=== PATIENT | female | born 1955 | race Caucasian/White ===

== ENCOUNTER 2022-06-03 14:04 | Inpatient (IN) | payer MEDICARE, SELFPAY ==
[2022-06-03 14:06] VITALS: BP 133/110; PULSE 123; RESP 24; TEMP 36.2; O2SAT 99; BMI 28.0
--- NOTE | 2022-06-03 14:39 | CT_ITS ---
STUDY: CT BRAIN WITHOUT CONTRAST REASON FOR EXAM: Female, 66 years old. Right facial trauma RADIATION DOSAGE (If Supplied By Facility): CTDIvol = ( 44.99 ) mGy, DLP = ( 745.49 ) mGycm TECHNIQUE: Transaxial CT imaging of the brain was performed without administration of intravenous contrast material. Individualized dose optimization techniques were used for this CT. COMPARISON: No relevant priors. FINDINGS: Normal soft tissue structures. Normal calvarium. Normal size ventricles and extra-axial spaces for the patient''s age. Normal white matter tracts of the cerebral hemispheres. Normal basal ganglia and thalami. Normal brainstem. Normal cerebellum. There is no intracranial hemorrhage. There are no findings of an acute ischemic infarction. Normal visualized paranasal sinuses. CT/Brain/Head without Contrast IMPRESSION: Normal unenhanced CT scan of the brain. Electronically Signed: Jeovany Rich MD at 17:20 EST ,
--- NOTE | 2022-06-03 14:39 | EKG12_ITS ---
Test Reason : Blood Pressure : / mmHG Vent. Rate : 114 BPM Atrial Rate : 114 BPM P-R Int : 114 ms QRS Dur : 052 ms QT Int : 336 ms P-R-T Axes : 043 009 025 degrees QTc Int : 463 ms Sinus tachycardia Low voltage QRS Cannot rule out Anterior infarct , age undetermined Abnormal ECG When compared with ECG of 24-OCT-2014 05:37, No significant change was found Confirmed by LOTTIE MURRAY, LARRY ([id number]), offline editor YVETTE WITT ([id number]) on 06/08/2022 7:56:19 AM Referred By: Confirmed By:LARRY TAFOYA MD
--- NOTE | 2022-06-03 14:39 | CT_ITS ---
STUDY: CT ABDOMEN AND PELVIS WITH CONTRAST REASON FOR EXAM: Female, 66 years old. Abdominal ascites RADIATION DOSAGE (If Supplied By Facility): CTDIvol = ( 29.55 ) mGy, DLP = ( 1792.63 ) mGycm TECHNIQUE: Transaxial images were obtained from the dome of the diaphragm to the symphysis pubis without oral contrast. IV 100mL Isovue-300 was administered. Sagittal and coronal images were reconstructed. Individualized dose optimization techniques were used for this CT. COMPARISON: None. FINDINGS: The visualized lung bases are unremarkable. The visualized portions of the heart are within normal limits. Large amount of ascites. There is a diffuse contour abnormality of the liver consistent with cirrhotic changes. Innumerable small subcentimeter lesions likely consistent with cysts. Normal gallbladder and extrahepatic biliary system. Normal spleen. Normal pancreas. Normal bilateral adrenal glands. Normal right kidney. 2 small nonobstructing stones in the left kidney. No hydronephrosis, ureteral stone, ureteral dilatation. Normal visualized stomach. Normal small intestine. Normal colon. The appendix is visualized and appears normal. Normal abdominal aorta. Normal inferior vena cava. Normal retroperitoneum. Normal urinary bladder. Edema of the subcutaneous fat suggestive of anasarca. Chronic moderate wedge compression fracture of L3. CT/Abdomen/Pelvis W IV Cont ONLY IMPRESSION: 1. Volume overload with a large amount of ascites and anasarca. 2. Cirrhosis with innumerable small cysts. 3. 2. Small nonobstructing left renal stones. Electronically Signed: Jeovany Rich MD at 17:37 EST ,
--- NOTE | 2022-06-03 14:42 | ED.VIS.GI ---
HPI HPI - GI History of Present Illness Chief Complaint: Abd Pain Detail of Chief Complaint: Also fall today, weakness, head trauma and abdominal ascites. 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 She sees Dr. Barker. She saw his office in March she was having abdominal ascites and leg swelling. They put her on Lasix. Today abdominal ultrasound was being obtained and an echocardiogram. Before she gets to this morning she fell down due to weakness striking the right side of her face. No LOC and reportedly not on blood thinners now. She did have the abdominal ultrasound did not have the echo because while waiting for that she was so weak she was having trouble walking and family wanted to come into the ER to be evaluated. She has had some loose stools but no vomiting or diarrhea. She is also complaining of some shortness of breath without chest pain. Prior similar symptoms: No Recent Illness/Hospitalization: No [facility] Medical History (Updated 06/03/22 @ 16:[address] Leandro Quezada MD) Fracture, tibia and fibula Orthodontic device fitting or adjustment Home Medications furosemide 20 mg tablet 10 mg PO DAILY EDEMA 06/03/22 [History Last Taken 06/03/22] levothyroxine 75 mcg tablet 75 mcg PO DAILY THYROID 06/03/22 [History Last Taken Unknown] Allergy/AdvReac Type Severity Reaction Status Date / Time No Known Allergies Allergy Verified 06/03/22 14:06 Social History Smoking Status: Never smoker ROS ROS ED ROS Narrative Abdominal swelling. Shortness of breath. Fall with head trauma. Leg swelling bilaterally. Review of Systems ROS Unobtainable: Denies due to encephalopathy Constitutional Constitutional ED: Denies chills or fever(s) ENT ENT ED: Denies ear pain Cardiovascular Cardiovascular: Denies chest pain or palpitations Respiratory/Chest Respiratory/Chest: Reports dyspnea; Denies cough Gastrointestinal Gastrointestinal: Reports abdominal pain and diarrhea; Denies constipation, melena, nausea or vomiting Genitourinary Genitourinary ED: Denies dysuria or hematuria Musculoskeletal Musculoskeletal: Denies arthralgias Integumentary Denies abscess Neurologic Neurologic: Denies headache(s) Psychiatric Psychiatric: Denies anxiety Endocrine Endocrinology: Denies polydipsia Hematologic/Lymphatic Hematologic/Lymphatic: Denies easy bleeding Allergic/Immunologic Allergic/Immunologic ED: Denies mouth swelling or tongue swelling EXAM Physical Exam Narrative Exam Narrative: [id number] female vital signs stable afebrile. Pulse ox 9 9% on room air no signs hypoxia. No distress. Family at bedside. H EENT exam pupils round reactive light his motions are intact. She has abrasion to her right forehead and right face in the fall today. Scalp is nontender. C-spine trachea nontender. Lungs clear to auscultation bilaterally. Heart tachycardic rate about 120 no murmur. Chest wall nontender. Abdomen is soft, distended with ascites. No peritoneal signs. Normal bowel sounds. Pelvic girdle intact. Moving all 4 extremities. Edema both lower extremities. 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 Normal dorsi plantar flexion. Extremities are nontender no deformities. Back nontender. Neurologically she is awake and alert with no focal motor deficits. Const Vital Signs: 06/03/22 14:06 06/03/22 16:16 Temperature 97.1 F L Temperature Source Temporal Pulse Rate 123 H 113 H Respiratory Rate 24 H 18 Blood Pressure 133/110 H 115/90 H Blood Pressure Mean 117 98 Pulse Ox 99 93 Oxygen Delivery Method Room Air Room Air Positive well nourished, well developed and obese; Negative for cachectic, contractures or unkempt General Appearance ED: well developed and NAD; Negative for unkempt, cachectic, contractures or pallor Nutritional Appearance: obese; Negative for cachectic HEENT Reports moist mucous membranes normocephalic and trauma; Negative for atraumatic or tenderness Eyes PERRL and EOMs intact bilaterally General Eye ED: Negative for pale conjunctiva or scleral icterus Neck no lymphadenopathy, supple and no JVD General: Negative for tenderness Carotids: Negative for other Lymph Lymphatic: Negative for other Resp normal respiratory effort and clear to auscultation bilaterally Effort and Inspection: Negative for respiratory distress Auscultation: Negative for rales, rhonchi or wheezes Cardio regular rhythm, S1 normal heart sound and S2 normal heart sound; Negative for regular rate Rate: tachycardic GI non-tender, non-distended and no masses GI Narrative: Abdominal ascites. Auscultation: normoactive bowel sounds Palpation: soft; Negative for tender Back/Spine no CVA tenderness General Back: Negative for CVA tenderness Cervical Spine: Negative for cervical spine tenderness Thoracic Spine / Upper Back: Negative for thoracic spinal tenderness Lumbar Spine / Lower Back: Negative for lumbar spinal tenderness Extremity full ROM Extremity Narrative: 2+ pitting edema both lower extremities. Equal and symmetrical. General Extremety ED: Yes edema; Negative for tenderness General Extremity: edema Neuro CN's II-XII intact bilaterally Sensorium / Orientation: alert, oriented to person, oriented to place and oriented to time; Negative for orientation impaired, confused, lethargic or stuporous Motor Exam: strength 5/5 throughout Psych mental status grossly normal Appearance: Negative for unkempt Attitude: No agitated Mood & Affect: Negative for depressed, anxious or tearful Skin Skin Narrative: Right forehead and facial abrasion from the fall today. General Skin Exam: Negative for jaundice or pallor Rashes: no rashes Trauma: abrasion MDM MDM MDM Narrative Medical decision making narrative: Patient's had 2 months of symptoms with abdominal ascites and lower extremity edema. This could be from multiple problems such as liver disease, malignancy, CHF etc. Today she fell due to weakness has head trauma. She is to get a CAT scan of her head due to the head trauma. She did get a CAT scan of her abdomen due to the abdominal ascites. She will get an EKG screening labs. Most likely will need to be admitted. Repeat exam unchanged at 4:40 PM. Discussed all test results with patient and family. Awaiting to speak to the hospitalist about admission. Lab Data Attestation: I reviewed the patient's lab results. Lab results narrative: CBC shows a white count 12.1 H&H 11.1 and 33. Platelets 117,000. Electrolytes show sodium 137. Gap of 5 normal being creatinine. Liver enzymes unremarkable. BNP unremarkable 75. Glucose 124. Urinalysis shows 5-10 white cells. 1+ bacteria. No nitrates. Labs: Laboratory Results - last 24 hr 06/03/22 06/03/22 06/03/22 14:50 14:50 14:50 WBC 12.1 H RBC 3.17 L Hgb 11.1 L Hct 33.5 L MCV 105.7 H MCH 35.0 H MCHC 33.1 RDW Std Deviation 59.7 H RDW Coeff of Radha 15.7 H Plt Count 117 L MPV 10.4 Immature Gran % (Auto) 0.700 Neut % (Auto) 64.1 Lymph % (Auto) 17.3 L [place] % (Auto) 15.8 H Eos % (Auto) 1.6 Baso % (Auto) 0.5 Absolute Neuts (auto) 7.7 Absolute Lymphs (auto) 2.09 Nucleated RBC % 0 Differential Comment SEE COMMENT Diff Path Review May foll Platelet Estimate SLT DEC RBC Morphology N CHROM Anisocytosis 1+ Macrocytosis 1+ Sodium 137 Potassium 3.8 Chloride 103 Carbon Dioxide 29.0 Anion Gap 5 BUN 16 Creatinine 0.82 Estim Creat Clear Calc 64.88 Est GFR (MDRD) Af Amer 90 Est GFR (MDRD) Non-Af 74 BUN/Creatinine Ratio 19.4 Glucose 124 H Calcium 7.5 L Total Bilirubin 3.40 H AST 49 H ALT 31 Alkaline Phosphatase 95 Troponin I High Sens 10 B-Natriuretic Peptide 75.6 Total Protein 7.2 Albumin 2.2 L Globulin 5.0 H Albumin/Globulin Ratio 0.4 L Urine Color Urine Clarity Urine pH Ur Specific [place] Urine Protein Urine Glucose (UA) Urine Ketones Urine Occult Blood Urine Nitrite Urine Bilirubin Urine Urobilinogen Ur Leukocyte Esterase Urine RBC Urine WBC Ur Squamous Epith Cells Calcium Oxalate Crystal Urine Bacteria Urine Mucus 06/03/22 16:00 WBC RBC Hgb Hct MCV MCH MCHC RDW Std Deviation RDW Coeff of Radha Plt Count MPV Immature Gran % (Auto) Neut % (Auto) Lymph % (Auto) [place] % (Auto) Eos % (Auto) Baso % (Auto) Absolute Neuts (auto) Absolute Lymphs (auto) Nucleated RBC % Differential Comment Diff Path Review Platelet Estimate RBC Morphology Anisocytosis Macrocytosis Sodium Potassium Chloride Carbon Dioxide Anion Gap BUN Creatinine Estim Creat Clear Calc Est GFR (MDRD) Af Amer Est GFR (MDRD) Non-Af BUN/Creatinine Ratio Glucose Calcium Total Bilirubin AST ALT Alkaline Phosphatase Troponin I High Sens B-Natriuretic Peptide Total Protein Albumin Globulin Albumin/Globulin Ratio Urine Color Yellow Urine Clarity Sl. Cloudy Urine pH 5.0 Ur Specific [place] 1.015 Urine Protein 30 H Urine Glucose (UA) Normal Urine Ketones 5 H Urine Occult Blood 10 H Urine Nitrite Negative Urine Bilirubin 3 H Urine Urobilinogen 8 H Ur Leukocyte Esterase 100 H Urine RBC 0-5 SEEN Urine WBC 5-10 SEEN Ur Squamous Epith Cells 0-5 SEEN Calcium Oxalate Crystal 1+ Urine Bacteria 1+ Urine Mucus 0 SEEN Radiography Diagnostic Testing: Chest x-ray, portable, single view interpreted by me shows no acute abnormality. Chronic changes. CT abdomen pelvis is read per the radiologist read by me shows significant abdominal ascites. Liver cirrhosis. CT of the brain has no official read as of yet I have reviewed it myself I see no acute intercranial abnormality or bleed. Awaiting official read. Rhythm Strip Rhythm Strip: Sinus Rhythm Rate: 114 Ectopy: None EKG Initial EKG: Attestation: I personally reviewed and interpreted this EKG as follows: Interpretation: Sinus Rhythm and Sinus Tachycardia Comments: Sinus tachycardia rate of 114. No acute signs of PR or ischemia. Discharge Plan Dx/Rx/DC Orders Clinical Impression: Ascites, Cirrhosis, Weakness, Fall, Closed head injury, Unable to ambulate Disposition Disposition: Acute Care Hospital [facility]
[2022-06-03] MEDS: morphine 8 MG/ML Syringe 6 MG IV (14:54)
[2022-06-03] MEDS: Ondansetron 4 MG/2 ML Vial IV (14:54)
[2022-06-03 15:02] LABS: Absolute Lymphocyte Count 2.09 X10^3/uL (0.83-4.51); Absolute Neutrophil Count 7.7 X10^3/uL (2.0-7.7); Basophil# 0.06 X10^3/uL; Basophil% 0.5 % (0-1); Eosinophil# 0.19 X10^3/uL; Eosinophils% 1.6 % (0-5); Hematocrit 33.5 % (37-47); Hemoglobin 11.1 g/dL (12.0-15.0); Lymphocyte # 2.09 X10^3/ul (0.83-4.51); Lymphocyte % 17.3 % (19-41); Mean Corp Hgb Conc 33.1 g/dL (32-36); Mean Corpuscular Volume 105.7 fL (81-99); Mean Platelet Vol. 10.4 fl (6.2-12.0); Monocyte# 1.91 X10^3/uL; Monocyte% 15.8 % (0-10); NRBC Flagged by Analyzer 0 % (0-5); Neutrophil # 7.72 X10^3/uL (2.7-7.7); Neutrophil % 64.1 % (47-70); POSITIVE DIFFERENTIAL YES; Platelet Count 117 K/mm3 (150-450); RBC Distribution Width CV 15.7 % (11.6-14.6); RBC Distribution Width SD 59.7 fl (35.1-43.9); Red Blood Count 3.17 M/mm3 (4.2-5.4); White Blood Count 12.1 K/mm3 (4.4-11.0)
[2022-06-03 15:17] LABS: BNP,B-Type NATRIURETIC PEPTIDE 75.6 pg/mL (0-100)
[2022-06-03 15:19] LABS: ALB/GLOB Ratio 0.4 RATIO (0.9-2.4); AST(SGOT) 49 U/L (15-37); Alanine Aminotransfer ALT/SGPT 31 U/L (13-56); Albumin, Serum 2.2 g/dL (3.2-5.0); Alkaline Phosphatase 95 U/L (45-117); Anion Gap 5 (5-15); BUN 16 mg/dL (7-18); BUN/Creat Ratio 19.4 RATIO (10-20); Calcium,Total 7.5 mg/dL (8.5-10.1); Chloride 103 mmol/L (98-107); Creatinine, Serum 0.82 mg/dL (0.55-1.02); EST Glomerular Filtration Rate 74 mL/min (>60); Est Glom Filt Rate - Afr Amer 90 mL/min (>60); Estimated Creatinine Clearance 64.88 ml/min; Glucose 124 mg/dL (74-106); Potassium 3.8 mmol/L (3.5-5.1); Protein, Total 7.2 g/dL (6.4-8.2); Sodium Level 137 mmol/L (136-145); Troponin-I HS 10 pg/mL (3.0-54.0)
[2022-06-03 15:21] LABS: Differential Indicated SCAN CRITERIA MET
--- NOTE | 2022-06-03 15:30 | RAD_ITS ---
STUDY: X-RAY CHEST REASON FOR EXAM: Female, 66 years old. Dyspnea TECHNIQUE: Single AP portable view of the chest. COMPARISON: None. FINDINGS: Poor inspiration with some bibasilar atelectasis. There is no demonstrated pleural abnormality. Normal size heart. Normal mediastinum and nafisa. Normal visualized pulmonary arteries. Normal visualized aortic arch and descending thoracic aorta. Normal visualized thoracic spine. Normal visualized ribs, clavicles, and shoulders. There is no demonstrated abnormality of the visualized soft tissue structures of the upper abdomen. RAD/Chest 1 View (Portable) IMPRESSION: Poor inspiration with some bibasilar atelectasis Electronically Signed: Jeovany Rich MD at 17:20 EST ,
[2022-06-03 15:41] LABS: Platelet Estimate SLT DEC (ADEQ); Red Cell Morphology N CHROM NORMAL (NORM C&C)
[2022-06-03 15:42] LABS: Anisocytosis 1+; Macrocytosis 1+
[2022-06-03 16:07] LABS: Mucous, Urine 0 SEEN /hpf (<or=2+)
[2022-06-03 16:15] LABS: Color, Urine Yellow (Yellow); Glucose, Dipstick Normal (Normal); Ketone-Dipstick 5 mg/dl (Negative); Leukocyte Esterase-Dipstick 100 /ul (Negative); Nitrite-Dipstick Negative (Negative); Occult Blood-Urine 10 /ul (Negative); Protein-Dipstick 30 mg/dl (Negative); Specific Gravity, Urine 1.015 (1.002-1.030); Urine Clarity Sl. Cloudy (Clear); Urine Urobilinogen 8 mg/dl (Normal)
[2022-06-03 16:16] VITALS: BP 115/90; PULSE 113; RESP 18; O2SAT 93
[2022-06-03 16:18] LABS: Urine Bilirubin Dipstick 3 mg/dL (Negative)
[2022-06-03 16:24] LABS: Bacteria 1+ /hpf (None Seen); Calcium Oxalate Crystals Ur 1+ /hpf (<or=2+); Red Blood Cells-Urine 0-5 SEEN /hpf (0-5); Squamous Epithelial Cells - UA 0-5 SEEN /hpf (5-10); White Blood Cells 5-10 SEEN /hpf (0-5)
--- NOTE | 2022-06-03 16:57 | PCM.HP.STD ---
[facility] - General General Date of Admission: 06/03/22 Date of Service: 06/03/22 Chief Complaint: Abdominal distention [facility] Narrative EVIE OLVERA, is a 66 F with past medical history signal for hypothyroidism who presents with a 6-week history of abdominal distention. Patient has been diagnosed with ascites by primary care physician was placed on p.o. Lasix 20 mg. Patient has since noticed increasing distention involving the abdomen as well as swelling involving lower extremities. On further questioning patient denied any previous history of hepatitis. Denies IV drug use. Denies diabetes or alcohol use. CT of the abdomen obtained on admission did show Volume overload with a large amount of ascites and anasarca as well as Cirrhosis with innumerable small cysts.. [facility] and [facility] Medical History Fracture, tibia and fibula Orthodontic device fitting or adjustment Home Medications furosemide 20 mg tablet 10 mg PO DAILY EDEMA 06/03/22 [History Last Taken 06/03/22] levothyroxine 75 mcg tablet 75 mcg PO DAILY THYROID 06/03/22 [History Last Taken Unknown] Allergy/AdvReac Type Severity Reaction Status Date / Time No Known Allergies Allergy Verified 06/03/22 14:06 Family History (Updated 06/03/22 @ 17:[address] Magdy Judge MD) Mother No problems noted. Father Heart disease Social History Smoking Status: Never smoker ROS ROS Narrative GENERAL: denies fever, chills, HEENT: denies headache, sinus congestion, RESPIRATORY: shortness of breath, dyspnea on exertion CARDIAC: denies chest pain, palpitations, orthopnea, PND GASTROINTESTINAL: abdominal pain, GENITOURINARY: denies dysuria, urgency, frequency, heamaturia EXTREMITY: denies swelling MUSCULOSKELETAL: denies current joint pain or tenderness NEUROLOGIC: denies focal numbness, weakness, tingling HEMATOLOGIC: denies easy bruising and/or hemorrhage INTEGUMENT: denies rashes PSYCHIATRIC: denies suicidal or homicidal ideation Vital Signs Vital Signs Vital Signs: 06/03/22 14:06 06/03/22 16:16 Temperature 97.1 F L Temperature Source Temporal Pulse Rate 123 H 113 H Respiratory Rate 24 H 18 Blood Pressure 133/110 H 115/90 H Blood Pressure Mean 117 98 Pulse Ox 99 93 Oxygen Delivery Method Room Air Room Air Weight Weight: 78.925 kg Body Mass Index (BMI) 28.0 Physical Exam Narrative GENERAL: cooperative HEENT: Bruising involving the right side of the face EYES; Anicteric, Normal Conjunctiva NECK; supple, normal thyroid, RESPIRATORY: Diminished to auscultation CARDIOVASCULAR: Regular S1 S2, GI: Abdomen markedly distended with shifting dullness : No Renal angle tenderness; EXTREMITIES: Acute edema with bilateral stasis dermatitis MUSCULOSKELETAL: no muscle wasting NEURO: Awake; no lateralizing signs. SKIN: As described above PSYCH; Flat affect Results Lab / Micro Data Result Diagrams: 06/03/22 14:50 06/03/22 14:50 Labs: Laboratory Results - last 24 hr 06/03/22 14:50: WBC 12.1 H, RBC 3.17 L, Hgb 11.1 L, Hct 33.5 L, MCV 105.7 H, MCH 35.0 H, MCHC 33.1, RDW Std Deviation 59.7 H, RDW Coeff of Radha 15.7 H, Plt Count 117 L, MPV 10.4, Immature Gran % (Auto) 0.700, Neut % (Auto) 64.1, Lymph % (Auto) 17.3 L, [place] % (Auto) 15.8 H, Eos % (Auto) 1.6, Baso % (Auto) 0.5, Absolute Neuts (auto) 7.7, Absolute Lymphs (auto) 2.09, Nucleated RBC % 0, Differential Comment SEE COMMENT, Diff Path Review October foll, Platelet Estimate SLT DEC, RBC Morphology N CHROM, Anisocytosis 1+, Macrocytosis 1+ 06/03/22 14:50: Sodium 137, Potassium 3.8, Chloride 103, Carbon Dioxide 29.0, Anion Gap 5, BUN 16, Creatinine 0.82, Estim Creat Clear Calc 64.88, Est GFR (MDRD) Af Amer 90, Est GFR (MDRD) Non-Af 74, BUN/Creatinine Ratio 19.4, Glucose 124 H, Calcium 7.5 L, Total Bilirubin 3.40 H, AST 49 H, ALT 31, Alkaline Phosphatase 95, Troponin I High Sens 10, Total Protein 7.2, Albumin 2.2 L, Globulin 5.0 H, Albumin/Globulin Ratio 0.4 L 06/03/22 14:50: B-Natriuretic Peptide 75.6 06/03/22 16:00: Urine Color Yellow, Urine Clarity Sl. Cloudy, Urine pH 5.0, Ur Specific [place] 1.015, Urine Protein 30 H, Urine Glucose (UA) Normal, Urine Ketones 5 H, Urine Occult Blood 10 H, Urine Nitrite Negative, Urine Bilirubin 3 H, Urine Urobilinogen 8 H, Ur Leukocyte Esterase 100 H, Urine RBC 0-5 SEEN, Urine WBC 5-10 SEEN, Ur Squamous Epith Cells 0-5 SEEN, Calcium Oxalate Crystal 1+, Urine Bacteria 1+, Urine Mucus 0 SEEN Rhythm Strip Rhythm Strip: Sinus Rhythm Rate: 114 Ectopy: None Assessment & Plan Assessment/Plan (1) Cirrhosis: (2) Ascites: (3) Fall: PLAN: Plan Patient is a 66-year-old lady presented with abdominal pain diagnosed with new onset ascites 1. New onset ascites ? CT of the abdomen and pelvis obtained on admission did not show Volume overload with a large amount of ascites and anasarca.2.? Cirrhosis with innumerable small cysts.3.? 2.? Small nonobstructing left renal stones. Patient has been admitted to regular nursing floor for subsequent evaluation. As part of the management ordered therapeutic and diagnostic paracentesis. Patient started on Lasix consult placed to GI 2. Hypothyroidism - Patient is on levothyroxine home dose continued 3. Thrombocytopenia ? Secondary to patient cirrhosis of the liver we will monitor 4. Fall with closed head injury ? CT of the head was unremarkable we will continue to monitor 5. Anemia - Secondary to chronic disorder monitoring H&H and transfuse if patient becomes symptomatic or hemoglobin falls below 7 6. Hypocalcemia ? Secondary to patient hypoalbuminemia from her cirrhosis of the liver we will monitor 7. DVT prophylaxis ? Bilateral SCDs avoided the use of chemoprophylaxis in view of patient's low platelet count Advance planning; did discuss with the patient and family regarding advanced directives as well as CODE STATUS. Did explain the various scenarios involved ( FULL CODE, DNR CCA, DNR CCA with no intubation, and DNR CC and what each meant) patient elected to remain full code with CPR and intubation if needed. Order was placed. Time spent on discussion 18 minutes. Charges/Coding Visit Charges Inpatient E&M: 54298 Init Hosp L3 Procedures Hospitalists Procedures: 44954 Advncd Care Plan 30 Min
[2022-06-03 17:19] VITALS: BP 101/60; PULSE 109; RESP 16; TEMP 36.2; O2SAT 94
[2022-06-03 18:33] VITALS: BMI 27.3
--- NOTE | 2022-06-03 18:40 | CON.PCM.GI_ITS ---
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 She sees Dr. Barker.? She saw his office in March she was having abdominal ascites and leg swelling.? They put h er on Lasix.? Today abdominal ultrasound was being obtained and an echocardiogram.? Before she gets to this morning she fell down due to weakness striking the right side of her face.? No LOC and reportedly not on blood thinners now.? She did have the abdominal ultrasound did not have the echo because while waiting for that she was so weak she was having trouble walking and family wanted to come into the ER to be evaluated.? She has had some loose stools but no vomiting or diarrhea.? She is also complaining of some shortness of breath without chest pain. CT scan abdomen pelvis shows : there is a diffuse contour abnormality of the liver consistent with cirrhotic changes.? Innumerable small subcentimeter lesions likely consistent with cysts.? Normal gallbladder and extrahepatic biliary system.Normal spleen.? Laboratory analysis is consistent with macrocytic anemia, leukocytosis, thrombocytopenia. [facility] Medical History Fracture, tibia and fibula Orthodontic device fitting or adjustment Home Medications furosemide 20 mg tablet 10 mg PO DAILY EDEMA 06/03/22 [History Last Taken 06/03/22] levothyroxine 75 mcg tablet 75 mcg PO DAILY THYROID 06/03/22 [History Last Taken Unknown] Allergy/AdvReac Type Severity Reaction Status Date / Time No Known Allergies Allergy Verified 06/03/22 14:06 Family History (Updated 06/03/22 @ 17:[address] Magdy Judge MD) Mother No problems noted. Father Heart disease Social History Smoking Status: Never smoker ROS ROS Narrative GENERAL: denies fever, chills, HEENT: denies headache, sinus congestion, RESPIRATORY: shortness of breath, dyspnea on exertion CARDIAC: denies chest pain, palpitations, orthopnea, PND GASTROINTESTINAL: abdominal pain, GENITOURINARY: denies dysuria, urgency, frequency, heamaturia EXTREMITY: denies swelling MUSCULOSKELETAL: denies current joint pain or tenderness NEUROLOGIC: denies focal numbness, weakness, tingling HEMATOLOGIC: denies easy bruising and/or hemorrhage INTEGUMENT: denies rashes PSYCHIATRIC: denies suicidal or homicidal ideation Physical Exam Narrative GENERAL: cooperative HEENT: Bruising involving the right side of the face EYES; Anicteric, Normal Conjunctiva NECK; supple, normal thyroid, RESPIRATORY: Diminished to auscultation CARDIOVASCULAR: Regular S1 S2, GI: Abdomen markedly distended with shifting dullness : No Renal angle tenderness; EXTREMITIES: Acute edema with bilateral stasis dermatitis MUSCULOSKELETAL: no muscle wasting NEURO: Awake; no lateralizing signs. SKIN: As described above PSYCH; Flat affect Lab / Micro Data Result Diagrams: 06/03/22 14:50 06/03/22 14:50 Labs: Laboratory Results - last 24 hr 06/03/22 14:50: WBC 12.1 H, RBC 3.17 L, Hgb 11.1 L, Hct 33.5 L, MCV 105.7 H, MCH 35.0 H, MCHC 33.1, RDW Std Deviation 59.7 H, RDW Coeff of Radha 15.7 H, Plt Count 117 L, MPV 10.4, Immature Gran % (Auto) 0.700, Neut % (Auto) 64.1, Lymph % (Auto) 17.3 L, [place] % (Auto) 15.8 H, Eos % (Auto) 1.6, Baso % (Auto) 0.5, Absolute Neuts (auto) 7.7, Absolute Lymphs (auto) 2.09, Nucleated RBC % 0, Differential Comment SEE COMMENT, Diff Path Review May foll, Platelet Estimate SLT DEC, RBC Morphology N CHROM, Anisocytosis 1+, Macrocytosis 1+ 06/03/22 14:50: Sodium 137, Potassium 3.8, Chloride 103, Carbon Dioxide 29.0, Anion Gap 5, BUN 16, Creatinine 0.82, Estim Creat Clear Calc 64.88, Est GFR (MDRD) Af Amer 90, Est GFR (MDRD) Non-Af 74, BUN/Creatinine Ratio 19.4, Glucose 124 H, Calcium 7.5 L, Total Bilirubin 3.40 H, AST 49 H, ALT 31, Alkaline Phosphatase 95, Troponin I High Sens 10, Total Protein 7.2, Albumin 2.2 L, Globulin 5.0 H, Albumin/Globulin Ratio 0.4 L 06/03/22 14:50: B-Natriuretic Peptide 75.6 06/03/22 16:00: Urine Color Yellow, Urine Clarity Sl. Cloudy, Urine pH 5.0, Ur Specific [place] 1.015, Urine Protein 30 H, Urine Glucose (UA) Normal, Urine Ketones 5 H, Urine Occult Blood 10 H, Urine Nitrite Negative, Urine Bilirubin 3 H, Urine Urobilinogen 8 H, Ur Leukocyte Esterase 100 H, Urine RBC 0-5 SEEN, Urine WBC 5-10 SEEN, Ur Squamous Epith Cells 0-5 SEEN, Calcium Oxalate Crystal 1+, Urine Bacteria 1+, Urine Mucus 0 SEEN Rhythm Strip Rhythm Strip: Sinus Rhythm Rate: 114 Ectopy: None Radiology Impression Abdomen/Pelvis CT 06/03/22 14:39 IMPRESSION: 1. Volume overload with a large amount of ascites and anasarca. 2. Cirrhosis with innumerable small cysts. 3. 2. Small nonobstructing left renal stones. Electronically Signed: Jeovany Rich MD at 17:37 EST Reading Location ID and State: [id number] / [employer] , Service support , Brain CT 06/03/22 14:39 IMPRESSION: Normal unenhanced CT scan of the brain. Electronically Signed: Jeovany Rich MD at 17:20 EST Reading Location ID and State: 994 / [employer] , Service support , Chest X-Ray 06/03/22 15:30 IMPRESSION: Poor inspiration with some bibasilar atelectasis Electronically Signed: Jeovany Rich MD at 17:20 EST Reading Location ID and State: 994 / [employer] Tel , Service support , Assessment & Plan Assessment/Plan (1) Cirrhosis: PLAN: In the [place], the 3 main causes of ascites are cirrhosis, malignancy, and heart failure.?Diagnostic paracentesis is recommended as first- line evaluation for new-onset ascites. Initial laboratory investigation of ascites includes cell count and differential, total protein, and serum and peritoneal fluid albumin.If portal hypertension is present based on the SAAG, the next step is to review the as-citic protein level to help distinguish between a hepatic and a cardiac etiology of the ascites. An ascitic protein level less than 2.5 g/ dL indicates a primary liver pathology (eg, cirrhosis). An ascitic protein level of 2.5 g/dL or greater typically indicates a cardiac condition (eg, heart failure, pericardial disease) with secondary congestive hepatopathy. If the SAAG is less than 1.1 g/dL, the ascites is likely not from portal hypertension. Typical causes of a low SAAG include infection, malignancy, pancreatic ascites, and nephrotic syndrome. I will order labs for her paracentesis including labs to calculate her SAAG gradient, cytology, amylase and lipase. She will also need to get a cardiac echo. We will order labs for acute on chronic hepatitis including labs autoimmune hepatitis, primary biliary cirrhosis, alpha-1 antitrypsin disease, protein electrophoresis and immunofixation for infiltrative diseases such as myeloma, amyloidosis, sarcoidosis. She will also need an alpha-fetoprotein to screen for hepatocellular carcinoma and a CEA 15 3 to look for pseudocirrhosis that would be from breast cancer for example. (2) Ascites: Charges/Coding Visit Charges Inpatient E&M: 62382 Init Hosp L3
[2022-06-03 18:48] VITALS: PULSE 90
[2022-06-03 18:54] VITALS: BP 101/60; PULSE 90; RESP 16; TEMP 36.2; O2SAT 94
[2022-06-03] MEDS: Furosemide 40 MG/4 ML Vial IV (19:47)
[2022-06-03] MEDS: 0.9% Saline Lock 10 ML Syringe IV (19:48)
[2022-06-03 19:53] LABS: CPK Total, Creatine Kinase 105 U/L (26-192); Ferritin 490 ng/mL (8-252); LDH 263 U/L (84-246); Triglycerides 72 mg/dL
[2022-06-04] VITALS (11 sets, daily range): BP systolic 85–111; BP diastolic 42–73; PULSE 94–110; RESP 18–26; TEMP 36.7–37.3; O2SAT 92–100
[2022-06-04 05:11] LABS: Absolute Lymphocyte Count 2.69 X10^3/uL (0.83-4.51); Absolute Neutrophil Count 6.3 X10^3/uL (2.0-7.7); Basophil# 0.07 X10^3/uL; Basophil% 0.6 % (0-1); Eosinophils% 3.6 % (0-5); Hematocrit 30.1 % (37-47); Hemoglobin 10.3 g/dL (12.0-15.0); Lymphocyte # 2.69 X10^3/ul (0.83-4.51); Lymphocyte % 24.5 % (19-41); Mean Corp Hgb Conc 34.2 g/dL (32-36); Mean Corpuscular Hgb 35.9 pg (27.0-32.0); Mean Corpuscular Volume 104.9 fL (81-99); Mean Platelet Vol. 10.2 fl (6.2-12.0); Monocyte# 1.51 X10^3/uL; Monocyte% 13.8 % (0-10); NRBC Flagged by Analyzer 0 % (0-5); Neutrophil # 6.25 X10^3/uL (2.7-7.7); POSITIVE DIFFERENTIAL YES; Platelet Count 105 K/mm3 (150-450); RBC Distribution Width CV 15.9 % (11.6-14.6); RBC Distribution Width SD 59.9 fl (35.1-43.9); Red Blood Count 2.87 M/mm3 (4.2-5.4)
[2022-06-04 05:16] LABS: Differential Indicated SCAN CRITERIA MET
[2022-06-04] MEDS: Furosemide 40 MG/4 ML Vial IV ×2 (05:22→14:35)
[2022-06-04] MEDS: Levothyroxine 75 MCG Tablet PO (05:22)
[2022-06-04] MEDS: 0.9% Saline Lock 10 ML Syringe IV ×2 (05:23→14:35)
[2022-06-04 05:29] LABS: International Normalized Ratio 1.8; Prothrombin Time (Protime)PT. 20.4 SECONDS (11.7-14.9)
[2022-06-04 05:30] LABS: Partial Thromboplast Time 35.1 Seconds (24.1-36.2)
[2022-06-04 05:32] LABS: Anisocytosis 1+; Macrocytosis 1+; Platelet Estimate SLT DEC (ADEQ)
[2022-06-04 06:12] LABS: AST(SGOT) 50 U/L (15-37); Alanine Aminotransfer ALT/SGPT 30 U/L (13-56); Albumin, Serum 1.9 g/dL (3.2-5.0); Alkaline Phosphatase 79 U/L (45-117); Anion Gap 5 (5-15); BUN 14 mg/dL (7-18); BUN/Creat Ratio 21.2 RATIO (10-20); Bilirubin, Direct 1.36 mg/dL (0.00-0.30); Calcium,Total 7.1 mg/dL (8.5-10.1); Chloride 105 mmol/L (98-107); Creatinine, Serum 0.66 mg/dL (0.55-1.02); EST Glomerular Filtration Rate 96 mL/min (>60); Est Glom Filt Rate - Afr Amer 116 mL/min (>60); Estimated Creatinine Clearance 86.87 ml/min; Globulin 4.5 g/dL (2.2-4.2); Glucose 90 mg/dL (74-106); Potassium 3.5 mmol/L (3.5-5.1); Protein, Total 6.4 g/dL (6.4-8.2); Sodium Level 137 mmol/L (136-145)
--- NOTE | 2022-06-04 07:18 | PN.HOSP_ITS ---
Subjective Subjective Patient was seen in consultation by GI the note of Dr. Marshall reviewed. Plan is for patient to undergo diagnostic and therapeutic paracentesis Objective Data Objective Data Vital Signs: Vital Signs Temp Pulse Resp BP Pulse Ox O2 Del Method 98.4 F 94 18 105/73 93 Room Air 06/04/22 02:30 06/04/22 02:30 06/04/22 02:30 06/04/22 02:30 06/04/22 02:30 06/04/22 02:30 Oxygen Delivery Method Room Air Weight: 81.6 kg Body Mass Index (BMI) 27.3 Intake & Output: Intake and Output for Last 24 Hours 06/02/22 06/03/22 06/04/22 23:59 23:59 23:59 Output Total 250 / 250 Balance -250 / -250 Lab / Micro Data Result Diagrams: 06/04/22 04:55 06/04/22 04:55 Labs: Laboratory Results - last 24 hr 06/03/22 14:50: WBC 12.1 H, RBC 3.17 L, Hgb 11.1 L, Hct 33.5 L, MCV 105.7 H, MCH 35.0 H, MCHC 33.1, RDW Std Deviation 59.7 H, RDW Coeff of Radha 15.7 H, Plt Count 117 L, MPV 10.4, Immature Gran % (Auto) 0.700, Neut % (Auto) 64.1, Lymph % (Auto) 17.3 L, [place] % (Auto) 15.8 H, Eos % (Auto) 1.6, Baso % (Auto) 0.5, Absolute Neuts (auto) 7.7, Absolute Lymphs (auto) 2.09, Nucleated RBC % 0, Differential Comment SEE COMMENT, Diff Path Review May foll, Platelet Estimate SLT DEC, RBC Morphology N CHROM, Anisocytosis 1+, Macrocytosis 1+ 06/03/22 14:50: Sodium 137, Potassium 3.8, Chloride 103, Carbon Dioxide 29.0, Anion Gap 5, BUN 16, Creatinine 0.82, Estim Creat Clear Calc 64.88, Est GFR (MDRD) Af Amer 90, Est GFR (MDRD) Non-Af 74, BUN/Creatinine Ratio 19.4, Glucose 124 H, Calcium 7.5 L, Total Bilirubin 3.40 H, AST 49 H, ALT 31, Alkaline Phosphatase 95, Troponin I High Sens 10, Total Protein 7.2, Albumin 2.2 L, Globulin 5.0 H, Albumin/Globulin Ratio 0.4 L 06/03/22 14:50: B-Natriuretic Peptide 75.6 06/03/22 14:50: Ferritin 490 H, Lactate Dehydrogenase 263 H, Total Creatine Kinase 105, Triglycerides 72 06/03/22 16:00: Urine Color Yellow, Urine Clarity Sl. Cloudy, Urine pH 5.0, Ur Specific [place] 1.015, Urine Protein 30 H, Urine Glucose (UA) Normal, Urine Ketones 5 H, Urine Occult Blood 10 H, Urine Nitrite Negative, Urine Bilirubin 3 H, Urine Urobilinogen 8 H, Ur Leukocyte Esterase 100 H, Urine RBC 0-5 SEEN, Urine WBC 5-10 SEEN, Ur Squamous Epith Cells 0-5 SEEN, Calcium Oxalate Crystal 1+, Urine Bacteria 1+, Urine Mucus 0 SEEN 06/04/22 04:55: WBC 11.0, RBC 2.87 L, Hgb 10.3 L, Hct 30.1 L, MCV 104.9 H, MCH 35.9 H, MCHC 34.2, RDW Std Deviation 59.9 H, RDW Coeff of Radha 15.9 H, Plt Count 105 L, MPV 10.2, Immature Gran % (Auto) 0.500, Neut % (Auto) 57.0, Lymph % (Auto) 24.5, [place] % (Auto) 13.8 H, Eos % (Auto) 3.6, Baso % (Auto) 0.6, Absolute Neuts (auto) 6.3, Absolute Lymphs (auto) 2.69, Nucleated RBC % 0, Platelet Estimate SLT DEC, Anisocytosis 1+, Macrocytosis 1+ 06/04/22 04:55: PT 20.4 H, INR 1.8, APTT 35.1 06/04/22 04:55: Sodium 137, Potassium 3.5, Chloride 105, Carbon Dioxide 27.0, Anion Gap 5, BUN 14, Creatinine 0.66, Estim Creat Clear Calc 86.87, Est GFR (MDRD) Af Amer 116, Est GFR (MDRD) Non-Af 96, BUN/Creatinine Ratio 21.2 H, Glucose 90, Calcium 7.1 L, Total Bilirubin 2.90 H, Direct Bilirubin 1.36 H, AST 50 H, ALT 30, Alkaline Phosphatase 79, Total Protein 6.4, Albumin 1.9 L, Globulin 4.5 H, TSH 12.60 H Radiography Diagnostic Testing: Radiology Impression Abdomen/Pelvis CT 06/03/22 14:39 IMPRESSION: 1. Volume overload with a large amount of ascites and anasarca. 2. Cirrhosis with innumerable small cysts. 3. 2. Small nonobstructing left renal stones. Electronically Signed: Jeovany Rich MD at 17:37 EST Reading Location ID and State: [id number] / [employer] Tel , Service support , Brain CT 06/03/22 14:39 IMPRESSION: Normal unenhanced CT scan of the brain. Electronically Signed: Jeovany Rich MD at 17:20 EST Reading Location ID and State: 994 / [employer] Tel , Service support , Chest X-Ray 06/03/22 15:30 IMPRESSION: Poor inspiration with some bibasilar atelectasis Electronically Signed: Jeovany Rich MD at 17:20 EST Reading Location ID and State: 994 / [employer] Tel , Service support , Rhythm Strip Rhythm Strip: Sinus Rhythm Rate: 114 Ectopy: None Physical Exam Narrative GENERAL: cooperative HEENT: Bruising involving the right side of the face EYES; Anicteric, Normal Conjunctiva NECK; supple, normal thyroid, RESPIRATORY: Diminished to auscultation CARDIOVASCULAR: Regular S1 S2, GI: Abdomen markedly distended with shifting dullness : No Renal angle tenderness; EXTREMITIES: Acute edema with bilateral stasis dermatitis MUSCULOSKELETAL: no muscle wasting NEURO: Awake; no lateralizing signs. SKIN: As described above PSYCH; Flat affect Assessment & Plan Assessment/Plan (1) Cirrhosis: (2) Ascites: (3) Fall: PLAN: Plan Patient is a 66-year-old lady presented with abdominal pain diagnosed with new onset ascites 1. New onset ascites ? CT of the abdomen and pelvis obtained on admission did not show Volume overload with a large amount of ascites and anasarca.2.? Cirrhosis with innumerable small cysts.3.? 2.? Small nonobstructing left renal stones. Patient has been admitted to regular nursing floor for subsequent evaluation. As part of the management ordered therapeutic and diagnostic paracentesis. Patient started on Lasix consult placed to GI -2Patient was seen in consultation by GI the note of Dr. Marshall reviewed. Plan is for patient to undergo diagnostic and therapeutic paracentesis. Further management decision will be based on results of patient's paracentesis 2. Hypothyroidism - Patient is on levothyroxine home dose continued ? 06/04/2022; patient TSH elevated at 12.6 adjusted patient levothyroxine dose 3. Thrombocytopenia ? Secondary to patient cirrhosis of the liver we will monitor 4. Fall with closed head injury ? CT of the head was unremarkable we will continue to monitor 5. Anemia - Secondary to chronic disorder monitoring H&H and transfuse if patient becomes symptomatic or hemoglobin falls below 7 6. Hypocalcemia ? Secondary to patient hypoalbuminemia from her cirrhosis of the liver we will monitor 7. DVT prophylaxis ? Bilateral SCDs avoided the use of chemoprophylaxis in view of patient's low platelet count 8. Physical deconditioning - Requested for PT OT eval and social media developer to assist with discharge planning Charges/Coding Visit Charges Inpatient E&M: 41014 Subs Hosp L3
[2022-06-04] MEDS: Pantoprazole Sodium 40 MG Tablet PO (07:48)
--- NOTE | 2022-06-04 07:58 | PCM.PROGNOTE ---
Subjective Subjective Patient said that she is feeling a lot better after undergoing large-volume paracentesis. I do not see any of labs associated with the paracentesis that were ordered to look for signs of SBP, malignancy and to calculate her SAAG gradient. She seems alert and oriented to person place and time, but has a mild confusion. Objective Data Objective Data Vital Signs: Vital Signs Temp Pulse Resp BP Pulse Ox O2 Del Method 98.4 F 94 18 105/73 94 Room Air 06/04/22 02:30 06/04/22 02:30 06/04/22 02:30 06/04/22 02:30 06/04/22 06:59 06/04/22 06:59 Oxygen Delivery Method Room Air Weight: 179 lb 14.355 oz Body Mass Index (BMI) 27.3 Intake & Output: Intake and Output for Last 24 Hours 06/02/22 06/03/22 06/04/22 23:59 23:59 23:59 Output Total 250 / 250 Balance -250 / -250 Lab / Micro Data Result Diagrams: 06/04/22 04:55 06/04/22 04:55 Labs: Laboratory Results - last 24 hr 06/03/22 14:50: WBC 12.1 H, RBC 3.17 L, Hgb 11.1 L, Hct 33.5 L, MCV 105.7 H, MCH 35.0 H, MCHC 33.1, RDW Std Deviation 59.7 H, RDW Coeff of Radha 15.7 H, Plt Count 117 L, MPV 10.4, Immature Gran % (Auto) 0.700, Neut % (Auto) 64.1, Lymph % (Auto) 17.3 L, [place] % (Auto) 15.8 H, Eos % (Auto) 1.6, Baso % (Auto) 0.5, Absolute Neuts (auto) 7.7, Absolute Lymphs (auto) 2.09, Nucleated RBC % 0, Differential Comment SEE COMMENT, Diff Path Review May valeri, Platelet Estimate SLT DEC, RBC Morphology N CHROM, Anisocytosis 1+, Macrocytosis 1+ 06/03/22 14:50: Sodium 137, Potassium 3.8, Chloride 103, Carbon Dioxide 29.0, Anion Gap 5, BUN 16, Creatinine 0.82, Estim Creat Clear Calc 64.88, Est GFR (MDRD) Af Amer 90, Est GFR (MDRD) Non-Af 74, BUN/Creatinine Ratio 19.4, Glucose 124 H, Calcium 7.5 L, Total Bilirubin 3.40 H, AST 49 H, ALT 31, Alkaline Phosphatase 95, Troponin I High Sens 10, Total Protein 7.2, Albumin 2.2 L, Globulin 5.0 H, Albumin/Globulin Ratio 0.4 L 06/03/22 14:50: B-Natriuretic Peptide 75.6 06/03/22 14:50: Ferritin 490 H, Lactate Dehydrogenase 263 H, Total Creatine Kinase 105, Triglycerides 72 06/03/22 16:00: Urine Color Yellow, Urine Clarity Sl. Cloudy, Urine pH 5.0, Ur Specific [place] 1.015, Urine Protein 30 H, Urine Glucose (UA) Normal, Urine Ketones 5 H, Urine Occult Blood 10 H, Urine Nitrite Negative, Urine Bilirubin 3 H, Urine Urobilinogen 8 H, Ur Leukocyte Esterase 100 H, Urine RBC 0-5 SEEN, Urine WBC 5-10 SEEN, Ur Squamous Epith Cells 0-5 SEEN, Calcium Oxalate Crystal 1+, Urine Bacteria 1+, Urine Mucus 0 SEEN 06/04/22 04:55: WBC 11.0, RBC 2.87 L, Hgb 10.3 L, Hct 30.1 L, MCV 104.9 H, MCH 35.9 H, MCHC 34.2, RDW Std Deviation 59.9 H, RDW Coeff of Radha 15.9 H, Plt Count 105 L, MPV 10.2, Immature Gran % (Auto) 0.500, Neut % (Auto) 57.0, Lymph % (Auto) 24.5, [place] % (Auto) 13.8 H, Eos % (Auto) 3.6, Baso % (Auto) 0.6, Absolute Neuts (auto) 6.3, Absolute Lymphs (auto) 2.69, Nucleated RBC % 0, Platelet Estimate SLT DEC, Anisocytosis 1+, Macrocytosis 1+ 06/04/22 04:55: PT 20.4 H, INR 1.8, APTT 35.1 06/04/22 04:55: Sodium 137, Potassium 3.5, Chloride 105, Carbon Dioxide 27.0, Anion Gap 5, BUN 14, Creatinine 0.66, Estim Creat Clear Calc 86.87, Est GFR (MDRD) Af Amer 116, Est GFR (MDRD) Non-Af 96, BUN/Creatinine Ratio 21.2 H, Glucose 90, Calcium 7.1 L, Total Bilirubin 2.90 H, Direct Bilirubin 1.36 H, AST 50 H, ALT 30, Alkaline Phosphatase 79, Total Protein 6.4, Albumin 1.9 L, Globulin 4.5 H, TSH 12.60 H Radiography Diagnostic Testing: Radiology Impression Abdomen/Pelvis CT 06/03/22 14:39 IMPRESSION: 1. Volume overload with a large amount of ascites and anasarca. 2. Cirrhosis with innumerable small cysts. 3. 2. Small nonobstructing left renal stones. Electronically Signed: Jeovany Rich MD at 17:37 EST Reading Location ID and State: 994 / [employer] Tel , Service support , Brain CT 06/03/22 14:39 IMPRESSION: Normal unenhanced CT scan of the brain. Electronically Signed: Jeovany Rich MD at 17:20 EST Reading Location ID and State: 994 / [employer] , Service support , Chest X-Ray 06/03/22 15:30 IMPRESSION: Poor inspiration with some bibasilar atelectasis Electronically Signed: Jeovany Rich MD at 17:20 EST Reading Location ID and State: 994 / [employer] Tel , Service support , Rhythm Strip Rhythm Strip: Sinus Rhythm Rate: 114 Ectopy: None Physical Exam Narrative GENERAL: cooperative HEENT: Bruising involving the right side of the face EYES; Anicteric, Normal Conjunctiva NECK; supple, normal thyroid, RESPIRATORY: Diminished to auscultation CARDIOVASCULAR: Regular S1 S2, GI: Abdomen markedly distended with shifting dullness : No Renal angle tenderness; EXTREMITIES: Acute edema with bilateral stasis dermatitis MUSCULOSKELETAL: no muscle wasting NEURO: Awake; no lateralizing signs. SKIN: As described above PSYCH; Flat affect Assessment & Plan Assessment/Plan (1) Ascites: PLAN: Status post large-volume paracentesis for therapeutic purposes. Awaiting diagnostic work-up on ascites to look for signs of peritoneal carcinomatosis, nephrotic syndrome, pancreatic involvement as her pancreas does look slightly abnormal on imaging. She also needs a cardiac echocardiogram to make sure this is not cardiac cirrhosis (2) Encephalopathy acute: PLAN: I will check an ammonia I will start her on Xifaxan 550 milligrams twice a day and lactulose 20 cc twice daily. (3) Cirrhosis: PLAN: The working diagnosis is REES cirrhosis at this time. Work-up in progress. I will also nadolol for variceal prophylaxis. She will need a screening for varices. Charges/Coding Visit Charges Inpatient E&M: 92828 Subs Hosp L3
[2022-06-04] MEDS: Lactulose 20 GM/30 ML UDC 10 GM PO ×2 (10:03→22:25)
--- NOTE | 2022-06-04 11:55 | CASEMGMT ---
RN?CM?ROADS SUPERVISOR?CM?to room to meet with patient for initial transition planning/care coordination?assessment.?RN?CM?introduced self and role at [facility].? Pt voices understanding and consents to?assessment?at this time.? Pt sitting up in chair in room in no distress at this time.? Pt is A/O at this time and answers all questions appropriately.?? Care providers, pharmacy, and demographics verified/updated at this time.? PCP:?Dr Barker Specialists:?none Preferred Pharmacy:?[facility] Insurance:?Jose BROWNING Prescription Benefit:??Yes Living Will/HPOA:??Has both LW and HCPOA, who is her daughter, Soraya Sheehan. LNOK:?Dtr/Soraya. Mother, Ángela. Sister, Janelle. Living Arrangements:?Lives w/her mom in one-story home w/basement w/4 steps to enter. Pt states does okay with the stairs. Independent w/ADL's and IADL's @ baseline and manages her own medications and does her own grocery shopping. Pt states has been recently and fell down the stairs yesterday. Transportation:?Pt states drives self and states no transportation concerns at this time.??Brother will take her home @ d/c. DME: ? Denies using any DME and denies needs.??Does not use any device to ambulate. Has a pulse ox available. Neighbor, who is a nurse, has a walker available she can borrow, if needed. HHC/SNF:?No hx of SNF. Has had HHC in the past after she broke her leg. Unable to recall name of agency. Pt declines wanting any HHC or OP therapy. She states she feels better this morning than yesterday. Pt made aware, if she changes her mind after returning home, to talk w/PCP. She voices understanding. Pt wishes to return home and states has no concerns with going home at time of discharge.?CM?to follow for any discharge planning/needs.? Pt voices no concerns/needs at this time.? Advised pt to ask for?CM?if any questions/concerns/needs arise.? Voices understanding.? PLAN:??Home PT/OT evals pending. Danielito SPEARSN?RN?CM
[2022-06-04] MEDS: Lidocaine 1% (20 ml mdv) 20 ML Vial INFILT (12:23)
--- NOTE | 2022-06-04 12:25 | FLU_PTH ---
PATIENT: EVIE OLVERA LOC: MS3 U#:[id number] AGE/SX: 66/F ROOM: [facility] [place]06/03/[address]: Dr. Aleksey Rod MD : [id number] BED: 1 DIS: 06/10/2022 SPEC #: [id number] RECD: 06/04/22 12:46 STATUS: SOUDanette REQ #: [id number] REMA: 06/04/22 12:[address]: Magdy Judge DEPT: CYTOLOGY RECD BY: Raine Luna ENTERED: 06/07/22 08:46 SP TYPE: Fluid OTHR DR: MD Dr. Shweta Sanchez DO Dr. Mark Elderbrock, MD Tissues: PARACENTESIS FLUID Procedures: Special Stain Group II Surgery Specimen Level IV Cytospin Fluid Comments: @ Ordering doctor for SSII edited from to @ by RGOOD at 06/07/22 1424 @ Ordering doctor for SUIV edited from to @ by RGOOD at 06/07/22 1424 @ Ordering doctor for CYSPIN edited from to @ by RGOOD at 06/07/22 1424 @ Submitting doctor edited from to @ by RGOOD at 06/07/22 1424 HEADER OPERATION: Paracentesis PRE-OP DIAGNOSIS: Ascites TISSUE SUBMITTED: Paracentesis fluid for cytology DIAGNOSIS CYTOLOGY Paracentesis fluid for cytology (cytospin and cell block): Negative for malignant cells. See comment. MARY:zaid 06/08/2022 COMMENT Clinical correlation and appropriate follow up are necessary. CYTOLOGY STUDY Slides are reviewed. CYTOLOGY GROSS Received is 50 ml of yellow cloudy fluid labeled with the patient's name and and designated per the requisition as paracentesis. Submitted for cytology preparation including cell block. / zaid 06/07/2022 TC:5 CPT: 81277, 51207
[2022-06-04 12:53] LABS: Cytology, Body Fluid / CSF SEE PATHOLOGY REPORT
[2022-06-04 13:53] LABS: Body Fluid Mononuclear WBC # 0.139 10^3/uL; Body Fluid Mononuclear WBC % 92.7 %; Body Fluid Polynuclear WBC # 0.011 10^3/uL; Body Fluid Polynuclear WBC % 7.3 %; Body Fluid Total Cells Counted 0.166 10^3/ul
[2022-06-04 14:26] LABS: Glucose, Body Fluid 123 mg/dL (40-70); LDH,Body Fluid 45 Units/l (Not Establ.); Protein, Body Fluid 0.9 g/dL (Not Establ.)
[2022-06-04 14:59] LABS: Lymphocytes 76 %; Macrophages 14 %; Mesothelial Cells 5 %; Monocytes 1 %; Neutrophil (Segs) 4 %
[2022-06-04 15:01] LABS: Auto B Fluid Analyzer BKGD Ct COUNTS W/IN LIMITS (W/IN LIMITS); Source- Body Fluid ASCITES FLUID
[2022-06-04 15:02] LABS: Appearance/Body Fluid CLEAR; Body Fluid QC Type(s) BF1Q; Color/Body Fluid YELLOW; Red Cell Count/Body Fluid 78 /mm3
--- NOTE | 2022-06-04 15:43 | CASEMGMT ---
Social Work Pt does have a HCPOA on file naming her daughter Janelle Folwers. Per nursing assessment, pt states she does have a living will and is aware it is not on file and will bring a copy in when able for EMR. HEMANTH Romeo
[2022-06-04] MEDS: Albumin Human 25% (100 mL) 25 GM/100 ML BAG IV (17:29)
--- NOTE | 2022-06-04 18:43 | US_ITS ---
PROCEDURE: Ultrasound guided paracentesis. DATE OF EXAMINATION: 06/04/2022. INDICATION: Female, 66 years old. Ascites. PHYSICIAN: Loco Pearson M.D. TECHNIQUE: The risks, benefits, and alternatives to the procedure were explained to the patient. The specific risks of bleeding, infection, and damage to bowel were detailed and accepted. Witnessed informed consent was obtained. The abdomen was ultrasonographically surveyed. An appropriate pocket of fluid was identified at the right lower quadrant. The skin were cleaned and prepped in the usual sterile fashion. Using ultrasound guidance, the peritoneal cavity was accessed with a 5-Vincentian paracentesis needle/catheter system. The trocar was removed. A total of 6800 ml of donnell-colored fluid were removed from the peritoneal cavity. A 100 mL sample was sent to the laboratory for evaluation. The catheter was removed and a sterile dressing was applied. The procedure was well tolerated. US/Paracentesis with US IMPRESSION: Ultrasound guided paracentesis. Electronically Signed: Loco Pearson MD at 13:20 EST ,
[2022-06-04] MEDS: Nystatin Powder 15gm Bottle 1 APPLIC TOPICAL (22:26)
[2022-06-05] VITALS (8 sets, daily range): BP systolic 83–99; BP diastolic 43–62; PULSE 91–98; RESP 15–18; TEMP 36.7–36.8; O2SAT 93–97
[2022-06-05] MEDS: Levothyroxine 88 MCG Tablet PO ×2 (06:12)
--- NOTE | 2022-06-05 06:12 | NURSING ---
PT BP THIS AM - SCHEDULED FOR 40MG IV LASIX - CORTEXT TO DR HULL REGARDING SAME.
[2022-06-05] MEDS: 0.9% Saline Lock 10 ML Syringe IV (06:36)
[2022-06-05] MEDS: Furosemide 20 MG/2 ML VIAL IV (06:36)
--- NOTE | 2022-06-05 06:42 | NURSING ---
RECEIVED NEW LASIX ORDERS FROM DR HULL
[2022-06-05 07:19] LABS: Absolute Neutrophil Count 6.9 X10^3/uL (2.0-7.7); Basophil# 0.08 X10^3/uL; Basophil% 0.7 % (0-1); Eosinophil# 0.41 X10^3/uL; Eosinophils% 3.4 % (0-5); Hematocrit 32.5 % (37-47); Hemoglobin 10.6 g/dL (12.0-15.0); Lymphocyte % 23.5 % (19-41); Mean Corp Hgb Conc 32.6 g/dL (32-36); Mean Corpuscular Hgb 34.3 pg (27.0-32.0); Mean Corpuscular Volume 105.2 fL (81-99); Mean Platelet Vol. 10.5 fl (6.2-12.0); Monocyte# 1.69 X10^3/uL; Monocyte% 14.2 % (0-10); NRBC Flagged by Analyzer 0 % (0-5); Neutrophil # 6.85 X10^3/uL (2.7-7.7); Neutrophil % 57.5 % (47-70); POSITIVE COUNT YES; POSITIVE DIFFERENTIAL YES; Platelet Count 93 K/mm3 (150-450); RBC Distribution Width CV 15.7 % (11.6-14.6); RBC Distribution Width SD 60.3 fl (35.1-43.9); Red Blood Count 3.09 M/mm3 (4.2-5.4); White Blood Count 11.9 K/mm3 (4.4-11.0)
--- NOTE | 2022-06-05 07:37 | PCM.PN.HOSP ---
Subjective Subjective Patient seen significant decrease abdomen. Patient SAAG gradient not calculated since ascitic albumin level assessment. Objective Data Objective Data Vital Signs: Vital Signs Temp Pulse Resp BP Pulse Ox O2 Del Method 98.1 F 91 18 89/53 L 95 Room Air 06/05/22 06:00 06/05/22 06:00 06/05/22 06:00 06/05/22 06:00 06/05/22 07:07 06/05/22 07:07 Oxygen Delivery Method [4] Room Air Oxygen Delivery Method [3] Room Air Oxygen Delivery Method [2] Room Air Oxygen Delivery Method [1 ( Room Air Initial Baseline)] Oxygen Delivery Method Room Air Weight: 70.845 kg Body Mass Index (BMI) 27.3 Intake & Output: Intake and Output for Last 24 Hours 06/03/22 06/04/22 06/05/22 23:59 23:59 23:59 Intake Total 200 / 200 60 / 60 Output Total 7450 / 7450 Balance -7250 / -7250 60 / 60 Lab / Micro Data Result Diagrams: 06/05/22 06:20 06/05/22 06:20 Labs: Laboratory Results - last 24 hr 06/03/22 12:25: Fluid Glucose 123 H, Fluid Total Protein 0.9, Fluid LDH 45 06/04/22 04:55: Fluid Amylase Cancelled 06/04/22 08:25: Ammonia 51.0 H 06/04/22 12:25: Fluid Source ASCITES FLUID, Fluid Color YELLOW, Fluid Appearance CLEAR, Fluid WBC 0.150, Fluid RBC 78, Fluid Tot Cell Count 0.166 H, Fld Polynuclear WBCs # 0.011, Fld Polynuclear WBCs % 7.3, Fluid Mononuclear WBCs 0.139, Fld Mononuclear WBCs % 92.7, Fluid Neutrophils 4, Fluid Lymphocytes 76, Fluid Monocytes 1, Fluid Macrophages 14, Fld Mesothelial Cells 5, Fl Pathologist Comment May follow, Fluid Comment 2 SEE COMMENT 06/04/22 12:25: Acid Fast Stain Cancelled, Miscellaneous Cytology Cancelled 06/04/22 12:25: Fluid Total Protein Cancelled Micro: Microbiology 06/04/22 12:25 Fluid - Paracentesis (Abd) Gram Stain - Final Radiography Diagnostic Testing: Radiology Impression Paracentesis Ultrasound 06/04/22 18:43 IMPRESSION: Ultrasound guided paracentesis. Electronically Signed: Lcoo Pearson MD at 13:20 EST , Rhythm Strip Rhythm Strip: Sinus Rhythm Rate: 114 Ectopy: None Physical Exam Narrative GENERAL: cooperative HEENT: Bruising involving the right side of the face EYES; Anicteric, Normal Conjunctiva NECK; supple, normal thyroid, RESPIRATORY: Diminished to auscultation CARDIOVASCULAR: Regular S1 S2, GI: Abdomen markedly distended with shifting dullness : No Renal angle tenderness; EXTREMITIES: Acute edema with bilateral stasis dermatitis MUSCULOSKELETAL: no muscle wasting NEURO: Awake; no lateralizing signs. SKIN: As described above PSYCH; Flat affect Assessment & Plan Assessment/Plan (1) Cirrhosis: (2) Ascites: (3) Fall: PLAN: Plan Patient is a 66-year-old lady presented with abdominal pain diagnosed with new onset ascites 1. New onset ascites ? CT of the abdomen and pelvis obtained on admission did not show Volume overload with a large amount of ascites and anasarca.2.? Cirrhosis with innumerable small cysts.3.? 2.? Small nonobstructing left renal stones. Patient has been admitted to regular nursing floor for subsequent evaluation. As part of the management ordered therapeutic and diagnostic paracentesis. Patient started on Lasix consult placed to GI -06/04/2022atient was seen in consultation by GI the note of Dr. Marshall reviewed. Plan is for patient to undergo diagnostic and therapeutic paracentesis. Further management decision will be based on results of patient's paracentesis ? 06/05/2022; patient seen significant decrease abdomen. Patient SAAG gradient not calculated since ascitic albumin level assessment. 2. Hypothyroidism - Patient is on levothyroxine home dose continued ? 06/04/2022; patient TSH elevated at 12.6 adjusted patient levothyroxine dose 3. Thrombocytopenia ? Secondary to patient cirrhosis of the liver we will monitor 4. Fall with closed head injury ? CT of the head was unremarkable we will continue to monitor 5. Anemia - Secondary to chronic disorder monitoring H&H and transfuse if patient becomes symptomatic or hemoglobin falls below 7 6. Hypocalcemia ? Secondary to patient hypoalbuminemia from her cirrhosis of the liver we will monitor 7. DVT prophylaxis ? Bilateral SCDs avoided the use of chemoprophylaxis in view of patient's low platelet count 8. Physical deconditioning - Requested for PT OT eval and social security assessor to assist with discharge planning Charges/Coding Visit Charges Inpatient E&M: 65941 Subs Hosp L2
[2022-06-05 07:39] LABS: Differential Indicated SCAN CRITERIA MET
[2022-06-05 07:46] LABS: Anion Gap 5 (5-15); BUN 14 mg/dL (7-18); BUN/Creat Ratio 22.2 RATIO (10-20); Calcium,Total 7.3 mg/dL (8.5-10.1); Chloride 102 mmol/L (98-107); Creatinine, Serum 0.63 mg/dL (0.55-1.02); EST Glomerular Filtration Rate 101 mL/min (>60); Est Glom Filt Rate - Afr Amer 122 mL/min (>60); Glucose 95 mg/dL (74-106); Potassium 3.3 mmol/L (3.5-5.1); Sodium Level 135 mmol/L (136-145)
[2022-06-05] MEDS: Lactulose 20 GM/30 ML UDC 10 GM PO ×2 (09:23→21:39)
[2022-06-05] MEDS: Furosemide 40 MG Tablet PO ×2 (09:23→21:40)
[2022-06-05] MEDS: Pantoprazole Sodium 40 MG Tablet PO (09:24)
[2022-06-05] MEDS: Nystatin Powder 15gm Bottle 1 APPLIC TOPICAL ×2 (09:24→21:39)
[2022-06-05 09:57] LABS: Differential Comment SCANNED; Platelet Estimate MOD DEC (ADEQ)
--- NOTE | 2022-06-05 15:34 | PCM.PROGNOTE ---
Subjective Subjective Patient feels like her abdomen is a little bit more distended today. She has no abdominal pain. She has been having bowel movements. She is tolerating diet. Objective Data Objective Data Vital Signs: Vital Signs Temp Pulse Resp BP Pulse Ox O2 Del Method 98.2 F 97 15 93/62 95 Room Air 06/05/22 14:00 06/05/22 14:00 06/05/22 14:00 06/05/22 14:00 06/05/22 14:00 06/05/22 14:00 Oxygen Delivery Method [4] Room Air Oxygen Delivery Method [3] Room Air Oxygen Delivery Method [2] Room Air Oxygen Delivery Method [1 ( Room Air Initial Baseline)] Oxygen Delivery Method Room Air Weight: 156 lb 3 oz Body Mass Index (BMI) 27.3 Intake & Output: Intake and Output for Last 24 Hours 06/03/22 06/04/22 06/05/22 23:59 23:59 23:59 Intake Total 200 / 200 60 / 60 Output Total 7450 / 7450 Balance -7250 / -7250 60 / 60 Lab / Micro Data Result Diagrams: 06/05/22 06:20 06/05/22 06:20 Labs: Laboratory Results - last 24 hr 06/04/22 04:55: CA 125 Antigen 485.0 H 06/04/22 12:25: Fluid Total Protein Cancelled 06/05/22 06:20: WBC 11.9 H, RBC 3.09 L, Hgb 10.6 L, Hct 32.5 L, MCV 105.2 H, MCH 34.3 H, MCHC 32.6, RDW Std Deviation 60.3 H, RDW Coeff of Radha 15.7 H, Plt Count 93 L, MPV 10.5, Immature Gran % (Auto) 0.700, Neut % (Auto) 57.5, Lymph % (Auto) 23.5, [place] % (Auto) 14.2 H, Eos % (Auto) 3.4, Baso % (Auto) 0.7, Absolute Neuts (auto) 6.9, Absolute Lymphs (auto) 2.80, Nucleated RBC % 0, Differential Comment SCANNED, Diff Path Review October, Platelet Estimate MOD DEC 06/05/22 06:20: Sodium 135 L, Potassium 3.3 L, Chloride 102, Carbon Dioxide 28.0, Anion Gap 5, BUN 14, Creatinine 0.63, Estim Creat Clear Calc 91.00, Est GFR (MDRD) Af Amer 122, Est GFR (MDRD) Non-Af 101, BUN/Creatinine Ratio 22.2 H, Glucose 95, Calcium 7.3 L Micro: Microbiology 06/04/22 12:25 Fluid - Paracentesis (Abd) Gram Stain - Final 06/04/22 12:25 Fluid - Paracentesis (Abd) Body Fluid Culture - Preliminary No growth-Final to follow Rhythm Strip Rhythm Strip: Sinus Rhythm Rate: 114 Ectopy: None Physical Exam Narrative GENERAL: cooperative HEENT: Bruising involving the right side of the face EYES; Anicteric, Normal Conjunctiva NECK; supple, normal thyroid, RESPIRATORY: Diminished to auscultation CARDIOVASCULAR: Regular S1 S2, GI: Abdomen markedly distended with shifting dullness : No Renal angle tenderness; EXTREMITIES: Acute edema with bilateral stasis dermatitis MUSCULOSKELETAL: no muscle wasting NEURO: Awake; no lateralizing signs. SKIN: As described above PSYCH; Flat affect Assessment & Plan Assessment/Plan (1) Encephalopathy acute: PLAN: Last ammonia was 51. We will recheck it today. She is taking lactulose. We will have her on Xifaxan 550 mg twice a day. (2) Ascites: PLAN: She is on Lasix 40 mg p.o. 3 times daily. I will add spironolactone 50 mg daily. We will keep an eye on her potassium and her blood pressure.Recommend start midodrine p.o. 3 times daily as it can assist in decreasing ascites formation. 500 mg sodium restriction. Encourage protein intake. (3) Cirrhosis: PLAN: Current meld is 10 with a child Vasquez score class B. Decompensated cirrhosis with ascites and biochemical profile with anemia, thrombocytopenia and currently has elevated white blood cell count. She has not shown any signs of infection at this time. Awaiting biochemical work-up and tumor markers CA125, CA 19-9 and alpha-fetoprotein (4) Hypotension: PLAN: Recommend start midodrine p.o. 3 times daily Charges/Coding Visit Charges Inpatient E&M: 20517 Subs Hosp L3
[2022-06-05] MEDS: Spironolactone 50 MG Tablet PO (17:27)
[2022-06-05] MEDS: Midodrine HCl 5 MG Tablet 10 MG PO (17:27)
[2022-06-05 21:02] LABS: Alpha Antitrypsin Serum 145 mg/dL (101-187); Anti-Mitochondrial AB <20.0 Units (0.0-20.0)
[2022-06-06] VITALS (8 sets, daily range): BP systolic 88–100; BP diastolic 55–62; PULSE 80–94; RESP 15–16; TEMP 36.6–37.2; O2SAT 94–96
[2022-06-06 05:48] LABS: Absolute Lymphocyte Count 3.02 X10^3/uL (0.83-4.51); Absolute Neutrophil Count 6.1 X10^3/uL (2.0-7.7); Basophil# 0.07 X10^3/uL; Basophil% 0.6 % (0-1); Eosinophil# 0.55 X10^3/uL; Hematocrit 32.1 % (37-47); Hemoglobin 10.7 g/dL (12.0-15.0); Lymphocyte # 3.02 X10^3/ul (0.83-4.51); Lymphocyte % 27.3 % (19-41); Mean Corp Hgb Conc 33.3 g/dL (32-36); Mean Corpuscular Hgb 34.7 pg (27.0-32.0); Mean Corpuscular Volume 104.2 fL (81-99); Mean Platelet Vol. 10.7 fl (6.2-12.0); Monocyte# 1.29 X10^3/uL; Monocyte% 11.7 % (0-10); NRBC Flagged by Analyzer 0 % (0-5); Neutrophil # 6.06 X10^3/uL (2.7-7.7); Neutrophil % 54.8 % (47-70); POSITIVE COUNT YES; Platelet Count 94 K/mm3 (150-450); RBC Distribution Width CV 15.7 % (11.6-14.6); RBC Distribution Width SD 59.7 fl (35.1-43.9); Red Blood Count 3.08 M/mm3 (4.2-5.4); White Blood Count 11.1 K/mm3 (4.4-11.0)
[2022-06-06 05:59] LABS: Anion Gap 5 (5-15); BUN 15 mg/dL (7-18); BUN/Creat Ratio 23.5 RATIO (10-20); Calcium,Total 7.1 mg/dL (8.5-10.1); Chloride 101 mmol/L (98-107); Creatinine, Serum 0.64 mg/dL (0.55-1.02); EST Glomerular Filtration Rate 100 mL/min (>60); Est Glom Filt Rate - Afr Amer 120 mL/min (>60); Estimated Creatinine Clearance 89.58 ml/min; Glucose 87 mg/dL (74-106); Potassium 3.1 mmol/L (3.5-5.1); Sodium Level 135 mmol/L (136-145)
--- NOTE | 2022-06-06 07:31 | PCM.PN.HOSP ---
Subjective Subjective Patient seen per nursing staff had a relatively eventful evening.. Repeat paracentesis ordered for a.m. diagnostic data significant for hypokalemia correction initiated Objective Data Objective Data Vital Signs: Vital Signs Temp Pulse Resp BP Pulse Ox O2 Del Method 98.9 F 86 16 88/55 L 95 Room Air 06/06/22 04:30 06/06/22 07:07 06/06/22 04:30 06/06/22 07:07 06/06/22 04:30 06/06/22 04:30 Oxygen Delivery Method [4] Room Air Oxygen Delivery Method [3] Room Air Oxygen Delivery Method [2] Room Air Oxygen Delivery Method [1 ( Room Air Initial Baseline)] Oxygen Delivery Method Room Air Weight: 74.7 kg Body Mass Index (BMI) 27.3 Intake & Output: Intake and Output for Last 24 Hours 06/04/22 06/05/22 06/06/22 23:59 23:59 23:59 Intake Total 200 / 200 60 / 210 150 / 150 Output Total 7450 / 7450 Balance -7250 / -7250 60 / 210 150 / 150 Lab / Micro Data Result Diagrams: 06/06/22 05:10 06/06/22 05:10 Labs: Laboratory Results - last 24 hr 06/04/22 04:55: Rmabz-8-Xnqvnoioieu 145, Anti-Mitochondrial Ab <20.0 06/04/22 04:55: CA 125 Antigen 485.0 H 06/05/22 06:20: WBC 11.9 H, RBC 3.09 L, Hgb 10.6 L, Hct 32.5 L, MCV 105.2 H, MCH 34.3 H, MCHC 32.6, RDW Std Deviation 60.3 H, RDW Coeff of Radha 15.7 H, Plt Count 93 L, MPV 10.5, Immature Gran % (Auto) 0.700, Neut % (Auto) 57.5, Lymph % (Auto) 23.5, [place] % (Auto) 14.2 H, Eos % (Auto) 3.4, Baso % (Auto) 0.7, Absolute Neuts (auto) 6.9, Absolute Lymphs (auto) 2.80, Nucleated RBC % 0, Differential Comment SCANNED, Diff Path Review October, Platelet Estimate MOD DEC 06/05/22 06:20: Sodium 135 L, Potassium 3.3 L, Chloride 102, Carbon Dioxide 28.0, Anion Gap 5, BUN 14, Creatinine 0.63, Estim Creat Clear Calc 91.00, Est GFR (MDRD) Af Amer 122, Est GFR (MDRD) Non-Af 101, BUN/Creatinine Ratio 22.2 H, Glucose 95, Calcium 7.3 L 06/06/22 05:10: WBC 11.1 H, RBC 3.08 L, Hgb 10.7 L, Hct 32.1 L, MCV 104.2 H, MCH 34.7 H, MCHC 33.3, RDW Std Deviation 59.7 H, RDW Coeff of Radha 15.7 H, Plt Count 94 L, MPV 10.7, Immature Gran % (Auto) 0.600, Neut % (Auto) 54.8, Lymph % (Auto) 27.3, [place] % (Auto) 11.7 H, Eos % (Auto) 5.0, Baso % (Auto) 0.6, Absolute Neuts (auto) 6.1, Absolute Lymphs (auto) 3.02, Nucleated RBC % 0 06/06/22 05:10: Sodium 135 L, Potassium 3.1 L, Chloride 101, Carbon Dioxide 29.0, Anion Gap 5, BUN 15, Creatinine 0.64, Estim Creat Clear Calc 89.58, Est GFR (MDRD) Af Amer 120, Est GFR (MDRD) Non-Af 100, BUN/Creatinine Ratio 23.5 H, Glucose 87, Calcium 7.1 L Micro: Microbiology 06/04/22 12:25 Fluid - Paracentesis (Abd) Gram Stain - Final 06/04/22 12:25 Fluid - Paracentesis (Abd) Body Fluid Culture - Preliminary No growth-Final to follow Rhythm Strip Rhythm Strip: Sinus Rhythm Rate: 114 Ectopy: None Physical Exam Narrative GENERAL: cooperative HEENT: Bruising involving the right side of the face EYES; Anicteric, Normal Conjunctiva NECK; supple, normal thyroid, RESPIRATORY: Diminished to auscultation CARDIOVASCULAR: Regular S1 S2, GI: Abdomen distended : No Renal angle tenderness; EXTREMITIES: edema with bilateral stasis dermatitis MUSCULOSKELETAL: no muscle wasting NEURO: Awake; no lateralizing signs. SKIN: As described above PSYCH; Flat affect Assessment & Plan Assessment/Plan (1) Cirrhosis: (2) Ascites: (3) Fall: PLAN: Plan Patient is a 66-year-old lady presented with abdominal pain diagnosed with new onset ascites 1. New onset ascites ? CT of the abdomen and pelvis obtained on admission did not show Volume overload with a large amount of ascites and anasarca.2.? Cirrhosis with innumerable small cysts.3.? 2.? Small nonobstructing left renal stones. Patient has been admitted to regular nursing floor for subsequent evaluation. As part of the management ordered therapeutic and diagnostic paracentesis. Patient started on Lasix consult placed to GI -06/04/2022atient was seen in consultation by GI the note of Dr. Marshall reviewed. Plan is for patient to undergo diagnostic and therapeutic paracentesis. Further management decision will be based on results of patient's paracentesis ? 06/05/2022; patient seen significant decrease abdomen. Patient SAAG gradient not calculated since ascitic albumin level assessment. ? 06/06/2020 2 repeat paracentesis ordered for a.m. 2. Hypothyroidism - Patient is on levothyroxine home dose continued ? 06/04/2022; patient TSH elevated at 12.6 adjusted patient levothyroxine dose 3. Thrombocytopenia ? Secondary to patient cirrhosis of the liver we will monitor 4. Fall with closed head injury ? CT of the head was unremarkable we will continue to monitor 5. Anemia - Secondary to chronic disorder monitoring H&H and transfuse if patient becomes symptomatic or hemoglobin falls below 7 6. Hypocalcemia ? Secondary to patient hypoalbuminemia from her cirrhosis of the liver we will monitor 7. DVT prophylaxis ? Bilateral SCDs avoided the use of chemoprophylaxis in view of patient's low platelet count 8. Physical deconditioning - Requested for PT OT eval and secondary social studies teacher to assist with discharge planning 9. Hypokalemia ? Corrected per protocol repeat labs ordered for a.m. Charges/Coding Visit Charges Inpatient E&M: 90106 Subs Hosp L2
[2022-06-06] MEDS: Potassium Chloride 10mEq/100mL 10 MEQ/100 ML IV.SOLN. 100 MEQ IV BOLUS ×4 (08:23→11:56)
[2022-06-06] MEDS: Midodrine HCl 5 MG Tablet 10 MG PO ×3 (08:31→17:16)
[2022-06-06] MEDS: Spironolactone 50 MG Tablet PO (08:31)
[2022-06-06] MEDS: Lactulose 20 GM/30 ML UDC 10 GM PO ×2 (08:32→20:50)
[2022-06-06] MEDS: Pantoprazole Sodium 40 MG Tablet PO (08:33)
[2022-06-06] MEDS: Nystatin Powder 15gm Bottle 1 APPLIC TOPICAL ×2 (08:33→20:51)
[2022-06-06] MEDS: Furosemide 40 MG Tablet PO ×3 (08:34→20:52)
[2022-06-07] VITALS (7 sets, daily range): BP systolic 82–128; BP diastolic 43–68; PULSE 83–95; RESP 16–22; TEMP 36.5–37.3; O2SAT 93–100
[2022-06-07] MEDS: Ondansetron 4 MG/2 ML Vial IV (04:36)
[2022-06-07] MEDS: 0.9% Saline Lock 10 ML Syringe IV ×2 (04:36→20:19)
[2022-06-07] MEDS: Levothyroxine 88 MCG Tablet PO (05:34)
[2022-06-07] MEDS: Furosemide 40 MG Tablet PO ×2 (05:34→15:51)
[2022-06-07 06:44] LABS: Absolute Lymphocyte Count 2.49 X10^3/uL (0.83-4.51); Absolute Neutrophil Count 6.4 X10^3/uL (2.0-7.7); Basophil# 0.09 X10^3/uL; Basophil% 0.8 % (0-1); Eosinophil# 0.48 X10^3/uL; Eosinophils% 4.3 % (0-5); Hematocrit 34.6 % (37-47); Hemoglobin 11.5 g/dL (12.0-15.0); Lymphocyte # 2.49 X10^3/ul (0.83-4.51); Lymphocyte % 22.3 % (19-41); Mean Corp Hgb Conc 33.2 g/dL (32-36); Mean Corpuscular Hgb 34.6 pg (27.0-32.0); Mean Corpuscular Volume 104.2 fL (81-99); Mean Platelet Vol. 10.7 fl (6.2-12.0); Monocyte# 1.61 X10^3/uL; Monocyte% 14.4 % (0-10); NRBC Flagged by Analyzer 0 % (0-5); Neutrophil # 6.42 X10^3/uL (2.7-7.7); Neutrophil % 57.4 % (47-70); POSITIVE DIFFERENTIAL YES; Platelet Count 126 K/mm3 (150-450); RBC Distribution Width CV 15.8 % (11.6-14.6); RBC Distribution Width SD 59.6 fl (35.1-43.9); Red Blood Count 3.32 M/mm3 (4.2-5.4); White Blood Count 11.2 K/mm3 (4.4-11.0)
[2022-06-07 06:59] LABS: Anion Gap 6 (5-15); BUN 15 mg/dL (7-18); BUN/Creat Ratio 21.5 RATIO (10-20); Chloride 99 mmol/L (98-107); EST Glomerular Filtration Rate 90 mL/min (>60); Est Glom Filt Rate - Afr Amer 108 mL/min (>60); Glucose 89 mg/dL (74-106); Potassium 3.6 mmol/L (3.5-5.1); Sodium Level 132 mmol/L (136-145)
[2022-06-07 07:21] LABS: Differential Indicated SCAN CRITERIA MET
[2022-06-07] MEDS: Midodrine HCl 5 MG Tablet 10 MG PO ×3 (07:56→16:02)
--- NOTE | 2022-06-07 08:00 | US_ITS ---
PROCEDURE: Ultrasound guided paracentesis. DATE OF EXAMINATION: 06/07/2022. INDICATION: Female, 66 years old. Ascites. PHYSICIAN: Loco Pearson M.D. TECHNIQUE: The risks, benefits, and alternatives to the procedure were explained to the patient. The specific risks of bleeding, infection, and damage to bowel were detailed and accepted. Witnessed informed consent was obtained. The abdomen was ultrasonographically surveyed. An appropriate pocket of fluid was identified at the right lower quadrant. The skin were cleaned and prepped in the usual sterile fashion. Using ultrasound guidance, the peritoneal cavity was accessed with a 5-Luxembourger paracentesis needle/catheter system. The trocar was removed. A total of 6200 ml of donnell-colored fluid were removed from the peritoneal cavity. The catheter was removed and a sterile dressing was applied. The procedure was well tolerated. US/Paracentesis with US IMPRESSION: Ultrasound guided paracentesis. Electronically Signed: Loco Pearson MD at 14:22 EST ,
[2022-06-07] MEDS: Spironolactone 50 MG Tablet PO (09:59)
[2022-06-07] MEDS: Nystatin Powder 15gm Bottle 1 APPLIC TOPICAL ×2 (10:00→20:20)
[2022-06-07] MEDS: Pantoprazole Sodium 40 MG Tablet PO (10:01)
[2022-06-07 10:06] LABS: Pathologist Review Reviewed
--- NOTE | 2022-06-07 11:17 | CASEMGMT ---
Addendum entered by Addison Mondragon 06/07/22 15:21: Therapy notes from today reviewed. Pt ambulated 100 ft x 2, but had difficulty w/stairs and she has several steps to get up into her house. ADRYAN DAVIS to room to talk w/pt. She was made aware insurance most likely will not approve SNF d/t how well she is doing. She states if insurance does not approve SNF, then she would like [facility] and declines wanting list of other C options. She also states she is not sure how soon she could get a walker from her neighbor and would like to get one if she goes home. She denies DME co preference, made aware [employer] is affiliated w/[facility], and she chooses walker. ADRYAN DAVIS discussed pt's stairs into the home. She states she could see if her brother would be able to help her up them. Pt's [id number], Zita, called in and voices concerns w/pt going home d/t her weakness and no one @ home to help her. ADRYAN DAVIS informed her that the plan is now [facility], pending acceptance and pre-cert, but pt ambulated well today and insurance will most likely not approve SNF. She was made aware 2nd plan would be for her to return home w/[facility]. She voices understanding. Addendum entered by Addison Mondragon 06/07/22 14:53: Per MILE Allred, [facility] unable to accept pt. ADRYAN DAVIS to room. Pt made aware. A list of SNF providers including quality and resource use data and consistent with the patient?s preferred geographic region, medical needs, and insurance network were provided from the [facility] Guide. Pt states her next choice is [facility]. Brigida TREADWELL notified. Dr Galvez notified d/c plan is SNF and pt will need pre-cert. Addendum entered by Addison Mondragon 06/07/22 13:21: Therapy has worked w/pt today and SNF is still recommended and that pt is agreeable and would like [facility] TCU. Brigida TREADWELL, made aware. Original Note: ADRYAN DAVIS NOTE Per Dr Galvez, pt is medically ready for discharge today. PT/OT notes reviewed from yesterday, they recommend SNF, and pt was agreeable yesterday. ADRYAN DAVIS to room to talk with pt. Initially she stated no and stated does not remember telling therapy that yesterday, but states she would be willing to work w/therapy again today to see how she is feeling/how her strength is, before making final decision. Therapy notified and will work w/pt today. Danielito SPEARSN RN CM
[2022-06-07] MEDS: Lidocaine 1% (20 ml mdv) 20 ML Vial INFILT (13:34)
[2022-06-07 13:51] LABS: Pathologist Comment/Body Fluid Reviewed
[2022-06-07 13:56] LABS: Pathologist Review Reviewed
--- NOTE | 2022-06-07 14:55 | CASEMGMT ---
Addendum entered by Brigida Bourgeois 06/07/22 15:12: Family called with concerns that pt cannot go home without help. RNCM spoke to pt and pt would like to try going to SNF. SW sent referral to [facility]. PLAN: [facility], pending acceptance HEMANTH Best Original Note: Social Work SW received word from RNCM and pt nurse that pt wants rehab at TCU if necessary. SW contacted Moira at [facility] to determine if pt can be accepted. Moira stated since pt is [place] and case is more complex than simple rehab that pt cannot be accepted at [facility]. RNRYAN Boydlettabdiel informed pt second choice would be [facility]. At the time SW sending referral ADOLFO Singletary reviewed pt therapy notes and realized pt is ambulating 100x2. Discussed with SW that SNF may not be needed. Referral will be held at this time. HEMANTH Best
--- NOTE | 2022-06-07 15:48 | PN.HOSP_ITS ---
Subjective Subjective Patient states she is overall doing better. It does not appear that she will qualify for skilled facility however family is desiring ongoing rehab at discharge secondary to her debility. She was able to ambulate well and we will try for skilled facility placement however if not family is aware that home health care may need to be involved at discharge. Repeat paracentesis was done today with greater than 6 L removed. Objective Data Objective Data Vital Signs: Vital Signs Temp Pulse Resp BP Pulse Ox O2 Del Method 98.1 F 95 20 H 128/65 H 93 Room Air 06/07/22 13:32 06/07/22 13:32 06/07/22 13:32 06/07/22 13:32 06/07/22 10:00 06/07/22 13:32 Oxygen Delivery Method [2] Room Air Oxygen Delivery Method [1 ( Room Air Initial Baseline)] Oxygen Delivery Method [4] Room Air Oxygen Delivery Method [3] Room Air Oxygen Delivery Method [2] Room Air Oxygen Delivery Method [1 ( Room Air Initial Baseline)] Oxygen Delivery Method Room Air Weight: 74.7 kg Body Mass Index (BMI) 27.3 Intake & Output: Intake and Output for Last 24 Hours 06/05/22 06/06/22 06/07/22 23:59 23:59 23:59 Intake Total 60 / 210 550 / 550 350 / 350 Output Total 350 / 350 23590 / 74745 Balance 60 / 210 200 / 200 -89886 / -80286 Lab / Micro Data Result Diagrams: 06/07/22 06:24 06/07/22 06:24 Labs: Laboratory Results - last 24 hr 06/03/22 14:50: Diff Path Review Reviewed 06/04/22 12:25: Fl Pathologist Comment Reviewed 06/05/22 06:20: Diff Path Review Reviewed 06/07/22 06:24: WBC 11.2 H, RBC 3.32 L, Hgb 11.5 L, Hct 34.6 L, MCV 104.2 H, MCH 34.6 H, MCHC 33.2, RDW Std Deviation 59.6 H, RDW Coeff of Radha 15.8 H, Plt Count 126 L, MPV 10.7, Immature Gran % (Auto) 0.800, Neut % (Auto) 57.4, Lymph % (Auto) 22.3, [place] % (Auto) 14.4 H, Eos % (Auto) 4.3, Baso % (Auto) 0.8, Absolute Neuts (auto) 6.4, Absolute Lymphs (auto) 2.49, Nucleated RBC % 0, Differential Comment COMMENT, Diff Path Review October06/07/22 06:24: Sodium 132 L, Potassium 3.6, Chloride 99, Carbon Dioxide 27.0, Anion Gap 6, BUN 15, Creatinine 0.70, Estim Creat Clear Calc 81.90, Est GFR (MDRD) Af Amer 108, Est GFR (MDRD) Non-Af 90, BUN/Creatinine Ratio 21.5 H, Glucose 89, Calcium 7.0 L Micro: Microbiology 06/04/22 12:25 Fluid - Paracentesis (Abd) Gram Stain - Final 06/04/22 12:25 Fluid - Paracentesis (Abd) Body Fluid Culture - Final Culture exhibits no growth. 06/04/22 12:25 Fluid - Paracentesis (Abd) Anaerobic Culture - Preliminary No growth in 48 hours. Radiography Diagnostic Testing: Radiology Impression Paracentesis Ultrasound 06/07/22 08:00 IMPRESSION: Ultrasound guided paracentesis. Electronically Signed: Loco Pearson MD at 14:22 EST , Rhythm Strip Rhythm Strip: Sinus Rhythm Rate: 114 Ectopy: None Physical Exam Const alert and oriented x3 Constitutional Narrative: Debilitated, upper middle-aged, white female who appears older than stated age, sitting up in a chair at bedside, appears comfortable nontoxic, very pleasant and appropriately interactive HEENT head/scalp atraumatic and moist oral mucous membranes HEENT Narrative: Edentulous, Mallampati 1-2, no thrush Resp normal respiratory effort, no retractions, no use of accessory muscles and clear to auscultation bilaterally Resp Narrative: Few crackles at bases bilaterally Auscultation: crackles; Negative for rhonchi or wheezes Cardio regular rate, regular rhythm, S1 normal heart sound, S2 normal heart sound, no murmurs, no rub, no gallops and no clicks GI GI Narrative: Abdomen distended with positive fluid wave, bowel sounds are normal active abdomen is soft without any tenderness, no hepatomegaly is noted Extremity Extremity Narrative: 1+ bilateral lower extremity pitting edema with no cyanosis or clubbing Skin Skin Narrative: No jaundice Neuro oriented x3, CN's II-XII intact bilaterally, moves all extremities and no focal motor deficits Neuro Narrative: Patient's speech is normal other than a lisp noted Assessment & Plan Assessment/Plan (1) Cirrhosis: (2) Ascites: (3) Fall: (4) Weakness: (5) Hyponatremia: (6) Hypokalemia: (7) Thrombocytopenia: (8) Anemia: PLAN: Plan Large volume ascites secondary to cirrhosis -Current working diagnosis is REES at this time however ongoing work-up is in progress -Continue Xifaxan and lactulose as ordered -Continue Lasix and Aldactone -Continue nadolol 20 mg daily -Continue midodrine 10 mg 3 times daily -6+ liter paracentesis done today with 25 g albumin given postprocedure -Okay to discharge from GI standpoint--> patient will need outpatient follow-up and likely recurrent paracentesis after discharge which will be arranged by gastroenterology after discharge Hyponatremia -Expected with cirrhosis -Appears to be stable -We will monitor closely with diuretics -May need to titrate Lasix at discharge from 40 3 times daily Hypokalemia -Resolved -Repeat lab in a.m. 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 sequestration with her cirrhosis -Counts are stable -Continue to monitor Weakness/debility/falls -Prescription for walker written for discharge -Family would like to try for skilled facility for ongoing rehab at discharge however patient did fairly well with physical therapy and may not qualify -If does not qualify will likely need home health at discharge -Sinew PT/OT while hospitalized Hypothyroidism -TSH was 12.6 on admission -Thyroxine dose was adjusted -Will need repeat TSH in 6 weeks Fall with closed head injury -CT of the head was unremarkable -No acute mental status changes at this time -Continue to monitor DVT prophylaxis -Bilateral SCDs -Platelet count is up to 126,000 therefore we will start chemoprophylaxis with Lovenox 30 mg daily CODE STATUS -Full code Charges/Coding Visit Charges Inpatient E&M: 05369 Subs Hosp L2
[2022-06-07] MEDS: Albumin Human 25% (100 mL) 25 GM/100 ML BAG IV (15:52)
--- NOTE | 2022-06-07 17:04 | PN_ITS ---
Subjective Subjective She is having 2 bowel movements a day and she underwent large paracentesis today. Objective Data Objective Data Vital Signs: Vital Signs Temp Pulse Resp BP Pulse Ox O2 Del Method 99.1 F 84 16 95/57 L 98 Room Air 06/07/22 15:47 06/07/22 15:47 06/07/22 15:47 06/07/22 15:47 06/07/22 15:47 06/07/22 15:47 Oxygen Delivery Method [2] Room Air Oxygen Delivery Method [1 ( Room Air Initial Baseline)] Oxygen Delivery Method [4] Room Air Oxygen Delivery Method [3] Room Air Oxygen Delivery Method [2] Room Air Oxygen Delivery Method [1 ( Room Air Initial Baseline)] Oxygen Delivery Method Room Air Weight: 164 lb 10.965 oz Body Mass Index (BMI) 27.3 Intake & Output: Intake and Output for Last 24 Hours 06/05/22 06/06/22 06/07/22 23:59 23:59 23:59 Intake Total 60 / 210 550 / 550 350 / 350 Output Total 350 / 350 79913 / 55626 Balance 60 / 210 200 / 200 -37673 / -33989 Lab / Micro Data Result Diagrams: 06/07/22 06:24 06/07/22 06:24 Labs: Laboratory Results - last 24 hr 06/03/22 14:50: Diff Path Review Reviewed 06/04/22 12:25: Fl Pathologist Comment Reviewed 06/05/22 06:20: Diff Path Review Reviewed 06/07/22 06:24: WBC 11.2 H, RBC 3.32 L, Hgb 11.5 L, Hct 34.6 L, MCV 104.2 H, MCH 34.6 H, MCHC 33.2, RDW Std Deviation 59.6 H, RDW Coeff of Radha 15.8 H, Plt Count 126 L, MPV 10.7, Immature Gran % (Auto) 0.800, Neut % (Auto) 57.4, Lymph % (Auto) 22.3, [place] % (Auto) 14.4 H, Eos % (Auto) 4.3, Baso % (Auto) 0.8, Absolute Neuts (auto) 6.4, Absolute Lymphs (auto) 2.49, Nucleated RBC % 0, Differential Comment COMMENT, Diff Path Review October06/07/22 06:24: Sodium 132 L, Potassium 3.6, Chloride 99, Carbon Dioxide 27.0, Anion Gap 6, BUN 15, Creatinine 0.70, Estim Creat Clear Calc 81.90, Est GFR (MDRD) Af Amer 108, Est GFR (MDRD) Non-Af 90, BUN/Creatinine Ratio 21.5 H, Glucose 89, Calcium 7.0 L Micro: Microbiology 06/04/22 12:25 Fluid - Paracentesis (Abd) Gram Stain - Final 06/04/22 12:25 Fluid - Paracentesis (Abd) Body Fluid Culture - Final Culture exhibits no growth. 06/04/22 12:25 Fluid - Paracentesis (Abd) Anaerobic Culture - Preliminary No growth in 48 hours. Radiography Diagnostic Testing: Radiology Impression Paracentesis Ultrasound 06/07/22 08:00 IMPRESSION: Ultrasound guided paracentesis. Electronically Signed: Loco Pearson MD at 14:22 EST Reading Location ID and State: [address] [place] [address] , Service support , Rhythm Strip Rhythm Strip: Sinus Rhythm Rate: 114 Ectopy: None Physical Exam Const alert and oriented x3 HEENT head/scalp atraumatic and moist oral mucous membranes HEENT Narrative: Edentulous, Mallampati 1-2, no thrush Resp normal respiratory effort, no retractions, no use of accessory muscles and clear to auscultation bilaterally Resp Narrative: Few crackles at bases bilaterally Auscultation: crackles; Negative for rhonchi or wheezes Cardio regular rate, regular rhythm, S1 normal heart sound, S2 normal heart sound, no murmurs, no rub, no gallops and no clicks GI GI Narrative: positive fluid wave Skin Skin Narrative: No jaundice Neuro oriented x3, CN's II-XII intact bilaterally, moves all extremities and no focal motor deficits Neuro Narrative: No overt encephalopthy Assessment & Plan Assessment/Plan (1) Anemia: PLAN: ,Her hemoglobin significantly low stable. She will undergo an upper end oscopy to look for signs of cirrhosis including portal gastropathy, gastric antral vascular ectasia, esophageal varices ,duodenal varices and possibly gastric varices. 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 (3) Hypotension: PLAN: Contine midodrine p.o. 3 times daily as previously ordered (4) Fracture of left tibia and fibula: (5) Weakness: (6) Cirrhosis: PLAN: Current meld is 10 with a child Vasquez score class B.? Decompensated cirrhosis with ascites and biochemical profile with anemia, thrombocytopenia and currently has elevated white blood cell count.? She has not shown any signs of infection at this time.? Awaiting biochemical work-up and tumor markers CA125, CA 19-9 and alpha-fetoprotein ( Charges/Coding Visit Charges Inpatient E&M: 80789 Subs Hosp L3
[2022-06-07] MEDS: Lactulose 20 GM/30 ML UDC 10 GM PO (20:19)
[2022-06-08 00:56] VITALS: BP 88/49; PULSE 80; RESP 18; TEMP 36.8; O2SAT 93
[2022-06-08 04:53] LABS: Absolute Lymphocyte Count 2.11 X10^3/uL (0.83-4.51); Basophil# 0.05 X10^3/uL; Basophil% 0.6 % (0-1); Eosinophil# 0.43 X10^3/uL; Eosinophils% 5.5 % (0-5); Hematocrit 31.7 % (37-47); Hemoglobin 10.6 g/dL (12.0-15.0); Lymphocyte # 2.11 X10^3/ul (0.83-4.51); Lymphocyte % 27.2 % (19-41); Mean Corp Hgb Conc 33.4 g/dL (32-36); Mean Corpuscular Hgb 35.5 pg (27.0-32.0); Mean Platelet Vol. 10.5 fl (6.2-12.0); Monocyte# 1.16 X10^3/uL; Monocyte% 14.9 % (0-10); NRBC Flagged by Analyzer 0 % (0-5); Neutrophil # 3.97 X10^3/uL (2.7-7.7); Neutrophil % 51.3 % (47-70); Platelet Count 100 K/mm3 (150-450); RBC Distribution Width CV 16.1 % (11.6-14.6); RBC Distribution Width SD 60.8 fl (35.1-43.9); Red Blood Count 2.99 M/mm3 (4.2-5.4); White Blood Count 7.8 K/mm3 (4.4-11.0)
[2022-06-08 05:13] VITALS: BP 90/51; PULSE 73; RESP 18; TEMP 36.8; O2SAT 96
[2022-06-08 05:17] LABS: Anion Gap 4 (5-15); BUN 15 mg/dL (7-18); BUN/Creat Ratio 21.2 RATIO (10-20); Calcium,Total 6.9 mg/dL (8.5-10.1); Chloride 103 mmol/L (98-107); Creatinine, Serum 0.71 mg/dL (0.55-1.02); EST Glomerular Filtration Rate 88 mL/min (>60); Est Glom Filt Rate - Afr Amer 107 mL/min (>60); Estimated Creatinine Clearance 80.75 ml/min; Glucose 84 mg/dL (74-106); Potassium 3.4 mmol/L (3.5-5.1); Sodium Level 135 mmol/L (136-145)
[2022-06-08] MEDS: Levothyroxine 88 MCG Tablet PO (05:22)
--- NOTE | 2022-06-08 07:16 | US_ITS ---
STUDY: ULTRASOUND OF THE FEMALE PELVIS - COMPLETE REASON FOR EXAM: Female, 66 years old. Elevated CA-125 LMP: Patient is postmenopausal. TECHNIQUE: Transabdominal and Transvaginal TECHNICAL QUALITY: Adequate. COMPARISON: Comparison is made with prior CT scan of the abdomen and pelvis dated 06/03/2022. FINDINGS: The uterus is anteverted and is tilted to the left side of the pelvis. The uterus measures 6.6 cm x 5.2 cm x 2.9 cm. Normal uterine cervix. The endometrium is thickened and measures 12 mm in thickness, and is fluid distended. There is no demonstrated endometrial mass. There is no demonstrated myometrial mass. I.U.D. - The patient does not have an I.U.D. The right ovary is visualized. The right ovary measures 2.3 cm x 1.9 cm x 1.1 cm. There is no right ovarian cyst or ovarian mass. There is no visualized right adnexal mass or complex lesion. There is normal arterial and normal venous vascularity. The left ovary is non-visualized. There is a large volume of fluid in the cul-de-sac. US/Transvaginal Non- IMPRESSION: The endometrium is fluid-filled and thickened. Large amount of free fluid in the pelvis. Ascites. Electronically Signed: Loco Pearson MD at 15:28 EST ,
--- NOTE | 2022-06-08 07:56 | PN_ITS ---
Subjective Subjective Patient underwent paracentesis yesterday of 6.1 L. She is receiving albumin replacement. She is able to eat without any problems. She has been assessed by physical therapy. She is having approximately 1-2 bowel movements per day. She denies any nausea, vomiting or dyspeptic symptoms. She denies any chest pain or shortness of breath. She still complains of progressive weakness and is requiring a walker for ambulation. Objective Data Objective Data Vital Signs: Vital Signs Temp Pulse Resp BP Pulse Ox O2 Del Method 98.2 F 73 18 90/51 L 96 Room Air 06/08/22 05:13 06/08/22 05:13 06/08/22 05:13 06/08/22 05:13 06/08/22 05:13 06/08/22 05:13 Oxygen Delivery Method [2] Room Air Oxygen Delivery Method [1 ( Room Air Initial Baseline)] Oxygen Delivery Method [4] Room Air Oxygen Delivery Method [3] Room Air Oxygen Delivery Method [2] Room Air Oxygen Delivery Method [1 ( Room Air Initial Baseline)] Oxygen Delivery Method Room Air Weight: 141 lb 5.061 oz Body Mass Index (BMI) 27.3 Intake & Output: Intake and Output for Last 24 Hours 06/06/22 06/07/22 06/08/22 23:59 23:59 23:59 Intake Total 550 / 550 450 / 450 100 / 100 Output Total 350 / 350 48074 / 26031 Balance 200 / 200 -43251 / -54318 100 / 100 Lab / Micro Data Result Diagrams: 06/08/22 04:26 06/08/22 04:26 Labs: Laboratory Results - last 24 hr 06/03/22 14:50: Diff Path Review Reviewed 06/04/22 12:25: Fl Pathologist Comment Reviewed 06/05/22 06:20: Diff Path Review Reviewed 06/07/22 06:24: Differential Comment COMMENT, Diff Path Review May 06/08/22 04:26: WBC 7.8, RBC 2.99 L, Hgb 10.6 L, Hct 31.7 L, MCV 106.0 H, MCH 35.5 H, MCHC 33.4, RDW Std Deviation 60.8 H, RDW Coeff of Radha 16.1 H, Plt Count 100 L, MPV 10.5, Immature Gran % (Auto) 0.500, Neut % (Auto) 51.3, Lymph % (Auto) 27.2, [place] % (Auto) 14.9 H, Eos % (Auto) 5.5 H, Baso % (Auto) 0.6, Absolute Neuts (auto) 4.0, Absolute Lymphs (auto) 2.11, Nucleated RBC % 0 06/08/22 04:26: Sodium 135 L, Potassium 3.4 L, Chloride 103, Carbon Dioxide 28.0, Anion Gap 4 L, BUN 15, Creatinine 0.71, Estim Creat Clear Calc 80.75, Est GFR (MDRD) Af Amer 107, Est GFR (MDRD) Non-Af 88, BUN/Creatinine Ratio 21.2 H, Glucose 84, Calcium 6.9 L Micro: Microbiology 06/04/22 12:25 Fluid - Paracentesis (Abd) Gram Stain - Final 06/04/22 12:25 Fluid - Paracentesis (Abd) Body Fluid Culture - Final Culture exhibits no growth. 06/04/22 12:25 Fluid - Paracentesis (Abd) Anaerobic Culture - Preliminary No growth in 48 hours. Radiography Diagnostic Testing: Radiology Impression Paracentesis Ultrasound 06/07/22 08:00 IMPRESSION: Ultrasound guided paracentesis. Electronically Signed: Loco Pearson MD at 14:22 EST , Rhythm Strip Rhythm Strip: Sinus Rhythm Rate: 114 Ectopy: None Physical Exam Const alert and oriented x3 Constitutional Narrative: Looks older than stated age HEENT head/scalp atraumatic and moist oral mucous membranes Resp normal respiratory effort, no retractions, no use of accessory muscles and clear to auscultation bilaterally Resp Narrative: Few crackles at bases bilaterally Auscultation: crackles; Negative for rhonchi or wheezes Cardio regular rate, regular rhythm, S1 normal heart sound, S2 normal heart sound, no murmurs, no rub, no gallops and no clicks GI GI Narrative: positive fluid wave Skin Skin Narrative: No jaundice Neuro oriented x3, CN's II-XII intact bilaterally, moves all extremities and no focal motor deficits Neuro Narrative: No overt encephalopthy Assessment & Plan Assessment/Plan (1) Anemia: PLAN: Anemia, thrombocytopenia and leukopenia secondary to cirrhosis with splenic sequestration, bone marrow suppression resulting in all 3 cell lines down. Her hemoglobin seems to be stable. She a upper endoscopy to screen for varices in the esophagus, stomach or small bowel. Recommend to check iron studies to make sure there is no component of iron deficiency anemia associated with chronic blood loss from possible gastropathy or angiodysplasias associated with chronic blood loss anemia in the setting of cirrhosis. (2) Ascites: PLAN: Her CA125 is elevated at 485. There is concern for peritoneal carcinomato sis secondary to old. Cancer. Her SAG gradient was not able to be calculated due to the albumin was not checked in her ascitic fluid I still suspect she does have elements of Shepherd cirrhosis. However her biochemical work-up is pending. I would suggest to get a transvaginal ultrasound to look for occult ovarian malignancy. Await cytology from her ascitic fluid. She may need peritoneal biopsy. Poor prognosis (3) Cirrhosis: PLAN: At this time she is a child Vasquez class B and she her meld currently is low at 8. She is on nadolol which was started for prophylaxis. She is also on Nexium for encephalopathy prophylaxis and midodrine 10 mg p.o. 3 times daily for ascites development and hypotension associated with decreased intravascular from cirrhosis. Charges/Coding Visit Charges Inpatient E&M: 28876 Subs Hosp L3
--- NOTE | 2022-06-08 07:56 | CASEMGMT ---
Addendum entered by Brigida Bourgeois 06/08/22 09:18: Referral sent to [facility]. HEMANTH Best Addendum entered by Brigida Bourgeois 06/08/22 09:14: SW in to inform pt of [facility] not being able to accept. SW and pt reviewed list and pt shared next preference would be [facility] then [facility]. SW to send referral to [facility]. HEMANTH Best Original Note: Social Work SW received message from [facility]. Unable to accept pt due to not taking [employer] insurance right now. [facility] will follow up for second choice today. HEMANTH Best
[2022-06-08 08:05] VITALS: BP 95/59; PULSE 91; RESP 16; TEMP 36.7; O2SAT 97
[2022-06-08] MEDS: Midodrine HCl 5 MG Tablet 10 MG PO ×3 (08:09→17:27)
[2022-06-08] MEDS: Potassium Chloride Oral Tablet 20 MEQ 40 MEQ PO (08:09)
[2022-06-08] MEDS: Bumetanide 0.5 MG Tablet 1 MG PO ×2 (10:31→21:53)
[2022-06-08] MEDS: Spironolactone 50 MG Tablet PO (10:31)
[2022-06-08] MEDS: Nystatin Powder 15gm Bottle 1 APPLIC TOPICAL ×2 (10:31→21:54)
[2022-06-08] MEDS: Pantoprazole Sodium 40 MG Tablet PO (10:33)
[2022-06-08 13:37] LABS: Pathologist Review Reviewed
--- NOTE | 2022-06-08 15:12 | PCM.PN.HOSP ---
Subjective Subjective Patient reports she is feeling well. Discussed the positive result of her CA125 and the need for transvaginal ultrasound to assess reproductive organs. Patient voiced understanding and was agreeable. No complaints currently. States abdominal area feels better with paracentesis being done yesterday. Objective Data Objective Data Vital Signs: Vital Signs Temp Pulse Resp BP Pulse Ox O2 Del Method 98.1 F 91 16 95/59 L 97 Room Air 06/08/22 08:05 06/08/22 08:05 06/08/22 08:05 06/08/22 08:05 06/08/22 08:05 06/08/22 08:05 Oxygen Delivery Method [2] Room Air Oxygen Delivery Method [1 ( Room Air Initial Baseline)] Oxygen Delivery Method [4] Room Air Oxygen Delivery Method [3] Room Air Oxygen Delivery Method [2] Room Air Oxygen Delivery Method [1 ( Room Air Initial Baseline)] Oxygen Delivery Method Room Air Weight: 64.1 kg Body Mass Index (BMI) 27.3 Intake & Output: Intake and Output for Last 24 Hours 06/06/22 06/07/22 06/08/22 23:59 23:59 23:59 Intake Total 550 / 550 450 / 450 100 / 100 Output Total 350 / 350 44052 / 96592 Balance 200 / 200 -82701 / -82583 100 / 100 Lab / Micro Data Result Diagrams: 06/08/22 04:26 06/08/22 04:26 Labs: Laboratory Results - last 24 hr 06/07/22 06:24: Diff Path Review Reviewed 06/08/22 04:26: WBC 7.8, RBC 2.99 L, Hgb 10.6 L, Hct 31.7 L, MCV 106.0 H, MCH 35.5 H, MCHC 33.4, RDW Std Deviation 60.8 H, RDW Coeff of Radha 16.1 H, Plt Count 100 L, MPV 10.5, Immature Gran % (Auto) 0.500, Neut % (Auto) 51.3, Lymph % (Auto) 27.2, [place] % (Auto) 14.9 H, Eos % (Auto) 5.5 H, Baso % (Auto) 0.6, Absolute Neuts (auto) 4.0, Absolute Lymphs (auto) 2.11, Nucleated RBC % 0 06/08/22 04:26: Sodium 135 L, Potassium 3.4 L, Chloride 103, Carbon Dioxide 28.0, Anion Gap 4 L, BUN 15, Creatinine 0.71, Estim Creat Clear Calc 80.75, Est GFR (MDRD) Af Amer 107, Est GFR (MDRD) Non-Af 88, BUN/Creatinine Ratio 21.2 H, Glucose 84, Calcium 6.9 L Micro: Microbiology 06/04/22 12:25 Fluid - Paracentesis (Abd) Gram Stain - Final 06/04/22 12:25 Fluid - Paracentesis (Abd) Body Fluid Culture - Final Culture exhibits no growth. 06/04/22 12:25 Fluid - Paracentesis (Abd) Anaerobic Culture - Preliminary No growth in 48 hours. Rhythm Strip Rhythm Strip: Sinus Rhythm Rate: 114 Ectopy: None Physical Exam Const alert and oriented x3 Constitutional Narrative: Debilitated, upper middle-aged, white female who appears older than stated age, sitting up in a chair at bedside, appears comfortable nontoxic, very pleasant and appropriately interactive HEENT head/scalp atraumatic and moist oral mucous membranes HEENT Narrative: Edentulous, Mallampati 1, no thrush Resp normal respiratory effort, no retractions, no use of accessory muscles and clear to auscultation bilaterally Auscultation: Negative for crackles, rhonchi or wheezes Cardio regular rate, regular rhythm, S1 normal heart sound, S2 normal heart sound, no murmurs, no rub, no gallops and no clicks GI GI Narrative: Abdomen much less distended, bowel sounds are normal active abdomen is soft without any tenderness, no hepatomegaly is noted Extremity Extremity Narrative: Trace bilateral lower extremity pitting edema with no cyanosis or clubbing Neuro oriented x3, moves all extremities and no focal motor deficits Neuro Narrative: Patient's speech is normal other than a lisp noted Psych affect normal Psych Narrative: Very pleasant and appropriately interactive Assessment & Plan Assessment/Plan (1) Cirrhosis: (2) Ascites: (3) Fall: (4) Weakness: (5) Hyponatremia: (6) Hypokalemia: (7) Thrombocytopenia: (8) Anemia: (9) Elevated CA-125: PLAN: Plan Large volume ascites secondary to cirrhosis -Current working diagnosis is REES at this time however ongoing work-up is in progress -Continue Xifaxan and lactulose as ordered -Continue Lasix and Aldactone -Continue nadolol 20 mg daily -Continue midodrine 10 mg 3 times daily - patient has required 2 paracenteses during her hospital course 1 on 06/04/2022 for 6800 cc and 1 on 06/07/2022 for 6200 cc -Okay to discharge from GI standpoint--> patient will need outpatient follow-up and likely recurrent paracentesis after discharge which will be arranged by gastroenterology after discharge Elevated CA-125 -Could potentially be the etiology of her ascites as well as her liver disease -Transvaginal ultrasound pending Hyponatremia -Expected with cirrhosis -Remained stable -We will monitor closely with diuretics -May need to titrate Lasix at discharge from 40 3 times daily Hypokalemia -Slight drop to 3.4 today -40 mill equivalents potassium given -Repeat in a.m. -May need to schedule potassium at discharge with ongoing diuretics Chronic anemia -Hemoglobin remained stable -No acute bleeding noted at this time Chronic thrombocytopenia -Likely related to splenic sequestration with her cirrhosis -Counts are stable -Continue to monitor Weakness/debility/falls -Prescription for walker written for discharge -Family would like to try for skilled facility for ongoing rehab at discharge however patient did fairly well with physical therapy and may not qualify -If does not qualify will likely need home health at discharge -Continue PT/OT while hospitalized Hypothyroidism -TSH was 12.6 on admission -Thyroxine dose was adjusted -Will need repeat TSH in 6 weeks Fall with closed head injury -CT of the head was unremarkable -No acute mental status changes at this time -Continue to monitor DVT prophylaxis -Bilateral SCDs -Continue Lovenox 30 mg daily CODE STATUS -Full code Charges/Coding Visit Charges Inpatient E&M: 62711 Subs Hosp L2
--- NOTE | 2022-06-08 15:38 | CASEMGMT ---
Social Work Pt daughter emailed copy of LW document and stated self as POA. Daughter listed as first contact on LW but per HCPOA document on file with [facility] daughter is NOT HCPOA. Daughter was requesting update on pt medical concerns but typing secretary declined to share information as daughter is not listed as contact. SW in to pt room to discuss situation with pt. Pt gave permission for daughter to be provided with information. SW will inform pt nurse that daughter would like phone call. HEMANTH Best
[2022-06-08 19:55] VITALS: BP 97/51; PULSE 69; RESP 18; TEMP 37.3; O2SAT 95
[2022-06-09] VITALS (8 sets, daily range): BP systolic 92–97; BP diastolic 46–58; PULSE 62–65; RESP 16–18; TEMP 36.6–36.9; O2SAT 94–98
[2022-06-09 04:40] LABS: Absolute Lymphocyte Count 2.87 X10^3/uL (0.83-4.51); Basophil# 0.07 X10^3/uL; Basophil% 0.7 % (0-1); Eosinophil# 0.46 X10^3/uL; Eosinophils% 4.5 % (0-5); Hematocrit 32.4 % (37-47); Hemoglobin 10.8 g/dL (12.0-15.0); Lymphocyte # 2.87 X10^3/ul (0.83-4.51); Lymphocyte % 28.3 % (19-41); Mean Corp Hgb Conc 33.3 g/dL (32-36); Mean Corpuscular Hgb 35.2 pg (27.0-32.0); Mean Corpuscular Volume 105.5 fL (81-99); Mean Platelet Vol. 11.1 fl (6.2-12.0); Monocyte# 1.72 X10^3/uL; Monocyte% 16.9 % (0-10); NRBC Flagged by Analyzer 0 % (0-5); Neutrophil # 4.98 X10^3/uL (2.7-7.7); Neutrophil % 49.1 % (47-70); POSITIVE DIFFERENTIAL YES; Platelet Count 114 K/mm3 (150-450); RBC Distribution Width CV 16.4 % (11.6-14.6); RBC Distribution Width SD 62.6 fl (35.1-43.9); Red Blood Count 3.07 M/mm3 (4.2-5.4); White Blood Count 10.2 K/mm3 (4.4-11.0)
[2022-06-09 04:42] LABS: Differential Indicated SCAN CRITERIA MET
[2022-06-09 05:09] LABS: Anion Gap 4 (5-15); BUN 15 mg/dL (7-18); BUN/Creat Ratio 20.5 RATIO (10-20); Calcium,Total 6.5 mg/dL (8.5-10.1); Chloride 102 mmol/L (98-107); Creatinine, Serum 0.73 mg/dL (0.55-1.02); EST Glomerular Filtration Rate 85 mL/min (>60); Est Glom Filt Rate - Afr Amer 103 mL/min (>60); Estimated Creatinine Clearance 78.54 ml/min; Glucose 92 mg/dL (74-106); Magnesium 1.9 mg/dL (1.6-2.6); Potassium 3.6 mmol/L (3.5-5.1); Sodium Level 137 mmol/L (136-145)
[2022-06-09 05:10] LABS: Differential Comment SCANNED
[2022-06-09] MEDS: Levothyroxine 88 MCG Tablet PO (05:57)
--- NOTE | 2022-06-09 08:14 | CASEMGMT ---
Discharge [employer] This com writer seen in [facility] that [facility] accepted patient on 06/08/2022. Precert was started on that date as well Roman JORGENSEN Entrepreneur
[2022-06-09] MEDS: Spironolactone 50 MG Tablet PO (08:53)
[2022-06-09] MEDS: Midodrine HCl 5 MG Tablet 10 MG PO ×3 (08:54→18:16)
[2022-06-09] MEDS: Bumetanide 0.5 MG Tablet 1 MG PO ×2 (08:54→22:56)
[2022-06-09] MEDS: Lactulose 20 GM/30 ML UDC 10 GM PO (08:54)
[2022-06-09] MEDS: Nadolol 20 MG Tablet PO (08:55)
[2022-06-09] MEDS: Nystatin Powder 15gm Bottle 1 APPLIC TOPICAL ×2 (08:55→20:55)
[2022-06-09] MEDS: 0.9% Saline Lock 10 ML Syringe IV (08:56)
[2022-06-09] MEDS: Pantoprazole Sodium 40 MG Tablet PO (08:56)
[2022-06-09 14:39] LABS: Amylase Body Fluid 11 U/L (.)
--- NOTE | 2022-06-09 15:42 | PCM.PN.HOSP ---
Subjective Subjective Doing well, no issues overnight Objective Data Objective Data Vital Signs: Vital Signs Temp Pulse Resp BP Pulse Ox O2 Del Method 97.8 F 62 18 97/50 L 98 Room Air 06/09/22 14:17 06/09/22 14:19 06/09/22 14:17 06/09/22 14:17 06/09/22 14:17 06/09/22 14:17 Oxygen Delivery Method [2] Room Air Oxygen Delivery Method [1 ( Room Air Initial Baseline)] Oxygen Delivery Method [4] Room Air Oxygen Delivery Method [3] Room Air Oxygen Delivery Method [2] Room Air Oxygen Delivery Method [1 ( Room Air Initial Baseline)] Oxygen Delivery Method Room Air Weight: 141 lb 5.061 oz Body Mass Index (BMI) 27.3 Intake & Output: Intake and Output for Last 24 Hours 06/08/22 06/09/22 06/10/22 03:59 03:59 03:59 Intake Total 300 / 300 350 / 350 1120 / 1120 Output Total 6200 / 6200 Balance -5900 / -5900 350 / 350 1120 / 1120 Lab / Micro Data Result Diagrams: 06/09/22 04:03 06/09/22 04:03 Labs: Laboratory Results - last 24 hr 06/04/22 12:25: Fluid Amylase 11 06/09/22 04:03: WBC 10.2, RBC 3.07 L, Hgb 10.8 L, Hct 32.4 L, MCV 105.5 H, MCH 35.2 H, MCHC 33.3, RDW Std Deviation 62.6 H, RDW Coeff of Ard[place] 16.4 H, Plt Count 114 L, MPV 11.1, Immature Gran % (Auto) 0.500, Neut % (Auto) 49.1, Lymph % (Auto) 28.3, [place] % (Auto) 16.9 H, Eos % (Auto) 4.5, Baso % (Auto) 0.7, Absolute Neuts (auto) 5.0, Absolute Lymphs (auto) 2.87, Nucleated RBC % 0, Differential Comment SCANNED 06/09/22 04:03: Sodium 137, Potassium 3.6, Chloride 102, Carbon Dioxide 31.0, Anion Gap 4 L, BUN 15, Creatinine 0.73, Estim Creat Clear Calc 78.54, Est GFR (MDRD) Af Amer 103, Est GFR (MDRD) Non-Af 85, BUN/Creatinine Ratio 20.5 H, Glucose 92, Calcium 6.5 L*, Magnesium 1.9 Micro: Microbiology 06/04/22 12:25 Fluid - Paracentesis (Abd) Gram Stain - Final 06/04/22 12:25 Fluid - Paracentesis (Abd) Body Fluid Culture - Final Culture exhibits no growth. 06/04/22 12:25 Fluid - Paracentesis (Abd) Anaerobic Culture - Final No growth in 5 days. Rhythm Strip Rhythm Strip: Sinus Rhythm Rate: 114 Ectopy: None Physical Exam Narrative General: Alert, Oriented x3, Cooperative, No apparent distress HEENT: Atraumatic, PERRLA, EOMI, Normocephalic Oral: Moist Mucosa Neck: Supple, No JVD Lungs: Clear to auscultation, Normal air movement, No rhonchi, No wheeze, No rales Cardiovascular: Regular rate, Regular Rhythm, Normal S1, Normal S2, No murmurs Abdomen: Soft, Non Tender, mildly distended, No Hepato-splenomegaly Extremities: Trace edema, Capillary Refill Less than 3 Seconds Skin: No rashes, No breakdown Musculoskeletal: No Tenderness to Palpation of Joints or Extremities Neurological: Cranial nerves II-XII grossly intact, Motor Exam 5/5 strength throughout, Sensory exam intact to light touch and pain Psych/Mental Status: Normal Affect, Appropriate Assessment & Plan Assessment/Plan (1) Cirrhosis: (2) Ascites: (3) Fall: (4) Weakness: (5) Hyponatremia: (6) Hypokalemia: (7) Thrombocytopenia: (8) Anemia: (9) Elevated CA-125: PLAN: Plan 1. Large volume ascites secondary to cirrhosis with chronic anemia and thrombocytopenia/elevated CA125/weakness and debility ? Current diagnosis for her cirrhosis is secondary to REES however work-up is still in progress ? Continue Xifaxan and lactulose as well as Bumex and Aldactone ? She is on nadolol 20 mg daily as well as midodrine 10 mg 3 times daily ? She did require 2 paracenteses while here on 06/04/2022 for 6800 cc and another on 06/07/2022 for 6200 cc ? She is pending discharge to [facility] however we are awaiting insurance presents secondary to her weakness and debility, PT/OT ? The transvaginal ultrasound today will patient of her CA125 shows a thickened endometrium ? She did have a fall with closed head injury, CT of the brain at that time was unremarkable ? Continue with PPI 2. Hypothyroidism ? Her TSH was 12.6 on admission as her medication was increased ? We will repeat her TSH in 6 weeks as an outpatient DVT: [place] Charges/Coding Visit Charges Inpatient E&M: 37852 Subs Hosp L2
--- NOTE | 2022-06-09 17:05 | PCM.PROGNOTE ---
Subjective Subjective There were no issues overnight. She is able to eat without any problems.? She has been assessed by physical therapy.? She is having approximately 1-2 bowel movements per day.? She denies any nausea, vomiting or dyspeptic symptoms.? She denies any chest pain or shortness of breath.? She still complains of progressive weakness and is requiring a walker for ambulation. She does feel like her belly is developing more fluid. Objective Data Objective Data Vital Signs: Vital Signs Temp Pulse Resp BP Pulse Ox O2 Del Method 97.8 F 62 18 97/50 L 98 Room Air 06/09/22 14:17 06/09/22 14:19 06/09/22 14:17 06/09/22 14:17 06/09/22 14:17 06/09/22 14:17 Oxygen Delivery Method [2] Room Air Oxygen Delivery Method [1 ( Room Air Initial Baseline)] Oxygen Delivery Method [4] Room Air Oxygen Delivery Method [3] Room Air Oxygen Delivery Method [2] Room Air Oxygen Delivery Method [1 ( Room Air Initial Baseline)] Oxygen Delivery Method Room Air Weight: 141 lb 5.061 oz Body Mass Index (BMI) 27.3 Intake & Output: Intake and Output for Last 24 Hours 06/07/22 06/08/22 06/09/22 23:59 23:59 23:59 Intake Total 450 / 450 100 / 350 1370 / 1370 Output Total 06372 / 00578 Balance -74698 / -98171 100 / 350 1370 / 1370 Lab / Micro Data Result Diagrams: 06/09/22 04:03 06/09/22 04:03 Labs: Laboratory Results - last 24 hr 06/04/22 12:25: Fluid Amylase 11 06/09/22 04:03: WBC 10.2, RBC 3.07 L, Hgb 10.8 L, Hct 32.4 L, MCV 105.5 H, MCH 35.2 H, MCHC 33.3, RDW Std Deviation 62.6 H, RDW Coeff of Radha 16.4 H, Plt Count 114 L, MPV 11.1, Immature Gran % (Auto) 0.500, Neut % (Auto) 49.1, Lymph % (Auto) 28.3, [place] % (Auto) 16.9 H, Eos % (Auto) 4.5, Baso % (Auto) 0.7, Absolute Neuts (auto) 5.0, Absolute Lymphs (auto) 2.87, Nucleated RBC % 0, Differential Comment SCANNED 06/09/22 04:03: Sodium 137, Potassium 3.6, Chloride 102, Carbon Dioxide 31.0, Anion Gap 4 L, BUN 15, Creatinine 0.73, Estim Creat Clear Calc 78.54, Est GFR (MDRD) Af Amer 103, Est GFR (MDRD) Non-Af 85, BUN/Creatinine Ratio 20.5 H, Glucose 92, Calcium 6.5 L*, Magnesium 1.9 Micro: Microbiology 06/04/22 12:25 Fluid - Paracentesis (Abd) Gram Stain - Final 06/04/22 12:25 Fluid - Paracentesis (Abd) Body Fluid Culture - Final Culture exhibits no growth. 06/04/22 12:25 Fluid - Paracentesis (Abd) Anaerobic Culture - Final No growth in 5 days. Rhythm Strip Rhythm Strip: Sinus Rhythm Rate: 114 Ectopy: None Physical Exam Narrative General: Alert, Oriented x3, Cooperative, No apparent distress HEENT: Atraumatic, PERRLA, EOMI, Normocephalic Oral: Moist Mucosa Neck: Supple, No JVD Lungs: Clear to auscultation, Normal air movement, No rhonchi, No wheeze, No rales Cardiovascular: Regular rate, Regular Rhythm, Normal S1, Normal S2, No murmurs Abdomen: Soft, Non Tender, mildly distended, No Hepato-splenomegaly Extremities: Trace edema, Capillary Refill Less than 3 Seconds Skin: No rashes, No breakdown Musculoskeletal: No Tenderness to Palpation of Joints or Extremities Neurological: Cranial nerves II-XII grossly intact, Motor Exam 5/5 strength throughout, Sensory exam intact to light touch and pain Psych/Mental Status: Normal Affect, Appropriate Assessment & Plan Assessment/Plan (1) Elevated CA-125: PLAN: Her CA125 is elevated at 485.? There is concern for peritoneal carcinomatosis secondary to old.? Cancer.? Her SAG gradient was not able to be calculated due to the albumin was not checked in her ascitic fluid I still suspect she does have elements of Shepherd cirrhosis.? However her biochemical work-up is pending.? I would? suggest to get a transvaginal ultrasound to look for occult ovarian malignancy.? Await cytology from her ascitic fluid.? She may need peritoneal biopsy.? Poor prognosis (2) Thrombocytopenia: PLAN: Secondary to cirrhosis. Labs seem to be stable. (3) Ascites: PLAN: Keep an eye on her weight while she is here. She will require repeat paracentesis prior to being discharged or transferred. (2) Ascites: (4) Cirrhosis: PLAN: ? At this time she is a child Vasquez class B and she her meld currently is low at 8.? She is on nadolol which was started for prophylaxis.? She is also on Nexium for encephalopathy prophylaxis and midodrine 10 mg p.o. 3 times daily for ascites development and hypotension associated with decreased intravascular from cirrhosis. Charges/Coding Visit Charges Inpatient E&M: 87176 [facility] Hosp L3
[2022-06-10 04:45] VITALS: BP 87/45; PULSE 66; RESP 16; TEMP 36.8; O2SAT 95
[2022-06-10] MEDS: Levothyroxine 88 MCG Tablet PO (04:47)
[2022-06-10 05:32] LABS: Absolute Neutrophil Count 6.1 X10^3/uL (2.0-7.7); Basophil# 0.08 X10^3/uL; Basophil% 0.7 % (0-1); Eosinophil# 0.69 X10^3/uL; Eosinophils% 5.8 % (0-5); Hematocrit 35.4 % (37-47); Hemoglobin 11.7 g/dL (12.0-15.0); Lymphocyte % 26.2 % (19-41); Mean Corp Hgb Conc 33.1 g/dL (32-36); Mean Corpuscular Hgb 35.3 pg (27.0-32.0); Mean Corpuscular Volume 106.9 fL (81-99); Mean Platelet Vol. 10.8 fl (6.2-12.0); Monocyte# 1.81 X10^3/uL; Monocyte% 15.3 % (0-10); NRBC Flagged by Analyzer 0.2 % (0-5); Neutrophil # 6.05 X10^3/uL (2.7-7.7); Neutrophil % 51.3 % (47-70); POSITIVE DIFFERENTIAL YES; Platelet Count 134 K/mm3 (150-450); RBC Distribution Width CV 16.6 % (11.6-14.6); RBC Distribution Width SD 64.4 fl (35.1-43.9); Red Blood Count 3.31 M/mm3 (4.2-5.4); White Blood Count 11.8 K/mm3 (4.4-11.0)
[2022-06-10 05:46] LABS: Differential Indicated SCAN CRITERIA MET
[2022-06-10 06:04] LABS: ALB/GLOB Ratio 0.5 RATIO (0.9-2.4); AST(SGOT) 51 U/L (15-37); Alanine Aminotransfer ALT/SGPT 30 U/L (13-56); Albumin, Serum 1.9 g/dL (3.2-5.0); Alkaline Phosphatase 69 U/L (45-117); Anion Gap 4 (5-15); BUN 15 mg/dL (7-18); Chloride 99 mmol/L (98-107); Creatinine, Serum 0.88 mg/dL (0.55-1.02); EST Glomerular Filtration Rate 69 mL/min (>60); Est Glom Filt Rate - Afr Amer 83 mL/min (>60); Estimated Creatinine Clearance 65.15 ml/min; Globulin 3.9 g/dL (2.2-4.2); Glucose 85 mg/dL (74-106); Potassium 3.5 mmol/L (3.5-5.1); Protein, Total 5.8 g/dL (6.4-8.2); Sodium Level 134 mmol/L (136-145)
[2022-06-10 06:21] LABS: Differential Comment SCANNED
[2022-06-10] MEDS: Midodrine HCl 5 MG Tablet 10 MG PO (06:46)
--- NOTE | 2022-06-10 07:30 | PCM.TXEXTCAR ---
Diet Diet Order/Speech Therapy: 06/04/22 12:19 Diet: Sodium Restricted (MOD) Food consistency:: Regular Liquid Consistency:: Regular/Thin Is pt able to select menu?: Yes Routine Orders/Code Status Routine Lab Work: CBC and BMP Code Status: Full Code Wound(s) chin: Wound Type: Abrasion RLQ: Wound Type: Puncture Therapies Physical Therapy: Eval and Treat Occupational Therapy: Eval and Treat Problem/Diagnosis (1) Elevated CA-125: Status: Acute Code(s): R97.1 - Elevated cancer antigen 125 [CA 125] (2) Thrombocytopenia: Status: Acute Code(s): D69.6 - Thrombocytopenia, unspecified (3) Ascites: Status: Acute Code(s): R18.8 - Other ascites (4) Cirrhosis: Status: Acute Code(s): K74.60 - Unspecified cirrhosis of liver Plan 1. Large volume ascites secondary to cirrhosis with chronic anemia and thrombocytopenia/elevated CA125/weakness and debility ? Current diagnosis for her cirrhosis is secondary to REES however work-up is still in progress ? Continue Xifaxan and lactulose as well as Bumex and Aldactone ? She is on nadolol 20 mg daily as well as midodrine 10 mg 3 times daily ? She did require 2 paracenteses while here on 06/04/2022 for 6800 cc and another on 06/07/2022 for 6200 cc ? She is pending discharge to [facility] however we are awaiting insurance presents secondary to her weakness and debility, PT/OT ? The transvaginal ultrasound today will patient of her CA125 shows a thickened endometrium ? She did have a fall with closed head injury, CT of the brain at that time was unremarkable ? Continue with PPI 2. Hypothyroidism ? Her TSH was 12.6 on admission as her medication was increased ? We will repeat her TSH in 6 weeks as an outpatient DVT: Lovenox Allergies/Procedures Done in Hospital Allergies No Known Allergies Allergy (Verified 06/03/22 14:06) Procedures: None Type of Care/Length of Stay Estimated LOS: Convalescent Care Less Than 30 days Type of Care Needed: Skilled Rehab Potential: Fair Prognosis: Fair Additional Orders/Day of Discharge Day of Discharge: 06/10/22 Dietary and Speech Recommendations Dietitian Recommendations/Changes: Continue sodium-restricted diet; fluid restriction as per physician. Will d/c ensure compact with medpass due to pt refusal to take ONS. Discharge Plan Admission Admit Date/Time: 06/03/22 16:49 Attending Provider: Aleksey Rod Primary Care Provider: Fran Barker Consulting Providers: Magdy Judge ; Shweta Galvez Instructions Patient Instructions: STEPHEN RN Paracentesis Dc Discharge Orders/Prescriptions Prescriptions: New midodrine 5 mg Tablet 10 mg PO TIDCM Qty: 0 0RF pantoprazole 40 mg Tablet,Delayed Release (Dr/Ec) 40 mg PO DAILY Qty: 0 0RF bumetanide 0.5 mg Tablet 1 mg PO BID Qty: 0 0RF spironolactone 50 mg Tablet 50 mg PO DAILY Qty: 0 0RF lactulose 20 gram/30 mL Solution 10 g PO BID Qty: 0 0RF Continued levothyroxine 75 mcg tablet 75 mcg PO DAILY Discontinued furosemide 20 mg tablet 10 mg PO DAILY Label Comments: take 1/2 tablet by mouth once daily Referrals / Follow Up: Fran Barker MD [Primary Care Provider] - FriendRajan DO [Med Staff - Active Staff] - In 1 Week Disposition Disposition (needs filled in before D/C Order can be placed): [facility]
--- NOTE | 2022-06-10 08:46 | DS.PCM_ITS ---
Providers Date of Admission: 06/03/22 Primary Care Physician: Dr. Fran Barker MD Consultations 06/03/22 18:43 Consult: Gastroenterology Routine Consulting Provider: Charlene G[facility] Reason for Consult: ascites EMERGENT Consult: No MD Notified: Yes Date Notified: 06/03/22 Time Notified: 17:41 Method of Notification: Verbal Reason For Visit: MASSIVE ASCITES Diagnosis Discharge Diagnosis (1) Elevated CA-125: Status: Acute Code(s): R97.1 - Elevated cancer antigen 125 [CA 125] (2) Thrombocytopenia: Status: Acute Code(s): D69.6 - Thrombocytopenia, unspecified (3) Ascites: Status: Acute Code(s): R18.8 - Other ascites (4) Cirrhosis: Status: Acute Code(s): K74.60 - Unspecified cirrhosis of liver Plan 1. Large volume ascites secondary to cirrhosis with chronic anemia and thrombocytopenia/elevated CA125/weakness and debility ? Current diagnosis for her cirrhosis is secondary to SHEPHERD however work-up is still in progress ? Continue Xifaxan and lactulose as well as Bumex and Aldactone ? She is on nadolol 20 mg daily as well as midodrine 10 mg 3 times daily ? She did require 2 paracenteses while here on 06/04/2022 for 6800 cc and another on 06/07/2022 for 6200 cc ? She is pending discharge to [facility] however we are awaiting insurance presents secondary to her weakness and debility, PT/OT ? The transvaginal ultrasound today will patient of her CA125 shows a thickened endometrium ? She did have a fall with closed head injury, CT of the brain at that time was unremarkable ? Continue with PPI 2. Hypothyroidism ? Her TSH was 12.6 on admission as her medication was increased ? We will repeat her TSH in 6 weeks as an outpatient DVT: Lovenox Medications at Discharge Home Medications levothyroxine 75 mcg tablet 75 mcg PO DAILY THYROID 06/03/22 bumetanide 0.5 mg tablet 1 mg PO BID #0 tabs 06/10/22 lactulose 20 gram/30 mL oral solution 10 g (15 mL) PO BID #0 mL 06/10/22 midodrine 5 mg tablet 10 mg PO TIDCM #0 tabs 06/10/22 pantoprazole 40 mg tablet,delayed release 40 mg PO DAILY #0 tabs 06/10/22 spironolactone 50 mg tablet 50 mg PO DAILY #0 tabs 06/10/22 Hospital Course Operations None Procedures Paracentesis Summary of Care Provided Minutes Spent on Discharge: 42 Hospital Course: Per HPI: EVIE OLVERA, is a 66 F with past medical history signal for hypothyroidism who presents with a 6-week history of abdominal distention.? Patient has been diagnosed with ascites by primary care physician was placed on p.o. Lasix 20 mg.? Patient has since noticed increasing distention involving the abdomen as well as swelling involving lower extremities.? On further questioning patient denied any previous history of hepatitis.? Denies IV drug use.? Denies diabetes or alcohol use.? CT of the abdomen obtained on admission did show Volume overload with a large amount of ascites and anasarca as well as Cirrhosis with innumerable small cysts..? [facility] Hospital Course: 1. Large volume ascites secondary to cirrhosis with chronic anemia and thrombocytopenia/elevated CA125/weakness and debility?66-year-old female presen moisés to the hospital with abdominal distention. She was diagnosed with ascites by her primary care physician and started on Lasix and since then she been noticing increasing distention. She had 13 L of fluid drained from her abdomen over 2 different procedures. Her CA125 did come back elevated and transvaginal ultrasound showed thickened endometrium but cytology from the paracentesis did not show any malignant cells. She was started on Xifaxan and lactulose as well as transition to twice daily Bumex and Aldactone. Her blood pressures have been a little bit soft because she was also started on nadolol and so she was placed on midodrine 10 mg 3 times daily. I discussed her discharge with her today she expressed understanding of the risk benefits of going to SNF and would like to go today. I also discussed the situation with gastroenterology who felt that we could discontinue the nadolol which should hopefully provide some improvement in her blood pressure on discharge. She will need to follow-up with gastroenterology as an outpatient there are outstanding labs pending for further characterization of her cirrhosis, right now the assumption is Shepherd. Unfortunately her prognosis is guarded as there is a lot of intervention that can be done at this time, and this is discussed with her. 2. Hypothyroidism is a chronic medical conditions which complicates her care. Her home medications were continued where appropriate Physical Exam Narrative General: Alert, Oriented x3, Cooperative, No apparent distress HEENT: Atraumatic, PERRLA, EOMI, Normocephalic Oral: Moist Mucosa Neck: Supple, No JVD Lungs: Clear to auscultation, Normal air movement, No rhonchi, No wheeze, No rales Cardiovascular: Regular rate, Regular Rhythm, Normal S1, Normal S2, No murmurs Abdomen: Soft, Non Tender, mildly distended, No Hepato-splenomegaly Extremities: Trace edema, Capillary Refill Less than 3 Seconds Skin: No rashes, No breakdown Musculoskeletal: No Tenderness to Palpation of Joints or Extremities Neurological: Cranial nerves II-XII grossly intact, Motor Exam 5/5 strength throughout, Sensory exam intact to light touch and pain Psych/Mental Status: Normal Affect, Appropriate Weight / BMI Weight Weight: 141 lb 5.061 oz Body Mass Index (BMI) 27.3 ABG / Lab / Microbiology Data Result Diagrams: 06/10/22 04:15 06/10/22 04:15 Laboratory: Laboratory Results - last 24 hr 06/04/22 12:25: Fluid Amylase 11 06/10/22 04:15: WBC 11.8 H, RBC 3.31 L, Hgb 11.7 L, Hct 35.4 L, MCV 106.9 H, MCH 35.3 H, MCHC 33.1, RDW Std Deviation 64.4 H, RDW Coeff of Radha 16.6 H, Plt Count 134 L, MPV 10.8, Immature Gran % (Auto) 0.700, Neut % (Auto) 51.3, Lymph % (Auto) 26.2, [place] % (Auto) 15.3 H, Eos % (Auto) 5.8 H, Baso % (Auto) 0.7, Absolute Neuts (auto) 6.1, Absolute Lymphs (auto) 3.10, Nucleated RBC % 0.2, Differential Comment SCANNED, Diff Path Review October06/10/22 04:15: Sodium 134 L, Potassium 3.5, Chloride 99, Carbon Dioxide 31.0, Anion Gap 4 L, BUN 15, Creatinine 0.88, Estim Creat Clear Calc 65.15, Est GFR (MDRD) Af Amer 83, Est GFR (MDRD) Non-Af 69, BUN/Creatinine Ratio 17.0, Glucose 85, Calcium 7.0 L, Total Bilirubin 2.00 H, AST 51 H, ALT 30, Alkaline Phosphatase 69, Total Protein 5.8 L, Albumin 1.9 L, Globulin 3.9, Album in/Globulin Ratio 0.5 L Microbiology: Microbiology 06/04/22 12:25 Fluid - Paracentesis (Abd) Gram Stain - Final 06/04/22 12:25 Fluid - Paracentesis (Abd) Body Fluid Culture - Final Culture exhibits no growth. 06/04/22 12:25 Fluid - Paracentesis (Abd) Anaerobic Culture - Final No growth in 5 days. Meaningful Use Info Meaningful Use Diagnoses (Choose all that apply): None applicable Discharge Plan Admission Admit Date/Time: 06/03/22 16:49 Attending Provider: Aleksey Rod Primary Care Provider: Fran Barker Consulting Providers: Magdy Judge ; Shweta Galvez Instructions Patient Instructions: RAD RN Paracentesis Dc Discharge Orders/Prescriptions Prescriptions: New midodrine 5 mg Tablet 10 mg PO TIDCM Qty: 0 0RF pantoprazole 40 mg Tablet,Delayed Release (Dr/Ec) 40 mg PO DAILY Qty: 0 0RF bumetanide 0.5 mg Tablet 1 mg PO BID Qty: 0 0RF spironolactone 50 mg Tablet 50 mg PO DAILY Qty: 0 0RF lactulose 20 gram/30 mL Solution 10 g PO BID Qty: 0 0RF Continued levothyroxine 75 mcg tablet 75 mcg PO DAILY Discontinued furosemide 20 mg tablet 10 mg PO DAILY Label Comments: take 1/2 tablet by mouth once daily Referrals / Follow Up: Fran Barker MD [Primary Care Provider] - FriendRajan DO [Med Staff - Active Staff] - In 1 Week Disposition Disposition (needs filled in before D/C Order can be placed): [facility] Charges/Coding Visit Charges Inpatient E&M: 98644 [facility] Hosp
[2022-06-10] MEDS: Bumetanide 0.5 MG Tablet 1 MG PO (09:36)
[2022-06-10] MEDS: Nystatin Powder 15gm Bottle 1 APPLIC TOPICAL (09:36)
[2022-06-10] MEDS: Spironolactone 50 MG Tablet PO (09:36)
[2022-06-10] MEDS: Pantoprazole Sodium 40 MG Tablet PO (09:36)
[2022-06-10] MEDS: Lactulose 20 GM/30 ML UDC 10 GM PO (09:36)
[2022-06-10 09:40] VITALS: BP 94/58; PULSE 72; RESP 18; TEMP 37.3; O2SAT 93
[2022-06-10 10:00] VITALS: BP 94/58; PULSE 72; RESP 18; TEMP 37.3; O2SAT 93
--- NOTE | 2022-06-10 10:02 | CASEMGMT ---
MILE Note SW received notification via [employer] that pre-cert to [facility] has been obtained. 7000 completed for patient for [facility]. MILE met with patient and ADRYAN Suarez and introduced herself as [facility] Hotel Superintendent. SW informed them patient was accepted to [facility] and pre-cert was obtained, so patient will be discharging today. Patient reported an understanding and requested her MYAH, Zita, and Mother, Ángela, be contacted and informed of the transfer. SW contacted Physicians to coordinate transportation via wheelchair for patient. Transportation set up for 11am. SW updated patient and ADRYAN Suarez of transportation time. SW informed patient should would be responsible for transportation fee, patient reported understanding. SW provided RN with nurse to nurse contact number. SW also informed patient she would contact family now that transportation has been set up. SW left a message for MYAH, explaining patient will be discharged to [facility] around 11am. SW contacted patient's mother, Ángela, and informed her of patient's discharge to [facility] around 11am. Patient's mother reported an understanding. Plan: Patient discharging to [facility] on convalescent stay around 11am. Susie Suarez MSW, SHO
--- NOTE | 2022-06-10 10:26 | CASEMGMT ---
Social Work Discharge orders and 7000 exemption form sent to [facility]. Disposition: [facility], skilled level of care under convalescent stay. HEMANTH Romeo
[2022-06-11 09:57] LABS: Pathologist Review Reviewed
[2022-06-13 20:57] LABS: Vitamin D 1,25-Dihydroxy 14.5 pg/mL (24.8-81.5)
== END 2022-06-10 11:35 | disposition skilled nursing facility (03) | DRG 442 ==
LOC: ED 16:59 → MS3 17:27
PROVIDERS: Internal Medicine; Internal Medicine Gastroenterology; Admitting Provider Internal Medicine; Emergency Provider Emergency Medicine; PCP Family Medicine; Visit Provider Family Medicine
DX: K75.81 Nonalcoholic steatohepatitis (NASH) (principal); R18.8 Other ascites; G93.40 Encephalopathy, unspecified; K76.6 Portal hypertension; E87.1 Hypo-osmolality and hyponatremia; I85.00 Esophageal varices without bleeding; D69.6 Thrombocytopenia, unspecified; E88.09 Other disorders of plasma-protein metabolism, not elsewhere classified; S09.90XA Unspecified injury of head, initial encounter; E03.9 Hypothyroidism, unspecified; E87.6 Hypokalemia; D64.89 Other specified anemias; W19.XXXA Unspecified fall, initial encounter; N20.0 Calculus of kidney; Z66 Do not resuscitate; R97.1 Elevated cancer antigen 125 [CA 125]
CPT/HCPCS: 36415; 49083; 70450; 71045; 74177; 76830; 80048; 80053; 80074; 80076; 81001; 82103; 82105; 82140; 82150; 82390; 82525; 82550; 82652; 82728; 82784; 82945; 83010; 83516; 83615; 83735; 83880; 84157; 84165; 84238; 84443; 84478; 84484; 85025; 85610; 85730; 86300; 86301; 86304; 86334; 87015; 87070; 87075; 87116; 87205; 87206; 88108; 88305; 88313; 89050; 93005; 97116; 97162; 97166; 97530; 97535; 99251; 99285; P9047; P9612; Q9967; A4216; G0463; J0610; J1940; J2405

== ENCOUNTER → 2022-06-17 | Outpatient (REF) | payer MEDICARE, SELFPAY ==
[2022-06-17 09:31] LABS: Absolute Lymphocyte Count 3.29 X10^3/uL (0.83-4.51); Absolute Neutrophil Count 5.7 X10^3/uL (2.0-7.7); Basophil# 0.09 X10^3/uL; Basophil% 0.8 % (0-1); Eosinophil# 0.69 X10^3/uL; Eosinophils% 6.2 % (0-5); Hematocrit 34.9 % (37-47); Hemoglobin 11.6 g/dL (12.0-15.0); Lymphocyte # 3.29 X10^3/ul (0.83-4.51); Lymphocyte % 29.3 % (19-41); Mean Corp Hgb Conc 33.2 g/dL (32-36); Mean Corpuscular Hgb 35.7 pg (27.0-32.0); Mean Corpuscular Volume 107.4 fL (81-99); Mean Platelet Vol. 11.3 fl (6.2-12.0); Monocyte% 12.5 % (0-10); NRBC Flagged by Analyzer 0 % (0-5); Neutrophil # 5.67 X10^3/uL (2.7-7.7); Neutrophil % 50.6 % (47-70); Platelet Count 161 K/mm3 (150-450); RBC Distribution Width SD 63.1 fl (35.1-43.9); Red Blood Count 3.25 M/mm3 (4.2-5.4); White Blood Count 11.2 K/mm3 (4.4-11.0)
[2022-06-17 09:54] LABS: ALB/GLOB Ratio 0.3 RATIO (0.9-2.4); AST(SGOT) 99 U/L (15-37); Alanine Aminotransfer ALT/SGPT 40 U/L (13-56); Albumin, Serum 1.6 g/dL (3.2-5.0); Alkaline Phosphatase 74 U/L (45-117); Anion Gap 5 (5-15); BUN 15 mg/dL (7-18); BUN/Creat Ratio 18.2 RATIO (10-20); Calcium,Total 7.2 mg/dL (8.5-10.1); Chloride 103 mmol/L (98-107); Creatinine, Serum 0.82 mg/dL (0.55-1.02); EST Glomerular Filtration Rate 74 mL/min (>60); Est Glom Filt Rate - Afr Amer 90 mL/min (>60); Glucose 61 mg/dL (74-106); Magnesium 2.1 mg/dL (1.6-2.6); Potassium 4.4 mmol/L (3.5-5.1); Protein, Total 6.6 g/dL (6.4-8.2); Sodium Level 133 mmol/L (136-145)
== END ==
LOC: OLS.SW 05:00
PROVIDERS: PCP Family Medicine; Visit Provider Internal Medicine
DX: G93.40 Encephalopathy, unspecified (principal); K74.60 Unspecified cirrhosis of liver; R18.8 Other ascites; D64.9 Anemia, unspecified
CPT/HCPCS: 36415; 80053; 83735; 85025

== ENCOUNTER 2022-06-22 22:15 | Inpatient (IN) | payer MEDICARE, SELFPAY ==
[2022-06-22 22:16] VITALS: BP 89/53; PULSE 112; RESP 24; TEMP 38.9; O2SAT 82; BMI 31.7
[2022-06-22 22:22] VITALS: BP 89/53; PULSE 110; PULSE 111; RESP 20; TEMP 38.9; O2SAT 93; O2SAT 94
--- NOTE | 2022-06-22 23:02 | EKG12_ITS ---
Test Reason : ABD PAIN Blood Pressure : / mmHG Vent. Rate : 097 BPM Atrial Rate : 097 BPM P-R Int : 138 ms QRS Dur : 052 ms QT Int : 412 ms P-R-T Axes : 039 -07 015 degrees QTc Int : 523 ms Normal sinus rhythm Low voltage QRS Possible Lateral infarct , age undetermined Inferior infarct , age undetermined Abnormal ECG Confirmed by RAUL MURRAY, GERRY ([id number]), dictionary editor YVETTE WITT ([id number]) on 06/24/2022 9:43:36 AM Referred By: Confirmed By:GERRY CARTER MD
--- NOTE | 2022-06-22 23:17 | RAD_ITS ---
EXAM: XR CHEST, 1 VIEW CLINICAL INDICATION: Fever TECHNIQUE: Frontal view of the chest. This report was created using [employer] report generation technology. COMPARISON: June 03, 2022 FINDINGS: LUNGS AND PLEURAL SPACES: Lower lung volumes in the interval. Heterogeneous airspace disease involving the mid to lower lungs bilaterally with elevated hemidiaphragms. No definite pleural effusion bilaterally although a lateral view is more accurate for that type of assessment. No pneumothorax. HEART: Right heart margin is obscured limiting assessment of the cardiac silhouette size. MEDIASTINUM: No hilar or mediastinal enlargement. BONES/JOINTS: Bones are unchanged. SOFT TISSUES: Unremarkable. RAD/Chest 1 View (Portable) IMPRESSION: Mildly decreased lung volumes in the interval. Bibasilar airspace disease is nonspecific with differential diagnosis to include partial atelectasis, aspiration, and/or pneumonia or a combination of these findings. Electronically Signed: Matt Lockhart MD at 0:12 EST ,
[2022-06-22 23:22] VITALS: BP 90/61; PULSE 101; RESP 22; O2SAT 93
[2022-06-22 23:27] LABS: International Normalized Ratio 1.7; Prothrombin Time (Protime)PT. 19.7 SECONDS (11.7-14.9)
[2022-06-22 23:28] LABS: Partial Thromboplast Time 33.3 Seconds (24.1-36.2)
[2022-06-22 23:37] LABS: Absolute Lymphocyte Count 1.67 X10^3/uL (0.83-4.51); Basophil# 0.03 X10^3/uL; Basophil% 0.3 % (0-1); Eosinophil# 0.01 X10^3/uL; Eosinophils% 0.1 % (0-5); Hemoglobin 10.3 g/dL (12.0-15.0); Lymphocyte # 1.67 X10^3/ul (0.83-4.51); Lymphocyte % 15.8 % (19-41); Mean Corp Hgb Conc 34.3 g/dL (32-36); Mean Corpuscular Hgb 36.7 pg (27.0-32.0); Mean Corpuscular Volume 106.8 fL (81-99); Mean Platelet Vol. 10.4 fl (6.2-12.0); Monocyte% 16.1 % (0-10); NRBC Flagged by Analyzer 0 % (0-5); Neutrophil # 6.99 X10^3/uL (2.7-7.7); Neutrophil % 65.9 % (47-70); POSITIVE DIFFERENTIAL YES; Platelet Count 145 K/mm3 (150-450); RBC Distribution Width CV 15.9 % (11.6-14.6); RBC Distribution Width SD 62.4 fl (35.1-43.9); Red Blood Count 2.81 M/mm3 (4.2-5.4); White Blood Count 10.6 K/mm3 (4.4-11.0)
[2022-06-22 23:41] LABS: Differential Indicated SCAN CRITERIA MET
[2022-06-22 23:43] LABS: ALB/GLOB Ratio 0.5 RATIO (0.9-2.4); AST(SGOT) 79 U/L (15-37); Alanine Aminotransfer ALT/SGPT 45 U/L (13-56); Albumin, Serum 2.2 g/dL (3.2-5.0); Alkaline Phosphatase 78 U/L (45-117); Anion Gap 5 (5-15); BUN 17 mg/dL (7-18); Calcium,Total 7.5 mg/dL (8.5-10.1); Chloride 100 mmol/L (98-107); Creatinine, Serum 1.13 mg/dL (0.55-1.02); EST Glomerular Filtration Rate 51 mL/min (>60); Est Glom Filt Rate - Afr Amer 62 mL/min (>60); Estimated Creatinine Clearance 36.13 ml/min; Globulin 4.7 g/dL (2.2-4.2); Glucose 120 mg/dL (74-106); Potassium 3.4 mmol/L (3.5-5.1); Protein, Total 6.9 g/dL (6.4-8.2); Sodium Level 135 mmol/L (136-145); Troponin-I HS 59 pg/mL (3.0-54.0)
[2022-06-22 23:51] LABS: Lactic Acid 2.3 mmol/L (0.4-1.9)
[2022-06-23] VITALS (42 sets, daily range): BP systolic 75–112; BP diastolic 49–70; PULSE 66–134; RESP 14–27; TEMP 36.2–39.4; O2SAT 89–99; BMI 27.8
--- NOTE | 2022-06-23 | IMM_PTH ---
PATIENT: EVIE OLVERA LOC: MS3 U#:[id number] AGE/SX: 66/F ROOM: MS308 RE06/23/[address]: Dr. Magdy Judge MD : 1955 BED: 1 DIS: 07/02/2022 SPEC #: [id number] RECD: 06/25/22 13:50 STATUS: SOUT REQ #: [id number] REMA: 06/23/22 00:[address]: Michael Rosales DEPT: IMMUNOHISTOCHEMISTRY RECD BY: Karen Kim ENTERED: 06/25/22 13:51 SP TYPE: IMMUNO OTHR DR: MD Dr. Héctor Darby MD Dr. Jeffrey Wunning, DPM Dr. Fran Barker MD Tissues: PARACENTESIS FLUID Procedures: Ton Ret (add) CK20 (add) CK5-6 (add) CK7 (add) MACRO (add) P53 (add) Pankeratin (initial) P40 (add) PHYSICIAN & INSTITUTION [address] [address] SPECIMEN INFORMATION: Tissue Source: Paracentesis fluid Clinical Info: Ascites Specimen Number: [id number] CPT code: 50449, 45411 x7 METHODOLOGY: Deparaffinized sections of prefer/formalin-fixed tissue or PAP/DQ stained slides are incubated with monoclonal/polyclonal antibodies/oligonucleotide probes. Localization is made via biotin free immunoperoxidase method. Appropriate controls are performed and reacted as expected. Results on target cell population are indicated in the following table: RESULTS: ANTIBODY / CLONE RESULT AE1-3 (AE1/AE3/PCK26) positive CK7 (OV-TL12/30) positive CK20 (KS20.8) negative Macro (HAM-56) positive CK5-6 (D5 & 1684) positive, rare CALRET (polyclonal) positive P40 (BC28) negative P53 (DO-7) negative These tests were developed and their performance characteristics determined by [facility]. They may not have been cleared or approved by the U.S. Food and Drug Administration. The FDA has determined that such clearance or approval is not necessary. The above immunohistochemical/dualISH markers are ordered and reviewed by the Pathologist. INTERPRETATION: Paracentesis fluid (cell block): No evidence of malignancy. AM:zaid 06/28/2022
--- NOTE | 2022-06-23 | FLU_PTH ---
PATIENT: EVIE OLVERA LOC: MS3 U#:[id number] AGE/SX: 66/F [place]OM: [facility] [place]/23/[address]: Dr. Magdy Judge MD : 1955 BED: 1 DIS: 07/02/2022 SPEC #: [id number] RECD: 06/24/22 08:47 STATUS: BIANKA REQ #: [id number] REMA: 06/23/22 00:[address]: Michael Rosales DEPT: CYTOLOGY RECD BY: Raine Luna ENTERED: 06/24/22 08:47 SP TYPE: Fluid OTHR DR: MD Dr. Héctor Darby MD Dr. Mark Elderbrock, MD Tissues: PARACENTESIS FLUID Procedures: Special Stain Group II Surgery Specimen Level IV Cytospin Fluid HEADER OPERATION: Ultrasound-guided paracentesis left PRE-OP DIAGNOSIS: Ascites TISSUE SUBMITTED: Paracentesis fluid for cytology DIAGNOSIS CYTOLOGY Paracentesis fluid for cytology (cytospin and cell block): Negative for malignant cells. See comment. AM:zaid 06/25/2022 COMMENT Immunohistochemistry ([id number]) supports the above diagnosis. Case has been reviewed in consultation with Dr. Rosas who concurs with the above diagnosis. IDC:SJ CYTOLOGY STUDY Slides are reviewed. CYTOLOGY GROSS Received is 80 ml of yellow cloudy fluid labeled with the patient's name and and designated per the requisition as paracentesis. Submitted for cytology preparation including cell block. / zaid 06/24/2022 TC:5 CPT: 59325, 12882
[2022-06-23 00:09] LABS: Red Blood Cells-Urine 0 SEEN /hpf (0-5); Squamous Epithelial Cells - UA 0 SEEN /hpf (5-10)
[2022-06-23 00:10] LABS: Mucous, Urine 0 SEEN /hpf (<or=2+)
[2022-06-23 00:12] LABS: Color, Urine Yellow (Yellow); Glucose, Dipstick Normal (Normal); Ketone-Dipstick Negative (Negative); Leukocyte Esterase-Dipstick 25 /ul (Negative); Nitrite-Dipstick Negative (Negative); Occult Blood-Urine 25 /ul (Negative); Protein-Dipstick 15 mg/dl (Negative); Specific Gravity, Urine 1.025 (1.002-1.030); Urine Bilirubin Dipstick Negative (Negative); Urine Clarity Sl. Cloudy (Clear); Urine Urobilinogen 1 mg/dl (Normal)
[2022-06-23 00:19] LABS: Hyaline Cast 25-50 SEEN /lpf (0-5)
[2022-06-23 00:20] LABS: Bacteria 2+ /hpf (None Seen); White Blood Cells 5-10 SEEN /hpf (0-5)
[2022-06-23 00:34] LABS: Differential Comment SCANNED
--- NOTE | 2022-06-23 00:56 | EX.ED.DYSGE1 ---
HPI History of Present Illness Chief Complaint: Edema Informant: patient Onset/Context/Timing Onset: Weeks (2) Context: Gradual Onset Timing: Continuous Quality: Distended Location: Abdomen Worsened by: Nothing Relieved by: Nothing Narrative Narrative: Patient presents with abdominal swelling that has been getting worse over the past 2 weeks. Patient denies any pain over her abdomen. Patient states it is gotten more swollen over the past 2 weeks. Patient states nothing makes it better nothing makes it worse. Patient denies any fevers or chills. Patient lives in an extended care facility and was sent to the emergency department for paracentesis. Patient is confused. Patient thinks it is 8 and thinks Carter Price is the president. Patient is oriented to person and place. [facility] Medical History Abnormal gait Anemia Ascites Cirrhosis Edema Encephalopathy Falls Fracture, tibia and fibula GERD (gastroesophageal reflux disease) Hypocalcemia Hypotension Hypothyroid Orthodontic device fitting or adjustment Thrombocytopenia Home Medications levothyroxine 75 mcg tablet 75 mcg PO DAILY THYROID 06/03/22 [History Last Taken Unknown] bumetanide 0.5 mg tablet 1 mg PO BID #0 tabs 06/10/22 [Rx Last Taken Unknown] lactulose 20 gram/30 mL oral solution 10 g (15 mL) PO BID #0 mL 06/10/22 [Rx Last Taken Unknown] midodrine 5 mg tablet 10 mg PO TIDCM #0 tabs 06/10/22 [Rx Last Taken Unknown] pantoprazole 40 mg tablet,delayed release 40 mg PO DAILY #0 tabs 06/10/22 [Rx Last Taken Unknown] spironolactone 50 mg tablet 50 mg PO DAILY #0 tabs 06/10/22 [Rx Last Taken Unknown] hydroxyzine HCl 25 mg tablet 25 mg DAILY PRN ITCHING 06/22/22 [History Last Taken Unknown] Allergy/AdvReac Type Severity Reaction Status Date / Time No Known Allergies Allergy Verified 06/03/22 14:06 Family History Mother No problems noted. Father Heart disease Surgical History unable to obtain Social History Smoking Status: Never smoker ROS ROS ED Constitutional Constitutional ED: Denies chills or fever(s) Eyes Eyes: Denies blurry vision or change in vision ENT ENT ED: Denies rhinorrhea or sore throat Cardiovascular Cardiovascular: Denies chest pain or palpitations Respiratory/Chest Respiratory/Chest: Denies cough or dyspnea Gastrointestinal Gastrointestinal: Denies abdominal pain, nausea or vomiting Genitourinary Genitourinary ED: Denies dysuria or hematuria Musculoskeletal Musculoskeletal: Denies back pain or neck pain Integumentary Denies abscess or rash Neurologic Neurologic: Denies headache(s) or weakness Allergic/Immunologic Allergic/Immunologic ED: Denies mouth swelling or urticaria EXAM Physical Exam Const Vital Signs: 06/22/22 22:16 06/22/22 22:22 06/22/22 22:22 Temperature 102.1 F H 102.1 F H Temperature Source Oral Oral Pulse Rate 112 H 111 H 110 H Respiratory Rate 24 H 20 H 20 H Respiratory Pattern Blood Pressure 89/53 L 89/53 L Blood Pressure Mean 65 65 Pulse Ox 82 94 93 Oxygen Delivery Method Room Air Nasal Cannula Nasal Cannula Oxygen Flow Rate (L/min) 2 2 06/22/22 23:17 06/22/22 23:26 06/22/22 23:22 Temperature Temperature Source Pulse Rate 101 H Respiratory Rate 22 H Respiratory Pattern Tachypnea Blood Pressure 90/61 Blood Pressure Mean 70 Pulse Ox 93 Oxygen Delivery Method Nasal Cannula Nasal Cannula Oxygen Flow Rate (L/min) 2 2 06/23/22 00:00 06/23/22 01:12 Temperature 99 F Temperature Source Oral Pulse Rate 89 86 Respiratory Rate 16 14 Respiratory Pattern Blood Pressure 84/50 L 75/54 L Blood Pressure Mean 61 61 Pulse Ox 96 92 Oxygen Delivery Method Nasal Cannula Oxygen Flow Rate (L/min) 2 Positive well nourished and well developed General Appearance ED: well developed and NAD HEENT Reports dry mucous membranes Mouth ED: Yes dry mucous membranes Mouth: dry mucous membranes Neck supple and no JVD Resp normal respiratory effort Auscultation: diminished lung sounds Cardio regular rate and regular rhythm GI non-tender GI Narrative: There is ascites noted on exam. Inspection: abdominal distention Palpation: soft Extremity normal to inspection General Extremety ED: Yes edema General Extremity: edema bilateral lower extremity Details: moderate Neuro CN's II-XII intact bilaterally and no sensory deficits noted Sensorium / Orientation: alert and orientation impaired Motor Exam: strength 5/5 throughout Sepsis Attestation Sepsis Alert: Yes Sepsis Attestation: Agree w/Sepsis Date exam was performed: 06/22/22 Time exam was performed: 22:30 Possible Source of Sepsis: Pulmonary, GI tract/intra-abdominal and Genitourinary Sepsis Organ Dysfunction Criteria Present: SBP < 90 mmHg or MAP < 65 mmHg, INR > 1.5 or aPTT > 60 sec and Lactic Acid > 2 mmol/L Fluid Resuscitation Fluid resuscitation indicated?: Yes Fluid Resuscitation ordered: Lesser volume fluid bolus ordered Reason for lesser fluid bolus:: Concern for fluid overload Sepsis Note Date exam was performed: 06/23/22 Time exam was performed: : Sepsis Attestation: Sepsis re-evaluation was performed Response to fluids: Non Fluid responsive hypotension MDM MDM MDM Narrative Medical decision making narrative: Patient was started with 500 cc bolus of normal saline. EKG was obtained. On my interpretation, it showed a normal sinus rhythm with a rate of 97. MA interval and QRS intervals were normal. QTc interval slightly prolonged at 523 ms. [place] was normal. There are nonspecific ST-T wave changes. CBC shows a mild anemia with a hemoglobin of 10.3 hematocrit 30.0. This is consistent with prior results. PT is 19.7 and INR is 1.7. PTT is 33.3. Comprehensive metabolic profile shows a slightly elevated creatinine of 1.13. This is consistent with prior results. Total bilirubin was slightly elevated at 1.8. High-sensitivity troponin was 59. Ammonia level was normal at 12. Lactate was slightly elevated at 2.3. Urinalysis shows a leukocyte esterase of 25. There were 5-10 white blood cells. There is 2+ bacteria. Blood cultures and urine culture was obtained. Portable chest x-ray was obtained. There is 1 view. On my interpretation, there is a questionable atelectasis versus infiltrate in the lower lobes bilaterally. Patient was still hypotensive. Patient was given a repeat 500 cc bolus of normal saline. Given the patient's ascites, I do not want to give the patient a lot of fluids immediately. We will continue to give IV fluids slowly. Patient was started on Zosyn and vancomycin. Case was discussed with the hospitalist. He will admit the patient to ICU. Patient understood and was agreeable with the plan. All questions were answered. Lab Data Attestation: I reviewed the patient's lab results. Labs: Laboratory Results - last 24 hr 06/22/22 06/22/22 06/22/22 22:36 22:36 22:36 WBC 10.6 RBC 2.81 L Hgb 10.3 L Hct 30.0 L MCV 106.8 H MCH 36.7 H MCHC 34.3 RDW Std Deviation 62.4 H RDW Coeff of Radha 15.9 H Plt Count 145 L MPV 10.4 Immature Gran % (Auto) 1.800 H Neut % (Auto) 65.9 Lymph % (Auto) 15.8 L [place] % (Auto) 16.1 H Eos % (Auto) 0.1 Baso % (Auto) 0.3 Absolute Neuts (auto) 7.0 Absolute Lymphs (auto) 1.67 Nucleated RBC % 0 Differential Comment SCANNED PT 19.7 H INR 1.7 APTT 33.3 Sodium 135 L Potassium 3.4 L Chloride 100 Carbon Dioxide 30.0 Anion Gap 5 BUN 17 Creatinine 1.13 H Estim Creat Clear Calc 36.13 Est GFR (MDRD) Af Amer 62 Est GFR (MDRD) Non-Af 51 L BUN/Creatinine Ratio 15.0 Glucose 120 H Lactic Acid Calcium 7.5 L Total Bilirubin 1.80 H AST 79 H ALT 45 Alkaline Phosphatase 78 Ammonia Troponin I High Sens 59 H Total Protein 6.9 Albumin 2.2 L Globulin 4.7 H Albumin/Globulin Ratio 0.5 L Urine Color Urine Clarity Urine pH Ur Specific [place] Urine Protein Urine Glucose (UA) Urine Ketones Urine Occult Blood Urine Nitrite Urine Bilirubin Urine Urobilinogen Ur Leukocyte Esterase Urine RBC Urine WBC Ur Squamous Epith Cells Urine Bacteria Hyaline Casts Urine Mucus 06/22/22 06/22/22 06/23/22 22:36 23:12 00:05 WBC RBC Hgb Hct MCV MCH MCHC RDW Std Deviation RDW Coeff of Radha Plt Count MPV Immature Gran % (Auto) Neut % (Auto) Lymph % (Auto) [place] % (Auto) Eos % (Auto) Baso % (Auto) Absolute Neuts (auto) Absolute Lymphs (auto) Nucleated RBC % Differential Comment PT INR APTT Sodium Potassium Chloride Carbon Dioxide Anion Gap BUN Creatinine Estim Creat Clear Calc Est GFR (MDRD) Af Amer Est GFR (MDRD) Non-Af BUN/Creatinine Ratio Glucose Lactic Acid 2.3 H* Calcium Total Bilirubin AST ALT Alkaline Phosphatase Ammonia 12.0 Troponin I High Sens Total Protein Albumin Globulin Albumin/Globulin Ratio Urine Color Yellow Urine Clarity Sl. Cloudy Urine pH 5.0 Ur Specific [place] 1.025 Urine Protein 15 H Urine Glucose (UA) Normal Urine Ketones Negative Urine Occult Blood 25 H Urine Nitrite Negative Urine Bilirubin Negative Urine Urobilinogen 1 H Ur Leukocyte Esterase 25 H Urine RBC 0 SEEN Urine WBC 5-10 SEEN Ur Squamous Epith Cells 0 SEEN Urine Bacteria 2+ Hyaline Casts 25-50 SEEN Urine Mucus 0 SEEN Radiography Diagnostic Testing: Clinical Impression(s) from Imaging Studies Chest X-Ray 06/22/22 23:17 IMPRESSION: Mildly decreased lung volumes in the interval. Bibasilar airspace disease is nonspecific with differential diagnosis to include partial atelectasis, aspiration, and/or pneumonia or a combination of these findings. Electronically Signed: Matt Lockhart MD at 0:12 EST , EKG Initial EKG: Attestation: I personally reviewed and interpreted this EKG as follows: Interpretation: Sinus Rhythm (7) and Non-Specific ST Changes Prior EKG tracings: available for review Prior: Unchanged (06/03/2022) Critical Care Time Critical Care Time: Yes Critical care time (excluding procedures): 30-74 minutes (36), Including time spent:, Discussing w/Patient &/or Family/Director Product, Discussing w/Consultants, Arranging Admission or Transfer and Performing Direct Patient Care at Bedside Discharge Plan Dx/Rx/DC Orders Clinical Impression: Hypotension, Ascites, Cirrhosis, Sepsis Disposition Disposition: Acute Care [facility]
[2022-06-23] MEDS: 0.9% Normal Saline 1,000 ML 250 ML IV (01:20)
--- NOTE | 2022-06-23 01:27 | HP.PCM.HOS_ITS ---
HPI - General General Date of Admission: 06/23/22 Date of Service: 06/23/22 Chief Complaint: Confusion HPI Narrative EVIE OLVERA, is a 66 F with a significant history of cirrhosis with ascites; chronic hypotension and encephalopathy who presents to the emergency department with confusion above her baseline. Of note patient lives at [facility]. Reportedly she has been more confused above her baseline. Associated with her symptoms is fever. Also reportedly patient she has had increase in her abdominal girth. History was taken from Emergency department doctor and from review of correction papers as patient is confused and cannot contribute to history. Per patient her daughter wanted her to be checked out at the hospital. [facility] Medical History Abnormal gait Anemia Ascites Cirrhosis Edema Encephalopathy Falls Fracture, tibia and fibula GERD (gastroesophageal reflux disease) Hypocalcemia Hypotension Hypothyroid Orthodontic device fitting or adjustment Thrombocytopenia Home Medications levothyroxine 75 mcg tablet 75 mcg PO DAILY THYROID 06/03/22 [History Last Taken Unknown] bumetanide 0.5 mg tablet 1 mg PO BID #0 tabs 06/10/22 [Rx Last Taken Unknown] lactulose 20 gram/30 mL oral solution 10 g (15 mL) PO BID #0 mL 06/10/22 [Rx Last Taken Unknown] midodrine 5 mg tablet 10 mg PO TIDCM #0 tabs 06/10/22 [Rx Last Taken Unknown] pantoprazole 40 mg tablet,delayed release 40 mg PO DAILY #0 tabs 06/10/22 [Rx Last Taken Unknown] spironolactone 50 mg tablet 50 mg PO DAILY #0 tabs 06/10/22 [Rx Last Taken Unknown] hydroxyzine HCl 25 mg tablet 25 mg DAILY PRN ITCHING 06/22/22 [History Last Taken Unknown] Allergy/AdvReac Type Severity Reaction Status Date / Time No Known Allergies Allergy Verified 06/03/22 14:06 Family History Mother No problems noted. Father Heart disease Surgical History unable to obtain unable to obtain (Secondary to encephalopathy) Social History Smoking Status: Never smoker ROS Review of Systems ROS Unobtainable: due to mental condition Vital Signs Vital Signs Vital Signs: 06/22/22 22:16 06/22/22 22:22 06/22/22 22:22 Temperature 102.1 F H 102.1 F H Temperature Source Oral Oral Pulse Rate 112 H 111 H 110 H Respiratory Rate 24 H 20 H 20 H Respiratory Pattern Blood Pressure 89/53 L 89/53 L Blood Pressure Mean 65 65 Pulse Ox 82 94 93 Oxygen Delivery Method Room Air Nasal Cannula Nasal Cannula Oxygen Flow Rate (L/min) 2 2 06/22/22 23:17 06/22/22 23:26 06/22/22 23:22 Temperature Temperature Source Pulse Rate 101 H Respiratory Rate 22 H Respiratory Pattern Tachypnea Blood Pressure 90/61 Blood Pressure Mean 70 Pulse Ox 93 Oxygen Delivery Method Nasal Cannula Nasal Cannula Oxygen Flow Rate (L/min) 2 2 06/23/22 00:00 06/23/22 01:12 Temperature 99 F Temperature Source Oral Pulse Rate 89 86 Respiratory Rate 16 14 Respiratory Pattern Blood Pressure 84/50 L 75/54 L Blood Pressure Mean 61 61 Pulse Ox 96 92 Oxygen Delivery Method Nasal Cannula Oxygen Flow Rate (L/min) 2 Weight Weight: 73.8 kg Body Mass Index (BMI) 31.7 Physical Exam Narrative Physical exam: General: Well-nourished, well-developed. Head: Normocephalic, atraumatic, no tenderness Eyes: Vision is grossly intact. EOMI ENT, no trauma, moist mucous membranes, no rhinorrhea Neck: Nontender, No thyromegaly. CVS: Regular rate and rhythm. S1-S2 present. No murmur, gallop or rub. Respiratory : Rhonchi; wheezes, chest wall nontender, no wheezing Abdomen: Soft, nontender, distended abdomen, normal bowel sounds, no masses : Deferred Back: Nontender, no CVA tenderness, no midline spinal tenderness, deformities, step-offs Extremities: Nontender full range of motion, no trauma Skin: Normal color, no trauma, abrasions Neuro: Alert, oriented to self and place. Patient knew that it was Tuesday on the day of admission (that was correct). She did not know the month or the year. Cranial nerves II through XII grossly intact. Psychiatry: Normal mood. Normal affect. Not depressed. Not anxious. Results Lab / Micro Data Result Diagrams: 06/22/22 22:36 06/22/22 22:36 Labs: Laboratory Results - last 24 hr 06/22/22 22:36: WBC 10.6, RBC 2.81 L, Hgb 10.3 L, Hct 30.0 L, MCV 106.8 H, MCH 36.7 H, MCHC 34.3, RDW Std Deviation 62.4 H, RDW Coeff of Radha 15.9 H, Plt Count 145 L, MPV 10.4, Immature Gran % (Auto) 1.800 H, Neut % (Auto) 65.9, Lymph % (Auto) 15.8 L, [place] % (Auto) 16.1 H, Eos % (Auto) 0.1, Baso % (Auto) 0.3, Absolute Neuts (auto) 7.0, Absolute Lymphs (auto) 1.67, Nucleated RBC % 0, Differential Comment SCANNED 06/22/22 22:36: PT 19.7 H, INR 1.7, APTT 33.3 06/22/22 22:36: Sodium 135 L, Potassium 3.4 L, Chloride 100, Carbon Dioxide 30.0, Anion Gap 5, BUN 17, Creatinine 1.13 H, Estim Creat Clear Calc 36.13, Est GFR (MDRD) Af Amer 62, Est GFR (MDRD) Non-Af 51 L, BUN/Creatinine Ratio 15.0, Glucose 120 H, Calcium 7.5 L, Total Bilirubin 1.80 H, AST 79 H, ALT 45, Alkaline Phosphatase 78, Troponin I High Sens 59 H, Total Protein 6.9, Albumin 2.2 L, Globulin 4.7 H, Albumin/Globulin Ratio 0.5 L 06/22/22 22:36: Lactic Acid 2.3 H* 06/22/22 23:12: Ammonia 12.0 06/23/22 00:05: Urine Color Yellow, Urine Clarity Sl. Cloudy, Urine pH 5.0, Ur Specific [place] 1.025, Urine Protein 15 H, Urine Glucose (UA) Normal, Urine Ketones Negative, Urine Occult Blood 25 H, Urine Nitrite Negative, Urine Bilirubin Negative, Urine Urobilinogen 1 H, Ur Leukocyte Esterase 25 H, Urine RBC 0 SEEN, Urine WBC 5-10 SEEN, Ur Squamous Epith Cells 0 SEEN, Urine Bacteria 2+, Hyaline Casts 25-50 SEEN, Urine Mucus 0 SEEN Radiology Impression Chest X-Ray 06/22/22 23:17 IMPRESSION: Mildly decreased lung volumes in the interval. Bibasilar airspace disease is nonspecific with differential diagnosis to include partial atelectasis, aspiration, and/or pneumonia or a combination of these findings. Electronically Signed: Matt Lockhart MD at 0:12 EST Reading Location ID and State: [facility] / [place] Tel , Service support , Assessment & Plan Assessment/Plan (1) Pneumonia: (2) Encephalopathy acute: (3) SBP (spontaneous bacterial peritonitis): (4) UTI (urinary tract infection): PLAN: Plan Sepsis/infectious encephalopathy/spontaneous bacterial peritonitis/UTI/pneumonia The patient presented with sepsis due to (possible spontaneous bacterial peritonitis; UTI or pneumonia ) with acute sepsis related organ dysfunction as evidenced by (lactic acidosis and encephalopathy). SIRS criteria: Temperature more than 100.9 Fahrenheit. T-max on presentation was 102.1 Fahrenheit. Respiratory rate more than 20. Highest respiratory rate on presentation was 24. Heart rate more than 90. Highest respiratory rate on presentation was 112. Lactic acid on presentation was 2.3, trend. Systolic blood pressure on presentation was less than 90. Patient has a history of chronic hypotension. Received IV bolus normal saline at emergency department but not 30 mL/kg as patient is a cirrhotic patient and has ascites. Vancomycin and Zosyn was started at the emergency department and continued. INR on presentation was 1.7. Repeat INR. Paracentesis of ascites fluid with gram stain ordered; and cultures ordered. Chest x-ray per radiologist showed a questionable infiltrate versus atelectasis. . Upon my independent review chest x-ray does not look different from previous. Of note patient with rhonchi throughout. [id number] breathing treatment ordered. Strep pneumoniae antigen and Legionella urine antigen ordered. Urinalysis was reviewed, abnormal. Urine culture and blood culture ordered emergency department, follow. CBC showed white count of 10,600. Trend CBC. Hold home diuretics secondary to relative hypotension. Midodrine continued. Chronic anemia Stable CKD stage II Stable DVT prophylaxis SCDs ordered Charges/Coding Visit Charges Inpatient E&M: 13098 Init Hosp L3
[2022-06-23 03:10] LABS: Reflex Lactate? Y
--- NOTE | 2022-06-23 03:54 | US_ITS ---
PROCEDURE: Ultrasound guided paracentesis. DATE OF EXAMINATION: 06/23/2022. INDICATION: Female, 66 years old. Ascites. PHYSICIAN: Loco Pearson M.D. TECHNIQUE: The risks, benefits, and alternatives to the procedure were explained to the patient. The specific risks of bleeding, infection, and damage to bowel were detailed and accepted. Witnessed informed consent was obtained. The abdomen was ultrasonographically surveyed. An appropriate pocket of fluid was identified at the left lower quadrant. The skin were cleaned and prepped in the usual sterile fashion. Using ultrasound guidance, the peritoneal cavity was accessed with a 5-[place] paracentesis needle/catheter system. The trocar was removed. A total of 2800 ml of donnell-colored fluid were removed from the peritoneal cavity. A 100 mL sample was sent to the laboratory for testing. The catheter was removed and a sterile dressing was applied. The procedure was well tolerated. US/Paracentesis with US IMPRESSION: Ultrasound guided paracentesis. Electronically Signed: Loco Pearson MD at 15:04 EST ,
[2022-06-23 04:19] LABS: Lactic Acid 1.5 mmol/L (0.4-1.9)
[2022-06-23 04:27] LABS: Absolute Lymphocyte Count 1.43 X10^3/uL (0.83-4.51); Basophil# 0.02 X10^3/uL; Basophil% 0.3 % (0-1); Eosinophil# 0.01 X10^3/uL; Eosinophils% 0.1 % (0-5); Hematocrit 28.1 % (37-47); Hemoglobin 9.1 g/dL (12.0-15.0); Lymphocyte # 1.43 X10^3/ul (0.83-4.51); Lymphocyte % 18.9 % (19-41); Mean Corp Hgb Conc 32.4 g/dL (32-36); Mean Corpuscular Hgb 35.3 pg (27.0-32.0); Mean Corpuscular Volume 108.9 fL (81-99); Mean Platelet Vol. 10.7 fl (6.2-12.0); Monocyte# 1.08 X10^3/uL; Monocyte% 14.3 % (0-10); NRBC Flagged by Analyzer 0 % (0-5); Neutrophil # 4.96 X10^3/uL (2.7-7.7); Neutrophil % 65.5 % (47-70); Platelet Count 123 K/mm3 (150-450); RBC Distribution Width CV 16.2 % (11.6-14.6); RBC Distribution Width SD 64.6 fl (35.1-43.9); Red Blood Count 2.58 M/mm3 (4.2-5.4); White Blood Count 7.6 K/mm3 (4.4-11.0)
[2022-06-23 04:36] LABS: International Normalized Ratio 1.7; Prothrombin Time (Protime)PT. 19.9 SECONDS (11.7-14.9)
[2022-06-23 04:48] LABS: ALB/GLOB Ratio 0.5 RATIO (0.9-2.4); AST(SGOT) 72 U/L (15-37); Alanine Aminotransfer ALT/SGPT 39 U/L (13-56); Albumin, Serum 1.9 g/dL (3.2-5.0); Alkaline Phosphatase 66 U/L (45-117); Anion Gap 4 (5-15); BUN 16 mg/dL (7-18); BUN/Creat Ratio 16.2 RATIO (10-20); Calcium,Total 6.8 mg/dL (8.5-10.1); Chloride 102 mmol/L (98-107); Creatinine, Serum 0.99 mg/dL (0.55-1.02); EST Glomerular Filtration Rate 60 mL/min (>60); Est Glom Filt Rate - Afr Amer 73 mL/min (>60); Globulin 4.1 g/dL (2.2-4.2); Glucose 108 mg/dL (74-106); Potassium 3.4 mmol/L (3.5-5.1); Sodium Level 136 mmol/L (136-145)
--- NOTE | 2022-06-23 06:21 | PCM.RX.CS ---
Consult Pharmacy has been consulted to manage selected antiobiotic: Vancomycin Type of Consult: New start Suspected Infection: Sepsis Labs: Sodium 136 mmol/L (136-145) 06/23/22 04:14 Potassium 3.4 mmol/L (3.5-5.1) L 06/23/22 04:14 Chloride 102 mmol/L (98-107) 06/23/22 04:14 Carbon Dioxide 30.0 mmol/L (21.0-32.0) 06/23/22 04:14 Anion Gap 4 (5-15) L 06/23/22 04:14 BUN 16 mg/dL (7-18) 06/23/22 04:14 Creatinine 0.99 mg/dL (0.55-1.02) 06/23/22 04:14 Est GFR (MDRD) Af Amer 73 mL/min (>60) 06/23/22 04:14 Est GFR (MDRD) Non-Af 60 mL/min (>60) 06/23/22 04:14 BUN/Creatinine Ratio 16.2 RATIO (10-20) 06/23/22 04:14 Glucose 108 mg/dL (74-106) H 06/23/22 04:14 Microbiology: Microbiology 06/23/22 00:09 Urine Catheter - Catheter Legionella Antigen - Final 06/23/22 00:09 Urine Catheter - Catheter Streptococcus pneumoniae Antigen (M - Final Weight used for dosin kg Estimated Creatinine Clearance: 52.3 Goal Trough: 15-20 mcg/mL Pharmacy Plan for Drug Dosing: Pharmacy Service will continue to monitor and adjust dosing as required. Medications Vancomycin HCl 750 mg/ Sodium (Chloride) 265 mls @ 250 mls/hr IV Q12H ALEA Discontinued Medications Vancomycin HCl 1,750 mg/ (Sodium Chloride) 535 mls @ 250 mls/hr IV X1 ONE Stop: 06/23/22 02:40 Last Admin: 06/23/22 04:10 Dose: Infused Follow-Up Labs: Trough Vancomycin Labs to be done on [date and time ordered]: 06/24 @ 1300
[2022-06-23] MEDS: 0.9% Saline Lock 10 ML Syringe IV ×2 (06:35→10:41)
[2022-06-23] MEDS: Levothyroxine 75 MCG Tablet PO (06:35)
[2022-06-23] MEDS: CHLORHEXIDINE GLUC 2% CLOTH 1 EACH TOWELETTE TOPICAL (06:41)
[2022-06-23] MEDS: Ipratropium/Albuterol Sulfate 3 ML AMPUL.NEB INHALATION ×4 (06:56→19:21)
--- NOTE | 2022-06-23 07:01 | PCM.PN.HOSP ---
Subjective Subjective Feels well. Does not feel abdomen is any more distended. Objective Data Objective Data Vital Signs: Vital Signs Temp Pulse Resp BP Pulse Ox O2 Del Method O2 Flow Rate 36.2 C L 85 20 H 94/62 95 Nasal Cannula 2 06/23/22 06:45 06/23/22 06:45 06/23/22 06:45 06/23/22 06:45 06/23/22 06:45 06/23/22 06:45 06/23/22 06:45 Oxygen Flow Rate (L/min) 2 Oxygen Delivery Method Nasal Cannula Weight: 69 kg Body Mass Index (BMI) 27.8 Intake & Output: Intake and Output for Last 24 Hours 06/21/22 06/22/22 06/23/22 23:59 23:59 23:59 Intake Total 500 / 500 2135 / 2135 Balance 500 / 500 2135 / 2135 Lab / Micro Data Result Diagrams: 06/23/22 04:14 06/23/22 04:14 Labs: Laboratory Results - last 24 hr 06/22/22 22:36: WBC 10.6, RBC 2.81 L, Hgb 10.3 L, Hct 30.0 L, MCV 106.8 H, MCH 36.7 H, MCHC 34.3, RDW Std Deviation 62.4 H, RDW Coeff of Radha 15.9 H, Plt Count 145 L, MPV 10.4, Immature Gran % (Auto) 1.800 H, Neut % (Auto) 65.9, Lymph % (Auto) 15.8 L, [place] % (Auto) 16.1 H, Eos % (Auto) 0.1, Baso % (Auto) 0.3, Absolute Neuts (auto) 7.0, Absolute Lymphs (auto) 1.67, Nucleated RBC % 0, Differential Comment SCANNED 06/22/22 22:36: PT 19.7 H, INR 1.7, APTT 33.3 06/22/22 22:36: Sodium 135 L, Potassium 3.4 L, Chloride 100, Carbon Dioxide 30.0, Anion Gap 5, BUN 17, Creatinine 1.13 H, Estim Creat Clear Calc 36.13, Est GFR (MDRD) Af Amer 62, Est GFR (MDRD) Non-Af 51 L, BUN/Creatinine Ratio 15.0, Glucose 120 H, Calcium 7.5 L, Total Bilirubin 1.80 H, AST 79 H, ALT 45, Alkaline Phosphatase 78, Troponin I High Sens 59 H, Total Protein 6.9, Albumin 2.2 L, Globulin 4.7 H, Albumin/Globulin Ratio 0.5 L 06/22/22 22:36: Lactic Acid 2.3 H* 06/22/22 23:12: Ammonia 12.0 06/23/22 00:05: Urine Color Yellow, Urine Clarity Sl. Cloudy, Urine pH 5.0, Ur Specific [place] 1.025, Urine Protein 15 H, Urine Glucose (UA) Normal, Urine Ketones Negative, Urine Occult Blood 25 H, Urine Nitrite Negative, Urine Bilirubin Negative, Urine Urobilinogen 1 H, Ur Leukocyte Esterase 25 H, Urine RBC 0 SEEN, Urine WBC 5-10 SEEN, Ur Squamous Epith Cells 0 SEEN, Urine Bacteria 2+, Hyaline Casts 25-50 SEEN, Urine Mucus 0 SEEN 06/23/22 03:45: Lactic Acid 1.5 06/23/22 04:14: WBC 7.6, RBC 2.58 L, Hgb 9.1 L, Hct 28.1 L, MCV 108.9 H, MCH 35.3 H, MCHC 32.4 D, RDW Std Deviation 64.6 H, RDW Coeff of Radha 16.2 H, Plt Count 123 L, MPV 10.7, Immature Gran % (Auto) 0.900, Neut % (Auto) 65.5, Lymph % (Auto) 18.9 L, [place] % (Auto) 14.3 H, Eos % (Auto) 0.1, Baso % (Auto) 0.3, Absolute Neuts (auto) 5.0, Absolute Lymphs (auto) 1.43, Nucleated RBC % 0 06/23/22 04:14: PT 19.9 H, INR 1.7 06/23/22 04:14: Sodium 136, Potassium 3.4 L, Chloride 102, Carbon Dioxide 30.0, Anion Gap 4 L, BUN 16, Creatinine 0.99, Estim Creat Clear Calc 45.40, Est GFR (MDRD) Af Amer 73, Est GFR (MDRD) Non-Af 60, BUN/Creatinine Ratio 16.2, Glucose 108 H, Calcium 6.8 L, Total Bilirubin 1.70 H, AST 72 H, ALT 39, Alkaline Phosphatase 66, Total Protein 6.0 L, Albumin 1.9 L, Globulin 4.1, Albumin/Globulin Ratio 0.5 L Micro: Microbiology 06/23/22 00:09 Urine Catheter - Catheter Legionella Antigen - Final 06/23/22 00:09 Urine Catheter - Catheter Streptococcus pneumoniae Antigen (M - Final Radiography Diagnostic Testing: Radiology Impression Chest X-Ray 06/22/22 23:17 IMPRESSION: Mildly decreased lung volumes in the interval. Bibasilar airspace disease is nonspecific with differential diagnosis to include partial atelectasis, aspiration, and/or pneumonia or a combination of these findings. Electronically Signed: Matt Lockhart MD at 0:12 EST , Physical Exam Const alert and no apparent distress Neck no lymphadenopathy Resp normal respiratory effort, no retractions, no use of accessory muscles and clear to auscultation bilaterally Cardio regular rate, regular rhythm, S1 normal heart sound and S2 normal heart sound GI normal to inspection, nondistended, normoactive bowel sounds and soft to palpation GI Narrative: distended Extremity normal to inspection Assessment & Plan Assessment/Plan (1) Encephalopathy acute: PLAN: Currently resolved Suspect metabolic from sepsis and influenza A Ammonia only 12, therefore, it is not hepatic encephalopathy No clear source of infection: UA unremarkable--therefore UTI ruled out. CXR show right pleural effusion--no change from 06/03--doubt pneumonia. No leukocytosis. Fevers improved Continue empiric abx for now, but if cultures are negative, would discontinue. Will check patient for viral etiologies--viral resp panel, COVID 19, flu. (2) Sepsis: PLAN: The patient presented with sepsis due to (possible spontaneous bacterial peritonitis; UTI or pneumonia ) with acute sepsis related organ dysfunction as evidenced by (lactic acidosis and encephalopathy). SIRS criteria: Temperature more than 100.9 Fahrenheit. T-max on presentation was 102.1 Fahrenheit. Respiratory rate more than 20. Highest respiratory rate on presentation was 24. Heart rate more than 90. Highest respiratory rate on presentation was 112. Lactic acid on presentation was 2.3, trend. Systolic blood pressure on presentation was less than 90. Patient has a history of chronic hypotension. Received IV bolus normal saline at emergency department but not 30 mL/kg as patient is a cirrhotic patient and has ascites. Vancomycin and Zosyn was started at the emergency department and continued. INR on presentation was 1.7. Repeat INR. Paracentesis of ascites fluid with gram stain ordered; and cultures ordered. UTI ruled out. +Influenza A. May be the source of infection with chronic hypotension already on midodrine. (3) Pneumonia: PLAN: No clear infiltrate on CXR Strep and legionella antigens negative (4) Ascites: PLAN: Patient had a transvaginal ultrasound that showed endometrium fluid-filled and thickened. No masses were noted nor any ovarian masses. Patient has a history of elevated CA125's. But the possibility of cirrhosis is not excluded. cirrhotic liver was noted on imaging the patient has not had a biopsy. Her bumetanide and spironolactone are currently held in light of the hypotension. Paracentesis ordered. Will order appropriate labs. Check SAAG. I do not anticipate need for drain at this point, unless treatment becomes palliative/hospice. (5) Influenza A: PLAN: Has been vaccinated. Start Tamiflu. PLAN: Plan Chronic anemia Stable CKD stage II Stable DVT prophylaxis SCDs ordered Charges/Coding Visit Charges Inpatient E&M: 43802 Subs Hosp L2
[2022-06-23] MEDS: Midodrine HCl 5 MG Tablet 10 MG PO ×3 (07:50→17:15)
--- NOTE | 2022-06-23 08:04 | CON.PCM.CC_ITS ---
Assessment & Plan Assessment/Plan (1) Ascites: (2) Hypotension: PLAN: Plan RECOMMENDATIONS: 1. Obtain diagnostic paracentesis with possible subsequent thoracentesis 2. Wean supplemental oxygen as tolerated 3. Supportive care for influenza 4. Hold on pressors for now 5. Likely require albumin infusion following paracentesis 6. Walking oximetry prior to discharge IMPRESSIONS: 1. Sepsis secondary to influenza A Patient with elevated lactate and SIRS on presentation. Encephalopathy indicate endorgan damage. Low clinical suspicion for pneumonia outside of the influenza A. Patient does have a history of SBP in the past, so reasonable to continue with antibiotics for now, but these can likely be discontinued if cultures are negative. Continue with midodrine. No indication for pressors at this time. Would use a systolic pressure of 90 more than a map given patient's underlying liver disease. 2. Acute hypoxic respiratory insufficiency secondary to influenza A/right pleural effusion Patient with rather large right-sided pleural effusion and influenza A. Patient does also appear to have an element of atelectasis in the left base. Recommend a paracentesis and repeat chest x-ray. Cannot exclude the need for a therapeutic right thoracentesis, but reaccumulation is highly probable. May need to evaluate patient for possible indwelling catheter for home drainage given frequency of paracentesis needed. Defer to GI/hospitalist. 3. Metabolic encephalopathy Clinical suspicion for hypoxia leading to confusion on presentation. This does appear to be improving with supplemental oxygen. Patient's ammonia was within normal limits, so hepatic encephalopathy is not likely. Okay to continue with usual medications from my perspective as this should improve with continued control of hypoxia. 4. Cirrhosis/debility/elevated CA125/coagulopathy Complicates care, management, recovery and prognosis. Frequent h ospitalizations leading to debility. PT/OT should be involved. HPI Consult Data Date of Consult: 06/23/22 HPI Narrative Reason for Consultation: Sepsis HPI Narrative: EVIE OLVERA is a 66 F, with past medical history listed below, who presents to [facility] on 06/23/2022 secondary to progressive abdominal dis tention. Patient is not reporting any pain, but feels it is gotten more swollen over the last 2 weeks. Patient is not reporting any exacerbating or relieving factors. Patient had not reported any fevers or chills at home. Patient reportedly lives in extended-care facility and was brought to the emergency department for a paracentesis. Patient is known to have marginal blood pressures and takes midodrine at baseline. In the ER, patient was noted to have a temperature of 102.1 ?F, tachycardic at 112 bpm and hypoxic on room air at 82%. ER staff had noted the patient was confused. Laboratory work-up showed a white blood cell count of 10.6, hemoglobin of 10.3 and platelets of 145. INR was elevated at 1.7 and creatinine at 1.13. Total bili was slightly elevated at 1.8 and lactate was 2.3. Ammonia was within normal limits. UA did show some hyaline casts and chest x-ray showed a significant right-sided pleural effusion with left-sided atelectasis (my interpretation). Given concern for sepsis, patient was given some IV fluids, but not full resuscitation given concerns for fluid overload with abdominal distention and pleural effusion. Patient was initiated on antibiotics and ad mitted to the intensive care unit for further evaluation. Since being in the intensive care unit, patient has remained marginal blood pressures, but no pressors have been required. No bleeding has been required. Patient overall feels subjectively improved compared to previous. Patient states that she does have a history of paracentesis previously and sees Dr. Marshall. However, patient is somewhat confused on the frequency required in the past. Patient states she has never had a thoracentesis previously and does not require supplemental oxygen at baseline. Patient states she has been taking her medications as prescribed, but is unable to name her medications. This morning, patient has tested positive for influenza. Patient is not reporting any bleeding, but reliability is questionable. [facility] Medical History Abnormal gait Anemia Ascites Cirrhosis Edema Encephalopathy Falls Fracture, tibia and fibula GERD (gastroesophageal reflux disease) Hypocalcemia Hypotension Hypothyroid Orthodontic device fitting or adjustment Thrombocytopenia Home Medications levothyroxine 75 mcg tablet 75 mcg PO DAILY THYROID 06/03/22 [History Last Taken Unknown] bumetanide 0.5 mg tablet 1 mg PO BID #0 tabs 06/10/22 [Rx Last Taken Unknown] lactulose 20 gram/30 mL oral solution 10 g (15 mL) PO BID #0 mL 06/10/22 [Rx Last Taken Unknown] midodrine 5 mg tablet 10 mg PO TIDCM #0 tabs 06/10/22 [Rx Last Taken Unknown] pantoprazole 40 mg tablet,delayed release 40 mg PO DAILY #0 tabs 06/10/22 [Rx Last Taken Unknown] spironolactone 50 mg tablet 50 mg PO DAILY #0 tabs 06/10/22 [Rx Last Taken Unknown] hydroxyzine HCl 25 mg tablet 25 mg DAILY PRN ITCHING 06/22/22 [History Last Taken Unknown] Allergy/AdvReac Type Severity Reaction Status Date / Time No Known Allergies Allergy Verified 06/03/22 14:06 Family History Mother No problems noted. Father Heart disease Surgical History unable to obtain Social History Smoking Status: Never smoker ROS Review of Systems ROS Unobtainable: due to mental status Physical Exam Const alert and no apparent distress Constitutional Narrative: Appears older than stated age. Pleasant, but confused General Appearance: frail HEENT head/scalp atraumatic and moist oral mucous membranes HEENT Narrative: Edentulous, Mallampati 1, no thrush. Nasal cannula in place Neck Neck Narrative: JVD noted Resp normal respiratory effort, no retractions and no use of accessory muscles Resp Narrative: No significant conversational dyspnea at rest Auscultation: rales right; Negative for rhonchi or wheezes Percussion: dullness Lower: right Cardio regular rate, regular rhythm, S1 normal heart sound, S2 normal heart sound, no murmurs, no rub, no gallops and no clicks GI Inspection: abdominal distention Palpation: ascites Extremity Extremity Narrative: Trace bilateral lower extremity pitting edema with no cyanosis or clubbing Skin no rashes or lesions noted Neuro CN's II-XII intact bilaterally, moves all extremities and no focal motor deficits Neuro Narrative: Patient's speech is normal other than a lisp noted Psych affect normal Psych Narrative: Very pleasant and appropriately interactive Medical Records Data Attestation: I reviewed the patient's medical records Medical records narrative: GI has reported concerns for multiple possible etiologies including recurrence of carcinomatosis and REES. Previous paracentesis was unable to have a SAG calculation Lab / Micro Data Attestation: I reviewed the patient's lab results. Result Diagrams: 06/23/22 04:14 06/23/22 04:14 Labs: Laboratory Results - last 24 hr 06/22/22 22:36: WBC 10.6, RBC 2.81 L, Hgb 10.3 L, Hct 30.0 L, MCV 106.8 H, MCH 36.7 H, MCHC 34.3, RDW Std Deviation 62.4 H, RDW Coeff of Radha 15.9 H, Plt Count 145 L, MPV 10.4, Immature Gran % (Auto) 1.800 H, Neut % (Auto) 65.9, Lymph % (Auto) 15.8 L, [place] % (Auto) 16.1 H, Eos % (Auto) 0.1, Baso % (Auto) 0.3, Absolute Neuts (auto) 7.0, Absolute Lymphs (auto) 1.67, Nucleated RBC % 0, Differential Comment SCANNED 06/22/22 22:36: PT 19.7 H, INR 1.7, APTT 33.3 06/22/22 22:36: Sodium 135 L, Potassium 3.4 L, Chloride 100, Carbon Dioxide 30.0, Anion Gap 5, BUN 17, Creatinine 1.13 H, Estim Creat Clear Calc 36.13, Est GFR (MDRD) Af Amer 62, Est GFR (MDRD) Non-Af 51 L, BUN/Creatinine Ratio 15.0, Glucose 120 H, Calcium 7.5 L, Total Bilirubin 1.80 H, AST 79 H, ALT 45, Alkaline Phosphatase 78, Troponin I High Sens 59 H, Total Protein 6.9, Albumin 2.2 L, Globulin 4.7 H, Albumin/Globulin Ratio 0.5 L 06/22/22 22:36: Lactic Acid 2.3 H* 06/22/22 23:12: Ammonia 12.0 06/23/22 00:05: Urine Color Yellow, Urine Clarity Sl. Cloudy, Urine pH 5.0, Ur Specific [place] 1.025, Urine Protein 15 H, Urine Glucose (UA) Normal, Urine Ketones Negative, Urine Occult Blood 25 H, Urine Nitrite Negative, Urine Bilirubin Negative, Urine Urobilinogen 1 H, Ur Leukocyte Esterase 25 H, Urine RBC 0 SEEN, Urine WBC 5-10 SEEN, Ur Squamous Epith Cells 0 SEEN, Urine Bacteria 2+, Hyaline Casts 25-50 SEEN, Urine Mucus 0 SEEN 06/23/22 03:45: Lactic Acid 1.5 06/23/22 04:14: WBC 7.6, RBC 2.58 L, Hgb 9.1 L, Hct 28.1 L, MCV 108.9 H, MCH 35.3 H, MCHC 32.4 D, RDW Std Deviation 64.6 H, RDW Coeff of Radha 16.2 H, Plt Count 123 L, MPV 10.7, Immature Gran % (Auto) 0.900, Neut % (Auto) 65.5, Lymph % (Auto) 18.9 L, [place] % (Auto) 14.3 H, Eos % (Auto) 0.1, Baso % (Auto) 0.3, Absolute Neuts (auto) 5.0, Absolute Lymphs (auto) 1.43, Nucleated RBC % 0 06/23/22 04:14: PT 19.9 H, INR 1.7 06/23/22 04:14: Sodium 136, Potassium 3.4 L, Chloride 102, Carbon Dioxide 30.0, Anion Gap 4 L, BUN 16, Creatinine 0.99, Estim Creat Clear Calc 45.40, Est GFR (MDRD) Af Amer 73, Est GFR (MDRD) Non-Af 60, BUN/Creatinine Ratio 16.2, Glucose 108 H, Calcium 6.8 L, Total Bilirubin 1.70 H, AST 72 H, ALT 39, Alkaline Phos phatase 66, Total Protein 6.0 L, Albumin 1.9 L, Globulin 4.1, Albumin/Globulin Ratio 0.5 L Micro: Microbiology 06/23/22 07:25 Nasal Secretion SARS-CoV-2 & FLU Antigen (Rapid) - Final Influenzae A 06/23/22 00:09 Urine Catheter - Catheter Legionella Antigen - Final 06/23/22 00:09 Urine Catheter - Catheter Streptococcus pneumoniae Antigen (M - Final Radiology Impression Chest X-Ray 06/22/22 23:17 IMPRESSION: Mildly decreased lung volumes in the interval. Bibasilar airspace disease is nonspecific with differential diagnosis to include partial atelectasis, aspiration, and/or pneumonia or a combination of these findings. Electronically Signed: Matt Lockhart MD at 0:12 EST , Charges/Coding Visit Charges Inpatient E&M: 84388 Init Hosp L3
[2022-06-23] MEDS: Pantoprazole Sodium 40 MG Tablet PO (10:40)
[2022-06-23] MEDS: Lactulose 20 GM/30 ML UDC 10 GM PO ×2 (10:40→20:39)
[2022-06-23] MEDS: Lidocaine 1% (20 ml mdv) 20 ML Vial INFILT (13:44)
[2022-06-23] MEDS: Oseltamivir Phosphate 30 MG Capsule PO ×2 (14:47→20:39)
[2022-06-23 14:52] LABS: Body Fluid Mononuclear WBC # 0.108 10^3/uL; Body Fluid Mononuclear WBC % 96.4 %; Body Fluid Polynuclear WBC # 0.004 10^3/uL; Body Fluid Polynuclear WBC % 3.6 %; Body Fluid Total Cells Counted 0.126 10^3/ul; White Blood Count/Body Fluid 0.112 10^3/uL
[2022-06-23 14:54] LABS: Auto B Fluid Analyzer BKGD Ct COUNTS W/IN LIMITS (W/IN LIMITS); Color/Body Fluid YELLOW; Source- Body Fluid OTHER
[2022-06-23 14:55] LABS: Appearance/Body Fluid SL CLDY
[2022-06-23 15:26] LABS: Body Fluid QC Type(s) BF1Q; Lymphocytes 72 %; Monocytes 12 %; Neutrophil (Segs) 4 %; Other Cell Type/BF 12 %; Red Cell Count/Body Fluid 9 /mm3
--- NOTE | 2022-06-23 15:55 | CASEMGMT ---
Social Work SW received [facility] paperwork emailed by pt Daughter, naming pt daughter- Adrienne Sheehan as agent. Document will be placed on pt chart. Daughter Adrienne stated would be flying in to [place] to see pt tomorrow. HEMANTH Best
--- NOTE | 2022-06-23 16:49 | CASEMGMT ---
Patient is from [facility]. SW sent updates. Michelle Martinez FEEDER OPERATOR SHO
[2022-06-23] MEDS: Ensure Plus High Protein 120 ML LIQUID PO ×2 (17:15→20:39)
[2022-06-23] MEDS: hydrOXYzine PAM 25 MG Capsule PO (21:50)
[2022-06-23] MEDS: Ibuprofen 400 MG Tablet PO (23:56)
[2022-06-24] VITALS (24 sets, daily range): BP systolic 71–127; BP diastolic 50–80; PULSE 73–110; RESP 16–25; TEMP 36.9–39.5; O2SAT 2–100
[2022-06-24 03:18] LABS: Absolute Lymphocyte Count 1.95 X10^3/uL (0.83-4.51); Absolute Neutrophil Count 5.5 X10^3/uL (2.0-7.7); Basophil# 0.04 X10^3/uL; Basophil% 0.5 % (0-1); Eosinophil# 0.03 X10^3/uL; Eosinophils% 0.4 % (0-5); Hematocrit 27.7 % (37-47); Hemoglobin 9.3 g/dL (12.0-15.0); Lymphocyte # 1.95 X10^3/ul (0.83-4.51); Lymphocyte % 23.2 % (19-41); Mean Corp Hgb Conc 33.6 g/dL (32-36); Mean Corpuscular Hgb 35.6 pg (27.0-32.0); Mean Corpuscular Volume 106.1 fL (81-99); Mean Platelet Vol. 10.8 fl (6.2-12.0); Monocyte# 0.85 X10^3/uL; Monocyte% 10.1 % (0-10); NRBC Flagged by Analyzer 0 % (0-5); Neutrophil # 5.48 X10^3/uL (2.7-7.7); Neutrophil % 65.3 % (47-70); Platelet Count 105 K/mm3 (150-450); RBC Distribution Width CV 15.7 % (11.6-14.6); RBC Distribution Width SD 61.5 fl (35.1-43.9); Red Blood Count 2.61 M/mm3 (4.2-5.4); White Blood Count 8.4 K/mm3 (4.4-11.0)
[2022-06-24 03:35] LABS: ALB/GLOB Ratio 0.4 RATIO (0.9-2.4); AST(SGOT) 74 U/L (15-37); Alanine Aminotransfer ALT/SGPT 34 U/L (13-56); Albumin, Serum 1.6 g/dL (3.2-5.0); Alkaline Phosphatase 60 U/L (45-117); Anion Gap 4 (5-15); BUN 15 mg/dL (7-18); Calcium,Total 6.6 mg/dL (8.5-10.1); Chloride 106 mmol/L (98-107); EST Glomerular Filtration Rate 59 mL/min (>60); Est Glom Filt Rate - Afr Amer 72 mL/min (>60); Estimated Creatinine Clearance 44.95 ml/min; Globulin 3.6 g/dL (2.2-4.2); Glucose 95 mg/dL (74-106); Potassium 3.1 mmol/L (3.5-5.1); Protein, Total 5.2 g/dL (6.4-8.2); Sodium Level 139 mmol/L (136-145)
[2022-06-24] MEDS: 0.9% Saline Lock 10 ML Syringe IV (05:36)
[2022-06-24] MEDS: Levothyroxine 75 MCG Tablet PO (05:36)
[2022-06-24] MEDS: CHLORHEXIDINE GLUC 2% CLOTH 1 EACH TOWELETTE TOPICAL (05:36)
--- NOTE | 2022-06-24 06:19 | RAD_ITS ---
STUDY: X-RAY CHEST REASON FOR EXAM: Female, 66 years old. Rt pleural effusion TECHNIQUE: Single AP portable view of the chest. COMPARISON: None. FINDINGS: Ill-defined subpleural groundglass opacities are seen more prominent in the lung bases , may represent atypical pneumonia or viral pneumonia . There is no demonstrated pleural abnormality. Normal size heart. Normal mediastinum and nafisa. Normal visualized pulmonary arteries. Normal visualized aortic arch and descending thoracic aorta. There is a dextroscoliosis of the thoracic spine. Normal visualized ribs, clavicles, and shoulders. There is no demonstrated abnormality of the visualized soft tissue structures of the upper abdomen. RAD/Chest 1 View (Portable) IMPRESSION: Ill-defined subpleural groundglass opacities are seen more prominent in the lung bases , may represent atypical pneumonia or viral pneumonia Electronically Signed: Shamika Morrissey MD at 6:55 EST ,
[2022-06-24] MEDS: Ipratropium/Albuterol Sulfate 3 ML AMPUL.NEB INHALATION ×4 (06:46→19:01)
--- NOTE | 2022-06-24 07:09 | PCM.PN.HOSP ---
Subjective Subjective No events overnight. BP has been variable, but midodrine appears to help. Objective Data Objective Data Vital Signs: Vital Signs Temp Pulse Resp BP Pulse Ox O2 Del Method O2 Flow Rate 37.1 C 94 18 71/57 L 95 Nasal Cannula 2 06/24/22 07:00 06/24/22 07:00 06/24/22 07:00 06/24/22 07:00 06/24/22 07:00 06/24/22 07:00 06/24/22 07:00 Oxygen Flow Rate (L/min) [3] 2 Oxygen Flow Rate (L/min) [2] 2 Oxygen Flow Rate (L/min) [1 ( 2 Initial Baseline)] Oxygen Flow Rate (L/min) 2 Oxygen Delivery Method [3] Nasal Cannula Oxygen Delivery Method [2] Nasal Cannula Oxygen Delivery Method [1 ( Nasal Cannula Initial Baseline)] Oxygen Delivery Method Nasal Cannula Weight: 65.6 kg Body Mass Index (BMI) 27.8 Intake & Output: Intake and Output for Last 24 Hours 06/22/22 06/23/22 06/24/22 23:59 23:59 23:59 Intake Total 500 / 500 2994.5 / 2994.5 515 / 515 Output Total 8000 / 8000 150 / 150 Balance 500 / 500 -5005.5 / -5005.5 365 / 365 Lab / Micro Data Result Diagrams: 06/24/22 03:10 06/24/22 03:10 Labs: Laboratory Results - last 24 hr 06/23/22 13:50: Fluid Source OTHER, Fluid Color YELLOW, Fluid Appearance SL CLDY, Fluid WBC 0.112, Fluid RBC 9, Fluid Tot Cell Count 0.126 H, Fld Polynuclear WBCs # 0.004, Fld Polynuclear WBCs % 3.6, Fluid Mononuclear WBCs 0.108, Fld Mononuclear WBCs % 96.4, Fluid Neutrophils 4, Fluid Lymphocytes 72, Fluid Monocytes 12, Fluid Other Cells 12, Fl Pathologist Comment May follow, Fluid Comment 2 SEE COMMENT 06/24/22 03:10: WBC 8.4, RBC 2.61 L, Hgb 9.3 L, Hct 27.7 L, MCV 106.1 H, MCH 35.6 H, MCHC 33.6, RDW Std Deviation 61.5 H, RDW Coeff of Radha 15.7 H, Plt Count 105 L, MPV 10.8, Immature Gran % (Auto) 0.500, Neut % (Auto) 65.3, Lymph % (Auto) 23.2, [place] % (Auto) 10.1 H, Eos % (Auto) 0.4, Baso % (Auto) 0.5, Absolute Neuts (auto) 5.5, Absolute Lymphs (auto) 1.95, Nucleated RBC % 0 06/24/22 03:10: Sodium 139, Potassium 3.1 L, Chloride 106, Carbon Dioxide 29.0, Anion Gap 4 L, BUN 15, Creatinine 1.00, Estim Creat Clear Calc 44.95, Est GFR (MDRD) Af Amer 72, Est GFR (MDRD) Non-Af 59 L, BUN/Creatinine Ratio 15.0, Glucose 95, Calcium 6.6 L, Total Bilirubin 0.90, AST 74 H, ALT 34, Alkaline Phosphatase 60, Total Protein 5.2 L, Albumin 1.6 L, Globulin 3.6, Albumin/Globulin Ratio 0.4 L Micro: Microbiology 06/23/22 08:56 Mucosa - Nasopharyngeal Respiratory Panel (PCR) - Final Influenza A (Subtype H1) 06/23/22 07:25 Nasal Secretion SARS-CoV-2 & FLU Antigen (Rapid) - Final Influenzae A 06/23/22 00:09 Urine Catheter - Catheter Legionella Antigen - Final 06/23/22 00:09 Urine Catheter - Catheter Streptococcus pneumoniae Antigen (M - Final Radiography Diagnostic Testing: Radiology Impression Paracentesis Ultrasound 06/23/22 03:54 IMPRESSION: Ultrasound guided paracentesis. Electronically Signed: Loco Pearson MD at 15:04 EST , Chest X-Ray 06/24/22 06:19 IMPRESSION: Ill-defined subpleural groundglass opacities are seen more prominent in the lung bases , may represent atypical pneumonia or viral pneumonia Electronically Signed: Shamika Morrissey MD at 6:55 EST , Physical Exam Const alert and no apparent distress Resp normal respiratory effort, no retractions, no use of accessory muscles and clear to auscultation bilaterally Cardio regular rate, regular rhythm, S1 normal heart sound and S2 normal heart sound GI soft to palpation GI Narrative: distended, NT. no rebound. Extremity Extremity Narrative: long nails. Assessment & Plan Assessment/Plan (1) Encephalopathy acute: PLAN: Currently resolved Suspect metabolic from sepsis and influenza A Ammonia only 12, therefore, it is not hepatic encephalopathy No clear source of infection: UA unremarkable--therefore UTI ruled out. CXR show right pleural effusion--no change from 06/03--doubt pneumonia. No leukocytosis. Fevers improved Continue empiric abx for now, but if cultures are negative, would discontinue. Will check patient for viral etiologies--viral resp panel, COVID 19, flu. (2) Sepsis: PLAN: The patient presented with sepsis due to (possible spontaneous bacterial peritonitis; UTI or pneumonia ) with acute sepsis related organ dysfunction as evidenced by (lactic acidosis and encephalopathy). SIRS criteria: Temperature more than 100.9 Fahrenheit. T-max on presentation was 102.1 Fahrenheit. Respiratory rate more than 20. Highest respiratory rate on presentation was 24. Heart rate more than 90. Highest respiratory rate on presentation was 112. Lactic acid on presentation was 2.3, trend. Systolic blood pressure on presentation was less than 90. Patient has a history of chronic hypotension. Received IV bolus normal saline at emergency department but not 30 mL/kg as patient is a cirrhotic patient and has ascites. Vancomycin and Zosyn was started at the emergency department and continued. INR on presentation was 1.7. Repeat INR. Paracentesis of ascites fluid with gram stain ordered; and cultures ordered. UTI ruled out. +Influenza A. May be the source of infection with chronic hypotension already on midodrine. Doubt SBP (3) Pneumonia: PLAN: Ruled out No clear infiltrate on CXR Strep and legionella antigens negative (4) Ascites: PLAN: Patient had a transvaginal ultrasound that showed endometrium fluid-filled and thickened. No masses were noted nor any ovarian masses. Patient has a history of elevated CA125's. But the possibility of cirrhosis is not excluded. cirrhotic liver was noted on imaging the patient has not had a biopsy. Her bumetanide and spironolactone are currently held in light of the hypotension. Paracentesis ordered. Will order appropriate labs. Check SAAG. I do not anticipate need for drain at this point, unless treatment becomes palliative/hospice. (5) Influenza A: PLAN: Has been vaccinated. Start Tamiflu. PLAN: Plan Chronic anemia Stable CKD stage II Stable DVT prophylaxis SCDs ordered DW family at bedside. Transfer out of ICU. Podiatry for nail care. Charges/Coding Visit Charges Inpatient E&M: 43707 Subs Hosp L2
[2022-06-24] MEDS: Midodrine HCl 5 MG Tablet 10 MG PO ×3 (07:58→17:13)
[2022-06-24] MEDS: Potassium Chloride Oral Tablet 20 MEQ 40 MEQ PO ×2 (08:33→17:13)
--- NOTE | 2022-06-24 08:33 | PN.CC_ITS ---
Assessment & Plan Assessment/Plan (1) Ascites: (2) Hypotension: PLAN: Plan RECOMMENDATIONS: 1. Obtain therapeutic thoracentesis 2. Wean supplemental oxygen as tolerated 3. Supportive care for influenza 4. Hold on pressors for now 5. Possible CT scan after thoracentesis 6. Walking oximetry prior to discharge IMPRESSIONS: 1. Sepsis secondary to influenza A Patient with elevated lactate and SIRS on presentation. Encephalopathy indicate endorgan damage. Low clinical suspicion for pneumonia outside of the influenza A. Patient does have a history of SBP in the past, but fluid studies are not suggestive at this at this time. Continue with midodrine. No indication for pressors at this time. Would use a systolic pressure of 90 more than a map given patient's underlying liver disease. 2. Acute hypoxic respiratory insufficiency secondary to influenza A/right pleural effusion Patient with rather large right-sided pleural effusion and influenza A. Patient does also appear to have an element of atelectasis in the left base. Recommend therapeutic thoracentesis on the right. Reaccumulation is highly probable. May need to evaluate patient for possible indwelling catheter for home drainage given frequency of paracentesis needed. Defer to GI/hospitalist. 3. Metabolic encephalopathy Clinical suspicion for hypoxia leading to confusion on presentation. This does appear to be improving with supplemental oxygen. Patient's ammonia was within normal limits, so hepatic encephalopathy is not likely. Okay to continue with usual medications from my perspective as this should improve with continued control of hypoxia. 4. Cirrhosis/debility/elevated CA125/coagulopathy Complicates care, management, recovery and prognosis. Frequent hospitalizations leading to debility. PT/OT should be involved. Subjective Subjective Patient did well overnight. Patient did have a paracentesis yesterday and feels subjectively improved. Patient is still requiring supplemental oxygen to maintain saturations. Objective Data Objective Data Vital Signs: Vital Signs Temp Pulse Resp BP Pulse Ox O2 Del Method O2 Flow Rate 36.9 C 90 18 94/60 96 Nasal Cannula 2 06/24/22 08:00 06/24/22 08:00 06/24/22 08:00 06/24/22 08:00 06/24/22 08:00 06/24/22 08:00 06/24/22 08:00 Oxygen Flow Rate (L/min) [3] 2 Oxygen Flow Rate (L/min) [2] 2 Oxygen Flow Rate (L/min) [1 ( 2 Initial Baseline)] Oxygen Flow Rate (L/min) 2 Oxygen Delivery Method [3] Nasal Cannula Oxygen Delivery Method [2] Nasal Cannula Oxygen Delivery Method [1 ( Nasal Cannula Initial Baseline)] Oxygen Delivery Method Nasal Cannula Weight: 65.6 kg Body Mass Index (BMI) 27.8 Intake & Output: Intake and Output for Last 24 Hours 06/22/22 06/23/22 06/24/22 23:59 23:59 23:59 Intake Total 500 / 500 2994.5 / 2994.5 515 / 515 Output Total 8000 / 8000 150 / 150 Balance 500 / 500 -5005.5 / -5005.5 365 / 365 Lab / Micro Data Attestation: I reviewed the patient's lab results. Result Diagrams: 06/24/22 03:10 06/24/22 03:10 Labs: Laboratory Results - last 24 hr 06/23/22 13:50: Fluid Source OTHER, Fluid Color YELLOW, Fluid Appearance SL CLDY, Fluid WBC 0.112, Fluid RBC 9, Fluid Tot Cell Count 0.126 H, Fld Polynuclear WBCs # 0.004, Fld Polynuclear WBCs % 3.6, Fluid Mononuclear WBCs 0.108, Fld Mononuclear WBCs % 96.4, Fluid Neutrophils 4, Fluid Lymphocytes 72, Fluid Monocytes 12, Fluid Other Cells 12, Fl Pathologist Comment May follow, Fluid Comment 2 SEE COMMENT 06/24/22 03:10: WBC 8.4, RBC 2.61 L, Hgb 9.3 L, Hct 27.7 L, MCV 106.1 H, MCH 3 5.6 H, MCHC 33.6, RDW Std Deviation 61.5 H, RDW Coeff of Radha 15.7 H, Plt Count 105 L, MPV 10.8, Immature Gran % (Auto) 0.500, Neut % (Auto) 65.3, Lymph % (Auto) 23.2, [place] % (Auto) 10.1 H, Eos % (Auto) 0.4, Baso % (Auto) 0.5, Absolute Neuts (auto) 5.5, Absolute Lymphs (auto) 1.95, Nucleated RBC % 0 06/24/22 03:10: Sodium 139, Potassium 3.1 L, Chloride 106, Carbon Dioxide 29.0, Anion Gap 4 L, BUN 15, Creatinine 1.00, Estim Creat Clear Calc 44.95, Est GFR (MDRD) Af Amer 72, Est GFR (MDRD) Non-Af 59 L, BUN/Creatinine Ratio 15.0, Glucose 95, Calcium 6.6 L, Total Bilirubin 0.90, AST 74 H, ALT 34, Alkaline Phosphatase 60, Total Protein 5.2 L, Albumin 1.6 L, Globulin 3.6, Albumin/Globulin Ratio 0.4 L Micro: Microbiology 06/23/22 08:56 Mucosa - Nasopharyngeal Respiratory Panel (PCR) - Final Influenza A (Subtype H1) 06/23/22 07:25 Nasal Secretion SARS-CoV-2 & FLU Antigen (Rapid) - Final Influenzae A 06/23/22 00:09 Urine Catheter - Catheter Legionella Antigen - Final 06/23/22 00:09 Urine Catheter - Catheter Streptococcus pneumoniae Antigen (M - Final Radiography Diagnostic Testing: Radiology Impression Paracentesis Ultrasound 06/23/22 03:54 IMPRESSION: Ultrasound guided paracentesis. Electronically Signed: Loco Pearson MD at 15:04 EST , Chest X-Ray 06/24/22 06:19 IMPRESSION: Ill-defined subpleural groundglass opacities are seen more prominent in the lung bases , may represent atypical pneumonia or viral pneumonia Electronically Signed: Shamika Morrissey MD at 6:55 EST , Physical Exam Const alert and no apparent distress Constitutional Narrative: Appears older than stated age. Pleasant, but confused General Appearance: frail HEENT head/scalp atraumatic and moist oral mucous membranes Neck Neck Narrative: JVD noted Resp normal respiratory effort, no retractions and no use of accessory muscles Resp Narrative: No significant conversational dyspnea at rest Auscultation: rales right; Negative for rhonchi or wheezes Percussion: dullness Lower: right Cardio regular rate, regular rhythm, S1 normal heart sound, S2 normal heart sound, no murmurs, no rub, no gallops and no clicks GI normal to inspection, nondistended, normoactive bowel sounds Extremity Extremity Narrative: Trace bilateral lower extremity pitting edema with no cyanosis or clubbing Skin no rashes or lesions noted Neuro CN's II-XII intact bilaterally, moves all extremities and no focal motor deficits Neuro Narrative: Patient's speech is normal other than a lisp noted Psych affect normal Psych Narrative: Very pleasant and appropriately interactive Charges/Coding Visit Charges Inpatient E&M: 70471 Subs Hosp L3
--- NOTE | 2022-06-24 08:33 | US_ITS ---
PROCEDURE: ULTRASOUND GUIDED THORACENTESIS. DATE: 06/24/2021.. INDICATION: Female, 66 years old. Right pleural effusion. PHYSICIAN: Loco Pearson M.D. PROCEDURE: The risks, benefits, and alternatives to the procedure were explained to the patient. The specific risks of bleeding, infection, and pneumothorax requiring chest tube insertion were discussed and accepted. Written informed consent was obtained. Ultrasonographic evaluation of the right lower pleural space was carried out. An adequate pocket was identified. The patient was placed in the sitting, upright position. The overlying skin was prepped and draped in sterile fashion. 1% lidocaine was administered subcutaneously for local anesthesia. Under ultrasound guidance, a 5 Italian thoracentesis needle/catheter system was advanced into the right posterior lower pleural fluid collection. Approximately 2000 mL of donnell-colored fluid was drained. The catheter was removed, and a sterile dressing was applied. The patient tolerated the procedure well. A chest x-ray was ordered. US/Thoracentesis W US IMPRESSION: Ultrasound-guided right thoracentesis. Electronically Signed: Loco Pearson MD at 14:18 EST ,
[2022-06-24] MEDS: Oseltamivir Phosphate 30 MG Capsule PO ×2 (10:11→20:52)
[2022-06-24] MEDS: Pantoprazole Sodium 40 MG Tablet PO (10:11)
[2022-06-24] MEDS: Lactulose 20 GM/30 ML UDC 10 GM PO ×2 (10:11→20:52)
[2022-06-24] MEDS: Lidocaine 1% (20 ml mdv) 20 ML Vial INFILT (13:44)
--- NOTE | 2022-06-24 14:00 | RAD_ITS ---
STUDY: X-RAY CHEST REASON FOR EXAM: Female, 66 years old. Post thora TECHNIQUE: AP inspiration and expiration views. COMPARISON: Comparison is made with prior study dated 06/24/2022 at 6:22 AM. FINDINGS: The patient is status post right thoracentesis. There is a 20% right pneumothorax. The patient is asymptomatic. The patient is not dyspneic. RAD/Chest Insp/Exp 2 View IMPRESSION: Status post right thoracentesis with removal of 2 L of fluid. 20% right pneumothorax. The patient is asymptomatic with no evidence of shortness of breath or dyspnea. Electronically Signed: Loco Pearson MD at 14:17 EST ,
--- NOTE | 2022-06-24 14:10 | CASEMGMT ---
ADRYAN DAVIS Readmission Review: Index: 06/03-06/10/22 Dx: Cirrhosis suspected REES, ascites, anemia, thrombocytopenia, elevated CA125, hypothyroidism Readmit: 06/23/22 Dx: pneumonia, sepsis d/t pneumonia, bacterial peritonitis, or UTI), encephalopathy, Pt from home where she lived with her mother. Pt had been independent prior but required continued therapy at discharge from index due to inabilty to navigate steps into her home nor did she have anyone to assist her with ADLs. Pt was discharged to [facility] for continued rehabilitation. Pt was treated for hypotension during the index with addition of mididrine. Pt returned to [facility] from [facility]. Sanjuana Talbot RN CM
--- NOTE | 2022-06-24 14:50 | PCM.RX.CS ---
Consult Pharmacy has been consulted to manage selected antiobiotic: Vancomycin Type of Consult: Follow-up Suspected Infection: Sepsis Prior Doses of Antibiotics Received/Current Regimen: Presently on 750mg iv q12h. Labs: Sodium 139 mmol/L (136-145) 06/24/22 03:10 Potassium 3.1 mmol/L (3.5-5.1) L 06/24/22 03:10 Chloride 106 mmol/L (98-107) 06/24/22 03:10 Carbon Dioxide 29.0 mmol/L (21.0-32.0) 06/24/22 03:10 Anion Gap 4 (5-15) L 06/24/22 03:10 BUN 15 mg/dL (7-18) 06/24/22 03:10 Creatinine 1.00 mg/dL (0.55-1.02) 06/24/22 03:10 Est GFR (MDRD) Af Amer 72 mL/min (>60) 06/24/22 03:10 Est GFR (MDRD) Non-Af 59 mL/min (>60) L 06/24/22 03:10 BUN/Creatinine Ratio 15.0 RATIO (10-20) 06/24/22 03:10 Glucose 95 mg/dL (74-106) 06/24/22 03:10 Microbiology: Microbiology 06/23/22 00:05 Urine, Clean Catch Urine Culture - Preliminary GNR 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 Will continue same dose and re-order trough for tonite @0100 before next dose. Pharmacy Service will continue to monitor and adjust dosing as required. Follow-Up Labs: Trough Vancomycin - 16.23 @0100 before 0130 dose
[2022-06-24] MEDS: Ensure Plus High Protein 120 ML LIQUID PO ×2 (17:12→20:52)
[2022-06-24] MEDS: MELATONIN 3 MG TABLET PO (20:50)
[2022-06-24] MEDS: Ibuprofen 400 MG Tablet PO (20:50)
[2022-06-25] VITALS (20 sets, daily range): BP systolic 83–128; BP diastolic 43–72; PULSE 74–106; RESP 18–27; TEMP 37–38.4; O2SAT 92–98
[2022-06-25 01:03] LABS: Vancomycin, Trough Level 27.7 ug/mL (5.0-15.0)
--- NOTE | 2022-06-25 01:19 | PCM.RX.CS ---
Consult Pharmacy has been consulted to manage selected antiobiotic: Vancomycin Type of Consult: Follow-up Suspected Infection: Sepsis Prior Doses of Antibiotics Received/Current Regimen: Medications Discontinued Medications Vancomycin HCl 750 mg/ Sodium (Chloride) 265 mls @ 250 mls/hr IV Q12H ALEA Last Admin: 06/24/22 15:35 Dose: Infused Labs: Sodium 139 mmol/L (136-145) 06/24/22 03:10 Potassium 3.1 mmol/L (3.5-5.1) L 06/24/22 03:10 Chloride 106 mmol/L (98-107) 06/24/22 03:10 Carbon Dioxide 29.0 mmol/L (21.0-32.0) 06/24/22 03:10 Anion Gap 4 (5-15) L 06/24/22 03:10 BUN 15 mg/dL (7-18) 06/24/22 03:10 Creatinine 1.00 mg/dL (0.55-1.02) 06/24/22 03:10 Est GFR (MDRD) Af Amer 72 mL/min (>60) 06/24/22 03:10 Est GFR (MDRD) Non-Af 59 mL/min (>60) L 06/24/22 03:10 BUN/Creatinine Ratio 15.0 RATIO (10-20) 06/24/22 03:10 Glucose 95 mg/dL (74-106) 06/24/22 03:10 Vancomycin Trough 27.7 ug/mL (5.0-15.0) H 06/25/22 00:17 Microbiology: Microbiology 06/23/22 00:05 Urine, Clean Catch Urine Culture - Preliminary GNR lactose hospitalist program director 06/23/22 08:56 Mucosa - Nasopharyngeal Respiratory Panel (PCR) - Final Influenza A (Subtype H1) 06/23/22 07:25 Nasal Secretion SARS-CoV-2 & FLU Antigen (Rapid) - Final Influenzae A 06/23/22 00:09 Urine Catheter - Catheter Legionella Antigen - Final 06/23/22 00:09 Urine Catheter - Catheter Streptococcus pneumoniae Antigen (M - Final Weight used for dosin.6 kg Estimated Creatinine Clearance: 45 Goal Trough: 15-20 mcg/mL Pharmacy Plan for Drug Dosing: The vancomycin trough level was high at 27.7. Even though it was a shorter than optimum interval (9.75hours post-dose), the current dose will be held. A random level will be drawn in 12 hours and further dosing will be more accurately determined from that result. Pharmacy Service will continue to monitor and adjust dosing as required. Follow-Up Labs: Trough Vancomycin - random Labs to be done on [date and time ordered]: 06/25/22 @1300
[2022-06-25 03:20] LABS: Absolute Lymphocyte Count 1.82 X10^3/uL (0.83-4.51); Absolute Neutrophil Count 4.4 X10^3/uL (2.0-7.7); Basophil# 0.04 X10^3/uL; Basophil% 0.6 % (0-1); Eosinophil# 0.13 X10^3/uL; Eosinophils% 1.9 % (0-5); Hematocrit 29.7 % (37-47); Hemoglobin 9.9 g/dL (12.0-15.0); Lymphocyte # 1.82 X10^3/ul (0.83-4.51); Lymphocyte % 26.6 % (19-41); Mean Corp Hgb Conc 33.3 g/dL (32-36); Mean Corpuscular Hgb 35.2 pg (27.0-32.0); Mean Corpuscular Volume 105.7 fL (81-99); Mean Platelet Vol. 11.3 fl (6.2-12.0); Monocyte# 0.47 X10^3/uL; Monocyte% 6.9 % (0-10); NRBC Flagged by Analyzer 0.3 % (0-5); Neutrophil # 4.35 X10^3/uL (2.7-7.7); Neutrophil % 63.6 % (47-70); POSITIVE COUNT YES; POSITIVE MORPHOLOGY YES; Platelet Count 81 K/mm3 (150-450); RBC Distribution Width CV 15.7 % (11.6-14.6); RBC Distribution Width SD 61.1 fl (35.1-43.9); Red Blood Count 2.81 M/mm3 (4.2-5.4); White Blood Count 6.8 K/mm3 (4.4-11.0)
[2022-06-25 03:21] LABS: Differential Indicated SCAN CRITERIA MET
[2022-06-25 03:37] LABS: ALB/GLOB Ratio 0.4 RATIO (0.9-2.4); AST(SGOT) 80 U/L (15-37); Alanine Aminotransfer ALT/SGPT 31 U/L (13-56); Albumin, Serum 1.5 g/dL (3.2-5.0); Alkaline Phosphatase 64 U/L (45-117); Anion Gap 4 (5-15); BUN 21 mg/dL (7-18); BUN/Creat Ratio 15.2 RATIO (10-20); Calcium,Total 6.7 mg/dL (8.5-10.1); Chloride 106 mmol/L (98-107); Creatinine, Serum 1.38 mg/dL (0.55-1.02); EST Glomerular Filtration Rate 41 mL/min (>60); Est Glom Filt Rate - Afr Amer 49 mL/min (>60); Estimated Creatinine Clearance 32.57 ml/min; Globulin 3.7 g/dL (2.2-4.2); Glucose 109 mg/dL (74-106); Protein, Total 5.2 g/dL (6.4-8.2); Sodium Level 138 mmol/L (136-145)
[2022-06-25] MEDS: Levothyroxine 75 MCG Tablet PO (04:58)
[2022-06-25] MEDS: 0.9% Saline Lock 10 ML Syringe IV (04:58)
[2022-06-25 05:19] LABS: Differential Comment SCANNED
[2022-06-25 05:20] LABS: Platelet Estimate MOD DEC (ADEQ)
[2022-06-25 05:22] LABS: Atypical Lymphocyte 1+ %
--- NOTE | 2022-06-25 06:50 | PN.HOSP_ITS ---
Subjective Subjective ptx post thoracentesis. Denies SOB. Fever overnight. Objective Data Objective Data Vital Signs: Vital Signs Temp Pulse Resp BP Pulse Ox O2 Del Method O2 Flow Rate 37.9 C H 86 20 H 99/69 98 Nasal Cannula 2 06/25/22 05:00 06/25/22 05:00 06/25/22 05:00 06/25/22 05:00 06/25/22 05:00 06/25/22 05:00 06/25/22 05:00 Oxygen Flow Rate (L/min) [4] 2 Oxygen Flow Rate (L/min) [3] 2 Oxygen Flow Rate (L/min) [2] 2 Oxygen Flow Rate (L/min) [1 ( 2 Initial Baseline)] Oxygen Flow Rate (L/min) 2 Oxygen Delivery Method [4] Nasal Cannula Oxygen Delivery Method [3] Nasal Cannula Oxygen Delivery Method [2] Nasal Cannula Oxygen Delivery Method [1 ( Nasal Cannula Initial Baseline)] Oxygen Delivery Method Nasal Cannula Weight: 67.1 kg Body Mass Index (BMI) 27.8 Intake & Output: Intake and Output for Last 24 Hours 06/23/22 06/24/22 06/25/22 23:59 23:59 23:59 Intake Total 2994.5 / 2994.5 1435.5 / 1435.5 50 / 50 Output Total 8000 / 8000 2375 / 2375 125 / 125 Balance -5005.5 / -5005.5 -939.5 / -939.5 -75 / -75 Lab / Micro Data Result Diagrams: 06/25/22 03:12 06/25/22 03:12 Labs: Laboratory Results - last 24 hr 06/25/22 00:17: Vancomycin Trough 27.7 H 06/25/22 03:12: WBC 6.8, RBC 2.81 L, Hgb 9.9 L, Hct 29.7 L, MCV 105.7 H, MCH 35.2 H, MCHC 33.3, RDW Std Deviation 61.1 H, RDW Coeff of Radha 15.7 H, Plt Count 81 L, MPV 11.3, Immature Gran % (Auto) 0.400, Neut % (Auto) 63.6, Lymph % (Auto) 26.6, [place] % (Auto) 6.9, Eos % (Auto) 1.9, Baso % (Auto) 0.6, Absolute Neuts (auto) 4.4, Absolute Lymphs (auto) 1.82, Nucleated RBC % 0.3, Differential Comment SCANNED, Diff Path Review May foll, Atypical Lymphocytes 1+, Platelet Estimate MOD 06/25/22 03:12: Sodium 138, Potassium 4.0, Chloride 106, Carbon Dioxide 28.0, Anion Gap 4 L, BUN 21 H, Creatinine 1.38 H, Estim Creat Clear Calc 32.57, Est GFR (MDRD) Af Amer 49 L, Est GFR (MDRD) Non-Af 41 L, BUN/Creatinine Ratio 15.2, Glucose 109 H, Calcium 6.7 L, Total Bilirubin 0.80, AST 80 H, ALT 31, Alkaline Phosphatase 64, Total Protein 5.2 L, Albumin 1.5 L, Globulin 3.7, Albumin/Globulin Ratio 0.4 L Micro: Microbiology 06/23/22 00:05 Urine, Clean Catch Urine Culture - Preliminary GNR lactose director of coding 06/23/22 08:56 Mucosa - Nasopharyngeal Respiratory Panel (PCR) - Final Influenza A (Subtype H1) 06/23/22 07:25 Nasal Secretion SARS-CoV-2 & FLU Antigen (Rapid) - Final Influenzae A 06/23/22 00:09 Urine Catheter - Catheter Legionella Antigen - Final 06/23/22 00:09 Urine Catheter - Catheter Streptococcus pneumoniae Antigen (M - Final Radiography Diagnostic Testing: Radiology Impression Paracentesis Ultrasound 06/23/22 03:54 IMPRESSION: Ultrasound guided paracentesis. Electronically Signed: Loco Pearson MD at 15:04 EST , ADDENDUM: 06/24/22 1418 IMPRESSION: undefined Chest X-Ray 06/24/22 06:19 IMPRESSION: Ill-defined subpleural groundglass opacities are seen more prominent in the lung bases , may represent atypical pneumonia or viral pneumonia Electronically Signed: Shamika Morrissey MD at 6:55 EST , Thoracentesis Ultrasound 06/24/22 08:33 IMPRESSION: Ultrasound-guided right thoracentesis. Electronically Signed: Loco Pearson MD at 14:18 EST , Chest X-Ray 06/24/22 14:00 IMPRESSION: Status post right thoracentesis with removal of 2 L of fluid. 20% right pneumothorax. The patient is asymptomatic with no evidence of shortness of breath or dyspnea. Electronically Signed: Loco Pearson MD at 14:17 EST , Physical Exam Const alert and no apparent distress Constitutional Narrative: up in chair. no respiratory distress. no conversational dyspnea. Resp normal respiratory effort, no retractions, no use of accessory muscles and clear to auscultation bilaterally Cardio regular rate, regular rhythm, S1 normal heart sound and S2 normal heart sound GI normal to inspection, nondistended, normoactive bowel sounds GI Narrative: slight distention, non-tender. Assessment & Plan Assessment/Plan (1) Encephalopathy acute: PLAN: Currently resolved Suspect metabolic from sepsis and influenza A Ammonia only 12, therefore, it is not hepatic encephalopathy No clear source of infection: UA unremarkable--therefore UTI ruled out. CXR show right pleural effusion--no change from 06/03--doubt pneumonia. No leukocytosis. Fevers improved Continue empiric abx for now, but if cultures are negative, would discontinue. Will check patient for viral etiologies--viral resp panel, COVID 19, flu. (2) Sepsis: PLAN: The patient presented with sepsis due to (possible spontaneous bacterial peritonitis; UTI or pneumonia ) with acute sepsis related organ dysfunction as evidenced by (lactic acidosis and encephalopathy). SIRS criteria: Temperature more than 100.9 Fahrenheit. T-max on presentation was 102.1 Fahrenheit. Respiratory rate more than 20. Highest respiratory rate on presentation was 24. Heart rate more than 90. Highest respiratory rate on presentation was 112. Lactic acid on presentation was 2.3, trend. Systolic blood pressure on presentation was less than 90. Patient has a history of chronic hypotension. Received IV bolus normal saline at emergency department but not 30 mL/kg as patient is a cirrhotic patient and has ascites. Vancomycin and Zosyn was started at the emergency department and continued. INR on presentation was 1.7. Repeat INR. Paracentesis of ascites fluid with gram stain ordered; and cultures ordered. +Influenza A. May be the source of infection with chronic hypotension already on midodrine. Doubt SBP Patient does have growing 100,000 gram-negative rods in her urine. We will continue with the piperacillin/tazobactam. DC the vancomycin. (3) Pneumonia: PLAN: Ruled out No clear infiltrate on CXR Strep and legionella antigens negative (4) Ascites: PLAN: Patient had a transvaginal ultrasound that showed endometrium fluid-filled and thickened. No masses were noted nor any ovarian masses. Patient has a history of elevated CA125's. But the possibility of cirrhosis is not excluded. cirrhotic liver was noted on imaging the patient has not had a bi opsy. Her bumetanide and spironolactone are currently held in light of the hypotension. Paracentesis ordered. Will order appropriate labs. Check SAAG. Paracentesis performed on the fifth that removed 2800 cc of donnell-colored fluid. Diuretics as able. No need for chronic indwelling drainage catheter at this time. white cell count was low. Culture pending but extremely low suspicion for this being SBP. (5) Influenza A: PLAN: Has been vaccinated. Start Tamiflu. (6) Debility: PLAN: Minimal assistance with activity. Would benefit from additional therapy services. (7) Severe protein-calorie malnutrition: PLAN: complicates care and recovery supplements nutrition following. (8) Pleural effusion: PLAN: LDH nor protein ordered. Likely transudative. (9) Pneumothorax: PLAN: post-thoracentesis. less than 20%. Follow up CXR showed improvement. Check CXR in AM. PLAN: Plan Chronic anemia Stable CKD stage II Stable DVT prophylaxis SCDs ordered Podiatry for nail care. Charges/Coding Visit Charges Inpatient E&M: 01197 Subs Hosp L2
[2022-06-25] MEDS: Ipratropium/Albuterol Sulfate 3 ML AMPUL.NEB INHALATION ×4 (07:05→19:54)
--- NOTE | 2022-06-25 08:16 | PN.CC_ITS ---
Assessment & Plan Assessment/Plan (1) Ascites: (2) Hypotension: PLAN: Plan RECOMMENDATIONS: 1. Repeat chest x-ray to evaluate pneumothorax 2. Wean supplemental oxygen as tolerated 3. Supportive care for influenza 4. Outpatient work-up for rapid reaccumulation of ascites 5. Okay to leave the intensive care unit if pneumothorax is stable to improved 6. Walking oximetry prior to discharge IMPRESSIONS: 1. Sepsis secondary to influenza A Patient with elevated lactate and SIRS on presentation. Encephalopathy indicate endorgan damage. Low clinical suspicion for pneumonia outside of the influenza A. Patient does have a history of SBP in the past, but fluid studies are not suggestive at this at this time. Continue with midodrine. No indication for pressors at this time. Would use a systolic pressure of 90 more than a map given patient's underlying liver disease. 2. Acute hypoxic respiratory insufficiency secondary to influenza A/right pleural effusion/iatrogenic pneumothorax Patient with rather large right-sided pleural effusion and influenza A. Patient does also appear to have an element of atelectasis in the left base. Patient with 2 L removed from right chest yesterday. We will repeat chest x-ray today to see if there is expansion of pneumothorax. If stable to improved, can likely be monitored clinically. 3. Metabolic encephalopathy Clinical suspicion for hypoxia leading to confusion on presentation. This does appear to be improving with supplemental oxygen. Patient's ammonia was within normal limits, so hepatic encephalopathy is not likely. Okay to continue with usual medications from my perspective as this should improve with continued control of hypoxia. 4. Cirrhosis/debility/elevated CA125/coagulopathy Complicates care, management, recovery and prognosis. Frequent hospitalizations leading to debility. PT/OT should be involved. Subjective Subjective Patient did well overnight. Patient subjectively feels improved compared to previous. Patient did have a fever noted, but no hemodynamic instability has been reported. Patient has not required any pressors or boluses. Objective Data Objective Data 2 L removed with thoracentesis, but 20% iatrogenic pneumothorax noted postprocedure. Vital Signs: Vital Signs Temp Pulse Resp BP Pulse Ox O2 Del Method O2 Flow Rate 37.9 C H 82 21 H 99/69 94 Nasal Cannula 1 06/25/22 05:00 06/25/22 07:05 06/25/22 07:05 06/25/22 05:00 06/25/22 07:05 06/25/22 07:05 06/25/22 07:05 Oxygen Flow Rate (L/min) [4] 2 Oxygen Flow Rate (L/min) [3] 2 Oxygen Flow Rate (L/min) [2] 2 Oxygen Flow Rate (L/min) [1 ( 2 Initial Baseline)] Oxygen Flow Rate (L/min) 1 Oxygen Delivery Method [4] Nasal Cannula Oxygen Delivery Method [3] Nasal Cannula Oxygen Delivery Method [2] Nasal Cannula Oxygen Delivery Method [1 ( Nasal Cannula Initial Baseline)] Oxygen Delivery Method Nasal Cannula Weight: 67.1 kg Body Mass Index (BMI) 27.8 Intake & Output: Intake and Output for Last 24 Hours 06/23/22 06/24/22 06/25/22 23:59 23:59 23:59 Intake Total 2994.5 / 2994.5 1435.5 / 1435.5 50 / 50 Output Total 8000 / 8000 2375 / 2375 125 / 125 Balance -5005.5 / -5005.5 -939.5 / -939.5 -75 / -75 Lab / Micro Data Attestation: I reviewed the patient's lab results. Result Diagrams: 06/25/22 03:12 06/25/22 03:12 Labs: Laboratory Results - last 24 hr 06/25/22 00:17: Vancomycin Trough 27.7 H 06/25/22 03:12: WBC 6.8, RBC 2.81 L, Hgb 9.9 L, Hct 29.7 L, MCV 105.7 H, MCH 35.2 H, MCHC 33.3, RDW Std Deviation 61.1 H, RDW Coeff of Radha 15.7 H, Plt Count 81 L, MPV 11.3, Immature Gran % (Auto) 0.400, Neut % (Auto) 63.6, Lymph % (Auto) 26.6, [place] % (Auto) 6.9, Eos % (Auto) 1.9, Baso % (Auto) 0.6, Absolute Neuts (auto) 4.4, Absolute Lymphs (auto) 1.82, Nucleated RBC % 0.3, Differential Comment SCANNED, Diff Path Review May foll, Atypical Lymphocytes 1+, Platelet Estimate MOD DEC 06/25/22 03:12: Sodium 138, Potassium 4.0, Chloride 106, Carbon Dioxide 28.0, Anion Gap 4 L, BUN 21 H, Creatinine 1.38 H, Estim Creat Clear Calc 32.57, Est GFR (MDRD) Af Amer 49 L, Est GFR (MDRD) Non-Af 41 L, BUN/Creatinine Ratio 15.2, Glucose 109 H, Calcium 6.7 L, Total Bilirubin 0.80, AST 80 H, ALT 31, Alkaline Phosphatase 64, Total Protein 5.2 L, Albumin 1.5 L, Globulin 3.7, Albumin/Globulin Ratio 0.4 L Micro: Microbiology 06/23/22 00:05 Urine, Clean Catch Urine Culture - Preliminary GNR lactose [employer] 06/23/22 08:56 Mucosa - Nasopharyngeal Respiratory Panel (PCR) - Final Influenza A (Subtype H1) 06/23/22 07:25 Nasal Secretion SARS-CoV-2 & FLU Antigen (Rapid) - Final Influenzae A 06/23/22 00:09 Urine Catheter - Catheter Legionella Antigen - Final 06/23/22 00:09 Urine Catheter - Catheter Streptococcus pneumoniae Antigen (M - Final Radiography Diagnostic Testing: Radiology Impression Paracentesis Ultrasound 06/23/22 03:54 IMPRESSION: Ultrasound guided paracentesis. Electronically Signed: Loco Pearson MD at 15:04 EST , ADDENDUM: 06/24/22 1418 IMPRESSION: undefined Thoracentesis Ultrasound 06/24/22 08:33 IMPRESSION: Ultrasound-guided right thoracentesis. Electronically Signed: Loco Pearson MD at 14:18 EST , Chest X-Ray 06/24/22 14:00 IMPRESSION: Status post right thoracentesis with removal of 2 L of fluid. 20% right pneumothorax. The patient is asymptomatic with no evidence of shortness of breath or dyspnea. Electronically Signed: Loco Pearson MD at 14:17 EST , Physical Exam Const alert and no apparent distress Constitutional Narrative: Appears older than stated age. Pleasant, but confused General Appearance: frail HEENT head/scalp atraumatic and moist oral mucous membranes Eyes PERRL, EOMs intact bilaterally and conjunctivae normal Neck full ROM, supple and no JVD Resp normal respiratory effort, no retractions and no use of accessory muscles Resp Narrative: No significant conversational dyspnea at rest Auscultation: Negative for rales, rhonchi or wheezes Percussion: Negative for dullness Cardio regular rate, regular rhythm, S1 normal heart sound, S2 normal heart sound, no murmurs, no rub, no gallops and no clicks GI normal to inspection, nondistended, normoactive bowel sounds Extremity Extremity Narrative: Trace bilateral lower extremity pitting edema with no cyanosis or clubbing Skin no rashes or lesions noted Neuro CN's II-XII intact bilaterally, moves all extremities and no focal motor deficits Neuro Narrative: Patient's speech is normal other than a lisp noted Psych affect normal Psych Narrative: Very pleasant and appropriately interactive Charges/Coding Visit Charges Inpatient E&M: 37871 Subs Hosp L3
--- NOTE | 2022-06-25 08:28 | PCM.CONS.GEN ---
Assessment & Plan Assessment/Plan (1) Nail dystrophy: PLAN: Evaluation performed. Debrided toenails 1-5 bilateral using a nail nipper removing bulk without incident. Reviewed foot care. Podiatry will follow up as needed, patient may follow up with us in office as outpatient as needed as well. (2) Chronic pain of toe of right foot: (3) Pain in left toe(s): HPI Consult Data Date of Consult: 06/25/22 HPI Narrative Reason for Consultation: Long, thickened toenails HPI Narrative: EVIE OLVERA, is a 66 F was seen for long, thickened, painful toenails. She is unable to mainain them herself. She has no other pedial complaints. She is sitting up in chair with legs elevated. [facility] Medical History Abnormal gait Anemia Ascites Cirrhosis Edema Encephalopathy Falls Fracture, tibia and fibula GERD (gastroesophageal reflux disease) Hypocalcemia Hypotension Hypothyroid Orthodontic device fitting or adjustment Thrombocytopenia Home Medications levothyroxine 75 mcg tablet 75 mcg PO DAILY THYROID 06/03/22 [History Last Taken Unknown] bumetanide 0.5 mg tablet 1 mg PO BID #0 tabs 06/10/22 [Rx Last Taken Unknown] lactulose 20 gram/30 mL oral solution 10 g (15 mL) PO BID #0 mL 06/10/22 [Rx Last Taken Unknown] midodrine 5 mg tablet 10 mg PO TIDCM #0 tabs 06/10/22 [Rx Last Taken Unknown] pantoprazole 40 mg tablet,delayed release 40 mg PO DAILY #0 tabs 06/10/22 [Rx Last Taken Unknown] spironolactone 50 mg tablet 50 mg PO DAILY #0 tabs 06/10/22 [Rx Last Taken Unknown] hydroxyzine HCl 25 mg tablet 25 mg DAILY PRN ITCHING 06/22/22 [History Last Taken Unknown] Allergy/AdvReac Type Severity Reaction Status Date / Time No Known Allergies Allergy Verified 06/03/22 14:06 Family History Mother No problems noted. Father Heart disease Surgical History unable to obtain Social History Smoking Status: Never smoker Physical Exam Const alert, oriented x3 and no apparent distress Extremity Extremity Narrative: Toenails 1-5 bilateral are elongated, thickened, dystrophic, yellow, and painful. No ulcer lesions, no blistering, no erythema to the foot or ankle bilateral. DP and PT pulses palpable bilateral, CFT < 2 seconds bilateral. Sensation intact to light touch bilateral foot. AROM and PROM to toes bilateral. Lab / Micro Data Result Diagrams: 06/25/22 03:12 06/25/22 03:12 Labs: Laboratory Results - last 24 hr 06/25/22 00:17: Vancomycin Trough 27.7 H 06/25/22 03:12: WBC 6.8, RBC 2.81 L, Hgb 9.9 L, Hct 29.7 L, MCV 105.7 H, MCH 35.2 H, MCHC 33.3, RDW Std Deviation 61.1 H, RDW Coeff of Radha 15.7 H, Plt Count 81 L, MPV 11.3, Immature Gran % (Auto) 0.400, Neut % (Auto) 63.6, Lymph % (Auto) 26.6, [place] % (Auto) 6.9, Eos % (Auto) 1.9, Baso % (Auto) 0.6, Absolute Neuts (auto) 4.4, Absolute Lymphs (auto) 1.82, Nucleated RBC % 0.3, Differential Comment SCANNED, Diff Path Review May foll, Atypical Lymphocytes 1+, Platelet Estimate MOD DEC 06/25/22 03:12: Sodium 138, Potassium 4.0, Chloride 106, Carbon Dioxide 28.0, Anion Gap 4 L, BUN 21 H, Creatinine 1.38 H, Estim Creat Clear Calc 32.57, Est GFR (MDRD) Af Amer 49 L, Est GFR (MDRD) Non-Af 41 L, BUN/Creatinine Ratio 15.2, Glucose 109 H, Calcium 6.7 L, Total Bilirubin 0.80, AST 80 H, ALT 31, Alkaline Phosphatase 64, Total Protein 5.2 L, Albumin 1.5 L, Globulin 3.7, Albumin/Globulin Ratio 0.4 L Micro: Microbiology 06/23/22 00:05 Urine, Clean Catch Urine Culture - Final Escherichia coli Radiology Impression Paracentesis Ultrasound 06/23/22 03:54 IMPRESSION: Ultrasound guided paracentesis. Electronically Signed: Loco Pearson MD at 15:04 EST , ADDENDUM: 06/24/22 1418 IMPRESSION: undefined Thoracentesis Ultrasound 06/24/22 08:33 IMPRESSION: Ultrasound-guided right thoracentesis. Electronically Signed: Loco Pearson MD at 14:18 EST , Chest X-Ray 06/24/22 14:00 IMPRESSION: Status post right thoracentesis with removal of 2 L of fluid. 20% right pneumothorax. The patient is asymptomatic with no evidence of shortness of breath or dyspnea. Electronically Signed: Loco Pearson MD at 14:17 EST ,
--- NOTE | 2022-06-25 08:29 | RAD_ITS ---
STUDY: X-RAY CHEST REASON FOR EXAM: Female, 66 years old. Follow-up iatrogenic pneumothorax TECHNIQUE: Single AP portable view of the chest. COMPARISON: Comparison is made with prior study dated 06/24/2022 at 2:00 PM. FINDINGS: EKG electrodes are seen. Interval decrease in size of the right pneumothorax. Persistent pleural-parenchymal changes at the right RAD/Chest 1 View (Portable) IMPRESSION: Interval decrease in size of the right sided pneumothorax. Electronically Signed: Loco Pearson MD at 8:50 EST ,
[2022-06-25] MEDS: Ensure Plus High Protein 120 ML LIQUID PO ×4 (08:36→22:37)
[2022-06-25] MEDS: Oseltamivir Phosphate 30 MG Capsule PO ×2 (08:36)
[2022-06-25] MEDS: Midodrine HCl 5 MG Tablet 10 MG PO ×3 (08:36→16:33)
[2022-06-25] MEDS: Pantoprazole Sodium 40 MG Tablet PO (08:36)
[2022-06-25] MEDS: Lactulose 20 GM/30 ML UDC 10 GM PO ×2 (08:36→22:36)
[2022-06-25] MEDS: CHLORHEXIDINE GLUC 2% CLOTH 1 EACH TOWELETTE TOPICAL (08:37)
[2022-06-25 09:40] LABS: Pathologist Comment/Body Fluid Reviewed
--- NOTE | 2022-06-25 12:40 | CASEMGMT ---
Addendum entered by Yesi Ortiz 06/25/22 13:14: Social Work SW called sister in law Janelle to confirm plan, as pt has had some forgetfulness while here. The number is not correct in the chart. SW called pt's mother Ángela, who is also listed as a personnel placement specialist. She confirmed plan is for pt to return to [facility]. She also gave SW updated phone number for Janelle: [phone]. finalsite updated. CHUCK Zaragoza Original Note: Social Work SW met w/pt in room, confirmed she would like to return to [facility] at discharge. Pt declined a list of nursing homes in the area as she does not want to change facilities. Pt confirms that Janelle Flowers is her main contact(the POA form on file does list her as POA). As per MILE Martinez, [facility] did confirm a new precert is not needed. Pt will returned skilled. Green sheet to be placed on chart along with transport forms. CHUCK Zaragoza
--- NOTE | 2022-06-25 17:08 | CASEMGMT ---
Social Work Pt's daughter is here, SW spoke w/her in room. She brought in more recent POA papers, she is POA and pt's son is alternate. Daughter states she has had some trouble getting our system here to update so that she is the main contact. SW explained will update [employer]. SW spoke w/daughter about pt returning to [facility], daughter would like to see a SNF list. SW provided a list to daughter from [facility], with quality and resource use data, in pt's insurance network and preferred geographic area. SW will follow up w/daughter tomorrow on if she would like a new referral or keep pt at [facility]. Green sheet taken off chart in the event pt's family would like a different facility. SW to follow up tomorrow. CHUCK Zaragoza
--- NOTE | 2022-06-25 20:42 | CON.PCM.GI_ITS ---
HPI Consult Data Date of Consult: 06/25/22 HPI Narrative Reason for Consultation: Cirrhosis HPI Narrative: EVIE OLVERA, is a 66 F who presented to the ED with abdominal swelling that has been getting worse over the past 2 weeks.? Patient denies any pain over her abdomen.? Patient states it is gotten more swollen over the past 2 weeks.? Patient states nothing makes it better nothing makes it worse.? Patient denies any fevers or chills.? Patient lives in an extended care facility and was sent to the emergency department for paracentesis. I saw her recently for chief complaint of abdominal ascites and leg swelling.? She had abdominal ultrasound was being obtained and an echocardiogram.? Ultrasound had shown cirrhosis. CT scan abdomen pelvis shows : there is a diffuse contour abnormality of the liver consistent with cirrhotic changes.? Innumerable small subcentimeter lesions likely consistent with cysts.? Normal gallbladder and extrahepatic biliary system.Normal spleen.? Laboratory analysis is consistent with macrocytic anemia, leukocytosis, thrombocytopenia. In the ER, patient was noted to have a temperature of 102.1 ?F, tachycardic at 112 bpm and hypoxic on room air at 82%.? ER staff had noted the patient was confused.? Laboratory work-up showed a white blood cell count of 10.6, hemoglobin of 10.3 and platelets of 145.? INR was elevated at 1.7 and creatinine at 1.13.? Total bili was slightly elevated at 1.8 and lactate was 2.3.? Ammonia was within normal limits.? UA did show some hyaline casts and chest x- ray showed a significant right-sided pleural effusion with left-sided atelectasis (my interpretation).? Given concern for sepsis, patient was given some IV fluids, but not full resuscitation given concerns for fluid overload with abdominal distention and pleural effusion.? Patient was initiated on antibiotics and admitted to the intensive care unit for further evaluation. When she was here previously drawn labs to determine the etiology of her cirrhos is. Patient did admit to [facility] [address] approximately 30 years ago. She had never received any blood transfusions and has no family history of liver disease. [facility] Medical History Abnormal gait Anemia Ascites Cirrhosis Edema Encephalopathy Falls Fracture, tibia and fibula GERD (gastroesophageal reflux disease) Hypocalcemia Hypotension Hypothyroid Orthodontic device fitting or adjustment Thrombocytopenia Home Medications levothyroxine 75 mcg tablet 75 mcg PO DAILY THYROID 06/03/22 [History Last Taken Unknown] bumetanide 0.5 mg tablet 1 mg PO BID #0 tabs 06/10/22 [Rx Last Taken Unknown] lactulose 20 gram/30 mL oral solution 10 g (15 mL) PO BID #0 mL 06/10/22 [Rx Last Taken Unknown] midodrine 5 mg tablet 10 mg PO TIDCM #0 tabs 06/10/22 [Rx Last Taken Unknown] pantoprazole 40 mg tablet,delayed release 40 mg PO DAILY #0 tabs 06/10/22 [Rx La st Taken Unknown] spironolactone 50 mg tablet 50 mg PO DAILY #0 tabs 06/10/22 [Rx Last Taken Unknown] hydroxyzine HCl 25 mg tablet 25 mg DAILY PRN ITCHING 06/22/22 [History Last Taken Unknown] Allergy/AdvReac Type Severity Reaction Status Date / Time No Known Allergies Allergy Verified 06/03/22 14:06 Family History Mother No problems noted. Father Heart disease Surgical History unable to obtain Social History Smoking Status: Never smoker ROS Review of Systems ROS Unobtainable: due to mental status Physical Exam Const alert and no apparent distress Constitutional Narrative: Appears older than stated age. Pleasant, but confused General Appearance: frail HEENT head/scalp atraumatic and moist oral mucous membranes HEENT Narrative: Edentulous, Mallampati 1, no thrush. Nasal cannula in place Neck Neck Narrative: JVD noted Resp normal respiratory effort, no retractions and no use of accessory muscles Resp Narrative: No significant conversational dyspnea at rest Auscultation: rales right; Negative for rhonchi or wheezes Percussion: dullness Lower: right Cardio regular rate, regular rhythm, S1 normal heart sound, S2 normal heart sound, no murmurs, no rub, no gallops and no clicks GI Inspection: abdominal distention Palpation: ascites Extremity Extremity Narrative: Trace bilateral lower extremity pitting edema with no cyanosis or clubbing Skin no rashes or lesions noted Neuro CN's II-XII intact bilaterally, moves all extremities and no focal motor deficits Neuro Narrative: Patient's speech is normal other than a lisp noted Psych affect normal Psych Narrative: Very pleasant and appropriately interactive Lab / Micro Data Result Diagrams: 06/25/22 03:12 06/25/22 03:12 Labs: Laboratory Results - last 24 hr 06/23/22 13:50: Fl Pathologist Comment Reviewed 06/23/22 13:58: Miscellaneous Test 06/25/22 00:17: Vancomycin Trough 27.7 H 06/25/22 03:12: WBC 6.8, RBC 2.81 L, Hgb 9.9 L, Hct 29.7 L, MCV 105.7 H, MCH 35.2 H, MCHC 33.3, RDW Std Deviation 61.1 H, RDW Coeff of Radha 15.7 H, Plt Count 81 L, MPV 11.3, Immature Gran % (Auto) 0.400, Neut % (Auto) 63.6, Lymph % (Auto) 26.6, [place] % (Auto) 6.9, Eos % (Auto) 1.9, Baso % (Auto) 0.6, Absolute Neuts (auto) 4.4, Absolute Lymphs (auto) 1.82, Nucleated RBC % 0.3, Differential Comment SCANNED, Diff Path Review May foll, Atypical Lymphocytes 1+, Platelet Estimate MOD DEC 06/25/22 03:12: Sodium 138, Potassium 4.0, Chloride 106, Carbon Dioxide 28.0, Anion Gap 4 L, BUN 21 H, Creatinine 1.38 H, Estim Creat Clear Calc 32.57, Est GFR (MDRD) Af Amer 49 L, Est GFR (MDRD) Non-Af 41 L, BUN/Creatinine Ratio 15.2, Glucose 109 H, Calcium 6.7 L, Total Bilirubin 0.80, AST 80 H, ALT 31, Alkaline Phosphatase 64, Total Protein 5.2 L, Albumin 1.5 L, Globulin 3.7, Albumin/[place] bulin Ratio 0.4 L Micro: Microbiology 06/22/22 23:29 Blood Culture (Wb) - Left Hand Blood Culture - Preliminary No growth in 48 hours. 06/22/22 22:36 Blood Culture (Wb) - Anticubital Right Blood Culture - Preliminary No growth in 48 hours. 06/23/22 00:05 Urine, Clean Catch Urine Culture - Final Escherichia coli Radiology Impression Chest X-Ray 06/25/22 08:29 IMPRESSION: Interval decrease in size of the right sided pneumothorax. Electronically Signed: Loco Pearson MD at 8:50 EST , Assessment & Plan Assessment/Plan (1) Cirrhosis: PLAN: At this time etiology of her cirrhosis would be chronic hepatitis C. She would need genotyping. As of now the viral load. She should be treated for hepatitis C to help prevent complications such as hepatocellular carcinoma and worsening thrombosis. She is also known to have a DVT but is currently secondary to underlying diagnosis of cirrhosis. She is being treated for an acute infection contributing to encephalopathy. Meld is 10 and she is a child Vasquez class B. Cirrhosis is also complicated by ascites and pleural effusions. She underwent thoracentesis and paracentesis. There is no sign of spontaneous bacterial peritonitis at this time. Recommend outpatient treatment for hepatitis C. While she is inpatient recommend to continue midodrine as previously ordered. She may benefit from octreotide to help inpatient reduction in ascitic fluid. Recommend 500 mg sodium restriction without protein calorie restriction. Also recommend to check alpha-fetoprotein to screen for hepatocellular carcinoma. Due to the size of her liver she would not be a candidate for TIPS procedure to prevent recurrent pleural effusions. She should have scheduled outpatient paracentesis. I have not seen her in the office as of yet. This can be arranged as an outpatient. Continue lactulose with the increased dose of 20 . mL every 8 hours Charges/Coding Visit Charges Inpatient E&M: 94013 Init Hosp L3
[2022-06-25] MEDS: Oseltamivir Phosphate 45 MG Capsule PO (22:36)
[2022-06-25] MEDS: MELATONIN 3 MG TABLET PO (22:44)
[2022-06-25] MEDS: Ibuprofen 400 MG Tablet PO (22:44)
[2022-06-26] VITALS (9 sets, daily range): BP systolic 108–149; BP diastolic 72–89; PULSE 93–110; RESP 16–20; TEMP 35.4–37.2; O2SAT 91–96
[2022-06-26] MEDS: Levothyroxine 75 MCG Tablet PO (05:19)
--- NOTE | 2022-06-26 05:40 | RAD_ITS ---
We are attempting to reach an attending provider to discuss findings. An addendum with communication details will be sent when the communication is complete. INDICATION: pneumothorax follow up EXAMINATION/TECHNIQUE: X-RAY - XR Chest 1 View COMPARISON: 06/25/2019 3:29 AM. FINDINGS: LINES/DEVICES: None. LUNGS: Right sided hydropneumothorax is again noted. This measures 3.7 cm in craniocaudal dimension. Previously this measured 2.26 cm in craniocaudal dimension. There is moderate right middle and right lower lobe infiltrate and/or effusion progressive. Mild left perihilar infiltrate is progressive. MEDIASTINUM AND CARDIOVASCULAR STRUCTURES: Cardiac silhouette not enlarged. Central airways and mediastinal contour are unremarkable. BONES AND SOFT TISSUES: Unremarkable. RAD/Chest 1 View (Portable) IMPRESSION: Right hydropneumothorax increased as compared to prior study. This now measures 3.7 cm craniocaudal. Moderate right middle and right lower lobe infiltrate and/or effusion. Left perihilar infiltrate. Electronically Signed: Fran Rosales MD, SHARITA at 17:52 EST ,
[2022-06-26 06:43] LABS: Absolute Lymphocyte Count 1.98 X10^3/uL (0.83-4.51); Absolute Neutrophil Count 9.3 X10^3/uL (2.0-7.7); Basophil# 0.06 X10^3/uL; Basophil% 0.5 % (0-1); Eosinophil# 0.04 X10^3/uL; Eosinophils% 0.3 % (0-5); Hematocrit 36.8 % (37-47); Hemoglobin 11.9 g/dL (12.0-15.0); Lymphocyte # 1.98 X10^3/ul (0.83-4.51); Lymphocyte % 15.6 % (19-41); Mean Corp Hgb Conc 32.3 g/dL (32-36); Mean Corpuscular Hgb 35.2 pg (27.0-32.0); Mean Corpuscular Volume 108.9 fL (81-99); Mean Platelet Vol. 11.7 fl (6.2-12.0); Monocyte# 1.13 X10^3/uL; Monocyte% 8.9 % (0-10); NRBC Flagged by Analyzer 0 % (0-5); Neutrophil # 9.27 X10^3/uL (2.7-7.7); Neutrophil % 73.3 % (47-70); POSITIVE COUNT YES; Platelet Count 64 K/mm3 (150-450); RBC Distribution Width CV 15.6 % (11.6-14.6); RBC Distribution Width SD 62.8 fl (35.1-43.9); Red Blood Count 3.38 M/mm3 (4.2-5.4); White Blood Count 12.7 K/mm3 (4.4-11.0)
[2022-06-26 07:01] LABS: Anion Gap 7 (5-15); BUN 28 mg/dL (7-18); BUN/Creat Ratio 17.2 RATIO (10-20); Calcium,Total 7.4 mg/dL (8.5-10.1); Chloride 106 mmol/L (98-107); Creatinine, Serum 1.63 mg/dL (0.55-1.02); EST Glomerular Filtration Rate 34 mL/min (>60); Est Glom Filt Rate - Afr Amer 41 mL/min (>60); Estimated Creatinine Clearance 27.58 ml/min; Glucose 109 mg/dL (74-106); Potassium 4.6 mmol/L (3.5-5.1); Sodium Level 136 mmol/L (136-145)
[2022-06-26] MEDS: Ipratropium/Albuterol Sulfate 3 ML AMPUL.NEB INHALATION ×3 (07:43→19:03)
--- NOTE | 2022-06-26 07:59 | EX.PCM.CONOB ---
Assessment & Plan (1) Ascites: (2) Cirrhosis: (3) Thickened endometrium: COMMENT: Incidental finding on ultrasound, patient asymptomatic recommend endometrial biopsy and Pap smear for routine cervical cancer screening as an outpatient PLAN: Plan Upon evaluation to determine if ovarian cancer is an underlying cause of ascites I do not believe this is the case. Upon reviewing imaging of a CT scan of the abdomen and pelvis and a pelvic ultrasound, there are no ovarian masses seen on CT scan, no lymphadenopathy, no omental masses or peritoneal implants suspicious for metastases. Pelvic ultrasound shows no ovarian masses suspicious for cancer. Analysis of the fluid drained from the ascites showed no malignant cells. CA125 and CA 19-9 are nonspecific markers could be elevated in both GI pancreatic liver and ovarian pathology. Upon review patient denies any vaginal bleeding but has a borderline thickened endometrium so I would recommend an endometrial biopsy as an outpatient in my office and she has not had a Pap smear in a long time so I recommend that also. This was communicated with the patient and the family and she will follow-up as an outpatient when she is discharged to a detention facility or home. CEA ordered as an additional ovarian cancer tumor marker however this can also be elevated in GI pathology.. We will follow peripherally for follow-up of CEA and to ensure patient follows up for endometrial biopsy as an outpatient. HPI Consult Data Date of Consult: 06/26/22 HPI Narrative HPI Narrative: EVIE OLVERA, is a 66 F who presents for influenza a sepsis admission with recurent sever ascits. she has hep c and liver cirrhosis, elevated ca125 and CA 19-9 so [employer] was consulted to confirm that there is no suspicion for ovarian cancer as a cause of ascites compounding the comorbidities. Patient denies any vaginal bleeding [facility] Medical History Abnormal gait Anemia Ascites Cirrhosis Edema Encephalopathy Falls Fracture, tibia and fibula GERD (gastroesophageal reflux disease) Hypocalcemia Hypotension Hypothyroid Orthodontic device fitting or adjustment Thrombocytopenia Home Medications levothyroxine 75 mcg tablet 75 mcg PO DAILY THYROID 06/03/22 [History Last Taken Unknown] bumetanide 0.5 mg tablet 1 mg PO BID #0 tabs 06/10/22 [Rx Last Taken Unknown] lactulose 20 gram/30 mL oral solution 10 g (15 mL) PO BID #0 mL 06/10/22 [Rx Last Taken Unknown] midodrine 5 mg tablet 10 mg PO TIDCM #0 tabs 06/10/22 [Rx Last Taken Unknown] pantoprazole 40 mg tablet,delayed release 40 mg PO DAILY #0 tabs 06/10/22 [Rx Last Taken Unknown] spironolactone 50 mg tablet 50 mg PO DAILY #0 tabs 06/10/22 [Rx Last Taken Unknown] hydroxyzine HCl 25 mg tablet 25 mg DAILY PRN ITCHING 06/22/22 [History Last Taken Unknown] Allergy/AdvReac Type Severity Reaction Status Date / Time No Known Allergies Allergy Verified 06/03/22 14:06 Family History Mother No problems noted. Father Heart disease Surgical History unable to obtain Social History Smoking Status: Never smoker Vital Signs Vital Signs Vital Signs: 06/25/22 08:24 06/25/22 08:00 06/25/22 10:00 Temperature 98.6 F 98.9 F Temperature Source Core Core Pulse Rate 93 97 Pulse Strength Respiratory Rate 21 H 24 H Respiratory Effort Normal Non-Labored Respiratory Depth Normal Respiratory Pattern Normal Blood Pressure 83/57 L 92/57 L Blood Pressure Mean 65 68 Blood Pressure Source Monitor Monitor Blood Pressure Position Semi-Fowlers Semi-Fowlers Blood Pressure Location Left Arm Left Arm Pulse Ox 92 92 Oxygen Delivery Method Nasal Cannula Nasal Cannula Nasal Cannula Oxygen Flow Rate (L/min) 2 1 2 06/25/22 10:17 06/25/22 10:40 06/25/22 11:00 Temperature 98.8 F Temperature Source Core Pulse Rate 86 98 106 H Pulse Strength Respiratory Rate 20 H 23 H Respiratory Effort Respiratory Depth Respiratory Pattern Tachypnea Blood Pressure 91/61 Blood Pressure Mean 71 Blood Pressure Source Monitor Blood Pressure Position Semi-Fowlers Blood Pressure Location Left Arm Pulse Ox 97 Oxygen Delivery Method Nasal Cannula Oxygen Flow Rate (L/min) 2 06/25/22 12:00 06/25/22 13:40 06/25/22 12:36 Temperature 99.7 F H 100.0 F H Temperature Source Core Core Pulse Rate 103 H 98 Pulse Strength Respiratory Rate 27 H 22 H Respiratory Effort Respiratory Depth Respiratory Pattern Blood Pressure 100/70 128/72 H Blood Pressure Mean 80 90 Blood Pressure Source Monitor Monitor Blood Pressure Position Semi-Fowlers Semi-Fowlers Blood Pressure Location Left Arm Left Arm Pulse Ox 97 97 95 Oxygen Delivery Method Nasal Cannula Nasal Cannula Oxygen Flow Rate (L/min) 2 2 2 06/25/22 12:50 06/25/22 15:34 06/25/22 15:57 Temperature 101.1 F H Temperature Source Core Pulse Rate 90 74 Pulse Strength Respiratory Rate 18 22 H Respiratory Effort Respiratory Depth Respiratory Pattern Normal Blood Pressure 110/43 L Blood Pressure Mean 65 Blood Pressure Source Monitor Blood Pressure Position Semi-Fowlers Blood Pressure Location Left Arm Pulse Ox 95 94 Oxygen Delivery Method Nasal Cannula Oxygen Flow Rate (L/min) 2 2 06/25/22 17:56 06/25/22 15:00 06/25/22 19:55 Temperature Temperature Source Pulse Rate 100 95 Pulse Strength Respiratory Rate 20 H Respiratory Effort Normal Non-Labored Respiratory Depth Normal Respiratory Pattern Normal Normal Blood Pressure Blood Pressure Mean Blood Pressure Source Blood Pressure Position Blood Pressure Location Pulse Ox Oxygen Delivery Method Nasal Cannula Oxygen Flow Rate (L/min) 2 06/25/22 20:28 06/25/22 21:00 06/25/22 22:00 Temperature 99.8 F H Temperature Source Oral Pulse Rate 88 Pulse Strength Weak (1+) Respiratory Rate 18 Respiratory Effort Respiratory Depth Respiratory Pattern Blood Pressure 114/69 Blood Pressure Mean 84 Blood Pressure Source Monitor Blood Pressure Position Blood Pressure Location Pulse Ox 96 Oxygen Delivery Method Nasal Cannula Nasal Cannula Oxygen Flow Rate (L/min) 2 3 06/26/22 03:00 06/26/22 03:51 Temperature 99.0 F Temperature Source Oral Pulse Rate 98 Pulse Strength Respiratory Rate 18 Respiratory Effort Respiratory Depth Respiratory Pattern Blood Pressure 108/72 Blood Pressure Mean 84 Blood Pressure Source Monitor Blood Pressure Position Blood Pressure Location Pulse Ox 96 Oxygen Delivery Method Nasal Cannula Nasal Cannula Oxygen Flow Rate (L/min) 3 2 Weight Weight: 64.4 kg Body Mass Index (BMI) 27.8 ROS ROS Narrative Patient inconsistently answers review of systems questions family states that she is unreliable and intermittently will complain of shortness of breath and then states she is fine. Review of Systems ROS Unobtainable: due to mental condition Physical Exam Const alert Orientation / Consciousness: confused HEENT normocephalic and moist oral mucous membranes Head and Scalp: atraumatic Eyes EOMs intact bilaterally General Eye: normal appearance of both eyes Neck full ROM and thyroid normal General: trachea midline Chest inspection of chest normal Resp no retractions and no use of accessory muscles Auscultation: crackles and diminished lung sounds left lower Cardio regular rate, regular rhythm, S1 normal heart sound, S2 normal heart sound and no murmurs GI Inspection: abdominal distention Palpation: Negative for guarding or rigid Back/Spine no CVA tenderness Extremity normal to inspection General Extremity: edema Skin no rashes or lesions noted Neuro moves all extremities Psych mental status grossly normal and affect normal Lab / Micro Data Result Diagrams: 06/26/22 06:00 06/26/22 06:00 Labs: Laboratory Results - last 24 hr 06/23/22 13:50: Fl Pathologist Comment Reviewed 06/23/22 13:58: Miscellaneous Test 06/26/22 06:00: WBC 12.7 H, RBC 3.38 L, Hgb 11.9 L, Hct 36.8 L, MCV 108.9 H, MCH 35.2 H, MCHC 32.3, RDW Std Deviation 62.8 H, RDW Coeff of Radha 15.6 H, Plt Count 64 L, MPV 11.7, Immature Gran % (Auto) 1.400 H, Neut % (Auto) 73.3 H, Lymph % (Auto) 15.6 L, Braxton % (Auto) 8.9, Eos % (Auto) 0.3, Baso % (Auto) 0.5, Absolute Neuts (auto) 9.3 H, Absolute Lymphs (auto) 1.98, Nucleated RBC % 0 06/26/22 06:00: Sodium 136, Potassium 4.6, Chloride 106, Carbon Dioxide 23.0, Anion Gap 7, BUN 28 H, Creatinine 1.63 H, Estim Creat Clear Calc 27.58, Est GFR (MDRD) Af Amer 41 L, Est GFR (MDRD) Non-Af 34 L, BUN/Creatinine Ratio 17.2, Glucose 109 H, Calcium 7.4 L Micro: Microbiology 06/22/22 23:29 Blood Culture (Wb) - Left Hand Blood Culture - Preliminary No growth in 48 hours. 06/22/22 22:36 Blood Culture (Wb) - Anticubital Right Blood Culture - Preliminary No growth in 48 hours. 06/23/22 00:05 Urine, Clean Catch Urine Culture - Final Escherichia coli Radiology Impression Chest X-Ray 06/25/22 08:29 IMPRESSION: Interval decrease in size of the right sided pneumothorax. Electronically Signed: Loco Pearson MD at 8:50 EST ,
--- NOTE | 2022-06-26 08:09 | PCM.PN.HOSP ---
Subjective Subjective Feeling well. Denies shortness of breath. Objective Data Objective Data Vital Signs: Vital Signs Temp Pulse Resp BP Pulse Ox O2 Del Method O2 Flow Rate 37.2 C 98 18 108/72 96 Nasal Cannula 2 06/26/22 03:51 06/26/22 03:51 06/26/22 03:51 06/26/22 03:51 06/26/22 03:51 06/26/22 03:51 06/26/22 03:51 Oxygen Flow Rate (L/min) [4] 2 Oxygen Flow Rate (L/min) [3] 2 Oxygen Flow Rate (L/min) [2] 2 Oxygen Flow Rate (L/min) [1 ( 2 Initial Baseline)] Oxygen Flow Rate (L/min) 2 Oxygen Delivery Method [4] Nasal Cannula Oxygen Delivery Method [3] Nasal Cannula Oxygen Delivery Method [2] Nasal Cannula Oxygen Delivery Method [1 ( Nasal Cannula Initial Baseline)] Oxygen Delivery Method Nasal Cannula Weight: 64.4 kg Body Mass Index (BMI) 27.8 Intake & Output: Intake and Output for Last 24 Hours 06/24/22 06/25/22 06/26/22 23:59 23:59 23:59 Intake Total 1435.5 / 1435.5 990 / 990 50 / 50 Output Total 2375 / 2375 250 / 250 Balance -939.5 / -939.5 740 / 740 50 / 50 Lab / Micro Data Result Diagrams: 06/26/22 06:00 06/26/22 06:00 Labs: Laboratory Results - last 24 hr 06/23/22 13:50: Fl Pathologist Comment Reviewed 06/23/22 13:58: Miscellaneous Test 06/26/22 06:00: WBC 12.7 H, RBC 3.38 L, Hgb 11.9 L, Hct 36.8 L, MCV 108.9 H, MCH 35.2 H, MCHC 32.3, RDW Std Deviation 62.8 H, RDW Coeff of Radha 15.6 H, Plt Count 64 L, MPV 11.7, Immature Gran % (Auto) 1.400 H, Neut % (Auto) 73.3 H, Lymph % (Auto) 15.6 L, Peach % (Auto) 8.9, Eos % (Auto) 0.3, Baso % (Auto) 0.5, Absolute Neuts (auto) 9.3 H, Absolute Lymphs (auto) 1.98, Nucleated RBC % 0 06/26/22 06:00: Sodium 136, Potassium 4.6, Chloride 106, Carbon Dioxide 23.0, Anion Gap 7, BUN 28 H, Creatinine 1.63 H, Estim Creat Clear Calc 27.58, Est GFR (MDRD) Af Amer 41 L, Est GFR (MDRD) Non-Af 34 L, BUN/Creatinine Ratio 17.2, Glucose 109 H, Calcium 7.4 L Micro: Microbiology 06/22/22 23:29 Blood Culture (Wb) - Left Hand Blood Culture - Preliminary No growth in 48 hours. 06/22/22 22:36 Blood Culture (Wb) - Anticubital Right Blood Culture - Preliminary No growth in 48 hours. 06/23/22 00:05 Urine, Clean Catch Urine Culture - Final Escherichia coli 06/23/22 08:56 Mucosa - Nasopharyngeal Respiratory Panel (PCR) - Final Influenza A (Subtype H1) 06/23/22 07:25 Nasal Secretion SARS-CoV-2 & FLU Antigen (Rapid) - Final Influenzae A 06/23/22 00:09 Urine Catheter - Catheter Legionella Antigen - Final 06/23/22 00:09 Urine Catheter - Catheter Streptococcus pneumoniae Antigen (M - Final Radiography Diagnostic Testing: Radiology Impression Chest X-Ray 06/25/22 08:29 IMPRESSION: Interval decrease in size of the right sided pneumothorax. Electronically Signed: Loco Pearson MD at 8:50 EST Reading Location ID and State: [facility] / [place] , Service support , Physical Exam Const alert and no apparent distress Resp normal respiratory effort, no retractions, no use of accessory muscles and clear to auscultation bilaterally Cardio regular rate, regular rhythm, S1 normal heart sound and S2 normal heart sound GI normal to inspection, nondistended, normoactive bowel sounds GI Narrative: distended. afebrile. Extremity General Extremity: edema bilateral lower extremity Details: moderate Neuro Sensorium / Orientation: awake and alert Assessment & Plan Assessment/Plan (1) Encephalopathy acute: PLAN: Currently resolved Suspect metabolic from sepsis and influenza A Ammonia only 12, therefore, it is not hepatic encephalopathy No clear source of infection: UA unremarkable--therefore UTI ruled out. CXR show right pleural effusion--no change from 06/03--doubt pneumonia. No leukocytosis. Fevers improved Continue empiric abx for now, but if cultures are negative, would discontinue. Will check patient for viral etiologies--viral resp panel, COVID 19, flu. (2) Sepsis: QUALIFIERS: Sepsis acute organ dysfunction status: with acute organ dysfunction Sepsis type: Escherichia coli Severe sepsis acute organ dysfunction type: encephalopathy Severe sepsis shock status: without septic shock Qualified Code(s): A41.51 - Sepsis due to Escherichia coli [E. coli]; R65.20 - Severe sepsis without septic shock; G93.41 - Metabolic encephalopathy PLAN: The patient presented with sepsis due to (possible spontaneous bacterial peritonitis; UTI or pneumonia ) with acute sepsis related organ dysfunction as evidenced by (lactic acidosis and encephalopathy). SIRS criteria: Temperature more than 100.9 Fahrenheit. T-max on presentation was 102.1 Fahrenheit. Respiratory rate more than 20. Highest respiratory rate on presentation was 24. Heart rate more than 90. Highest respiratory rate on presentation was 112. Lactic acid on presentation was 2.3, trend. Systolic blood pressure on presentation was less than 90. Patient has a history of chronic hypotension. Received IV bolus normal saline at emergency department but not 30 mL/kg as patient is a cirrhotic patient and has ascites. Vancomycin and Zosyn was started at the emergency department and continued. INR on presentation was 1.7. Repeat INR. Paracentesis of ascites fluid with gram stain ordered; and cultures ordered. +Influenza A. May be the source of infection with chronic hypotension already on midodrine. Doubt SBP Patient does have growing 100,000 gram-negative rods in her urine. We will continue with the piperacillin/tazobactam. DC the vancomycin. (3) Pneumonia: PLAN: Ruled out No clear infiltrate on CXR Strep and legionella antigens negative (4) Ascites: PLAN: Patient had a transvaginal ultrasound that showed endometrium fluid-filled and thickened. No masses were noted nor any ovarian masses. Patient has a history of elevated CA125's. But the possibility of cirrhosis is not excluded. cirrhotic liver was noted on imaging the patient has not had a biopsy. Her bumetanide and spironolactone are currently held in light of the hypotension. Paracentesis ordered. Will order appropriate labs. Check SAAG. Paracentesis performed on the fifth that removed 2800 cc of donnell-colored fluid. Diuretics as able. No need for chronic indwelling drainage catheter at this time. white cell count was low. Culture pending but extremely low suspicion for this being SBP. GI following: recommending 500mg sodiaum diet (5) Influenza A: PLAN: Has been vaccinated. (6) Debility: PLAN: Minimal assistance with activity. Would benefit from additional therapy services. (7) Severe protein-calorie malnutrition: PLAN: complicates care and recovery supplements nutrition following. (8) Pleural effusion: PLAN: LDH nor protein ordered. Likely transudative. (9) Pneumothorax: PLAN: iatrogenic: post-thoracentesis. less than 20%. Follow up CXR showed improvement. Worse today on chest x-ray. Follow-up appear to be about the same. We will repeat chest x-ray on the eighth. Consult Dr. Isaacs for evaluation for chest tube. Patient had previously declined to Dr. Anderson for chest tube. The daughters were not present in the room at that time. I did asked the patient if she continues to get worse if she would want a chest tube at that time and she said that she would. Patient's daughters were present in the room when I asked her that. Continue oxygen. (10) UTI (urinary tract infection): PLAN: change pip/tazo to CTX and treat with abx through 07/01. (11) Thickened endometrium: PLAN: JAIME Sal: incidental finding, though recommending outpt follow up for endometrial biopsy. CA125 elevated but may not indicate any ovarian pathology. Nonvisulazed left ovary on US not concerning in a post-menopausal female. (12) Hepatitis C: PLAN: New diagnosis; outpt follow up for treatment genotyping (13) Hypoalbuminemia: PLAN: We will give the patient 25 g of abdomen PLAN: Plan Chronic anemia Stable CKD stage II Stable DVT prophylaxis SCDs ordered Podiatry for nail care. Prognosis guarded: Discussed with the patient's daughters at bedside. Charges/Coding Visit Charges Inpatient E&M: 80018 Subs Hosp L3
[2022-06-26] MEDS: Lactulose 20 GM/30 ML UDC 10 GM PO (09:28)
[2022-06-26] MEDS: Pantoprazole Sodium 40 MG Tablet PO (09:28)
[2022-06-26] MEDS: Ensure Plus High Protein 120 ML LIQUID PO ×3 (09:28→17:35)
[2022-06-26] MEDS: Midodrine HCl 5 MG Tablet 10 MG PO ×3 (09:28→17:33)
[2022-06-26] MEDS: Ceftriaxone 1 GM/50 ML BAG IV (09:28)
[2022-06-26] MEDS: Oseltamivir Phosphate 45 MG Capsule PO ×2 (09:28→21:55)
--- NOTE | 2022-06-26 09:39 | PCM.PN.INT ---
Assessment & Plan Assessment/Plan (1) Ascites: (2) Hypotension: PLAN: Plan RECOMMENDATIONS: 1. Repeat chest x-ray to evaluate pneumothorax 2. Place patient on 6 L/min with no titration 3. Supportive care for influenza 4. Consider surgical consult for chest tube if not improved in 24 hours 5. Okay to leave the intensive care unit if pneumothorax is stable to improved 6. Walking oximetry prior to discharge IMPRESSIONS: 1. Sepsis secondary to influenza A Patient with elevated lactate and SIRS on presentation. Encephalopathy indicate endorgan damage. Low clinical suspicion for pneumonia outside of the influenza A. Patient does have a history of SBP in the past, but fluid studies are not suggestive at this at this time. Continue with midodrine. No indication for pressors at this time. Would use a systolic pressure of 90 more than a map given patient's underlying liver disease. 2. Acute hypoxic respiratory insufficiency secondary to influenza A/right pleural effusion/iatrogenic pneumothorax Patient with rather large right-sided pleural effusion and influenza A. Patient does also appear to have an element of atelectasis in the left base. Patient with 2 L removed from right chest previously with thoracentesis. Chest x-ray today shows worsening of hydropneumothorax. Clinical suspicion for the pleural effusion secondary to problem #4 with worsening pneumothorax secondary to iatrogenic etiology with thoracentesis. Patient is feeling comfortable, so we will attempt to use hyperoxic therapy, but chest tube may ultimately be required. 3. Metabolic encephalopathy Clinical suspicion for hypoxia leading to confusion on presentation. This does appear to be improving with supplemental oxygen. Patient's ammonia was within normal limits, so hepatic encephalopathy is not likely. Okay to continue with usual medications from my perspective as this should improve with continued control of hypoxia. 4. Cirrhosis/debility/elevated CA125/coagulopathy Complicates care, management, recovery and prognosis. Frequent hospitalizations leading to debility. PT/OT should be involved. Subjective Subjective Patient did well overnight. Patient with no complaints today. Patient overall feels subjectively unchanged compared to yesterday. Patient is not reporting any significant cough. No chest pain has been reported. Objective Data Objective Data Vital Signs: Vital Signs Temp Pulse Resp BP Pulse Ox O2 Del Method O2 Flow Rate 36.4 C L 99 18 120/76 96 Nasal Cannula 6 06/26/22 09:11 06/26/22 09:11 06/26/22 09:11 06/26/22 09:11 06/26/22 09:11 06/26/22 09:11 06/26/22 09:11 Oxygen Flow Rate (L/min) [4] 2 Oxygen Flow Rate (L/min) [3] 2 Oxygen Flow Rate (L/min) [2] 2 Oxygen Flow Rate (L/min) [1 ( 2 Initial Baseline)] Oxygen Flow Rate (L/min) 6 Oxygen Delivery Method [4] Nasal Cannula Oxygen Delivery Method [3] Nasal Cannula Oxygen Delivery Method [2] Nasal Cannula Oxygen Delivery Method [1 ( Nasal Cannula Initial Baseline)] Oxygen Delivery Method Nasal Cannula Weight: 64.4 kg Body Mass Index (BMI) 27.8 Intake & Output: Intake and Output for Last 24 Hours 06/24/22 06/25/22 06/26/22 23:59 23:59 23:59 Intake Total 1435.5 / 1435.5 990 / 990 100 / 100 Output Total 2375 / 2375 250 / 250 Balance -939.5 / -939.5 740 / 740 100 / 100 Lab / Micro Data Attestation: I reviewed the patient's lab results. Result Diagrams: 06/26/22 06:00 06/26/22 06:00 Labs: Laboratory Results - last 24 hr 06/23/22 13:50: Fl Pathologist Comment Reviewed 06/23/22 13:58: Miscellaneous Test 06/26/22 06:00: WBC 12.7 H, RBC 3.38 L, Hgb 11.9 L, Hct 36.8 L, MCV 108.9 H, MCH 35.2 H, MCHC 32.3, RDW Std Deviation 62.8 H, RDW Coeff of Radha 15.6 H, Plt Count 64 L, MPV 11.7, Immature Gran % (Auto) 1.400 H, Neut % (Auto) 73.3 H, Lymph % (Auto) 15.6 L, [place]morton % (Auto) 8.9, Eos % (Auto) 0.3, Baso % (Auto) 0.5, Absolute Neuts (auto) 9.3 H, Absolute Lymphs (auto) 1.98, Nucleated RBC % 0 06/26/22 06:00: Sodium 136, Potassium 4.6, Chloride 106, Carbon Dioxide 23.0, Anion Gap 7, BUN 28 H, Creatinine 1.63 H, Estim Creat Clear Calc 27.58, Est GFR (MDRD) Af Amer 41 L, Est GFR (MDRD) Non-Af 34 L, BUN/Creatinine Ratio 17.2, Glucose 109 H, Calcium 7.4 L Micro: Microbiology 06/22/22 23:29 Blood Culture (Wb) - Left Hand Blood Culture - Preliminary No growth in 48 hours. 06/22/22 22:36 Blood Culture (Wb) - Anticubital Right Blood Culture - Preliminary No growth in 48 hours. 06/23/22 00:05 Urine, Clean Catch Urine Culture - Final Escherichia coli 06/23/22 08:56 Mucosa - Nasopharyngeal Respiratory Panel (PCR) - Final Influenza A (Subtype H1) 06/23/22 07:25 Nasal Secretion SARS-CoV-2 & FLU Antigen (Rapid) - Final Influenzae A 06/23/22 00:09 Urine Catheter - Catheter Legionella Antigen - Final 06/23/22 00:09 Urine Catheter - Catheter Streptococcus pneumoniae Antigen (M - Final Physical Exam Const alert and no apparent distress Constitutional Narrative: Appears older than stated age. Pleasant, but confused General Appearance: frail HEENT head/scalp atraumatic and moist oral mucous membranes Eyes PERRL, EOMs intact bilaterally and conjunctivae normal Neck full ROM, supple and no JVD Neck Narrative: JVD noted Resp normal respiratory effort, no retractions and no use of accessory muscles Resp Narrative: No significant conversational dyspnea at rest Auscultation: Negative for rales, rhonchi or wheezes Percussion: dullness Lower: right Cardio regular rate, regular rhythm, S1 normal heart sound, S2 normal heart sound, no murmurs, no rub, no gallops and no clicks GI normal to inspection, nondistended, normoactive bowel sounds Inspection: abdominal distention Extremity Extremity Narrative: Trace bilateral lower extremity pitting edema with no cyanosis or clubbing Skin no rashes or lesions noted Neuro CN's II-XII intact bilaterally, moves all extremities and no focal motor deficits Neuro Narrative: Patient's speech is normal other than a lisp noted Psych affect normal Psych Narrative: Very pleasant and appropriately interactive Charges/Coding Visit Charges Inpatient E&M: 86089 Subs Hosp L3
--- NOTE | 2022-06-26 12:37 | RAD_ITS ---
EXAM: XR CHEST, 1 VIEW CLINICAL INDICATION: pneumothorax TECHNIQUE: Frontal view of the chest. This report was created using 4INFO report generation technology. COMPARISON: XR Chest dated 06/26/2022 FINDINGS: LUNGS AND PLEURAL SPACES: Stable 20% right-sided pneumothorax. Right pleural effusion is unchanged. Compression atelectasis of the right lower lobe. Central parenchymal density within the left lung which may represent pneumonia or edema. HEART: Normal heart size. MEDIASTINUM: No mediastinal or hilar mass. BONES/JOINTS: No acute abnormality. SOFT TISSUES: Normal. RAD/Chest 1 View (Portable) IMPRESSION: Stable right-sided hydropneumothorax. Compression atelectasis of the right middle and lower lobes of the lung. Central pneumonia/edema of the left lung. Electronically Signed: Angel Ernst MD at 14:19 EST ,
--- NOTE | 2022-06-26 15:48 | CON.PCM.SX_ITS ---
Assessment & Plan Assessment/Plan (1) Pneumothorax: PLAN: Is a 66-year-old female, with complex past medical history?primarily owing to history of cirrhosis, who is currently under observation for postprocedural hydropneumothorax on the right following thoracentesis 06/24/2022. Initial size estimation on this pneumothorax was 20% that improved somewhat yesterday, but has now returned to approximately 20% pneumothorax. 6-hour chest x-ray confirmed stability. Patient is in no apparent distress, but does exhibit a mildly increased work of breathing when I first encounter. She also at this time had voluntarily removed her supplemental oxygen. I have reiterated to her the importance of maintaining this supplemental oxygen and recommended adding a incentive spirometer to her care. I have shared with her that this is a conservative effort at trying to avoid any chest tube in her present hospitalization. I have shared with her that secondary to her liver dysfunction with increased INR and thrombocytopenia. Procedure risk is somewhat higher. However, I do suspect she may require an intervention given the overall size of this pneumothorax. With pulmonary medicine, will plan to await repeat chest x- ray tomorrow before making this determination. For the interim recommend: ? Continue supplementation of oxygen at a flow rate of 6 L/min ? Continuous pulse oximetry ? Incentive spirometry and encourage use ? Repeat chest x-ray in a.m. along with coags HPI Consult Data Date of Consult: 06/26/22 HPI Narrative HPI Narrative: EVIE OLVERA, is a 66 F who presented to [facility] 06/23/2022 due to abdominal swelling and altered mental status. She underwent a thoracentesis procedure on 06/24/2022 and routine post procedure chest x-ray identified a roughly 20% pneumothorax on the right. Given a stable respiratory status, close monitoring was elected. Patient had slight improvement of the pneumothorax yesterday, but then radiology read as expanding again today. Hospitalist service already involved pulmonary medicine, but wished to have surgery involved as well should patient require chest tube placement. Pulmonary medicine was recommending trial of hyperoxic therapy and then consideration of chest tube placement if no progress was observed. 6-hour chest x-ray did show the pneumothorax to again be stable in size. On my arrival to the room, patient is found sitting out of bed in a chair. She has some slight labored breathing, but was not wearing her supplemental oxygen. Pulse oximetry alarm was going off with readings of low 80s. Patient denied any subjective feeling of shortness of breath. She denies any prior problems with pneumothoraces. She denies any prior smoking history. [facility] Medical History (Updated 06/26/22 @ 15:[address] Michael Rosales DO) Abnormal gait Anemia Ascites Cirrhosis Edema Encephalopathy Falls Fracture, tibia and fibula GERD (gastroesophageal reflux disease) Hepatitis C Hypocalcemia Hypotension Hypothyroid Orthodontic device fitting or adjustment Thrombocytopenia Home Medications levothyroxine 75 mcg tablet 75 mcg PO DAILY THYROID 06/03/22 [History Last Taken Unknown] bumetanide 0.5 mg tablet 1 mg PO BID #0 tabs 06/10/22 [Rx Last Taken Unknown] lactulose 20 gram/30 mL oral solution 10 g (15 mL) PO BID #0 mL 06/10/22 [Rx Last Taken Unknown] midodrine 5 mg tablet 10 mg PO TIDCM #0 tabs 06/10/22 [Rx Last Taken Unknown] pantoprazole 40 mg tablet,delayed release 40 mg PO DAILY #0 tabs 06/10/22 [Rx Last Taken Unknown] spironolactone 50 mg tablet 50 mg PO DAILY #0 tabs 06/10/22 [Rx Last Taken Unk nown] hydroxyzine HCl 25 mg tablet 25 mg DAILY PRN ITCHING 06/22/22 [History Last Taken Unknown] Allergy/AdvReac Type Severity Reaction Status Date / Time No Known Allergies Allergy Verified 06/03/22 14:06 Family History Mother No problems noted. Father Heart disease Surgical History unable to obtain Social History Smoking Status: Never smoker Physical Exam Const alert Constitutional Narrative: Patient readily puts on oxygen when asked to do so General Appearance: cooperative Chest Chest Narrative: Thoracentesis tap site examined and there is some bruising but no surrounding crepitus Resp Resp Narrative: Mild increased work of breathing Lab / Micro Data Result Diagrams: 06/26/22 06:00 06/26/22 06:00 Labs: Laboratory Results - last 24 hr 06/23/22 13:58: Miscellaneous Test 06/26/22 06:00: WBC 12.7 H, RBC 3.38 L, Hgb 11.9 L, Hct 36.8 L, MCV 108.9 H, MCH 35.2 H, MCHC 32.3, RDW Std Deviation 62.8 H, RDW Coeff of Radha 15.6 H, Plt Count 64 L, MPV 11.7, Immature Gran % (Auto) 1.400 H, Neut % (Auto) 73.3 H, Lymph % (Auto) 15.6 L, [place] % (Auto) 8.9, Eos % (Auto) 0.3, Baso % (Auto) 0.5, Absolute Neuts (auto) 9.3 H, Absolute Lymphs (auto) 1.98, Nucleated RBC % 0 06/26/22 06:00: Sodium 136, Potassium 4.6, Chloride 106, Carbon Dioxide 23.0, Anion Gap 7, BUN 28 H, Creatinine 1.63 H, Estim Creat Clear Calc 27.58, Est GFR (MDRD) Af Amer 41 L, Est GFR (MDRD) Non-Af 34 L, BUN/Creatinine Ratio 17.2, Glucose 109 H, Calcium 7.4 L Radiology Impression Chest X-Ray 06/26/22 12:37 IMPRESSION: Stable right-sided hydropneumothorax. Compression atelectasis of the right middle and lower lobes of the lung. Central pneumonia/edema of the left lung. Electronically Signed: Angel Ernst MD at 14:19 EST Reading Location ID and State: [address] [place] [address] Tel , Service support , Charges/Coding Visit Charges Inpatient E&M: 25775 Init Hosp L2
--- NOTE | 2022-06-26 16:17 | CASEMGMT ---
Addendum entered by Yesi Ortiz 06/26/22 16:22: Social Work Daughter called back and would like SW to see if [facility] can take pt. If [facility] cannot, she is okay w/pt returning to [facility]. SW will let the [facility] SW know to follow up on Tuesday. CHUCK Zaragoza Original Note: Social Work Daughter did not call SW today with other SNF choices. SW spoke w/pt, she states she did not speak w/daughter about other options. SW called daughter, message left inquiring if they want a referral sent to a different SNF or if they want pt to return to [facility]. SW will follow up Tuesday, cannot send pt back to [facility] if ready tomorrow as daughter who is POA has not yet given okay, and pt is forgetful and confused at times. CHUCK Zaragoza
[2022-06-26] MEDS: Albumin Human 25% (100 mL) 25 GM/100 ML BAG IV (17:33)
[2022-06-26] MEDS: 0.9% Saline Lock 10 ML Syringe IV (17:33)
--- NOTE | 2022-06-26 20:45 | CPS ---
Pt will not keep NC in her nose, pt was 61% when entering room, cannula placed back on sat 91%. Pt will not follow instructions on keeping aerosol mask on, will not follow directions for IS.
--- NOTE | 2022-06-26 22:15 | NURSING ---
2015 this nurse at bedside for VS and assessment, Pt. restless and confused, won't leave oxygen n/c on, does make eye contact, answer yes/no questions, and follow simple commands once you get her attention, but very forgetful. Charge nurse updated. 2044 Respiratory at bedside, Pt. still will not keep nasal cannula in place, discussed some different options of how to keep Pt. oxygenated. Pt. pulse ox dropping down 50-60's when this nurse leaves room to care for other patients. Charge nurses changed to non-rebreather mask. Pt. continues to be restless and confused, incontinent of bowel and bladder - Pt. changed and repositioned for comfort. Respiratory changed to simple mask 10 l/m to maintain pulse ox >90%, which was effective, but Pt. remains restless/confused, and will not leave mask on face - this nurse sitting right outside room by monitor and frequently at bedside to put mask back on and readjust Pt. in bed. Charge nurse aware.
--- NOTE | 2022-06-26 23:35 | NURSING ---
Pt. continues to be restless, confused, and disoriented, will not keep oxygen mask on. This nurse unable to leave room for more than a few minutes and Pt. pulls off mask and pulse ox drops. 2321 contacted requesting something to help Pt. rest so she will leave oxygen on. 2333 put in 1 x order for Haldol. Charge nurse updated
[2022-06-26] MEDS: Haloperidol Lactate 5 MG/ML Vial 2 MG IM (23:54)
[2022-06-27] VITALS (31 sets, daily range): BP systolic 77–140; BP diastolic 50–95; PULSE 58–105; RESP 14–38; TEMP 35.4–36.8; O2SAT 90–99
[2022-06-27] MEDS: 0.9% Saline Lock 10 ML Syringe IV (01:26)
--- NOTE | 2022-06-27 02:00 | NURSING ---
0010 IM Haldol effective, Pt. calming down, less restless, leaving oxygen mask on. This nurse frequently checking on Pt. and watching O2 readings on monitor at nurse desk right outside of room. Pt. is resting quietly and maintaining sats of 90-92% on simple mask at 10 l/m. Lungs are diminished throughout with Rhonchi.
--- NOTE | 2022-06-27 04:50 | RAD_ITS ---
We are attempting to reach an attending provider to discuss findings. An addendum with communication details will be sent when the communication is complete. EXAM: XR CHEST, 1 VIEW CLINICAL INDICATION: Follow-up hydropneumothorax TECHNIQUE: Frontal view of the chest. This report was created using [email or web address] report generation technology. COMPARISON: XR Chest dated 06/26/2022 FINDINGS: LUNGS AND PLEURAL SPACES: Increasing fluid component of the right-sided hydropneumothorax. The pneumothorax component is stable measuring approximately 10%. There is now complete compression atelectasis of the right lung. Opacification of portions of the left upper and lower lobes of the lung appear slightly more prominent on the current study. HEART: Normal heart size. MEDIASTINUM: No mediastinal or hilar mass. BONES/JOINTS: No acute abnormality. SOFT TISSUES: Normal. RAD/Chest 1 View (Portable) IMPRESSION: 1. Increasing size of the fluid component of the right hydropneumothorax now with complete collapse of the right lung. Slight worsening of the left lung opacities. 2. Recommend right chest tube placement. Electronically Signed: Angel Ernst MD at 9:29 EST ,
--- NOTE | 2022-06-27 05:20 | NURSING ---
This nurse monitored frequently, Pt. continued to be restful, maintaining pulse ox 90-92% 0400 Nurse at bedside, Pt. checked and changed, started to wake up and become a little restless again, doesn't open eyes, but follows commands, leaving oxygen on, breathing is more labored, lungs remain diminished throughout with Rhonchi. Pulse ox dropping down 87-89% at times and some audible moisture in throat and breathing more agonal, Respiratory at bedside, bumped oxygen up to 12 l/m, pulse ox bouncing 87-92%. Charge nurse updated 0445 Xray at bedside, Pt. cooperative 0500 nurse at bedside for VS, increased difficulty maintaining pulse ox, Pt. leaving mask on, eyes closed. 0515 lab at bedside for am bloodwork, Pt. follows commands, cooperative with blood draw, starting increased restlessness and agonal breathing, Charge nurse updated.
[2022-06-27] MEDS: Lidocaine 1% (30 ml sdv) 30 ML Vial INFILT (06:00)
--- NOTE | 2022-06-27 06:00 | NURSING ---
Dr. Isaacs at bedside with Dr. Alvarez to place chest tube to R. side, t/c consent obtained from daughter/POA Adrienne Sheehan. Pt. transferred to ICU room 2 with nursing supervisor asbestos textile and [employer], report given to Rody CORNELIUS at bedside.
[2022-06-27 06:08] LABS: Absolute Neutrophil Count 19.8 X10^3/uL (2.0-7.7); Basophil# 0.13 X10^3/uL; Basophil% 0.5 % (0-1); Eosinophil# 0.02 X10^3/uL; Eosinophils% 0.1 % (0-5); Hematocrit 37.2 % (37-47); Hemoglobin 11.7 g/dL (12.0-15.0); Lymphocyte % 11.6 % (19-41); Mean Corp Hgb Conc 31.5 g/dL (32-36); Mean Corpuscular Hgb 35.5 pg (27.0-32.0); Mean Corpuscular Volume 112.7 fL (81-99); Mean Platelet Vol. 12.5 fl (6.2-12.0); Monocyte# 1.45 X10^3/uL; Monocyte% 5.8 % (0-10); NRBC Flagged by Analyzer 0.2 % (0-5); Neutrophil # 19.79 X10^3/uL (2.7-7.7); Neutrophil % 79.2 % (47-70); POSITIVE COUNT YES; POSITIVE MORPHOLOGY YES; Platelet Count 70 K/mm3 (150-450); RBC Distribution Width CV 15.4 % (11.6-14.6); RBC Distribution Width SD 65.1 fl (35.1-43.9)
--- NOTE | 2022-06-27 06:15 | RAD_ITS ---
STUDY: X-RAY CHEST REASON FOR EXAM: Female, 66 years old. chest tube TECHNIQUE: Single AP portable view of the chest. COMPARISON: 06/25/2022 FINDINGS: Right chest tube in good position Improved aeration of the right lung. Patchy airspace opacities in both lungs more prominent in left lower lobe suggesting bilateral pneumonia. Normal size heart. Normal mediastinum and nafisa. Normal visualized pulmonary arteries. Normal visualized aortic arch and descending thoracic aorta. Normal visualized thoracic spine. Normal visualized ribs, clavicles, and shoulders. There is no demonstrated abnormality of the visualized soft tissue structures of the upper abdomen. RAD/Chest 1 View (Portable) IMPRESSION: Bilateral patchy pneumonia more prominent in the left lower lobe. Electronically Signed: Shamika Morrissey MD at 6:48 EST ,
[2022-06-27 06:16] LABS: Base Excess -7 mmol/L (-2 to +2); Blood Gas Specimen Type ART; FI02 100; O2 Delivery Device NRB; PO2 102 mmHG (75-100); SITE L Radial; SO2 93 % (95-99); Total Carbon Dioxide 27 mmol/L; pCO2 91.4 mmHg (35-45); pH 7.03 (7.35-7.45)
[2022-06-27 06:37] LABS: ALB/GLOB Ratio 0.6 RATIO (0.9-2.4); AST(SGOT) 96 U/L (15-37); Alanine Aminotransfer ALT/SGPT 40 U/L (13-56); Albumin, Serum 2.7 g/dL (3.2-5.0); Alkaline Phosphatase 87 U/L (45-117); Anion Gap 5 (5-15); BUN 35 mg/dL (7-18); BUN/Creat Ratio 18.6 RATIO (10-20); Calcium,Total 7.8 mg/dL (8.5-10.1); Chloride 105 mmol/L (98-107); Creatinine, Serum 1.88 mg/dL (0.55-1.02); EST Glomerular Filtration Rate 29 mL/min (>60); Est Glom Filt Rate - Afr Amer 35 mL/min (>60); Estimated Creatinine Clearance 23.91 ml/min; Globulin 4.5 g/dL (2.2-4.2); Glucose 150 mg/dL (74-106); Potassium 4.9 mmol/L (3.5-5.1); Protein, Total 7.2 g/dL (6.4-8.2); Sodium Level 136 mmol/L (136-145)
[2022-06-27 06:46] LABS: Differential Indicated SCAN CRITERIA MET
--- NOTE | 2022-06-27 06:46 | CPS ---
ABG was drawn on [employer]
[2022-06-27] MEDS: fentaNYL 100 MCG/2 ML Ampul 50 MCG IV ×4 (06:56→22:44)
[2022-06-27 06:59] LABS: Anisocytosis 1+; Burr Cells RARE; Differential Comment SCANNED; Macrocytosis 1+; Platelet Estimate MOD DEC (ADEQ)
--- NOTE | 2022-06-27 07:04 | PN.HOSP_ITS ---
Subjective Subjective Events reviewed: Patient was noted to be obtunded last night and had a blood gas showed a pH of 7.03, PCO2 of 91 PO2 of 102. Patient had a right-sided chest tube placed that had roughly 2 L of fluid evacuated. Patient's condition improved. Patient has been agitated overnight and into the morning. Has been subsequent placed on BiPAP. Objective Data Objective Data Vital Signs: Vital Signs Temp Pulse Resp BP Pulse Ox O2 Del Method O2 Flow Rate 35.5 C L 100 18 140/77 H 91 Simple Mask 12 06/27/22 05:00 06/27/22 05:00 06/27/22 05:00 06/27/22 05:00 06/27/22 05:00 06/27/22 05:00 06/27/22 05:00 Oxygen Flow Rate (L/min) [4] 2 Oxygen Flow Rate (L/min) [3] 2 Oxygen Flow Rate (L/min) [2] 2 Oxygen Flow Rate (L/min) [1 ( 2 Initial Baseline)] Oxygen Flow Rate (L/min) 12 Oxygen Delivery Method [4] Nasal Cannula Oxygen Delivery Method [3] Nasal Cannula Oxygen Delivery Method [2] Nasal Cannula Oxygen Delivery Method [1 ( Nasal Cannula Initial Baseline)] Oxygen Delivery Method Simple Mask Weight: 64.4 kg Body Mass Index (BMI) 27.8 Intake & Output: Intake and Output for Last 24 Hours 06/25/22 06/26/22 06/27/22 23:59 23:59 23:59 Intake Total 990 / 990 790 / 790 Output Total 250 / 250 Balance 740 / 740 790 / 790 Lab / Micro Data Result Diagrams: 06/27/22 05:15 06/27/22 05:15 Labs: Laboratory Results - last 24 hr 06/26/22 06:00: WBC 12.7 H, RBC 3.38 L, Hgb 11.9 L, Hct 36.8 L, MCV 108.9 H, MCH 35.2 H, MCHC 32.3, RDW Std Deviation 62.8 H, RDW Coeff of Radha 15.6 H, Plt Count 64 L, MPV 11.7, Immature Gran % (Auto) 1.400 H, Neut % (Auto) 73.3 H, Lymph % (Auto) 15.6 L, [place] % (Auto) 8.9, Eos % (Auto) 0.3, Baso % (Auto) 0.5, Absolute Neuts (auto) 9.3 H, Absolute Lymphs (auto) 1.98, Nucleated RBC % 0 06/27/22 05:15: WBC 25.0 H, RBC 3.30 L, Hgb 11.7 L, Hct 37.2, MCV 112.7 H, MCH 35.5 H, MCHC 31.5 L, RDW Std Deviation 65.1 H, RDW Coeff of Radha 15.4 H, Plt Count 70 L, MPV 12.5 H, Immature Gran % (Auto) 2.800 H, Neut % (Auto) 79.2 H, Lymph % (Auto) 11.6 L, [place] % (Auto) 5.8, Eos % (Auto) 0.1, Baso % (Auto) 0.5, Absolute Neuts (auto) 19.8 H, Absolute Lymphs (auto) 2.90, Nucleated RBC % 0.2, Differential Comment SCANNED, Platelet Estimate MOD DEC, Anisocytosis 1+, Macrocytosis 1+, Jadwin Cells RARE 06/27/22 05:15: Sodium 136, Potassium 4.9, Chloride 105, Carbon Dioxide 26.0, Anion Gap 5, BUN 35 H, Creatinine 1.88 H, Estim Creat Clear Calc 23.91, Est GFR (MDRD) Af Amer 35 L, Est GFR (MDRD) Non-Af 29 L, BUN/Creatinine Ratio 18.6, Glucose 150 H, Calcium 7.8 L, Total Bilirubin 1.20 H, AST 96 H, ALT 40, Alkaline Phosphatase 87, Total Protein 7.2, Albumin 2.7 L, Globulin 4.5 H, Albumin/Globulin Ratio 0.6 L Micro: Microbiology 06/22/22 23:29 Blood Culture (Wb) - Left Hand Blood Culture - Preliminary No growth in 48 hours. 06/22/22 22:36 Blood Culture (Wb) - Anticubital Right Blood Culture - Preliminary No growth in 48 hours. 06/23/22 00:05 Urine, Clean Catch Urine Culture - Final Escherichia coli 06/23/22 08:56 Mucosa - Nasopharyngeal Respiratory Panel (PCR) - Final Influenza A (Subtype H1) 06/23/22 07:25 Nasal Secretion SARS-CoV-2 & FLU Antigen (Rapid) - Final Influenzae A 06/23/22 00:09 Urine Catheter - Catheter Legionella Antigen - Final 06/23/22 00:09 Urine Catheter - Catheter Streptococcus pneumoniae Antigen (M - Final ABG Data ABG results: ABG 06/27/22 06/27/22 06:09 06:21 Specimen Type ART ART Sample Site L Radial L Radial pH 7.03 L* 7.02 L* Bicarbonate Actual 24.0 23.9 Total CO2 27 27 Base Excess -7 L -7 L O2 Saturation 93 L 94 L O2 % 100 100 ABG pCO2 91.4 H* 91.9 H* ABG pO2 102 H 105 H O2 Delivery Device NRB NRB Crit Call To/Read Back Yes Yes Radiography Diagnostic Testing: Radiology Impression Chest X-Ray 06/26/22 05:40 IMPRESSION: Right hydropneumothorax increased as compared to prior study. This now measures 3.7 cm craniocaudal. Moderate right middle and right lower lobe infiltrate and/or effusion. Left perihilar infiltrate. Electronically Signed: Fran Rosales MD, JD at 17:52 EST , ADDENDUM: 06/26/221855 IMPRESSION: Right hydropneumothorax increased as compared to prior study. This now measures 3.7 cm craniocaudal. Moderate right middle and right lower lobe infiltrate and/or effusion. Left perihilar infiltrate. N.B. : The above Results were Read Back by Fran Rosales MD, SHARITA to COLLIN PALENCIA MD, and understanding confirmed on 06/26/2022 18:49:26 (ET). Electronically Signed: Fran Rosales MD, JD at 17:52 EST , ADDENDUM: 06/26/221856 IMPRESSION: undefined Chest X-Ray 06/26/22 12:37 IMPRESSION: Stable right-sided hydropneumothorax. Compression atelectasis of the right middle and lower lobes of the lung. Central pneumonia/edema of the left lung. Electronically Signed: Angel Ernst MD at 14:19 EST , Chest X-Ray 06/27/22 06:15 IMPRESSION: Bilateral patchy pneumonia more prominent in the left lower lobe. Electronically Signed: Shamika Morrissey MD at 6:48 EST , Physical Exam Const Constitutional Narrative: On BiPAP. Somnolent. Afebrile. Neck no lymphadenopathy Resp normal respiratory effort and no retractions Cardio regular rate, regular rhythm, S1 normal heart sound and S2 normal heart sound GI GI Narrative: Distended. Hypoactive bowel sounds. Assessment & Plan Assessment/Plan (1) Encephalopathy acute: PLAN: Upon admission improved. From sepsis and influenza A. Subsequent encephalopathy 2/2 CO2 narcosis. Pt agitated, requiring dexmedetomidine (2) Respiratory failure with hypoxia and hypercapnia: PLAN: 2/2 PTX and pleural effusion on BiPAP cannot rule out possibility that patient may need intubated. (3) Sepsis: QUALIFIERS: Sepsis acute organ dysfunction status: with acute organ dysfunction Sepsis type: Escherichia coli Severe sepsis acute organ dysfunction type: encephalopathy Severe sepsis shock status: with septic shock Qualified Code(s): A41.51 - Sepsis due to Escherichia coli [E. coli]; R65.21 - Severe sepsis with septic shock; G93.40 - Encephalopathy, unspecified PLAN: The patient presented with sepsis due to (possible spontaneous bacterial peritonitis; UTI or pneumonia ) with acute sepsis related organ dysfunction as evidenced by (lactic acidosis and encephalopathy). Patient does have growing 100,000 gram-negative rods in her urine. We will continue with the piperacillin/tazobactam. DC the vancomycin. Septic shock developed 06/26. TLC placed. On norepinephrine (4) Pneumonia: PLAN: Ruled out No clear infiltrate on CXR Strep and legionella antigens negative (5) Ascites: PLAN: Patient had a transvaginal ultrasound that showed endometrium fluid-filled and thickened. No masses were noted nor any ovarian masses. Patient has a history of elevated CA125's. But the possibility of cirrhosis is not excluded. cirrhotic liver was noted on imaging the patient has not had a biopsy. Her bumetanide and spironolactone are currently held in light of the hypotension. Paracentesis ordered. Will order appropriate labs. Check SAAG. Paracentesis performed on the fifth that removed 2800 cc of donnell-colored fluid. Diuretics as able. No need for chronic indwelling drainage catheter at this time. white cell count was low. Culture pending but extremely low suspicion for this being SBP. GI following: recommending 500mg sodiaum diet (6) Influenza A: PLAN: Has been vaccinated. (7) Debility: PLAN: Minimal assistance with activity. Would benefit from additional therapy services. (8) Severe protein-calorie malnutrition: PLAN: complicates care and recovery supplements nutrition following. (9) Pleural effusion: PLAN: LDH nor protein ordered. Likely transudative. Chest tube placed General surgery and pulmonary following. (10) Pneumothorax: PLAN: iatrogenic: post-thoracentesis. less than 20%. Follow up CXR showed improvement. Worse today on chest x-ray. Follow-up appear to be about the same. We will repeat chest x-ray on the . Consult Dr. Isaacs for evaluation for chest tube. Patient had previously declined to Dr. Anderson for chest tube. The daughters were not present in the room at that time. I did asked the patient if she co ntinues to get worse if she would want a chest tube at that time and she said that she would. Patient's daughters were present in the room when I asked her that. Continue oxygen. Chest tube placed (11) UTI (urinary tract infection): PLAN: change pip/tazo to CTX and treat with abx through 07/01. (12) Thickened endometrium: PLAN: JAIME Sal: incidental finding, though recommending outpt follow up for endometrial biopsy. CA125 elevated but may not indicate any ovarian pathology. Nonvisulazed left ovary on US not concerning in a post-menopausal female. (13) Hepatitis C: PLAN: New diagnosis; outpt follow up for treatment genotyping (14) Hypoalbuminemia: PLAN: pt received albumin 25 on 06/26 PLAN: Plan Chronic anemia Stable CKD stage II Stable DVT prophylaxis SCDs ordered Podiatry for nail care. Prognosis guarded Charges/Coding Visit Charges Inpatient E&M: 21994 Subs Hosp L2
[2022-06-27] MEDS: Ipratropium/Albuterol Sulfate 3 ML AMPUL.NEB INHALATION ×4 (07:06→19:50)
[2022-06-27 07:41] LABS: Allen Test Positive; Base Excess -5 mmol/L (-2 to +2); Bicarbonate 22.9 mmol/L (22-26); Blood Gas Specimen Type ART; FI02 35; O2 Delivery Device BiPAP; PEEP 10; PO2 81 mmHG (75-100); RR 14; SITE L Brach; SO2 92 % (95-99); Total Carbon Dioxide 25 mmol/L; Vt 450; pCO2 59.3 mmHg (35-45); pH 7.19 (7.35-7.45)
--- NOTE | 2022-06-27 07:55 | CPS ---
Critical ABG given to Dr Anderson.
--- NOTE | 2022-06-27 08:39 | PCM.PN.INT ---
Assessment & Plan Assessment/Plan (1) Ascites: (2) Hypotension: PLAN: Plan RECOMMENDATIONS: 1. Keep chest tube to suction 2. Continue AVAPS for now. Possible intubation later this morning 3. Place PICC line 4. Possible Precedex therapy if not improving to the morning 5. Await secondary ascites work-up 6. Walking oximetry prior to discharge IMPRESSIONS: 1. Sepsis secondary to influenza A Patient with elevated lactate and SIRS on presentation. Encephalopathy indicate endorgan damage. Low clinical suspicion for pneumonia outside of the influenza A. Patient does have a history of SBP in the past, but fluid studies are not suggestive at this at this time. Continue with midodrine. No indication for pressors at this time. Would use a systolic pressure of 90 more than a map given patient's underlying liver disease. 2. Acute combined respiratory insufficiency secondary to influenza A/right pleural effusion/iatrogenic pneumothorax Patient with rapid deterioration overnight. Clinical suspicion for hydropneumothorax leading to CO2 retention. Chest tube in place with over 2-1/2 L removed. ABG does show some improvement. Cannot exclude the need for intubation later in the day. 3. Metabolic encephalopathy Clinical suspicion for hypoxia leading to confusion on presentation. This does appear to be improving with supplemental oxygen. Patient's ammonia was within normal limits, so hepatic encephalopathy is not likely. Clinical suspicion for worsening mentation secondary to CO2 narcosis 4. Cirrhosis/debility/elevated CA125/coagulopathy Complicates care, management, recovery and prognosis. Frequent hospitalizations leading to debility. PT/OT should be involved. Repeat CEA level pending. High clinical suspicion for secondary source leading to accelerated ascitic fluid in addition to known cirrhosis from hep C. TIME: 33 minutes critical care time spent addressing patient's acute combined respiratory failure, hydropneumothorax, metabolic encephalopathy, clarifying goals of therapy, review of all data and collaboration with care team Subjective Subjective Called emergently to the patient's bedside at approximately 6 AM after surgery found the patient unresponsive. Patient reportedly had been doing okay overnight, but when the surgeon went to evaluate her she was found obtunded with a much worse chest x-ray. Vitals were otherwise stable. Patient had a chest tube placed by surgery immediately. Patient was then transferred to the intensive care unit for further evaluation. On arrival to ICU, patient started to have spontaneous movement. Patient was placed on BiPAP therapy for 2 hours with significant improvement in ABG. Patient has started to pull out IVs and had to be restrained. Did discuss with the daughter by phone and update was given. After review of current situation, daughter is willing to have the patient intubated if necessary. She says if they can be confirmed that there is cancer, they may reevaluate goals of therapy. Patient's daughter is back in [place] as she felt the patient was doing much better yesterday. Objective Data Objective Data Vital Signs: Vital Signs Temp Pulse Resp BP Pulse Ox O2 Del Method O2 Flow Rate 35.5 C L 82 20 H 140/77 H 99 Bi-pap 12 06/27/22 05:00 06/27/22 07:34 06/27/22 07:09 06/27/22 05:00 06/27/22 07:09 06/27/22 07:09 06/27/22 05:00 FiO2 40 06/27/22 07:09 Oxygen Flow Rate (L/min) [4] 2 Oxygen Flow Rate (L/min) [3] 2 Oxygen Flow Rate (L/min) [2] 2 Oxygen Flow Rate (L/min) [1 ( 2 Initial Baseline)] Oxygen Flow Rate (L/min) 12 Oxygen Delivery Method [4] Nasal Cannula Oxygen Delivery Method [3] Nasal Cannula Oxygen Delivery Method [2] Nasal Cannula Oxygen Delivery Method [1 ( Nasal Cannula Initial Baseline)] Oxygen Delivery Method Bi-pap Weight: 64.5 kg Body Mass Index (BMI) 27.8 Intake & Output: Intake and Output for Last 24 Hours 06/25/22 06/26/22 06/27/22 23:59 23:59 23:59 Intake Total 990 / 990 790 / 790 Output Total 250 / 250 1800 / 1800 Balance 740 / 740 790 / 790 -1800 / -1800 Lab / Micro Data Attestation: I reviewed the patient's lab results. Result Diagrams: 06/27/22 05:15 06/27/22 05:15 Labs: Laboratory Results - last 24 hr 06/27/22 05:15: WBC 25.0 H, RBC 3.30 L, Hgb 11.7 L, Hct 37.2, MCV 112.7 H, MCH 35.5 H, MCHC 31.5 L, RDW Std Deviation 65.1 H, RDW Coeff of Radha 15.4 H, Plt Count 70 L, MPV 12.5 H, Immature Gran % (Auto) 2.800 H, Neut % (Auto) 79.2 H, Lymph % (Auto) 11.6 L, [place] % (Auto) 5.8, Eos % (Auto) 0.1, Baso % (Auto) 0.5, Absolute Neuts (auto) 19.8 H, Absolute Lymphs (auto) 2.90, Nucleated RBC % 0.2, Differential Comment SCANNED, Platelet Estimate MOD DEC, Anisocytosis 1+, Macrocytosis 1+, [place] Cells RARE 06/27/22 05:15: Sodium 136, Potassium 4.9, Chloride 105, Carbon Dioxide 26.0, Anion Gap 5, BUN 35 H, Creatinine 1.88 H, Estim Creat Clear Calc 23.91, Est GFR (MDRD) Af Amer 35 L, Est GFR (MDRD) Non-Af 29 L, BUN/Creatinine Ratio 18.6, Glucose 150 H, Calcium 7.8 L, Total Bilirubin 1.20 H, AST 96 H, ALT 40, Alkaline Phosphatase 87, Total Protein 7.2, Albumin 2.7 L, Globulin 4.5 H, Albumin/Globulin Ratio 0.6 L Micro: Microbiology 06/22/22 23:29 Blood Culture (Wb) - Left Hand Blood Culture - Preliminary No growth in 48 hours. 06/22/22 22:36 Blood Culture (Wb) - Anticubital Right Blood Culture - Preliminary No growth in 48 hours. 06/23/22 00:05 Urine, Clean Catch Urine Culture - Final Escherichia coli 06/23/22 08:56 Mucosa - Nasopharyngeal Respiratory Panel (PCR) - Final Influenza A (Subtype H1) 06/23/22 07:25 Nasal Secretion SARS-CoV-2 & FLU Antigen (Rapid) - Final Influenzae A 06/23/22 00:09 Urine Catheter - Catheter Legionella Antigen - Final 06/23/22 00:09 Urine Catheter - Catheter Streptococcus pneumoniae Antigen (M - Final ABG Data ABG results: ABG 06/27/22 06/27/22 06/27/22 06:09 06:21 07:35 Specimen Type ART Cancelled ART Sample Site L Radial Cancelled L Brach pH 7.03 L* Cancelled 7.19 L* Bicarbonate Actual 24.0 Cancelled 22.9 Total CO2 27 Cancelled 25 Base Excess -7 L Cancelled -5 L O2 Saturation 93 L Cancelled 92 L O2 % 100 Cancelled 35 ABG pCO2 91.4 H* Cancelled 59.3 H ABG pO2 102 H Cancelled 81 Art Test Cancelled Positive Respiration Rate Cancelled 14 O2 Delivery Device NRB Cancelled BiPAP Liter Flow Cancelled Minute Volume Cancelled Vent Mode Cancelled Inspiratory Time Cancelled Expiratory Time Cancelled Tidal Volume Cancelled 450 Mean Airway Pressure Cancelled POC PEEP Cancelled 10 Peak Inspir Pressure Cancelled POC Pressure Suppt Cancelled Pressure Control Cancelled Pressure High Cancelled Pressure Low Cancelled Time High Cancelled Time Low Cancelled EPAP Cancelled IPAP Cancelled Blood Gas Comments Cancelled Crit Call To/Read Back Yes Cancelled Yes Blood Gas Notified Whom Cancelled sid Blood Gas Notified Time Cancelled Clinical Comments Cancelled Radiography Diagnostic Testing: Radiology Impression Chest X-Ray 06/26/22 05:40 IMPRESSION: Right hydropneumothorax increased as compared to prior study. This now measures 3.7 cm craniocaudal. Moderate right middle and right lower lobe infiltrate and/or effusion. Left perihilar infiltrate. Electronically Signed: Fran Rosales MD, JD at 17:52 EST , ADDENDUM: 06/26/22 185 IMPRESSION: Right hydropneumothorax increased as compared to prior study. This now measures 3.7 cm craniocaudal. Moderate right middle and right lower lobe infiltrate and/or effusion. Left perihilar infiltrate. N.B. : The above Results were Read Back by Fran Rosales MD, SHARITA to COLLIN PALENCIA MD, and understanding confirmed on 06/26/2022 18:49:26 (ET). Electronically Signed: Fran Rosales MD, JD at 17:52 EST , ADDENDUM: 06/26/221856 IMPRESSION: undefined Chest X-Ray 06/26/22 12:37 IMPRESSION: Stable right-sided hydropneumothorax. Compression atelectasis of the right middle and lower lobes of the lung. Central pneumonia/edema of the left lung. Electronically Signed: Angel Ernst MD at 14:19 EST , Chest X-Ray 06/27/22 06:15 IMPRESSION: Bilateral patchy pneumonia more prominent in the left lower lobe. Electronically Signed: Shamika Morrissey MD at 6:48 EST , Physical Exam Const alert and no apparent distress Constitutional Narrative: Appears older than stated age. General Appearance: lethargic and frail HEENT head/scalp atraumatic and moist oral mucous membranes Eyes PERRL, EOMs intact bilaterally and conjunctivae normal Neck full ROM, supple and no JVD Neck Narrative: JVD noted Chest Chest Narrative: No subcu emphysema noted Chest: chest tube right (Clean, dry and intact) Resp normal respiratory effort, no retractions and no use of accessory muscles Resp Narrative: No significant conversational dyspnea at rest Auscultation: rales right and diminished lung sounds; Negative for rhonchi or wheezes Percussion: Negative for dullness Cardio regular rate, regular rhythm, S1 normal heart sound, S2 normal heart sound, no murmurs, no rub, no gallops and no clicks GI normal to inspection, nondistended, normoactive bowel sounds Inspection: abdominal distention Extremity Extremity Narrative: Trace bilateral lower extremity pitting edema with no cyanosis or clubbing Skin no rashes or lesions noted Neuro CN's II-XII intact bilaterally and moves all extremities Psych Psych Narrative: Much more impulsive today compared to yesterday Activity / Motor Behavior: restless Charges/Coding Procedures Hospitalists Procedures: 10161 Critial Care 1st Hr
--- NOTE | 2022-06-27 09:41 | CPS ---
Dr Anderson decreased FiO2 to 35%
[2022-06-27] MEDS: Ceftriaxone 1 GM/50 ML BAG IV (09:54)
[2022-06-27] MEDS: CHLORHEXIDINE GLUC 2% CLOTH 1 EACH TOWELETTE TOPICAL (10:20)
[2022-06-27 10:32] LABS: Carcinoembryonic Antigen 7.6 ng/mL (0.0-4.7)
--- NOTE | 2022-06-27 12:27 | PRO.PCM_ITS ---
Procedure Report Date of Procedure: 06/27/22 Procedure name: Insertion of right tube thoracostomy (size 28 Fr) Procedure in detail : After obtaining consent from patient's family via telephone (and witnessed by nursing), the procedure was begun rather emergently as patient's condition further deteriorated. The insertion site was selected by identifying the intercostal space in the midaxillary line along the inframammary crease. The chest wall was then prepped with chlorhexidine and locally anesthetized with 10 mL Xylocaine. A scalpel was used to incise the skin with an approximately 2 cm transverse incision. Blunt dissection was used to spread the subcutaneous tissue and underlying intercostal muscle fibers. Then through controlled pressure a Tyra clamp was used to access the pleural cavity. This tract was bluntly spread open and the clamp was exchanged for the chest tube. This resulted in immediate output of a thin serous fluid. Chest tube was inserted to a depth of 12 centimeters on the chest tube marking at the skin. There was immediate return of 1600 mL after the tube was connected to the Pleur- evac collection device. The Pleur-evac was connected to wall suction with a chest tube suction of -20 cmH2O. There small very intermittent air leak. Chest tube was then tied in with 0 silk suture. The site was dressed with petroleum gauze and regular gauze to pad the skin against the chest tube and this dressing was taped in place with a mesentery at the distal portion of the chest tube to allow for limited movement. A post-procedure chest x-ray was obtained to confirm tube position. Complications: None EBL: Less than 5 mL Procedures Hospitalists Procedures: 71505 Insertion of Chest Tube
--- NOTE | 2022-06-27 12:27 | PCM.PN.SRG ---
Objective Data Objective Data Vital Signs: Vital Signs Temp Pulse Resp BP Pulse Ox O2 Del Method O2 Flow Rate 98 F 64 21 H 77/57 L 97 Bi-pap 30 06/27/22 08:00 06/27/22 11:29 06/27/22 11:29 06/27/22 11:29 06/27/22 11:29 06/27/22 11:29 06/27/22 09:30 FiO2 30 06/27/22 11:29 Oxygen Flow Rate (L/min) [4] 2 Oxygen Flow Rate (L/min) [3] 2 Oxygen Flow Rate (L/min) [2] 2 Oxygen Flow Rate (L/min) [1 ( 2 Initial Baseline)] Oxygen Flow Rate (L/min) 30 Oxygen Delivery Method [4] Nasal Cannula Oxygen Delivery Method [3] Nasal Cannula Oxygen Delivery Method [2] Nasal Cannula Oxygen Delivery Method [1 ( Nasal Cannula Initial Baseline)] Oxygen Delivery Method Bi-pap Weight: 142 lb 3.17 oz Body Mass Index (BMI) 27.8 Intake & Output: Intake and Output for Last 24 Hours 06/25/22 06/26/22 06/27/22 23:59 23:59 23:59 Intake Total 990 / 990 790 / 790 134.25 / 134.25 Output Total 250 / 250 1800 / 1800 Balance 740 / 740 790 / 790 -1665.75 / -1665.75 Lab / Micro Data Result Diagrams: 06/27/22 05:15 06/27/22 05:15 Labs: Laboratory Results - last 24 hr 06/26/22 06:00: Carcinoembryonic Ag 7.6 H 06/27/22 05:15: WBC 25.0 H, RBC 3.30 L, Hgb 11.7 L, Hct 37.2, MCV 112.7 H, MCH 35.5 H, MCHC 31.5 L, RDW Std Deviation 65.1 H, RDW Coeff of Radha 15.4 H, Plt Count 70 L, MPV 12.5 H, Immature Gran % (Auto) 2.800 H, Neut % (Auto) 79.2 H, Lymph % (Auto) 11.6 L, [place] % (Auto) 5.8, Eos % (Auto) 0.1, Baso % (Auto) 0.5, Absolute Neuts (auto) 19.8 H, Absolute Lymphs (auto) 2.90, Nucleated RBC % 0.2, Differential Comment SCANNED, Platelet Estimate MOD DEC, Anisocytosis 1+, Macrocytosis 1+, Twin Cells RARE 06/27/22 05:15: Sodium 136, Potassium 4.9, Chloride 105, Carbon Dioxide 26.0, Anion Gap 5, BUN 35 H, Creatinine 1.88 H, Estim Creat Clear Calc 23.91, Est GFR (MDRD) Af Amer 35 L, Est GFR (MDRD) Non-Af 29 L, BUN/Creatinine Ratio 18.6, Glucose 150 H, Calcium 7.8 L, Total Bilirubin 1.20 H, AST 96 H, ALT 40, Alkaline Phosphatase 87, Total Protein 7.2, Albumin 2.7 L, Globulin 4.5 H, Albumin/Globulin Ratio 0.6 L Micro: Microbiology 06/22/22 23:29 Blood Culture (Wb) - Left Hand Blood Culture - Preliminary No growth in 48 hours. 06/22/22 22:36 Blood Culture (Wb) - Anticubital Right Blood Culture - Preliminary No growth in 48 hours. 06/23/22 00:05 Urine, Clean Catch Urine Culture - Final Escherichia coli 06/23/22 08:56 Mucosa - Nasopharyngeal Respiratory Panel (PCR) - Final Influenza A (Subtype H1) 06/23/22 07:25 Nasal Secretion SARS-CoV-2 & FLU Antigen (Rapid) - Final Influenzae A 06/23/22 00:09 Urine Catheter - Catheter Legionella Antigen - Final 06/23/22 00:09 Urine Catheter - Catheter Streptococcus pneumoniae Antigen (M - Final ABG Data ABG results: ABG 06/27/22 06/27/22 06/27/22 06:09 06:21 07:35 Specimen Type ART Cancelled ART Sample Site L Radial Cancelled L Brach pH 7.03 L* Cancelled 7.19 L* Bicarbonate Actual 24.0 Cancelled 22.9 Total CO2 27 Cancelled 25 Base Excess -7 L Cancelled -5 L O2 Saturation 93 L Cancelled 92 L O2 % 100 Cancelled 35 ABG pCO2 91.4 H* Cancelled 59.3 H ABG pO2 102 H Cancelled 81 Art Test Cancelled Positive Respiration Rate Cancelled 14 O2 Delivery Device NRB Cancelled BiPAP Liter Flow Cancelled Minute Volume Cancelled Vent Mode Cancelled Inspiratory Time Cancelled Expiratory Time Cancelled Tidal Volume Cancelled 450 Mean Airway Pressure Cancelled POC PEEP Cancelled 10 Peak Inspir Pressure Cancelled POC Pressure Suppt Cancelled Pressure Control Cancelled Pressure High Cancelled Pressure Low Cancelled Time High Cancelled Time Low Cancelled EPAP Cancelled IPAP Cancelled Blood Gas Comments Cancelled Crit Call To/Read Back Yes Cancelled Yes Blood Gas Notified Whom Cancelled sid Blood Gas Notified Time Cancelled Clinical Comments Cancelled Radiography Diagnostic Testing: Radiology Impression Chest X-Ray 06/26/22 05:40 IMPRESSION: Right hydropneumothorax increased as compared to prior study. This now measures 3.7 cm craniocaudal. Moderate right middle and right lower lobe infiltrate and/or effusion. Left perihilar infiltrate. Electronically Signed: Fran Rosales MD, JD at 17:52 EST , ADDENDUM: 06/26/22 185 IMPRESSION: Right hydropneumothorax increased as compared to prior study. This now measures 3.7 cm craniocaudal. Moderate right middle and right lower lobe infiltrate and/or effusion. Left perihilar infiltrate. N.B. : The above Results were Read Back by Fran Rosales MD, SHARITA to COLLIN PALENCIA MD, and understanding confirmed on 06/26/2022 18:49:26 (ET). Electronically Signed: Fran Rosales MD, JD at 17:52 EST , ADDENDUM: 06/26/22 185 IMPRESSION: undefined Chest X-Ray 06/26/22 12:37 IMPRESSION: Stable right-sided hydropneumothorax. Compression atelectasis of the right middle and lower lobes of the lung. Central pneumonia/edema of the left lung. Electronically Signed: Angel Ernst MD at 14:19 EST , Chest X-Ray 06/27/22 04:50 IMPRESSION: 1. Increasing size of the fluid component of the right hydropneumothorax now with complete collapse of the right lung. Slight worsening of the left lung opacities. 2. Recommend right chest tube placement. Electronically Signed: Angel Ernst MD at 9:29 EST , ADDENDUM: 06/27/22 0953 IMPRESSION: 1. Increasing size of the fluid component of the right hydropneumothorax now with complete collapse of the right lung. Slight worsening of the left lung opacities. 2. Recommend right chest tube placement. N.B. : The above Results were Read Back by Angel Ernst MD to Rosalva Cantrell RN, and understanding confirmed on 06/27/2022 09:46:03 (ET). Electronically Signed: Angel Ernst MD at 9:29 EST , Chest X-Ray 06/27/22 06:15 IMPRESSION: Bilateral patchy pneumonia more prominent in the left lower lobe. Electronically Signed: Shamika Morrissey MD at 6:48 EST ,
--- NOTE | 2022-06-27 12:31 | PCM.PN.BLA ---
Progress Note At approximately 5:50 AM I presented to patient's bedside after observing that her chest x-ray demonstrated a significant progression of her hydrothorax. I was attempting to discuss plans to place a chest tube on the right side for right pleural cavity drainage, but upon arrival to the room found the patient altered and unresponsive to stimulation?including vigorous sternal rubbing. Nursing staff was notified to begin seeking transfer to higher level of care as I then called patient's daughter to obtain consent for chest tube placement and provide brief update of patient's clinical deterioration. After obtaining this consent, I returned to the patient's room where rapid response team had gathered and found the patient to be persistently altered and with agonal gasps. Dr. Anderson, project management, was there at bedside as well prepared to intubate if need be. Given that we had been addressing a emergent issue in the ICU, my partner, Dr. Alvarez and I quickly prepared the patient for right thoracostomy insertion at bedside. Please see appended procedure note for complete details of this procedure. Almost immediately, patient's respiratory effort improved and mentation improved?although she was not cooperative with instructions. She was then rapidly transferred to the ICU for ongoing care. Physical Exam Const Constitutional Narrative: Altered and uncooperative. Patient thrashing in her bed. Chest Chest Narrative: Chest tube dressing was changed after noting some leakage using a occlusive Xeroform gauze. Patient's chest tube demonstrated a very intermittent air leak in the waterseal chamber. Collection canister had reached 1800 mL of clear serous fluid and it was at this point I was asked by nursing to exchange the Pleur-evac/atrium device which was completed uneventfully. Resp Resp Narrative: Decreased work of breathing observed once patient was transferred to ICU Assessment & Plan Assessment/Plan (1) Pneumothorax: PLAN: Is a 66-year-old female, with complex past medical history?primarily owing to history of cirrhosis, who is currently under observation for postprocedural hydropneumothorax on the right following thoracentesis 06/24/2022. Overnight patient demonstrated significant accumulation of fluid within her pleural cavity and simultaneously became altered in her mental status. Chest tube was inserted emergently at bedside (procedure note appended). There was immediate return of nearly 2 L serous fluid. Patient with pronounced respiratory acidosis on ABG as she was transferred to the ICU. Patient's mentation and oxygenation rapidly improved following chest tube insertion. Slight air leak on tube. - Recommend continuous suction at -20 cm water and surgery will continue to follow for chest tube management ? Repeat chest x-ray in a.m. Visit Charges Inpatient E&M: 21231 Subs Hosp L2
[2022-06-27 13:45] LABS: Allen Test Positive; Base Excess -2 mmol/L (-2 to +2); Blood Gas Specimen Type ART; FI02 30; O2 Delivery Device BiPAP; PEEP 10; PO2 80 mmHG (75-100); RR 14; SITE R Brach; SO2 94 % (95-99); Total Carbon Dioxide 27 mmol/L; Vt 450; pCO2 53.4 mmHg (35-45); pH 7.28 (7.35-7.45)
[2022-06-28] VITALS (46 sets, daily range): BP systolic 75–149; BP diastolic 47–107; PULSE 64–109; RESP 12–93; TEMP 36–37.2; O2SAT 21–100
[2022-06-28] MEDS: CHLORHEXIDINE GLUC 2% CLOTH 1 EACH TOWELETTE TOPICAL (03:28)
[2022-06-28] MEDS: fentaNYL 100 MCG/2 ML Ampul 50 MCG IV ×5 (03:28→20:58)
[2022-06-28] MEDS: Ipratropium/Albuterol Sulfate 3 ML AMPUL.NEB INHALATION ×3 (07:10→19:24)
--- NOTE | 2022-06-28 07:25 | PN.HOSP_ITS ---
Subjective Subjective Patient is a 66-year-old lady with history of cirrhosis of the liver with ascites who who presented with increasing confusion and assessment of sepsis secondary to suspected spontaneous bacterial peritonitis UTI and pneumonia made admitted to the intensive care unit for further management. Patient hospital stay complicated by right hydrothorax resulting in chest tube Objective Data Objective Data Vital Signs: Vital Signs Temp Pulse Resp BP Pulse Ox O2 Del Method O2 Flow Rate 97.9 F 86 23 H 83/53 L 95 Nasal Cannula 2 06/28/22 00:00 06/28/22 07:11 06/28/22 07:11 06/28/22 07:00 06/28/22 07:11 06/28/22 07:11 06/28/22 07:11 FiO2 30 06/27/22 19:00 Oxygen Flow Rate (L/min) [4] 2 Oxygen Flow Rate (L/min) [3] 2 Oxygen Flow Rate (L/min) [2] 2 Oxygen Flow Rate (L/min) [1 ( 2 Initial Baseline)] Oxygen Flow Rate (L/min) 2 Oxygen Delivery Method [4] Nasal Cannula Oxygen Delivery Method [3] Nasal Cannula Oxygen Delivery Method [2] Nasal Cannula Oxygen Delivery Method [1 ( Nasal Cannula Initial Baseline)] Oxygen Delivery Method Nasal Cannula Weight: 64.5 kg Body Mass Index (BMI) 27.8 Intake & Output: Intake and Output for Last 24 Hours 06/26/22 06/27/22 06/28/22 23:59 23:59 23:59 Intake Total 790 / 790 254.98 / 265.68 309.25 / 309.25 Output Total 3150 / 3250 475 / 475 Balance 790 / 790 -2895.02 / -2984.32 -165.75 / -165.75 Lab / Micro Data Result Diagrams: 06/28/22 07:50 06/28/22 07:50 Labs: Laboratory Results - last 24 hr 06/26/22 06:00: Carcinoembryonic Ag 7.6 H Micro: Microbiology 06/22/22 23:29 Blood Culture (Wb) - Left Hand Blood Culture - Preliminary No growth in 48 hours. 06/22/22 22:36 Blood Culture (Wb) - Anticubital Right Blood Culture - Preliminary No growth in 48 hours. 06/23/22 00:05 Urine, Clean Catch Urine Culture - Final Escherichia coli 06/23/22 08:56 Mucosa - Nasopharyngeal Respiratory Panel (PCR) - Final Influenza A (Subtype H1) 06/23/22 07:25 Nasal Secretion SARS-CoV-2 & FLU Antigen (Rapid) - Final Influenzae A 06/23/22 00:09 Urine Catheter - Catheter Legionella Antigen - Final 06/23/22 00:09 Urine Catheter - Catheter Streptococcus pneumoniae Antigen (M - Final ABG Data ABG results: ABG 06/27/22 06/27/22 06/27/22 06:21 07:35 13:39 Specimen Type Cancelled ART ART Sample Site Cancelled L Brach R Brach pH Cancelled 7.19 L* 7.28 L Bicarbonate Actual Cancelled 22.9 25.0 Total CO2 Cancelled 25 27 Base Excess Cancelled -5 L -2 O2 Saturation Cancelled 92 L 94 L O2 % Cancelled 35 30 ABG pCO2 Cancelled 59.3 H 53.4 H ABG pO2 Cancelled 81 80 Art Test Cancelled Positive Positive Respiration Rate Cancelled 14 14 O2 Delivery Device Cancelled BiPAP BiPAP Liter Flow Cancelled Minute Volume Cancelled Vent Mode Cancelled Inspiratory Time Cancelled Expiratory Time Cancelled Tidal Volume Cancelled 450 450 Mean Airway Pressure Cancelled POC PEEP Cancelled 10 10 Peak Inspir Pressure Cancelled POC Pressure Suppt Cancelled Pressure Control Cancelled Pressure High Cancelled Pressure Low Cancelled Time High Cancelled Time Low Cancelled EPAP Cancelled IPAP Cancelled Blood Gas Comments Cancelled Crit Call To/Read Back Cancelled Yes Blood Gas Notified Whom Cancelled sid Blood Gas Notified Time Cancelled Clinical Comments Cancelled Radiography Diagnostic Testing: Radiology Impression Chest X-Ray 06/27/22 04:50 IMPRESSION: 1. Increasing size of the fluid component of the right hydropneumothorax now with complete collapse of the right lung. Slight worsening of the left lung opacities. 2. Recommend right chest tube placement. Electronically Signed: Angel Ernst MD at 9:29 EST , ADDENDUM: 06/27/22 0953 IMPRESSION: 1. Increasing size of the fluid component of the right hydropneumothorax now with complete collapse of the right lung. Slight worsening of the left lung opacities. 2. Recommend right chest tube placement. N.B. : The above Results were Read Back by Angel Ernst MD to Rosalva Cantrell RN, and understanding confirmed on 06/27/2022 09:46:03 (ET). Electronically Signed: Angel Ernst MD at 9:29 EST , Physical Exam Narrative GENERAL: Patient is delirious HEENT: Atraumatic; normocephalic EYES; Anicteric, Normal Conjunctiva NECK; supple, normal thyroid, RESPIRATORY: Diminished to auscultation chest tube on the right CARDIOVASCULAR: Regular S1 S2, GI: Abdomen is distended dull to percussion : No Renal angle tenderness; EXTREMITIES: edema, no clubbing, MUSCULOSKELETAL: no muscle wasting NEURO: Awake; no lateralizing signs. SKIN: No Rash PSYCH; delirious Assessment & Plan Assessment/Plan (1) Respiratory failure with hypoxia and hypercapnia: (2) Ascites: PLAN: Plan Patient is a 66-year-old lady with history of cirrhosis of the liver with ascites who who presented with increasing confusion and assessment of sepsis se condary to influenza A infection made admitted to the intensive care unit for further management. Patient hospital stay complicated by right hydrothorax resulting in chest tube placement 1. Septic shock secondary to influenza A infection, urinary tract infection, suspected SBP ? Patient admitted to the intensive care unit patient was not managed with aggressive IV fluid given ascites as well as hydrothorax she did receive broad- spectrum antibiotic therapy in addition to Levophed 2. Acute metabolic encephalopathy ? Secondary to above plan is to treat underlying condition 3. Acute hypoxia ? Secondary to patient hydrothorax currently on supplemental oxygen. Patient was seen in consultation by Dr. Isaacs with general surgery did place right-sided chest tube following development of pneumothorax after thoracocentesis 4.. Cirrhosis of the liver with ascites Patient has undergone paracentesis with rapid reaccumulation consult placed to interventional radiology for ultrasound-guided paracentesis. Consult was also placed to Dr. Marshall with GI. Patient started on lactulose 5. Endometrial thickening ? Plan is for patient to follow-up with [facility] as outpatient for possible biopsy when medically stable 6. Thrombocytopenia ? Secondary to patient chronic liver disease monitoring with daily CBC 7. Anemia - Secondary to chronic disorder monitoring H&H and transfuse if patient becomes symptomatic or hemoglobin falls below 7 8. Acute cystitis ? Patient started on Rocephin urine culture sent we will follow-up on result 9. DVT prophylaxis ? Bilateral SCDs Total time spent evaluating patient, discussion with other providers involved in patient's care, subsequent adjustment of therapy, and ordering of further diagnostic work-up; 55-minute Charges/Coding Visit Charges Inpatient E&M: 74859 Subs Hosp L3
--- NOTE | 2022-06-28 07:35 | PN.CC_ITS ---
Assessment & Plan Assessment/Plan (1) Ascites: (2) Hypotension: PLAN: Plan RECOMMENDATIONS: 1. Chest tube management per general surgery. 2. Recheck ammonia level this morning. 3. Continue Levophed to maintain a systolic pressure of greater than 90 mmHg. 4. Supplemental oxygen to maintain saturations at or above 90%. 5. Continue antimicrobials. 6. Continue lactulose. 7. Restart midodrine when able to tolerate p.o. intake. IMPRESSIONS: 1. Sepsis secondary to influenza A Low clinical suspicion for pneumonia outside of the influenza A. Patient does have a history of SBP in the past, but fluid studies are not suggestive at this at this time. I suspect that the patient's underlying hypotension is likely secondary to third spacing in the setting of cirrhosis, coupled with an inability to take in her scheduled midodrine. Plan to continue Levophed with a goal to titrate to a systolic pressure of 90 mmHg or greater. The patient also remains on antimicrobials to address her underlying E. coli urinary tract infection. 2. Acute hypoxic respiratory insufficiency secondary to influenza A/right pleural effusion/iatrogenic pneumothorax The patient has a rather large right-sided pleural effusion and influenza A. The patient did ultimately undergo a thoracentesis, which was complicated by the development of a hydropneumothorax. Ultimately, the patient required tube thoracotomy. Plan to continue chest tube to wall suction. Surgery is following to assist with medical management. Continue to wean supplemental oxygen as tolerated. 3. Metabolic encephalopathy Clinical suspicion for hypoxia leading to confusion on presentation. The patient does appear to be experiencing a great deal of delirium. Plan to recheck her ammonia level this morning. Given that she is unlikely to tolerate p.o. intake, her lactulose may need to be switched to rectal route. Plan to obtain follow-up ABG as well. 4. Cirrhosis/debility/elevated CA125/coagulopathy Complicates care, management, recovery and prognosis. Frequent hospitalizations leading to debility. Physical therapy is currently following. Medical management as noted above. Tentative plans for repeat paracentesis in the near future. TIME: 32 minutes of critical care time, independent of procedures, was spent addressing the patient's sepsis, acute respiratory failure, iatrogenic pneumothorax, distributive shock, metabolic encephalopathy, review of all data and collaboration with care team. Subjective Subjective The patient was seen and examined at the bedside this morning. Events from the last 24 hours have been reviewed. The patient is currently afebrile and main taining appropriate oxygen saturations on 2 L/min via nasal cannula. The patient remains on Levophed at 3 mcg/min to maintain hemodynamic stability. She is documented to be overall net -7 L for the hospitalization. The patient appears delirious this morning, yelling out frequently. She remains t hrombocytopenic with a platelet count of 47,000. Repeat ABG appears appropriate with a pH of 7.4, PCO2 of 31 and PO2 of 67. Objective Data Objective Data The patient's most recent lab work, culture data and imaging studies have all been personally reviewed. Respiratory viral panel was positive for influenza A. Urine culture dated June 23 was positive for E. coli. Vital Signs: Vital Signs Temp Pulse Resp BP Pulse Ox O2 Del Method O2 Flow Rate 97.9 F 86 23 H 83/53 L 95 Nasal Cannula 2 06/28/22 00:00 06/28/22 07:11 06/28/22 07:11 06/28/22 07:00 06/28/22 07:11 06/28/22 07:11 06/28/22 07:11 FiO2 30 06/27/22 19:00 Oxygen Flow Rate (L/min) [4] 2 Oxygen Flow Rate (L/min) [3] 2 Oxygen Flow Rate (L/min) [2] 2 Oxygen Flow Rate (L/min) [1 ( 2 Initial Baseline)] Oxygen Flow Rate (L/min) 2 Oxygen Delivery Method [4] Nasal Cannula Oxygen Delivery Method [3] Nasal Cannula Oxygen Delivery Method [2] Nasal Cannula Oxygen Delivery Method [1 ( Nasal Cannula Initial Baseline)] Oxygen Delivery Method Nasal Cannula Weight: 142 lb 3.17 oz Body Mass Index (BMI) 27.8 Intake & Output: Intake and Output for Last 24 Hours 06/26/22 06/27/22 06/28/22 23:59 23:59 23:59 Intake Total 790 / 790 254.98 / 265.68 309.25 / 309.25 Output Total 3150 / 3250 475 / 475 Balance 790 / 790 -2895.02 / -2984.32 -165.75 / -165.75 Lab / Micro Data Attestation: I reviewed the patient's lab results. Result Diagrams: 06/29/22 03:50 06/29/22 03:50 Labs: Laboratory Results - last 24 hr 06/26/22 06:00: Carcinoembryonic Ag 7.6 H Micro: Microbiology 06/22/22 23:29 Blood Culture (Wb) - Left Hand Blood Culture - Preliminary No growth in 48 hours. 06/22/22 22:36 Blood Culture (Wb) - Anticubital Right Blood Culture - Preliminary No growth in 48 hours. 06/23/22 00:05 Urine, Clean Catch Urine Culture - Final Escherichia coli 06/23/22 08:56 Mucosa - Nasopharyngeal Respiratory Panel (PCR) - Final Influenza A (Subtype H1) 06/23/22 07:25 Nasal Secretion SARS-CoV-2 & FLU Antigen (Rapid) - Final Influenzae A 06/23/22 00:09 Urine Catheter - Catheter Legionella Antigen - Final 06/23/22 00:09 Urine Catheter - Catheter Streptococcus pneumoniae Antigen (M - Final ABG Data ABG results: ABG 06/27/22 06/27/22 06/27/22 06:21 07:35 13:39 Specimen Type Cancelled ART ART Sample Site Cancelled L Brach R Brach pH Cancelled 7.19 L* 7.28 L Bicarbonate Actual Cancelled 22.9 25.0 Total CO2 Cancelled 25 27 Base Excess Cancelled -5 L -2 O2 Saturation Cancelled 92 L 94 L O2 % Cancelled 35 30 ABG pCO2 Cancelled 59.3 H 53.4 H ABG pO2 Cancelled 81 80 Art Test Cancelled Positive Positive Respiration Rate Cancelled 14 14 O2 Delivery Device Cancelled BiPAP BiPAP Liter Flow Cancelled Minute Volume Cancelled Vent Mode Cancelled Inspiratory Time Cancelled Expiratory Time Cancelled Tidal Volume Cancelled 450 450 Mean Airway Pressure Cancelled POC PEEP Cancelled 10 10 Peak Inspir Pressure Cancelled POC Pressure Suppt Cancelled Pressure Control Cancelled Pressure High Cancelled Pressure Low Cancelled Time High Cancelled Time Low Cancelled EPAP Cancelled IPAP Cancelled Blood Gas Comments Cancelled Crit Call To/Read Back Cancelled Yes Blood Gas Notified Whom Cancelled sid Blood Gas Notified Time Cancelled Clinical Comments Cancelled Radiography Diagnostic Testing: Radiology Impression Chest X-Ray 06/27/22 04:50 IMPRESSION: 1. Increasing size of the fluid component of the right hydropneumothorax now with complete collapse of the right lung. Slight worsening of the left lung opacities. 2. Recommend right chest tube placement. Electronically Signed: Angel Ernst MD at 9:29 EST , ADDENDUM: 06/27/22 0953 IMPRESSION: 1. Increasing size of the fluid component of the right hydropneumothorax now with complete collapse of the right lung. Slight worsening of the left lung opacities. 2. Recommend right chest tube placement. N.B. : The above Results were Read Back by Angel Ernst MD to Rosalva Cantrell RN, and understanding confirmed on 06/27/2022 09:46:03 (ET). Electronically Signed: Angel Ernst MD at 9:29 EST , Physical Exam Const alert Constitutional Narrative: Appears confused, yelling out frequently in a nonsensical manner. HEENT normocephalic and head/scalp atraumatic Eyes PERRL and EOMs intact bilaterally Neck supple General: trachea midline Chest Chest Narrative: + Air leak noted in Pleur-evac. Chest: chest tube Resp no use of accessory muscles Auscultation: diminished lung sounds Cardio regular rate and regular rhythm GI soft to palpation Inspection: abdominal distention Extremity General Extremity: edema Skin no rashes or lesions noted Neuro Neuro Narrative: Confused and disoriented. No focal deficits. Psych Activity / Motor Behavior: restless Charges/Coding Procedures Hospitalists Procedures: 30118 Critial Care 1st Hr
[2022-06-28 08:08] LABS: Absolute Lymphocyte Count 2.31 X10^3/uL (0.83-4.51); Absolute Neutrophil Count 15.1 X10^3/uL (2.0-7.7); Basophil# 0.06 X10^3/uL; Basophil% 0.3 % (0-1); Eosinophil# 0.03 X10^3/uL; Eosinophils% 0.2 % (0-5); Hemoglobin 10.3 g/dL (12.0-15.0); Lymphocyte # 2.31 X10^3/ul (0.83-4.51); Lymphocyte % 12.2 % (19-41); Mean Corp Hgb Conc 33.2 g/dL (32-36); Mean Corpuscular Hgb 34.6 pg (27.0-32.0); Monocyte# 1.02 X10^3/uL; Monocyte% 5.4 % (0-10); NRBC Flagged by Analyzer 0.2 % (0-5); POSITIVE COUNT YES; POSITIVE MORPHOLOGY YES; RBC Distribution Width CV 14.7 % (11.6-14.6); RBC Distribution Width SD 56.4 fl (35.1-43.9); Red Blood Count 2.98 M/mm3 (4.2-5.4); White Blood Count 18.9 K/mm3 (4.4-11.0)
[2022-06-28 08:25] LABS: Differential Indicated SCAN CRITERIA MET; Platelet Count 47 K/mm3 (150-450)
[2022-06-28 08:31] LABS: Anion Gap 8 (5-15); BUN 46 mg/dL (7-18); BUN/Creat Ratio 24.6 RATIO (10-20); Calcium,Total 7.8 mg/dL (8.5-10.1); Chloride 108 mmol/L (98-107); Creatinine, Serum 1.87 mg/dL (0.55-1.02); EST Glomerular Filtration Rate 29 mL/min (>60); Est Glom Filt Rate - Afr Amer 35 mL/min (>60); Estimated Creatinine Clearance 24.04 ml/min; Glucose 92 mg/dL (74-106); Potassium 5.1 mmol/L (3.5-5.1); Sodium Level 142 mmol/L (136-145)
--- NOTE | 2022-06-28 08:34 | US_ITS ---
PROCEDURE: Ultrasound guided paracentesis. DATE OF EXAMINATION: 06/28/2022.. INDICATION: Female, 66 years old. Ascites. PHYSICIAN: Loco Pearson M.D. TECHNIQUE: The risks, benefits, and alternatives to the procedure were explained to the patient. The specific risks of bleeding, infection, and damage to bowel were detailed and accepted. Witnessed informed consent was obtained. The abdomen was ultrasonographically surveyed. An appropriate pocket of fluid was identified at the right lower quadrant. The skin were cleaned and prepped in the usual sterile fashion. Using ultrasound guidance, the peritoneal cavity was accessed with a 5-Hebrew paracentesis needle/catheter system. The trocar was removed. A total of 4750 ml of donnell-colored fluid were removed from the peritoneal cavity. The catheter was removed and a sterile dressing was applied. The procedure was well tolerated. US/Paracentesis with US IMPRESSION: Ultrasound guided paracentesis. Electronically Signed: Loco Pearson MD at 15:15 EST ,
--- NOTE | 2022-06-28 08:37 | PN.SURG_ITS ---
Subjective Subjective Patient seen and evaluated during AM rounds. She is found restless and yelling out for help. She does not answer questions appropriately and is uncooperative with exam. Objective Data Objective Data Vital Signs: Vital Signs Temp Pulse Resp BP Pulse Ox O2 Del Method O2 Flow Rate 97.9 F 71 23 H 83/53 L 95 Nasal Cannula 2 06/28/22 00:00 06/28/22 07:38 06/28/22 07:11 06/28/22 07:00 06/28/22 07:11 06/28/22 07:11 06/28/22 07:11 FiO2 30 06/27/22 19:00 Oxygen Flow Rate (L/min) [4] 2 Oxygen Flow Rate (L/min) [3] 2 Oxygen Flow Rate (L/min) [2] 2 Oxygen Flow Rate (L/min) [1 ( 2 Initial Baseline)] Oxygen Flow Rate (L/min) 2 Oxygen Delivery Method [4] Nasal Cannula Oxygen Delivery Method [3] Nasal Cannula Oxygen Delivery Method [2] Nasal Cannula Oxygen Delivery Method [1 ( Nasal Cannula Initial Baseline)] Oxygen Delivery Method Nasal Cannula Weight: 142 lb 3.17 oz Body Mass Index (BMI) 27.8 Intake & Output: Intake and Output for Last 24 Hours 06/26/22 06/27/22 06/28/22 23:59 23:59 23:59 Intake Total 790 / 790 254.98 / 265.68 309.25 / 309.25 Output Total 3150 / 3250 475 / 475 Balance 790 / 790 -2895.02 / -2984.32 -165.75 / -165.75 Lab / Micro Data Result Diagrams: 06/28/22 07:50 06/28/22 07:50 Labs: Laboratory Results - last 24 hr 06/26/22 06:00: Carcinoembryonic Ag 7.6 H 06/28/22 07:50: WBC 18.9 H, RBC 2.98 L, Hgb 10.3 L, Hct 31.0 L, MCV 104.0 H D, MCH 34.6 H, MCHC 33.2 D, RDW Std Deviation 56.4 H, RDW Coeff of Radha 14.7 H, Plt Count 47 L*, MPV 13.0 H, Immature Gran % (Auto) 1.900 H, Neut % (Auto) 80.0 H, Lymph % (Auto) 12.2 L, [place] % (Auto) 5.4, Eos % (Auto) 0.2, Baso % (Auto) 0.3, Absolute Neuts (auto) 15.1 H, Absolute Lymphs (auto) 2.31, Nucleated RBC % 0.2 06/28/22 07:50: Sodium 142, Potassium 5.1, Chloride 108 H, Carbon Dioxide 26.0, Anion Gap 8, BUN 46 H, Creatinine 1.87 H, Estim Creat Clear Calc 24.04, Est GFR (MDRD) Af Amer 35 L, Est GFR (MDRD) Non-Af 29 L, BUN/Creatinine Ratio 24.6 H, Glucose 92, Calcium 7.8 L Micro: Microbiology 06/22/22 23:29 Blood Culture (Wb) - Left Hand Blood Culture - Final No growth in 5 days. 06/22/22 22:36 Blood Culture (Wb) - Anticubital Right Blood Culture - Final No growth in 5 days. 06/23/22 00:05 Urine, Clean Catch Urine Culture - Final Escherichia coli 06/23/22 08:56 Mucosa - Nasopharyngeal Respiratory Panel (PCR) - Final Influenza A (Subtype H1) 06/23/22 07:25 Nasal Secretion SARS-CoV-2 & FLU Antigen (Rapid) - Final Influenzae A 06/23/22 00:09 Urine Catheter - Catheter Legionella Antigen - Final 06/23/22 00:09 Urine Catheter - Catheter Streptococcus pneumoniae Antigen (M - Final ABG Data ABG results: ABG 06/27/22 13:39 Specimen Type ART Sample Site R Brach pH 7.28 L Bicarbonate Actual 25.0 Total CO2 27 Base Excess -2 O2 Saturation 94 L O2 % 30 ABG pCO2 53.4 H ABG pO2 80 Art Test Positive Respiration Rate 14 O2 Delivery Device BiPAP Tidal Volume 450 POC PEEP 10 Clinical Comments Radiography Diagnostic Testing: Radiology Impression Chest X-Ray 06/27/22 04:50 IMPRESSION: 1. Increasing size of the fluid component of the right hydropneumothorax now with complete collapse of the right lung. Slight worsening of the left lung opacities. 2. Recommend right chest tube placement. Electronically Signed: Angel Ernst MD at 9:29 EST , ADDENDUM: 06/27/22 0953 IMPRESSION: 1. Increasing size of the fluid component of the right hydropneumothorax now with complete collapse of the right lung. Slight worsening of the left lung opacities. 2. Recommend right chest tube placement. N.B. : The above Results were Read Back by Angel Ernst MD to Rosalva Cantrell RN, and understanding confirmed on 06/27/2022 09:46:03 (ET). Electronically Signed: Angel Ernst MD at 9:29 EST , Physical Exam Const Constitutional Narrative: Patient is not oriented to person place or timing Chest Chest Narrative: Chest tube dressing was changed after noting some leakage to bolster ABD pads. Patient's chest tube did not demonstrate a airleak in the waterseal chamber for me. Collection canister has now reached 1500 and new canister for a total of 3300 mL since placement. Resp Resp Narrative: Somewhat blunted respiratory effort apparent Assessment & Plan Assessment/Plan (1) Pneumothorax: PLAN: Is a 66-year-old female, with complex past medical history?primarily owing to history of cirrhosis, who is currently under observation for postprocedural hydropneumothorax on the right following thoracentesis 06/24/2022. Patient required emergent right chest tube placement on 06/27/2022 with immediate output of nearly 2 L of thin, clear fluid. This output has continued through today with an additional 1500 mL. Given the significant output, I am concerned about patient's ability to be weaned from the thoracostomy without more aggressive management of her ascites. At her present rate of output, I would be concerned patient may require a more permanent means of draining her pleural space?i.e. a Pleurx catheter. However, I would be reluctant to place such a permanent catheter with her diagnosis of other infections and potential for translocation. Therefore recommend maintaining current chest tube as it currently stands. All patient's laboratories appear to continue to improve, her mentation remains affected and she is not currently oriented to person place or timing. - Recommend decreasing continuous suction to -10 cm water and surgery will continue to follow for chest tube management ? Repeat chest x-ray in a.m. Charges/Coding Visit Charges Inpatient E&M: 13968 Subs Hosp L2
[2022-06-28] MEDS: Ceftriaxone 1 GM/50 ML BAG IV (08:50)
[2022-06-28 09:14] LABS: Differential Comment SCANNED; Platelet Estimate MKD DEC (ADEQ)
[2022-06-28 09:50] LABS: Base Excess -3 mmol/L (-2 to +2); Bicarbonate 21.4 mmol/L (22-26); Blood Gas Specimen Type ART; PO2 67 mmHG (75-100); SITE R Radial; SO2 94 % (95-99); Total Carbon Dioxide 22 mmol/L; pCO2 31.5 mmHg (35-45); pH 7.44 (7.35-7.45)
[2022-06-28 11:04] LABS: Pathologist Review Reviewed
--- NOTE | 2022-06-28 13:45 | RAD_ITS ---
INDICATION: og placement EXAMINATION/TECHNIQUE: X-RAY - XR Abdomen 1 View COMPARISON: None FINDINGS: BOWEL GAS PATTERN: Prominent air-filled loops of small bowel. An OG tube is seen with tip in the stomach. FREE AIR: Not assessed on a single supine view. ORGANOMEGALY: Not seen. CALCIFICATIONS: No abnormal calcifications observed. LOWER CHEST: Patchy airspace opacities. BONES AND SOFT TISSUES: No acute pathology. RAD/Abdomen Single View (Portable) IMPRESSION: OG tube tip is in the stomach. Electronically Signed: Nicolás Ramos MD at 18:48 EST ,
--- NOTE | 2022-06-28 13:57 | CASEMGMT ---
Social Work Pt dgt has requested pt discharge to [place] instead of back to [facility]. Pt is not medically ready for discharge at this time. faxed clinicals to [place] and requested they review for possible admission at the appropriate time. HEMANTH Romeo
[2022-06-28] MEDS: Lidocaine 1% (20 ml mdv) 20 ML Vial INFILT (14:25)
--- NOTE | 2022-06-28 17:01 | PN_ITS ---
Subjective Subjective Patient is on Precedex at this time due to worsening altered mental status. She still maintained on pressor therapy due to hypotension. She has chest tube in place and it is still draining a good amount of serosanguineous fluid. Objective Data Objective Data Vital Signs: Vital Signs Temp Pulse Resp BP Pulse Ox O2 Del Method O2 Flow Rate 98.0 F 88 21 H 149/88 H 98 Nasal Cannula 2 06/28/22 14:15 06/28/22 16:00 06/28/22 14:15 06/28/22 14:15 06/28/22 12:00 06/28/22 14:15 06/28/22 14:15 FiO2 30 06/27/22 19:00 Oxygen Flow Rate (L/min) [4] 3 Oxygen Flow Rate (L/min) [3] 3 Oxygen Flow Rate (L/min) [2] 3 Oxygen Flow Rate (L/min) [1 ( 2 Initial Baseline)] Oxygen Flow Rate (L/min) [4] 2 Oxygen Flow Rate (L/min) [3] 2 Oxygen Flow Rate (L/min) [2] 2 Oxygen Flow Rate (L/min) [1 ( 2 Initial Baseline)] Oxygen Flow Rate (L/min) 2 Oxygen Delivery Method [4] Nasal Cannula Oxygen Delivery Method [3] Nasal Cannula Oxygen Delivery Method [2] Nasal Cannula Oxygen Delivery Method [1 ( Nasal Cannula Initial Baseline)] Oxygen Delivery Method [4] Nasal Cannula Oxygen Delivery Method [3] Nasal Cannula Oxygen Delivery Method [2] Nasal Cannula Oxygen Delivery Method [1 ( Nasal Cannula Initial Baseline)] Oxygen Delivery Method Nasal Cannula Weight: 142 lb 3.17 oz Body Mass Index (BMI) 27.8 Intake & Output: Intake and Output for Last 24 Hours 06/26/22 06/27/22 06/28/22 23:59 23:59 23:59 Intake Total 790 / 790 254.98 / 265.68 395.97 / 395.97 Output Total 3150 / 3250 5225 / 5225 Balance 790 / 790 -2895.02 / -2984.32 -4829.03 / -4829.03 Lab / Micro Data Result Diagrams: 06/28/22 07:50 06/28/22 07:50 Labs: Laboratory Results - last 24 hr 06/25/22 03:12: Diff Path Review Reviewed 06/28/22 07:50: WBC 18.9 H, RBC 2.98 L, Hgb 10.3 L, Hct 31.0 L, MCV 104.0 H D, MCH 34.6 H, MCHC 33.2 D, RDW Std Deviation 56.4 H, RDW Coeff of Radha 14.7 H, Plt Count 47 L*, MPV 13.0 H, Immature Gran % (Auto) 1.900 H, Neut % (Auto) 80.0 H, Lymph % (Auto) 12.2 L, Isabella % (Auto) 5.4, Eos % (Auto) 0.2, Baso % (Auto) 0.3, Absolute Neuts (auto) 15.1 H, Absolute Lymphs (auto) 2.31, Nucleated RBC % 0.2, Differential Comment SCANNED, Diff Path Review October, Platelet Estimate MKD 06/28/22 07:50: Sodium 142, Potassium 5.1, Chloride 108 H, Carbon Dioxide 26.0, Anion Gap 8, BUN 46 H, Creatinine 1.87 H, Estim Creat Clear Calc 24.04, Est GFR (MDRD) Af Amer 35 L, Est GFR (MDRD) Non-Af 29 L, BUN/Creatinine Ratio 24.6 H, Glucose 92, Calcium 7.8 L 06/28/22 09:15: Ammonia 16.0 Micro: Microbiology 06/22/22 23:29 Blood Culture (Wb) - Left Hand Blood Culture - Final No growth in 5 days. 06/22/22 22:36 Blood Culture (Wb) - Anticubital Right Blood Culture - Final No growth in 5 days. 06/23/22 00:05 Urine, Clean Catch Urine Culture - Final Escherichia coli 06/23/22 08:56 Mucosa - Nasopharyngeal Respiratory Panel (PCR) - Final Influenza A (Subtype H1) 06/23/22 07:25 Nasal Secretion SARS-CoV-2 & FLU Antigen (Rapid) - Final Influenzae A 06/23/22 00:09 Urine Catheter - Catheter Legionella Antigen - Final 06/23/22 00:09 Urine Catheter - Catheter Streptococcus pneumoniae Antigen (M - Final ABG Data ABG results: ABG 06/28/22 09:47 Specimen Type ART Sample Site R Radial pH 7.44 Bicarbonate Actual 21.4 L Total CO2 22 Base Excess -3 L O2 Saturation 94 L ABG pCO2 31.5 L ABG pO2 67 L Liter Flow 2.0 Radiography Diagnostic Testing: Radiology Impression Paracentesis Ultrasound 06/28/22 08:34 IMPRESSION: Ultrasound guided paracentesis. Electronically Signed: Loco Pearson MD at 15:15 EST , Physical Exam Const Constitutional Narrative: Patient is not oriented to person place or timing Chest Chest Narrative: Chest tube dressing was changed after noting some leakage to bolster ABD pads. Patient's chest tube did not demonstrate a airleak in the waterseal chamber for me. Collection canister has now reached 1500 and new canister for a total of 3300 mL since placement. Resp Resp Narrative: Somewhat blunted respiratory effort apparent Assessment & Plan Assessment/Plan (1) Respiratory failure with hypoxia and hypercapnia: PLAN: Thought to be secondary to hepatic hydrothorax with pleural effusions status post thoracotomy. She may need VATS procedure in the future. Her liver is too small to get a TIPS done. She would need a shunt placed to prevent recurrent hepatic hydrothorax. However at this time she is not a candidate. (2) Hepatitis C: PLAN: Outpatient treatment for chronic hepatitis C after genotype and PCR with viral load (3) Encephalopathy: PLAN: . Recommend NG tube placement and lactulose 30 cc every 4 hours. (4) Cirrhosis: PLAN: She is being treated for an acute infection contributing to encephalopathy. Meld is 10 and she is a child Vasquez class B. Cirrhosis is also complicated by ascites and pleural effusions. She underwent thoracentesis and paracentesis. There is no sign of spontaneous bacterial peritonitis at this time. Recommend outpatient treatment for hepatitis C. While she is inpatient recommend to continue midodrine as previously ordered. She may benefit from octreotide to help inpatient reduction in ascitic fluid. Recommend 500 mg sodium restriction without protein calorie restriction. Also recommend to check alpha-fetoprotein to screen for hepatocellular carcinoma. Due to the size of her liver she would not be a candidate for TIPS procedure to prevent recurrent pleural effusions. She should have scheduled outpatient paracentesis. I have not seen her in the office as of yet. This can be arranged as an outpatient. Charges/Coding Visit Charges Inpatient E&M: 76623 Subs Hosp L3
[2022-06-28] MEDS: Lactulose 20 GM/30 ML UDC PO ×2 (17:09→21:02)
[2022-06-28] MEDS: Albumin Human 25% (100 mL) 25 GM/100 ML BAG IV ×2 (17:50→21:00)
[2022-06-29] VITALS (32 sets, daily range): BP systolic 70–126; BP diastolic 42–80; PULSE 68–111; RESP 12–22; TEMP 36–37.3; O2SAT 93–100
[2022-06-29] MEDS: fentaNYL 100 MCG/2 ML Ampul 50 MCG IV (00:25)
[2022-06-29] MEDS: Lactulose 20 GM/30 ML UDC PO ×3 (01:41→07:57)
[2022-06-29 04:03] LABS: Absolute Lymphocyte Count 2.21 X10^3/uL (0.83-4.51); Absolute Neutrophil Count 7.7 X10^3/uL (2.0-7.7); Basophil# 0.03 X10^3/uL; Basophil% 0.3 % (0-1); Hematocrit 27.7 % (37-47); Hemoglobin 9.3 g/dL (12.0-15.0); Lymphocyte # 2.21 X10^3/ul (0.83-4.51); Lymphocyte % 19.8 % (19-41); Mean Corp Hgb Conc 33.6 g/dL (32-36); Mean Corpuscular Hgb 34.7 pg (27.0-32.0); Mean Corpuscular Volume 103.4 fL (81-99); Mean Platelet Vol. 12.9 fl (6.2-12.0); Monocyte# 0.93 X10^3/uL; Monocyte% 8.3 % (0-10); NRBC Flagged by Analyzer 0.4 % (0-5); Neutrophil # 7.68 X10^3/uL (2.7-7.7); POSITIVE COUNT YES; POSITIVE MORPHOLOGY YES; Platelet Count 53 K/mm3 (150-450); RBC Distribution Width CV 15.4 % (11.6-14.6); RBC Distribution Width SD 58.2 fl (35.1-43.9); Red Blood Count 2.68 M/mm3 (4.2-5.4); White Blood Count 11.1 K/mm3 (4.4-11.0)
[2022-06-29 04:08] LABS: Differential Indicated SCAN CRITERIA MET
[2022-06-29 04:18] LABS: ALB/GLOB Ratio 0.9 RATIO (0.9-2.4); AST(SGOT) 74 U/L (15-37); Alanine Aminotransfer ALT/SGPT 29 U/L (13-56); Albumin, Serum 2.7 g/dL (3.2-5.0); Alkaline Phosphatase 66 U/L (45-117); Anion Gap 10 (5-15); BUN 55 mg/dL (7-18); BUN/Creat Ratio 22.9 RATIO (10-20); Calcium,Total 7.8 mg/dL (8.5-10.1); Chloride 109 mmol/L (98-107); EST Glomerular Filtration Rate 22 mL/min (>60); Est Glom Filt Rate - Afr Amer 26 mL/min (>60); Estimated Creatinine Clearance 18.73 ml/min; Globulin 2.9 g/dL (2.2-4.2); Glucose 107 mg/dL (74-106); Magnesium 2.4 mg/dL (1.6-2.6); Phosphorus 3.7 mg/dL (2.5-4.9); Potassium 5.1 mmol/L (3.5-5.1); Protein, Total 5.6 g/dL (6.4-8.2); Sodium Level 142 mmol/L (136-145)
[2022-06-29 04:20] LABS: International Normalized Ratio 1.9; Prothrombin Time (Protime)PT. 21.3 SECONDS (11.7-14.9)
[2022-06-29 04:28] LABS: Differential Comment SCANNED
[2022-06-29] MEDS: CHLORHEXIDINE GLUC 2% CLOTH 1 EACH TOWELETTE TOPICAL (06:10)
[2022-06-29] MEDS: Albumin Human 25% (100 mL) 25 GM/100 ML BAG IV (06:10)
[2022-06-29] MEDS: 0.9% Saline Lock 10 ML Syringe IV ×4 (06:10→20:33)
[2022-06-29] MEDS: Levothyroxine 75 MCG Tablet PO (06:11)
[2022-06-29] MEDS: Ipratropium/Albuterol Sulfate 3 ML AMPUL.NEB INHALATION ×3 (07:12→19:35)
--- NOTE | 2022-06-29 07:32 | PN.HOSP_ITS ---
Subjective Subjective Follow-up ascites ? Patient remains in ICU underwent ultrasound-guided paracentesis with 4 750 mL of ascitic fluid taken off. -There is worsening of patient kidney function consult placed to nephrology for suspected hepatorenal syndrome Objective Data Objective Data Vital Signs: Vital Signs Temp Pulse Resp BP Pulse Ox O2 Del Method O2 Flow Rate 99.1 F 73 18 117/71 95 Nasal Cannula 3 06/29/22 00:00 06/29/22 07:13 06/29/22 07:13 06/29/22 06:00 06/29/22 07:13 06/29/22 07:13 06/29/22 07:13 FiO2 30 06/27/22 19:00 Oxygen Flow Rate (L/min) [4] 3 Oxygen Flow Rate (L/min) [3] 3 Oxygen Flow Rate (L/min) [2] 3 Oxygen Flow Rate (L/min) [1 ( 2 Initial Baseline)] Oxygen Flow Rate (L/min) [4] 2 Oxygen Flow Rate (L/min) [3] 2 Oxygen Flow Rate (L/min) [2] 2 Oxygen Flow Rate (L/min) [1 ( 2 Initial Baseline)] Oxygen Flow Rate (L/min) 3 Oxygen Delivery Method [4] Nasal Cannula Oxygen Delivery Method [3] Nasal Cannula Oxygen Delivery Method [2] Nasal Cannula Oxygen Delivery Method [1 ( Nasal Cannula Initial Baseline)] Oxygen Delivery Method [4] Nasal Cannula Oxygen Delivery Method [3] Nasal Cannula Oxygen Delivery Method [2] Nasal Cannula Oxygen Delivery Method [1 ( Nasal Cannula Initial Baseline)] Oxygen Delivery Method Nasal Cannula Weight: 56.3 kg Body Mass Index (BMI) 27.8 Intake & Output: Intake and Output for Last 24 Hours 06/27/22 06/28/22 06/29/22 23:59 23:59 23:59 Intake Total 254.98 / 265.68 1140.93 / 1155.95 188.22 / 188.22 Output Total 3150 / 3250 9925 / 30703 950 / 950 Balance -2895.02 / -2984.32 -8784.07 / -9519.05 -761.78 / -761.78 Lab / Micro Data Result Diagrams: 06/29/22 03:50 06/29/22 03:50 Labs: Laboratory Results - last 24 hr 06/25/22 03:12: Diff Path Review Reviewed 06/28/22 07:50: WBC 18.9 H, RBC 2.98 L, Hgb 10.3 L, Hct 31.0 L, MCV 104.0 H D, MCH 34.6 H, MCHC 33.2 D, RDW Std Deviation 56.4 H, RDW Coeff of Radha 14.7 H, Plt Count 47 L*, MPV 13.0 H, Immature Gran % (Auto) 1.900 H, Neut % (Auto) 80.0 H, Lymph % (Auto) 12.2 L, [place] % (Auto) 5.4, Eos % (Auto) 0.2, Baso % (Auto) 0.3, Absolute Neuts (auto) 15.1 H, Absolute Lymphs (auto) 2.31, Nucleated RBC % 0.2, Differential Comment SCANNED, Diff Path Review October, Platelet Estimate MKD 06/28/22 07:50: Sodium 142, Potassium 5.1, Chloride 108 H, Carbon Dioxide 26.0, Anion Gap 8, BUN 46 H, Creatinine 1.87 H, Estim Creat Clear Calc 24.04, Est GFR (MDRD) Af Amer 35 L, Est GFR (MDRD) Non-Af 29 L, BUN/Creatinine Ratio 24.6 H, Glucose 92, Calcium 7.8 L 06/28/22 09:15: Ammonia 16.0 06/29/22 03:50: WBC 11.1 H, RBC 2.68 L, Hgb 9.3 L, Hct 27.7 L, MCV 103.4 H, MCH 34.7 H, MCHC 33.6, RDW Std Deviation 58.2 H, RDW Coeff of Radha 15.4 H, Plt Count 53 L, MPV 12.9 H, Immature Gran % (Auto) 2.600 H, Neut % (Auto) 69.0, Lymph % (Auto) 19.8, [place] % (Auto) 8.3, Eos % (Auto) 0.0, Baso % (Auto) 0.3, Absolute Neuts (auto) 7.7, Absolute Lymphs (auto) 2.21, Nucleated RBC % 0.4, Differential Comment SCANNED 06/29/22 03:50: PT 21.3 H, INR 1.9 06/29/22 03:50: Sodium 142, Potassium 5.1, Chloride 109 H, Carbon Dioxide 23.0, Anion Gap 10, BUN 55 H, Creatinine 2.40 H, Estim Creat Clear Calc 18.73, Est GFR (MDRD) Af Amer 26 L, Est GFR (MDRD) Non-Af 22 L, BUN/Creatinine Ratio 22.9 H, Glucose 107 H, Calcium 7.8 L, Phosphorus 3.7, Magnesium 2.4, Total Bilirubin 1.60 H, AST 74 H, ALT 29, Alkaline Phosphatase 66, Total Protein 5.6 L, Albumin 2.7 L, Globulin 2.9, Albumin/Globulin Ratio 0.9 Micro: Microbiology 06/22/22 23:29 Blood Culture (Wb) - Left Hand Blood Culture - Final No growth in 5 days. 06/22/22 22:36 Blood Culture (Wb) - Anticubital Right Blood Culture - Final No growth in 5 days. 06/23/22 00:05 Urine, Clean Catch Urine Culture - Final Escherichia coli 06/23/22 08:56 Mucosa - Nasopharyngeal Respiratory Panel (PCR) - Final Influenza A (Subtype H1) 06/23/22 07:25 Nasal Secretion SARS-CoV-2 & FLU Antigen (Rapid) - Final Influenzae A 06/23/22 00:09 Urine Catheter - Catheter Legionella Antigen - Final 06/23/22 00:09 Urine Catheter - Catheter Streptococcus pneumoniae Antigen (M - Final ABG Data ABG results: ABG 06/27/22 06/28/22 06:09 09:47 Specimen Type ART ART Sample Site L Radial R Radial pH 7.03 L* 7.44 Bicarbonate Actual 24.0 21.4 L Total CO2 27 22 Base Excess -7 L -3 L O2 Saturation 93 L 94 L O2 % 100 ABG pCO2 91.4 H* 31.5 L ABG pO2 102 H 67 L O2 Delivery Device NRB Liter Flow 2.0 Crit Call To/Read Back Yes Blood Gas Notified Whom Justin Radiography Diagnostic Testing: Radiology Impression Paracentesis Ultrasound 06/28/22 08:34 IMPRESSION: Ultrasound guided paracentesis. Electronically Signed: Loco Pearson MD at 15:15 EST , KUB X-Ray 06/28/22 13:45 IMPRESSION: OG tube tip is in the stomach. Electronically Signed: Nicolás Ramos MD at 18:48 EST , Physical Exam Narrative GENERAL: Patient is delirious HEENT: Atraumatic; normocephalic EYES; Anicteric, Normal Conjunctiva NECK; supple, normal thyroid, RESPIRATORY: Diminished to auscultation chest tube on the right CARDIOVASCULAR: Regular S1 S2, GI: Abdomen is distended dull to percussion : No Renal angle tenderness; EXTREMITIES: edema, no clubbing, MUSCULOSKELETAL: no muscle wasting NEURO: Awake; no lateralizing signs. SKIN: No Rash PSYCH; delirious Assessment & Plan Assessment/Plan (1) Respiratory failure with hypoxia and hypercapnia: (2) Ascites: PLAN: Plan Patient is a 66-year-old lady with history of cirrhosis of the liver with ascites who who presented with increasing confusion and assessment of sepsis secondary to influenza A infection made admitted to the intensive care unit for further management. Patient hospital stay complicated by right hydrothorax resulting in chest tube placement 1. Septic shock secondary to influenza A infection, urinary tract infection, suspected SBP ? Patient admitted to the intensive care unit patient was not managed with aggressive IV fluid given ascites as well as hydrothorax she did receive broad- spectrum antibiotic therapy in addition to Levophed 2. Acute hepatic encephalopathy ? Probably for stated by patient's influenza A infection UTI. Currently on lactulose GI on board 3. Acute hypoxia ? Secondary to patient hydrothorax currently on supplemental oxygen. Patient was seen in consultation by Dr. Isaacs with general surgery did place right-sided chest tube following development of pneumothorax after thoracocentesis 4.. Cirrhosis of the liver with ascites Patient has undergone paracentesis with rapid reaccumulation consult placed to interventional radiology for ultrasound-guided paracentesis. Consult was also placed to Dr. Marshall with GI. Patient started on lactulose -06/29/2022 patient remains in ICU underwent ultrasound-guided paracentesis with 4 750 mL of ascitic fluid taken off. 5. Acute renal failure ? Hepatorenal syndrome, patient creatinine on admission was 1.0?since being got ready to ration it kidney function 2.4 as of this AM. Ordered renal ultrasound repeat labs ordered for a.m. and consultation placed to nephrology 6. Thrombocytopenia ? Secondary to patient chronic liver disease monitoring with daily CBC 7. Anemia - Secondary to chronic disorder monitoring H&H and transfuse if patient becomes symptomatic or hemoglobin falls below 7 8. Acute cystitis with E. coli ? Patient started on Rocephin urine culture sent we will follow-up on result ? 06/29/2022 patient urine culture resulted positive for E. coli on appropriate antibiotic therapy 9. Endometrial thickening ? Plan is for patient to follow-up with [facility] as outpatient for possible biopsy when medically stable 10. DVT prophylaxis ? Bilateral SCDs 11. Severe protein calorie malnutrition ? As evidenced by decreased energy level decreased oral intake this is secondary to patient multiple medical comorbidities consult placed to dietitian Time spent in the patient's overall evaluation,decision-making process, review of diagnostic data, adjustment of management, discussion with other providers, nursing nursing and ancillary staff involved in patient's care documentation, 60 Minutes Charges/Coding Procedures Hospitalists Procedures: [id number] [facility] Care 1st Hr
--- NOTE | 2022-06-29 07:32 | PCM.PN.INT ---
Assessment & Plan Assessment/Plan (1) Ascites: (2) Hypotension: PLAN: Plan RECOMMENDATIONS: 1. Chest tube management per general surgery. 2. Continue albumin, octreotide and midodrine as ordered. 3. Maintain n.p.o. status for now. 4. Supplemental oxygen to maintain saturations at or above 90%. 5. Continue antimicrobials. 6. Continue lactulose. 7. Recommend goals of care discussion with the patient's family, given overall poor prognosis. IMPRESSIONS: 1. Sepsis secondary to influenza A Low clinical suspicion for pneumonia outside of the influenza A. The patient does have a history of SBP in the past, but fluid studies are not suggestive at this at this time. I suspect that the patient's underlying hypotension is likely secondary to third spacing in the setting of cirrhosis. She has been weaned at this time from vasopressor support. Plan to continue midodrine per NG tube. The patient also remains on antimicrobials to address her underlying E. coli urinary tract infection. 2. Acute hypoxic respiratory insufficiency secondary to influenza A/right pleural effusion/iatrogenic pneumothorax The patient has a rather large right-sided pleural effusion and influenza A. The patient did ultimately undergo a thoracentesis, which was complicated by the development of a hydropneumothorax. Ultimately, the patient required tube thoracotomy. Plan to continue chest tube to wall suction. Surgery is following to assist with medical management. Continue to wean supplemental oxygen as tolerated. 3. Metabolic encephalopathy Worsening metabolic encephalopathy likely secondary to decompensated cirrhosis and acute kidney injury. The patient does appear to be experiencing a great deal of delirium. ABG obtained yesterday was within normal limits. Recommend continuing current supportive measures including lactulose, octreotide and midodrine. 4. Cirrhosis/debility/elevated CA125/coagulopathy Complicates care, management, recovery and prognosis. Frequent hospitalizations leading to debility. Physical therapy is currently following. Medical management as noted above. UPDATE: As noted in subjective above, the patient's family has come to the decision to pursue comfort care measures. CODE STATUS will be updated to DNR CC. Orders for palliative medications will be ordered. CODE status: Discussed CODE status at length including difference between FULL code, DNR-CCA and DNR-CC status. Following discussions about the differences in these status, patient's family requested DNR comfort care CODE STATUS. Advanced Care Planning Face to Face Time: 20 minutes This note was generated with Dragon dictation software. It may contain incorrect words, spelling, and punctuation that were not noted in checking the note before signing. Subjective Subjective The patient was seen and examined at the bedside this morning. Events from the last 24 hours have been reviewed. The patient continues to decompensate clinically with worsening metabolic encephalopathy. She did undergo a large-volume paracentesis yesterday and is currently receiving albumin. Her Levophed has been weaned off. She still remains intermittently agitated and not directable, despite being on Precedex. Creatinine has worsened to 2.4. Update: I personally met with the patient's family this afternoon at the bedside to discuss prognosis and goals of care. The patient's family was updated on her clinical state including progression in her decompensated cirrhosis and metabolic encephalopathy. After taking time to discuss as a family, they wish to proceed with initiation of comfort care measures. CODE STATUS will be updated to reflect their wishes. Palliative medications will be administered. If the patient survives the day, referral can be placed to hospice care services. Objective Data Objective Data The patient's most recent lab work, culture data and imaging studies have all been personally reviewed. Respiratory viral panel was positive for influenza A. Urine culture dated June 23 was positive for E. coli. Vital Signs: Vital Signs Temp Pulse Resp BP Pulse Ox O2 Del Method O2 Flow Rate 99.1 F 73 18 117/71 95 Nasal Cannula 3 06/29/22 00:00 06/29/22 07:13 06/29/22 07:13 06/29/22 06:00 06/29/22 07:13 06/29/22 07:13 06/29/22 07:13 FiO2 30 06/27/22 19:00 Oxygen Flow Rate (L/min) [4] 3 Oxygen Flow Rate (L/min) [3] 3 Oxygen Flow Rate (L/min) [2] 3 Oxygen Flow Rate (L/min) [1 ( 2 Initial Baseline)] Oxygen Flow Rate (L/min) [4] 2 Oxygen Flow Rate (L/min) [3] 2 Oxygen Flow Rate (L/min) [2] 2 Oxygen Flow Rate (L/min) [1 ( 2 Initial Baseline)] Oxygen Flow Rate (L/min) 3 Oxygen Delivery Method [4] Nasal Cannula Oxygen Delivery Method [3] Nasal Cannula Oxygen Delivery Method [2] Nasal Cannula Oxygen Delivery Method [1 ( Nasal Cannula Initial Baseline)] Oxygen Delivery Method [4] Nasal Cannula Oxygen Delivery Method [3] Nasal Cannula Oxygen Delivery Method [2] Nasal Cannula Oxygen Delivery Method [1 ( Nasal Cannula Initial Baseline)] Oxygen Delivery Method Nasal Cannula Weight: 124 lb 1.924 oz Body Mass Index (BMI) 27.8 Intake & Output: Intake and Output for Last 24 Hours 06/27/22 06/28/22 06/29/22 23:59 23:59 23:59 Intake Total 254.98 / 265.68 1140.93 / 1155.95 188.22 / 188.22 Output Total 3150 / 3250 9925 / 15314 950 / 950 Balance -2895.02 / -2984.32 -8784.07 / -9519.05 -761.78 / -761.78 Lab / Micro Data Attestation: I reviewed the patient's lab results. Result Diagrams: 06/29/22 03:50 06/29/22 03:50 Labs: Laboratory Results - last 24 hr 06/25/22 03:12: Diff Path Review Reviewed 06/28/22 07:50: WBC 18.9 H, RBC 2.98 L, Hgb 10.3 L, Hct 31.0 L, MCV 104.0 H D, MCH 34.6 H, MCHC 33.2 D, RDW Std Deviation 56.4 H, RDW Coeff of Radha 14.7 H, Plt Count 47 L*, MPV 13.0 H, Immature Gran % (Auto) 1.900 H, Neut % (Auto) 80.0 H, Lymph % (Auto) 12.2 L, [place] % (Auto) 5.4, Eos % (Auto) 0.2, Baso % (Auto) 0.3, Absolute Neuts (auto) 15.1 H, Absolute Lymphs (auto) 2.31, Nucleated RBC % 0.2, Differential Comment SCANNED, Diff Path Review October valeri, Platelet Estimate MKD 06/28/22 07:50: Sodium 142, Potassium 5.1, Chloride 108 H, Carbon Dioxide 26.0, Anion Gap 8, BUN 46 H, Creatinine 1.87 H, Estim Creat Clear Calc 24.04, Est GFR (MDRD) Af Amer 35 L, Est GFR (MDRD) Non-Af 29 L, BUN/Creatinine Ratio 24.6 H, Glucose 92, Calcium 7.8 L 06/28/22 09:15: Ammonia 16.0 06/29/22 03:50: WBC 11.1 H, RBC 2.68 L, Hgb 9.3 L, Hct 27.7 L, MCV 103.4 H, MCH 34.7 H, MCHC 33.6, RDW Std Deviation 58.2 H, RDW Coeff of Radha 15.4 H, Plt Count 53 L, MPV 12.9 H, Immature Gran % (Auto) 2.600 H, Neut % (Auto) 69.0, Lymph % (Auto) 19.8, [place] % (Auto) 8.3, Eos % (Auto) 0.0, Baso % (Auto) 0.3, Absolute Neuts (auto) 7.7, Absolute Lymphs (auto) 2.21, Nucleated RBC % 0.4, Differential Comment SCANNED 06/29/22 03:50: PT 21.3 H, INR 1.9 06/29/22 03:50: Sodium 142, Potassium 5.1, Chloride 109 H, Carbon Dioxide 23.0, Anion Gap 10, BUN 55 H, Creatinine 2.40 H, Estim Creat Clear Calc 18.73, Est GFR (MDRD) Af Amer 26 L, Est GFR (MDRD) Non-Af 22 L, BUN/Creatinine Ratio 22.9 H, Glucose 107 H, Calcium 7.8 L, Phosphorus 3.7, Magnesium 2.4, Total Bilirubin 1.60 H, AST 74 H, ALT 29, Alkaline Phosphatase 66, Total Protein 5.6 L, Albumin 2.7 L, Globulin 2.9, Albumin/Globulin Ratio 0.9 Micro: Microbiology 06/22/22 23:29 Blood Culture (Wb) - Left Hand Blood Culture - Final No growth in 5 days. 06/22/22 22:36 Blood Culture (Wb) - Anticubital Right Blood Culture - Final No growth in 5 days. 06/23/22 00:05 Urine, Clean Catch Urine Culture - Final Escherichia coli 06/23/22 08:56 Mucosa - Nasopharyngeal Respiratory Panel (PCR) - Final Influenza A (Subtype H1) 06/23/22 07:25 Nasal Secretion SARS-CoV-2 & FLU Antigen (Rapid) - Final Influenzae A 06/23/22 00:09 Urine Catheter - Catheter Legionella Antigen - Final 06/23/22 00:09 Urine Catheter - Catheter Streptococcus pneumoniae Antigen (M - Final ABG Data ABG results: ABG 06/27/22 06/28/22 06:09 09:47 Specimen Type ART ART Sample Site L Radial R Radial pH 7.03 L* 7.44 Bicarbonate Actual 24.0 21.4 L Total CO2 27 22 Base Excess -7 L -3 L O2 Saturation 93 L 94 L O2 % 100 ABG pCO2 91.4 H* 31.5 L ABG pO2 102 H 67 L O2 Delivery Device NRB Liter Flow 2.0 Crit Call To/Read Back Yes Blood Gas Notified Whom Justin Radiography Diagnostic Testing: Radiology Impression Paracentesis Ultrasound 06/28/22 08:34 IMPRESSION: Ultrasound guided paracentesis. Electronically Signed: Loco Pearson MD at 15:15 EST , KUB X-Ray 06/28/22 13:45 IMPRESSION: OG tube tip is in the stomach. Electronically Signed: Nicolás Ramos MD at 18:48 EST , Physical Exam Const Constitutional Narrative: Intermittently agitated, yelling out. General Appearance: lethargic and frail HEENT normocephalic and head/scalp atraumatic Eyes PERRL and EOMs intact bilaterally Neck supple General: trachea midline Chest Chest Narrative: No air leak noted today in the Pleur-evac. Chest: chest tube Resp no use of accessory muscles Auscultation: diminished lung sounds Cardio regular rate and regular rhythm GI soft to palpation Inspection: abdominal distention Extremity General Extremity: edema Skin no rashes or lesions noted Neuro Neuro Narrative: Confused and disoriented. No focal deficits. Not directable. Psych Activity / Motor Behavior: restless Charges/Coding Visit Charges Inpatient E&M: 99717 Subs Hosp L3 Procedures Hospitalists Procedures: [id number] Advncd Care Plan 30 Min
[2022-06-29] MEDS: Midodrine HCl 5 MG Tablet 10 MG PO (07:57)
[2022-06-29] MEDS: Pantoprazole Sodium 40 MG Tablet PO (07:58)
[2022-06-29] MEDS: Ceftriaxone 1 GM/50 ML BAG IV (08:24)
--- NOTE | 2022-06-29 09:47 | CASEMGMT ---
Social Work Physician would like to speak w/family regarding goals of care. SW called daughter/YG Deleon. She is on her way here from the airport, should be her in an hour. SW asked her to notify RN when she is here and she can let physician know. SW also let physician know that daughter will be here in about an hour. CHUCK Zaragoza
--- NOTE | 2022-06-29 12:06 | CHAPLAIN ---
Type of Pastoral Visit ___ Initial Visit ___ Follow-up Visit ___ On-call Visit ___ General Patient Visit ___ Spiritual Assessment ___ Family Conference ___ Bereavement ___ Rapid Response ___ Code Blue ___ Other (describe below) Pastoral Care Referral From ___ Patient ___ Family ___ Nurse ___ Physician ___ Executive Administrative Assistant ___ Mechanical Expert ___ Other (describe below) Sacrament/Intervention ___ Active listening ___ Anointing ___ Pentecostal ___ Bereavement ___ Communion ___ Baylee exploration ___ ___ Life review ___ Prayer ___ Reconciliation ___ Sacrament of Sick ___ Supportive presence ___ Wedding ___ Other (describe below) Pastoral Comments RN recommended offer of support to daughter who has arrived from out of state this morning; pt decline is significant; went to offer support; pt is not awake or alert; daughter is on phone with her brother; offered to return at a later time
--- NOTE | 2022-06-29 12:12 | CASEMGMT ---
Social Work SW spoke w/RN, family is going to change pt to comfort care. SW met w/daughter and son in law, offered support. SW notified [facility] that pt may not be returning. SW notified [facility] also that pt would not be coming there. SW remains available for support to family as needed. CHUCK Zaragoza
--- NOTE | 2022-06-29 12:33 | PCM.PN.SRG ---
Subjective Subjective Patient seen and evaluated during AM rounds. She is again found restless on exam and does not respond to simple commands. According to report, patient had a large-volume paracentesis yesterday. Objective Data Objective Data Vital Signs: Vital Signs Temp Pulse Resp BP Pulse Ox O2 Del Method O2 Flow Rate 98.3 F 73 22 H 98/59 L 94 Nasal Cannula 2 06/29/22 08:00 06/29/22 11:25 06/29/22 11:08 06/29/22 10:00 06/29/22 10:00 06/29/22 10:00 06/29/22 10:00 FiO2 30 06/27/22 19:00 Oxygen Flow Rate (L/min) [4] 3 Oxygen Flow Rate (L/min) [3] 3 Oxygen Flow Rate (L/min) [2] 3 Oxygen Flow Rate (L/min) [1 ( 2 Initial Baseline)] Oxygen Flow Rate (L/min) [4] 2 Oxygen Flow Rate (L/min) [3] 2 Oxygen Flow Rate (L/min) [2] 2 Oxygen Flow Rate (L/min) [1 ( 2 Initial Baseline)] Oxygen Flow Rate (L/min) 2 Oxygen Delivery Method [4] Nasal Cannula Oxygen Delivery Method [3] Nasal Cannula Oxygen Delivery Method [2] Nasal Cannula Oxygen Delivery Method [1 ( Nasal Cannula Initial Baseline)] Oxygen Delivery Method [4] Nasal Cannula Oxygen Delivery Method [3] Nasal Cannula Oxygen Delivery Method [2] Nasal Cannula Oxygen Delivery Method [1 ( Nasal Cannula Initial Baseline)] Oxygen Delivery Method Nasal Cannula Weight: 124 lb 1.924 oz Body Mass Index (BMI) 27.8 Intake & Output: Intake and Output for Last 24 Hours 06/27/22 06/28/22 06/29/22 23:59 23:59 23:59 Intake Total 254.98 / 265.68 1140.93 / 1155.95 385.04 / 385.04 Output Total 3150 / 3250 9925 / 01182 950 / 950 Balance -2895.02 / -2984.32 -8784.07 / -9519.05 -564.96 / -564.96 Lab / Micro Data Result Diagrams: 06/29/22 03:50 06/29/22 03:50 Labs: Laboratory Results - last 24 hr 06/29/22 03:50: WBC 11.1 H, RBC 2.68 L, Hgb 9.3 L, Hct 27.7 L, MCV 103.4 H, MCH 34.7 H, MCHC 33.6, RDW Std Deviation 58.2 H, RDW Coeff of Radha 15.4 H, Plt Count 53 L, MPV 12.9 H, Immature Gran % (Auto) 2.600 H, Neut % (Auto) 69.0, Lymph % (Auto) 19.8, [place] % (Auto) 8.3, Eos % (Auto) 0.0, Baso % (Auto) 0.3, Absolute Neuts (auto) 7.7, Absolute Lymphs (auto) 2.21, Nucleated RBC % 0.4, Differential Comment SCANNED 06/29/22 03:50: PT 21.3 H, INR 1.9 06/29/22 03:50: Sodium 142, Potassium 5.1, Chloride 109 H, Carbon Dioxide 23.0, Anion Gap 10, BUN 55 H, Creatinine 2.40 H, Estim Creat Clear Calc 18.73, Est GFR (MDRD) Af Amer 26 L, Est GFR (MDRD) Non-Af 22 L, BUN/Creatinine Ratio 22.9 H, Glucose 107 H, Calcium 7.8 L, Phosphorus 3.7, Magnesium 2.4, Total Bilirubin 1.60 H, AST 74 H, ALT 29, Alkaline Phosphatase 66, Total Protein 5.6 L, Albumin 2.7 L, Globulin 2.9, Albumin/Globulin Ratio 0.9 Micro: Microbiology 06/22/22 23:29 Blood Culture (Wb) - Left Hand Blood Culture - Final No growth in 5 days. 06/22/22 22:36 Blood Culture (Wb) - Anticubital Right Blood Culture - Final No growth in 5 days. 06/23/22 00:05 Urine, Clean Catch Urine Culture - Final Escherichia coli 06/23/22 08:56 Mucosa - Nasopharyngeal Respiratory Panel (PCR) - Final Influenza A (Subtype H1) 06/23/22 07:25 Nasal Secretion SARS-CoV-2 & FLU Antigen (Rapid) - Final Influenzae A 06/23/22 00:09 Urine Catheter - Catheter Legionella Antigen - Final 06/23/22 00:09 Urine Catheter - Catheter Streptococcus pneumoniae Antigen (M - Final ABG Data ABG results: ABG 06/27/22 06:09 Specimen Type ART Sample Site L Radial pH 7.03 L* Bicarbonate Actual 24.0 Total CO2 27 Base Excess -7 L O2 Saturation 93 L O2 % 100 ABG pCO2 91.4 H* ABG pO2 102 H O2 Delivery Device NRB Crit Call To/Read Back Yes Blood Gas Notified Whom Justin Radiography Diagnostic Testing: Radiology Impression Paracentesis Ultrasound 06/28/22 08:34 IMPRESSION: Ultrasound guided paracentesis. Electronically Signed: Loco Pearson MD at 15:15 EST , KUB X-Ray 06/28/22 13:45 IMPRESSION: OG tube tip is in the stomach. Electronically Signed: Nicolás Ramos MD at 18:48 EST , Physical Exam Const Constitutional Narrative: Patient is not oriented to person place or timing Chest Chest Narrative: Patient's chest tube remains well dressed and I do not see any significant leaking. Patient's chest tube did not demonstrate a airleak in the waterseal chamber for me again today. Less than 100 mL of additional chest tube output. Resp Resp Narrative: Somewhat blunted respiratory effort apparent Assessment & Plan Assessment/Plan (1) Pneumothorax: PLAN: This is a 66-year-old female, with complex past medical history?primarily owing to history of cirrhosis, who is currently under observation for postprocedural hydropneumothorax on the right following thoracentesis 06/24/2022. Patient required emergent right chest tube placement on 06/27/2022 with immediate output of nearly 2 L of thin, clear fluid. This output has continued through the following day, but has dropped off significantly over the past 24 hours?likely going to a paracentesis procedure yesterday with 4 L of output. GI has also weighed in and recommended/initiated octreotide therapy to minimize fluid production. I did discuss possible Pleurx catheter placement with pulmonary critical care medicine, Dr. Hopkins. At this point he would like to better understand what family wishes are before we continue to proceed with procedures. - Recommend decreasing continuous suction to -10 cm water and surgery will continue to follow for chest tube management Charges/Coding Visit Charges Inpatient E&M: 04932 Subs Hosp L2
[2022-06-29 12:41] LABS: Pathologist Review Reviewed
--- NOTE | 2022-06-29 12:54 | NURSING ---
DR Hopkins here talking with Family will transition to Comfort Care, ng removed
[2022-06-29] MEDS: Morphine 2 MG/ML Syringe IV ×2 (13:58→20:32)
--- NOTE | 2022-06-29 15:03 | PCM.CONS.R ---
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 The patient was recently admitted between 06/03/2022 until 06/10/2022 with new onset ascites and new diagnosis of cirrhosis. During the last admission, the patient had 13 L of ascites removed with paracentesis. The patient was discharged to SNF on 06/11/2022. The patient returns to the hospital on 06/23/2022 with confusion increased compared to baseline as well as increasing abdominal girth. The patient was diagnosed with hepatic encephalopathy as well as influenza A infection with features of sepsis syndrome. Nephrology is asked see the patient because of MADDY. [facility] Medical History (Updated 06/28/22 @ 17:[address] Tolentino Friend, DO) Abnormal gait Anemia Ascites Cirrhosis Edema Encephalopathy Falls Fracture, tibia and fibula GERD (gastroesophageal reflux disease) Hepatitis C Hypocalcemia Hypotension Hypothyroid Orthodontic device fitting or adjustment Thrombocytopenia Home Medications levothyroxine 75 mcg tablet 75 mcg PO DAILY THYROID 06/03/22 [History Last Taken Unknown] bumetanide 0.5 mg tablet 1 mg PO BID #0 tabs 06/10/22 [Rx Last Taken Unknown] lactulose 20 gram/30 mL oral solution 10 g (15 mL) PO BID #0 mL 06/10/22 [Rx Last Taken Unknown] midodrine 5 mg tablet 10 mg PO TIDCM #0 tabs 06/10/22 [Rx Last Taken Unknown] pantoprazole 40 mg tablet,delayed release 40 mg PO DAILY #0 tabs 06/10/22 [Rx Last Taken Unknown] spironolactone 50 mg tablet 50 mg PO DAILY #0 tabs 06/10/22 [Rx Last Taken Unknown] hydroxyzine HCl 25 mg tablet 25 mg DAILY PRN ITCHING 06/22/22 [History Last Taken Unknown] Allergy/AdvReac Type Severity Reaction Status Date / Time No Known Allergies Allergy Verified 06/03/22 14:06 Family History Mother No problems noted. Father Heart disease Surgical History unable to obtain Social History Smoking Status: Never smoker Lab / Micro Data Result Diagrams: 06/29/22 03:50 06/29/22 03:50 Labs: Laboratory Results - last 24 hr 06/28/22 07:50: Diff Path Review Reviewed 06/29/22 03:50: WBC 11.1 H, RBC 2.68 L, Hgb 9.3 L, Hct 27.7 L, MCV 103.4 H, MCH 34.7 H, MCHC 33.6, RDW Std Deviation 58.2 H, RDW Coeff of Radha 15.4 H, Plt Count 53 L, MPV 12.9 H, Immature Gran % (Auto) 2.600 H, Neut % (Auto) 69.0, Lymph % (Auto) 19.8, [place] % (Auto) 8.3, Eos % (Auto) 0.0, Baso % (Auto) 0.3, Absolute Neuts (auto) 7.7, Absolute Lymphs (auto) 2.21, Nucleated RBC % 0.4, Differential Comment SCANNED 06/29/22 03:50: PT 21.3 H, INR 1.9 06/29/22 03:50: Sodium 142, Potassium 5.1, Chloride 109 H, Carbon Dioxide 23.0, Anion Gap 10, BUN 55 H, Creatinine 2.40 H, Estim Creat Clear Calc 18.73, Est GFR (MDRD) Af Amer 26 L, Est GFR (MDRD) Non-Af 22 L, BUN/Creatinine Ratio 22.9 H, Glucose 107 H, Calcium 7.8 L, Phosphorus 3.7, Magnesium 2.4, Total Bilirubin 1.60 H, AST 74 H, ALT 29, Alkaline Phosphatase 66, Total Protein 5.6 L, Albumin 2.7 L, Globulin 2.9, Albumin/Globulin Ratio 0.9 ABG Data ABG results: ABG 06/27/22 06:09 Specimen Type ART Sample Site L Radial pH 7.03 L* Bicarbonate Actual 24.0 Total CO2 27 Base Excess -7 L O2 Saturation 93 L O2 % 100 ABG pCO2 91.4 H* ABG pO2 102 H O2 Delivery Device NRB Crit Call To/Read Back Yes Blood Gas Notified Whom Justin Radiology Impression Paracentesis Ultrasound 06/28/22 08:34 IMPRESSION: Ultrasound guided paracentesis. Electronically Signed: Loco Pearson MD at 15:15 EST , KUB X-Ray 06/28/22 13:45 IMPRESSION: OG tube tip is in the stomach. Electronically Signed: Nicolás Ramos MD at 18:48 EST ,
[2022-06-29] MEDS: LORazepam 2 MG/ML Syringe 1 MG IV ×2 (15:12→20:33)
--- NOTE | 2022-06-29 16:47 | PCM.PROGNOTE ---
Subjective Subjective Patient's mental status, metabolic encephalopathy and hemodynamic stability continues to worsen. Patient's family have decided to pursue comfort measures. Objective Data Objective Data Vital Signs: Vital Signs Temp Pulse Resp BP Pulse Ox O2 Del Method O2 Flow Rate 96.8 F L 72 12 98/58 L 100 Nasal Cannula 2 06/29/22 12:00 06/29/22 15:00 06/29/22 12:00 06/29/22 12:00 06/29/22 12:00 06/29/22 15:00 06/29/22 15:00 FiO2 30 06/27/22 19:00 Oxygen Flow Rate (L/min) [4] 3 Oxygen Flow Rate (L/min) [3] 3 Oxygen Flow Rate (L/min) [2] 3 Oxygen Flow Rate (L/min) [1 ( 2 Initial Baseline)] Oxygen Flow Rate (L/min) [4] 2 Oxygen Flow Rate (L/min) [3] 2 Oxygen Flow Rate (L/min) [2] 2 Oxygen Flow Rate (L/min) [1 ( 2 Initial Baseline)] Oxygen Flow Rate (L/min) 2 Oxygen Delivery Method [4] Nasal Cannula Oxygen Delivery Method [3] Nasal Cannula Oxygen Delivery Method [2] Nasal Cannula Oxygen Delivery Method [1 ( Nasal Cannula Initial Baseline)] Oxygen Delivery Method [4] Nasal Cannula Oxygen Delivery Method [3] Nasal Cannula Oxygen Delivery Method [2] Nasal Cannula Oxygen Delivery Method [1 ( Nasal Cannula Initial Baseline)] Oxygen Delivery Method Nasal Cannula Weight: 124 lb 1.924 oz Body Mass Index (BMI) 27.8 Intake & Output: Intake and Output for Last 24 Hours 06/27/22 06/28/22 06/29/22 23:59 23:59 23:59 Intake Total 254.98 / 265.68 1140.93 / 1155.95 417.62 / 417.62 Output Total 3150 / 3250 9925 / 46938 1110 / 1110 Balance -2895.02 / -2984.32 -8784.07 / -9519.05 -692.38 / -692.38 Lab / Micro Data Result Diagrams: 06/29/22 03:50 06/29/22 03:50 Labs: Laboratory Results - last 24 hr 06/28/22 07:50: Diff Path Review Reviewed 06/29/22 03:50: WBC 11.1 H, RBC 2.68 L, Hgb 9.3 L, Hct 27.7 L, MCV 103.4 H, MCH 34.7 H, MCHC 33.6, RDW Std Deviation 58.2 H, RDW Coeff of Radha 15.4 H, Plt Count 53 L, MPV 12.9 H, Immature Gran % (Auto) 2.600 H, Neut % (Auto) 69.0, Lymph % (Auto) 19.8, [place] % (Auto) 8.3, Eos % (Auto) 0.0, Baso % (Auto) 0.3, Absolute Neuts (auto) 7.7, Absolute Lymphs (auto) 2.21, Nucleated RBC % 0.4, Differential Comment SCANNED 06/29/22 03:50: PT 21.3 H, INR 1.9 06/29/22 03:50: Sodium 142, Potassium 5.1, Chloride 109 H, Carbon Dioxide 23.0, Anion Gap 10, BUN 55 H, Creatinine 2.40 H, Estim Creat Clear Calc 18.73, Est GFR (MDRD) Af Amer 26 L, Est GFR (MDRD) Non-Af 22 L, BUN/Creatinine Ratio 22.9 H, Glucose 107 H, Calcium 7.8 L, Phosphorus 3.7, Magnesium 2.4, Total Bilirubin 1.60 H, AST 74 H, ALT 29, Alkaline Phosphatase 66, Total Protein 5.6 L, Albumin 2.7 L, Globulin 2.9, Albumin/Globulin Ratio 0.9 Micro: Microbiology 06/22/22 23:29 Blood Culture (Wb) - Left Hand Blood Culture - Final No growth in 5 days. 06/22/22 22:36 Blood Culture (Wb) - Anticubital Right Blood Culture - Final No growth in 5 days. 06/23/22 00:05 Urine, Clean Catch Urine Culture - Final Escherichia coli 06/23/22 08:56 Mucosa - Nasopharyngeal Respiratory Panel (PCR) - Final Influenza A (Subtype H1) 06/23/22 07:25 Nasal Secretion SARS-CoV-2 & FLU Antigen (Rapid) - Final Influenzae A 06/23/22 00:09 Urine Catheter - Catheter Legionella Antigen - Final 06/23/22 00:09 Urine Catheter - Catheter Streptococcus pneumoniae Antigen (M - Final ABG Data ABG results: ABG 06/27/22 06:09 Specimen Type ART Sample Site L Radial pH 7.03 L* Bicarbonate Actual 24.0 Total CO2 27 Base Excess -7 L O2 Saturation 93 L O2 % 100 ABG pCO2 91.4 H* ABG pO2 102 H O2 Delivery Device NRB Crit Call To/Read Back Yes Blood Gas Notified Whom Justin Radiography Diagnostic Testing: Radiology Impression KUB X-Ray 06/28/22 13:45 IMPRESSION: OG tube tip is in the stomach. Electronically Signed: Nicolás Ramos MD at 18:48 EST , Physical Exam Const Constitutional Narrative: Patient is not oriented to person place or timing Chest Chest Narrative: Patient's chest tube remains well dressed and I do not see any significant leaking. Patient's chest tube did not demonstrate a airleak in the waterseal chamber for me again today. Less than 100 mL of additional chest tube output. Resp Resp Narrative: Somewhat blunted respiratory effort apparent Assessment & Plan Assessment/Plan (1) Respiratory failure with hypoxia and hypercapnia: PLAN: Thought to be secondary to hepatic hydrothorax with pleural effusions status post thoracotomy. Patient's family wants to pursue comfort measures. (2) Hepatitis C: PLAN: No outpatient treatment for chronic hepatitis C (3) Encephalopathy: PLAN: . DC recommend NG tube placement and lactulose 30 cc every 4 hours. (4) Cirrhosis: PLAN: Meld is 10 and she is a child Vasquez class c. Cirrhosis is also complicated by ascites and pleural effusions. She underwent thoracentesis and paracentesis. There is no sign of spontaneous bacterial peritonitis at this time. Patient cannot recover from severe metabolic encephalopathy with worsening pleural effusion, ascites. Charges/Coding Visit Charges Inpatient E&M: 92342 Subs Hosp L3
[2022-06-30 03:00] VITALS: BP 79/47; PULSE 88; RESP 22; O2SAT 94
[2022-06-30] MEDS: 0.9% Saline Lock 10 ML Syringe IV (04:45)
[2022-06-30] MEDS: Morphine 2 MG/ML Syringe IV ×2 (04:45→11:27)
[2022-06-30 07:02] VITALS: BP 102/53; PULSE 98; RESP 20; TEMP 36.8; O2SAT 91
[2022-06-30 07:20] VITALS: PULSE 98; RESP 18; O2SAT 91
[2022-06-30] MEDS: Ipratropium/Albuterol Sulfate 3 ML AMPUL.NEB INHALATION (07:20)
[2022-06-30 08:00] VITALS: BP 101/53; PULSE 101; RESP 18; TEMP 38.6; O2SAT 92
--- NOTE | 2022-06-30 08:13 | PN.HOSP_ITS ---
Subjective Subjective Follow-up hepatic encephalopathy Patient clinical condition continues to deteriorate. Patient CODE STATUS was changed to DNR CC after family discussion. Plan is to consult hospice for possible transfer to inpatient hospice facility for symptom management Objective Data Objective Data Vital Signs: Vital Signs Temp Pulse Resp BP Pulse Ox O2 Del Method O2 Flow Rate 98.3 F 98 20 H 102/53 L 91 Nasal Cannula 2 06/30/22 07:02 06/30/22 07:02 06/30/22 07:02 06/30/22 07:02 06/30/22 07:02 06/30/22 07:02 06/30/22 07:02 FiO2 30 06/27/22 19:00 Oxygen Flow Rate (L/min) [4] 3 Oxygen Flow Rate (L/min) [3] 3 Oxygen Flow Rate (L/min) [2] 3 Oxygen Flow Rate (L/min) [1 ( 2 Initial Baseline)] Oxygen Flow Rate (L/min) [4] 2 Oxygen Flow Rate (L/min) [3] 2 Oxygen Flow Rate (L/min) [2] 2 Oxygen Flow Rate (L/min) [1 ( 2 Initial Baseline)] Oxygen Flow Rate (L/min) 2 Oxygen Delivery Method [4] Nasal Cannula Oxygen Delivery Method [3] Nasal Cannula Oxygen Delivery Method [2] Nasal Cannula Oxygen Delivery Method [1 ( Nasal Cannula Initial Baseline)] Oxygen Delivery Method [4] Nasal Cannula Oxygen Delivery Method [3] Nasal Cannula Oxygen Delivery Method [2] Nasal Cannula Oxygen Delivery Method [1 ( Nasal Cannula Initial Baseline)] Oxygen Delivery Method Nasal Cannula Weight: 56.3 kg Body Mass Index (BMI) 27.8 Intake & Output: Intake and Output for Last 24 Hours 06/28/22 06/29/22 06/30/22 23:59 23:59 23:59 Intake Total 1140.93 / 1155.95 417.62 / 417.62 Output Total 9925 / 09289 1270 / 1270 300 / 300 Balance -8784.07 / -9519.05 -852.38 / -852.38 -300 / -300 Lab / Micro Data Result Diagrams: 06/29/22 03:50 06/29/22 03:50 Labs: Laboratory Results - last 24 hr 06/28/22 07:50: Diff Path Review Reviewed Micro: Microbiology 06/22/22 23:29 Blood Culture (Wb) - Left Hand Blood Culture - Final No growth in 5 days. 06/22/22 22:36 Blood Culture (Wb) - Anticubital Right Blood Culture - Final No growth in 5 days. 06/23/22 00:05 Urine, Clean Catch Urine Culture - Final Escherichia coli 06/23/22 08:56 Mucosa - Nasopharyngeal Respiratory Panel (PCR) - Final Influenza A (Subtype H1) 06/23/22 07:25 Nasal Secretion SARS-CoV-2 & FLU Antigen (Rapid) - Final Influenzae A 06/23/22 00:09 Urine Catheter - Catheter Legionella Antigen - Final 06/23/22 00:09 Urine Catheter - Catheter Streptococcus pneumoniae Antigen (M - Final Physical Exam Narrative GENERAL: Unresponsive HEENT: Atraumatic; normocephalic EYES; Anicteric, Normal Conjunctiva NECK; supple, normal thyroid, RESPIRATORY: Diminished to auscultation chest tube on the right CARDIOVASCULAR: Regular S1 S2, GI: Abdomen is distended dull to percussion : No Renal angle tenderness; EXTREMITIES: edema, no clubbing, MUSCULOSKELETAL: no muscle wasting NEURO: Unresponsive SKIN: No Rash Assessment & Plan Assessment/Plan (1) Respiratory failure with hypoxia and hypercapnia: (2) Ascites: PLAN: Plan Patient is a 66-year-old lady with history of cirrhosis of the liver with ascites who who presented with increasing confusion and assessment of sepsis secondary to influenza A infection made admitted to the intensive care unit for further management. Patient hospital stay complicated by right hydrothorax resulting in chest tube placement 1. Septic shock secondary to influenza A infection, urinary tract infection, suspected SBP ? Patient admitted to the intensive care unit patient was not managed with aggressive IV fluid given ascites as well as hydrothorax she did receive broad- spectrum antibiotic therapy in addition to Levophed ? 06/30/2022 Levophed discontinued 2. Acute hepatic encephalopathy ? Probably for stated by patient's influenza A infection UTI. Currently on lactulose GI on board 06/30/2022 Patient clinical condition continues to deteriorate. Patient CODE STATUS was changed to DNR CC after family discussion. Plan is to consult hospice for possible transfer to inpatient hospice facility for symptom management 3. Acute hypoxia ? Secondary to patient hydrothorax currently on supplemental oxygen. Patient was seen in consultation by Dr. Isaacs with general surgery did place right-sided chest tube following development of pneumothorax after thoracocentesis 4.. Cirrhosis of the liver with ascites Patient has undergone paracentesis with rapid reaccumulation consult placed to interventional radiology for ultrasound-guided paracentesis. Consult was also placed to Dr. Marshall with GI. Patient started on lactulose -06/29/2022 patient remains in ICU underwent ultrasound-guided paracentesis with 4 750 mL of ascitic fluid taken off. 5. Acute renal failure ? Hepatorenal syndrome, patient creatinine on admission was 1.0?since being got ready to ration it kidney function 2.4 as of this AM. Ordered renal ultrasound repeat labs ordered for a.m. and consultation placed to nephrology 6. Thrombocytopenia ? Secondary to patient chronic liver disease monitoring with daily CBC 7. Anemia - Secondary to chronic disorder monitoring H&H and transfuse if patient becomes symptomatic or hemoglobin falls below 7 8. Acute cystitis with E. coli ? Patient started on Rocephin urine culture sent we will follow-up on result ? 06/29/2022 patient urine culture resulted positive for E. coli on appropriate antibiotic therapy 9. Endometrial thickening ? Plan is for patient to follow-up with [facility] as outpatient for possible biopsy when medically stable 10. DVT prophylaxis ? Bilateral SCDs 11. Severe protein calorie malnutrition ? As evidenced by decreased energy level decreased oral intake this is secondary to patient multiple medical comorbidities consult placed to dietitian Time spent in the patient's overall evaluation,decision-making process, review of diagnostic data, adjustment of management, discussion with other providers, nursing nursing and ancillary staff involved in patient's care documentation,38 Minutes Charges/Coding Visit Charges Inpatient E&M: 16222 Subs Hosp L2
--- NOTE | 2022-06-30 09:26 | CASEMGMT ---
Social Work SW spoke w/bedside RN. Hospice was consulted for pt to go to the inpatient unit, however the unit is full. Hospice is to contact family. SW will continue to follow for assist with discharge plan if needed and support to family. CHUCK Zaragoza
[2022-06-30] MEDS: Acetaminophen 650 MG Suppository RC (11:27)
[2022-06-30] MEDS: morphine (oral solution) 10MG/0.5ML Syringe 5 MG SL/PO ×2 (14:55→22:55)
--- NOTE | 2022-06-30 15:34 | CASEMGMT ---
Social Work MILE spoke with hospice Liasion. Pt family has signed papers for hospice care. The Inpatient Hospice Unit is currently full with a waiting list, therefore pt will not be able to admit there. MILE spoke with pt dgt Adrienne and her spouse. MILE explained option of SNF placement with hospice services. Family aware cost of facility will be private pay and hospice services are covered by insurance they are agreeable to this. Pt is admitted from [facility] and family does not want pt to return there. A list of ECF providers including quality and resource use data and consistent with the patient?s preferred geographic region, medical needs, and insurance network were provided from the [facility] Guide. Dgt's preferred providers are 1. [facility] and 2. [facility]. Phone call to both facilities. YAEL left at [facility] and Kiley at [facility] states they do have beds available. Referrals sent to both facilities via [facility]. MILE updated pt dgt. Pt to remain at [facility] until an accepting facility has been secured. Nursing and physician updated. HEMANTH Romeo
[2022-06-30 16:54] VITALS: BP 84/50; PULSE 93; RESP 17; TEMP 36.9; O2SAT 99
[2022-06-30 17:57] VITALS: BP 91/42; PULSE 97; RESP 16; TEMP 37.3; O2SAT 88
[2022-07-01 06:23] LABS: Absolute Lymphocyte Count 1.68 X10^3/uL (0.83-4.51); Absolute Neutrophil Count 12.9 X10^3/uL (2.0-7.7); Basophil# 0.08 X10^3/uL; Basophil% 0.5 % (0-1); Eosinophil# 0.09 X10^3/uL; Eosinophils% 0.5 % (0-5); Hematocrit 33.2 % (37-47); Hemoglobin 10.4 g/dL (12.0-15.0); Lymphocyte # 1.68 X10^3/ul (0.83-4.51); Lymphocyte % 9.8 % (19-41); Mean Corp Hgb Conc 31.3 g/dL (32-36); Mean Corpuscular Hgb 35.7 pg (27.0-32.0); Mean Corpuscular Volume 114.1 fL (81-99); Mean Platelet Vol. 11.4 fl (6.2-12.0); Monocyte# 1.62 X10^3/uL; Monocyte% 9.5 % (0-10); NRBC Flagged by Analyzer 0.4 % (0-5); Neutrophil # 12.93 X10^3/uL (2.7-7.7); Neutrophil % 75.8 % (47-70); POSITIVE DIFFERENTIAL YES; POSITIVE MORPHOLOGY YES; Platelet Count 135 K/mm3 (150-450); RBC Distribution Width CV 15.9 % (11.6-14.6); RBC Distribution Width SD 66.4 fl (35.1-43.9); Red Blood Count 2.91 M/mm3 (4.2-5.4); White Blood Count 17.1 K/mm3 (4.4-11.0)
[2022-07-01 06:31] LABS: International Normalized Ratio 2.1; Prothrombin Time (Protime)PT. 23.6 SECONDS (11.7-14.9)
[2022-07-01 06:41] LABS: Differential Indicated SCAN CRITERIA MET
[2022-07-01 07:33] LABS: ALB/GLOB Ratio 0.7 RATIO (0.9-2.4); AST(SGOT) 129 U/L (15-37); Alanine Aminotransfer ALT/SGPT 41 U/L (13-56); Albumin, Serum 2.5 g/dL (3.2-5.0); Alkaline Phosphatase 73 U/L (45-117); Anion Gap 3 (5-15); BUN 82 mg/dL (7-18); BUN/Creat Ratio 17.7 RATIO (10-20); Calcium,Total 7.4 mg/dL (8.5-10.1); Chloride 113 mmol/L (98-107); Creatinine, Serum 4.62 mg/dL (0.55-1.02); EST Glomerular Filtration Rate 10 mL/min (>60); Est Glom Filt Rate - Afr Amer 12 mL/min (>60); Estimated Creatinine Clearance 9.73 ml/min; Globulin 3.6 g/dL (2.2-4.2); Glucose 83 mg/dL (74-106); Magnesium 2.8 mg/dL (1.6-2.6); Phosphorus 8.8 mg/dL (2.5-4.9); Potassium 6.5 mmol/L (3.5-5.1); Protein, Total 6.1 g/dL (6.4-8.2); Sodium Level 141 mmol/L (136-145)
[2022-07-01 08:30] LABS: Anisocytosis 1+
--- NOTE | 2022-07-01 09:02 | PCM.PN.HOSP ---
Subjective Subjective Follow-up hepatic encephalopathy ? Patient was transferred from the intensive care unit to [facility] after CODE STATUS was changed to DNR CC. Did initiate palliative care/symptom management for end-of-life care. Objective Data Objective Data Vital Signs: Vital Signs Temp Pulse Resp BP Pulse Ox O2 Del Method O2 Flow Rate 99.1 F 97 16 91/42 L 88 Nasal Cannula 3 06/30/22 17:57 06/30/22 17:57 06/30/22 17:57 06/30/22 17:57 06/30/22 17:57 06/30/22 20:20 06/30/22 20:20 FiO2 30 06/27/22 19:00 Oxygen Flow Rate (L/min) [4] 3 Oxygen Flow Rate (L/min) [3] 3 Oxygen Flow Rate (L/min) [2] 3 Oxygen Flow Rate (L/min) [1 ( 2 Initial Baseline)] Oxygen Flow Rate (L/min) [4] 2 Oxygen Flow Rate (L/min) [3] 2 Oxygen Flow Rate (L/min) [2] 2 Oxygen Flow Rate (L/min) [1 ( 2 Initial Baseline)] Oxygen Flow Rate (L/min) 3 Oxygen Delivery Method [4] Nasal Cannula Oxygen Delivery Method [3] Nasal Cannula Oxygen Delivery Method [2] Nasal Cannula Oxygen Delivery Method [1 ( Nasal Cannula Initial Baseline)] Oxygen Delivery Method [4] Nasal Cannula Oxygen Delivery Method [3] Nasal Cannula Oxygen Delivery Method [2] Nasal Cannula Oxygen Delivery Method [1 ( Nasal Cannula Initial Baseline)] Oxygen Delivery Method Nasal Cannula Weight: 55.593 kg Body Mass Index (BMI) 27.8 Intake & Output: Intake and Output for Last 24 Hours 06/29/22 06/30/22 07/01/22 23:59 23:59 23:59 Intake Total 417.62 / 417.62 Output Total 1270 / 1270 985 / 1835 1350 / 1350 Balance -852.38 / -852.38 -985 / -1835 -1350 / -1350 Lab / Micro Data Result Diagrams: 07/01/22 04:50 07/01/22 04:50 Labs: Laboratory Results - last 24 hr 07/01/22 04:50: WBC 17.1 H, RBC 2.91 L, Hgb 10.4 L, Hct 33.2 L, MCV 114.1 H D, MCH 35.7 H, MCHC 31.3 L D, RDW Std Deviation 66.4 H, RDW Coeff of Radha 15.9 H, Plt Count 135 L, MPV 11.4, Immature Gran % (Auto) 3.900 H, Neut % (Auto) 75.8 H, Lymph % (Auto) 9.8 L, [place] % (Auto) 9.5, Eos % (Auto) 0.5, Baso % (Auto) 0.5, Absolute Neuts (auto) 12.9 H, Absolute Lymphs (auto) 1.68, Nucleated RBC % 0.4, Differential Comment COMMENT, Diff Path Review October foll, Anisocytosis 1+ 07/01/22 04:50: PT 23.6 H, INR 2.1 07/01/22 04:50: Sodium 141, Potassium 6.5 H*, Chloride 113 H, Carbon Dioxide 25.0, Anion Gap 3 L, BUN 82 H, Creatinine 4.62 H, Estim Creat Clear Calc 9.73, Est GFR (MDRD) Af Amer 12 L, Est GFR (MDRD) Non-Af 10 L, BUN/Creatinine Ratio 17.7, Glucose 83, Calcium 7.4 L, Phosphorus 8.8 H, Magnesium 2.8 H, Total Bilirubin 1.60 H, AST 129 H, ALT 41, Alkaline Phosphatase 73, Total Protein 6.1 L, Albumin 2.5 L, Globulin 3.6, Albumin/Globulin Ratio 0.7 L Micro: Microbiology 06/22/22 23:29 Blood Culture (Wb) - Left Hand Blood Culture - Final No growth in 5 days. 06/22/22 22:36 Blood Culture (Wb) - Anticubital Right Blood Culture - Final No growth in 5 days. 06/23/22 00:05 Urine, Clean Catch Urine Culture - Final Escherichia coli 06/23/22 08:56 Mucosa - Nasopharyngeal Respiratory Panel (PCR) - Final Influenza A (Subtype H1) 06/23/22 07:25 Nasal Secretion SARS-CoV-2 & FLU Antigen (Rapid) - Final Influenzae A 06/23/22 00:09 Urine Catheter - Catheter Legionella Antigen - Final 06/23/22 00:09 Urine Catheter - Catheter Streptococcus pneumoniae Antigen (M - Final Physical Exam Narrative GENERAL: Unresponsive HEENT: Atraumatic; normocephalic EYES; Anicteric, Normal Conjunctiva NECK; supple, normal thyroid, RESPIRATORY: Diminished to auscultation chest tube on the right CARDIOVASCULAR: Regular S1 S2, GI: Abdomen is distended dull to percussion : No Renal angle tenderness; EXTREMITIES: edema, no clubbing, MUSCULOSKELETAL: no muscle wasting NEURO: Unresponsive SKIN: No Rash Assessment & Plan Assessment/Plan (1) Respiratory failure with hypoxia and hypercapnia: (2) Ascites: PLAN: Plan Patient is a 66-year-old lady with history of cirrhosis of the liver with ascites who who presented with increasing confusion and assessment of sepsis secondary to influenza A infection made admitted to the intensive care unit for further management. Patient hospital stay complicated by right hydrothorax resulting in chest tube placement 1. Septic shock secondary to influenza A infection, urinary tract infection, suspected SBP ? Patient admitted to the intensive care unit patient was not managed with aggressive IV fluid given ascites as well as hydrothorax she did receive broad-spectrum antibiotic therapy in addition to Levophed ? 06/30/2022 Levophed discontinued 2. Acute hepatic encephalopathy ? Probably for stated by patient's influenza A infection UTI. Currently on lactulose GI on board 06/30/2022 Patient clinical condition continues to deteriorate. Patient CODE STATUS was changed to DNR CC after family discussion. Plan is to consult hospice for possible transfer to inpatient hospice facility for symptom management -07/01/2022; ? Patient was transferred from the intensive care unit to [facility] floor after CODE STATUS was changed to DNR CC. Did initiate palliative care/symptom management for end-of-life care. 3. Acute hypoxia ? Secondary to patient hydrothorax currently on supplemental oxygen. Patient was seen in consultation by Dr. Isaacs with general surgery did place right-sided chest tube following development of pneumothorax after thoracocentesis 4.. Cirrhosis of the liver with ascites Patient has undergone paracentesis with rapid reaccumulation consult placed to interventional radiology for ultrasound-guided paracentesis. Consult was also placed to Dr. Marshall with GI. Patient started on lactulose -06/29/2022 patient remains in ICU underwent ultrasound-guided paracentesis with 4 750 mL of ascitic fluid taken off. 5. Acute renal failure ? Hepatorenal syndrome, patient creatinine on admission was 1.0?since being got ready to ration it kidney function 2.4 as of this AM. Ordered renal ultrasound repeat labs ordered for a.m. and consultation placed to nephrology 6. Thrombocytopenia ? Secondary to patient chronic liver disease monitoring with daily CBC 7. Anemia - Secondary to chronic disorder monitoring H&H and transfuse if patient becomes symptomatic or hemoglobin falls below 7 8. Acute cystitis with E. coli ? Patient started on Rocephin urine culture sent we will follow-up on result ? 06/29/2022 patient urine culture resulted positive for E. coli on appropriate antibiotic therapy 9. Endometrial thickening ? Plan is for patient to follow-up with [facility] as outpatient for possible biopsy when medically stable 10. DVT prophylaxis ? Bilateral SCDs 11. Severe protein calorie malnutrition ? As evidenced by decreased energy level decreased oral intake this is secondary to patient multiple medical comorbidities consult placed to dietitian Time spent in the patient's overall evaluation,decision-making process, review of diagnostic data, adjustment of management, discussion with other providers, nursing nursing and ancillary staff involved in patient's care documentation,38 Minutes Charges/Coding Visit Charges Inpatient E&M: 73097 [facility] Hosp L2
[2022-07-01 09:27] VITALS: BP 67/36; PULSE 94; RESP 12; TEMP 37; O2SAT 89
--- NOTE | 2022-07-01 10:06 | CASEMGMT ---
Social Work SW received notification that pt family in room and wanting an update. SW in to pt room to discuss. SW informed pt daughter, Adrienne, that referrals had been sent to the two choices provided yesterday and we are now just waiting for acceptance. Adrienne voiced understanding. SW informed when more information is known that SW will give update. Adrienne stated has some errands to attend to and may not be at hospital all day. SW reassured Adrienne this is fine and a phone call will be placed to her if a facility accepts. Brigida Bourgeois, HEMANTH
--- NOTE | 2022-07-01 11:49 | PN_ITS ---
Assessment & Plan Assessment/Plan (1) Pneumothorax: PLAN: Patient is Hospice. We were contacted to change the dressing around the chest tube as it was saturated. Dressing removed and replaced. No clots in the chest tube. Chest tube in good position no kinks. Increased suction to -20 cm water. Patient was discussed with Dr. Isaacs. Visit Charges Inpatient E&M: [id number] [facility] Hosp L1
[2022-07-01 21:51] VITALS: BP 62/25; PULSE 85; RESP 11; TEMP 36.9; O2SAT 95
--- NOTE | 2022-07-01 23:15 | NURSING ---
Family notified of pt
--- NOTE | 2022-07-01 23:30 | NURSING ---
[facility] called to report pt
--- NOTE | 2022-07-01 23:44 | NURSING ---
Hospice called to inform of pt
--- NOTE | 2022-07-02 00:17 | NURSING ---
Pt bathed. Chest tube, PICC line, and pederson catheter removed
--- NOTE | 2022-07-02 00:40 | NURSING ---
home to burr picker pt, forms signed, belongings given to [facility] employee
--- NOTE | 2022-07-02 07:14 | PCM.DEATH ---
Preliminary Cause of Preliminary Cause of Preliminary Cause of : Cirrhosis of the liver with hepatic encephalopathy Date of Admission: 06/23/22 Date of : 07/01/22 Principle Diagnosis Septic shock secondary to influenza A and suspected SBP Hepatic encephalopathy Problem List: Active and Suspected Problems (Updated 06/28/22 @ 17:[address] Tolentino Friend, DO) Cirrhosis (Acute) Encephalopathy (Acute) Respiratory failure with hypoxia and hypercapnia (Acute) Hypoalbuminemia (Acute) Hepatitis C (Acute) UTI (urinary tract infection) (Acute) Thickened endometrium (Acute) Incidental finding on ultrasound, patient asymptomatic recommend endometrial biopsy and Pap smear for routine cervical cancer screening as an outpatient Pneumothorax (Acute) Pleural effusion (Acute) Pain in left toe(s) (Acute) Chronic pain of toe of right foot (Acute) Nail dystrophy (Acute) Severe protein-calorie malnutrition (Acute) Debility (Acute) Influenza A (Acute) Sepsis (Acute) UTI (urinary tract infection) (Acute) SBP (spontaneous bacterial peritonitis) (Acute) Pneumonia (Acute) Encephalopathy acute (Acute) Ascites (Acute) Cirrhosis (Acute) Hypotension (Acute) Sepsis (Acute) Hospital Course Patient is a 66-year-old lady with history of cirrhosis of the liver with ascites who who presented with increasing confusion and assessment of sepsis secondary to influenza A infection made admitted to the intensive care unit for further management.? Patient hospital stay complicated by right hydrothorax resulting in chest tube placement. Patient hospital course continued to deteriorate despite being on optimal management. Case was discussed with family CODE STATUS changed to DNR CC. Did initiate palliative care symptom management. On 07/01/2022 at 2250 patient was found without heart tones and without spontaneous breathing. Patient was pronounced family notified Visit Charges Inpatient E&M: [id number] [facility]
[2022-07-05 09:27] LABS: Pathologist Review Reviewed
== END 2022-07-02 00:40 | DRG 871 ==
LOC: ED 06-23 01:09 → ICU 06-23 03:19 → MS3 06-25 19:14 → ICU 06-28 04:45 → MS3 06-30 17:54
PROVIDERS: Internal Medicine Critical Care Medicine; Obstetrics & Gynecology; Admitting Provider Hospitalist; Emergency Provider Emergency Medicine; PCP Family Medicine; Visit Provider Internal Medicine
DX: A41.89 Other specified sepsis (principal); G93.41 Metabolic encephalopathy; K76.7 Hepatorenal syndrome; J96.01 Acute respiratory failure with hypoxia; R65.21 Severe sepsis with septic shock; E43 Unspecified severe protein-calorie malnutrition; J96.02 Acute respiratory failure with hypercapnia; K65.2 Spontaneous bacterial peritonitis; N17.9 Acute kidney failure, unspecified; D68.9 Coagulation defect, unspecified; J98.11 Atelectasis; J91.8 Pleural effusion in other conditions classified elsewhere; R18.8 Other ascites; N30.00 Acute cystitis without hematuria; J10.81 Influenza due to other identified influenza virus with encephalopathy; A41.51 Sepsis due to Escherichia coli [E. coli]; K74.60 Unspecified cirrhosis of liver; B18.2 Chronic viral hepatitis C; D69.6 Thrombocytopenia, unspecified; J95.811 Postprocedural pneumothorax; I95.9 Hypotension, unspecified; D63.8 Anemia in other chronic diseases classified elsewhere; N18.2 Chronic kidney disease, stage 2 (mild); E03.9 Hypothyroidism, unspecified; J10.1 Influenza due to other identified influenza virus with other respiratory manifestations; K21.9 Gastro-esophageal reflux disease without esophagitis; B96.89 Other specified bacterial agents as the cause of diseases classified elsewhere; Z66 Do not resuscitate; Z51.5 Encounter for palliative care; Z79.899 Other long term (current) drug therapy; Z79.890 Hormone replacement therapy; Z68.27 Body mass index [BMI] 27.0-27.9, adult
CPT/HCPCS: 32555; 36415; 36569; 36600; 49083; 71045; 71046; 74018; 80048; 80053; 80202; 81001; 82140; 82378; 82803; 83605; 83735; 84100; 84484; 85025; 85610; 85730; 87040; 87077; 87086; 87088; 87186; 87428; 87449; 87633; 88108; 88305; 88313; 88341; 88342; 89050; 93005; 94002; 94640; 94762; 97110; 97162; 97166; 97530; 97535; 97802; 99285; J7030; J7040; J7050; P9047; A4216; J2354; J3490